=== PATIENT | male | born 2000 | race Caucasian/White ===

== ENCOUNTER → 2020-12-19 10:14 | Outpatient (BNVA) | payer OTHER, SELFPAY | PROVIDERS: Family Provider Pediatrics Adolescent Medicine; PCP Pediatrics Adolescent Medicine; Visit Provider Nurse Practitioner Family | DX: J02.9 Acute pharyngitis, unspecified (principal) | CPT/HCPCS: 87071; 87880 ==

== ENCOUNTER → 2023-10-15 13:07 | Outpatient (BNVA) | payer OTHER, SELFPAY | PROVIDERS: Family Provider Pediatrics Adolescent Medicine; PCP Pediatrics Adolescent Medicine; Visit Provider Nurse Practitioner | DX: Z20.2 Contact with and (suspected) exposure to infections with a predominantly sexual mode of transmission (principal) | CPT/HCPCS: 87491; 87591; 87661 ==

== ENCOUNTER → 2024-09-16 15:43 | Outpatient (BNVA) | payer OTHER, SELFPAY | PROVIDERS: Family Provider Pediatrics Adolescent Medicine; PCP Pediatrics Adolescent Medicine; Referring Provider Family Medicine; Visit Provider Specialist | DX: G62.9 Polyneuropathy, unspecified (principal); R20.0 Anesthesia of skin; R20.2 Paresthesia of skin | CPT/HCPCS: 95910 ==

== ENCOUNTER 2025-05-21 08:00 | Emergency (ER) | payer OTHER, SELFPAY ==
--- OUTSIDE RECORDS SUMMARY | 2024-07-16 07:32 | XMS_ITS | Encounter Summary ---
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 This section includes the names of all active insurance providers for the patient. Insurance Provider Type of Coverage Plan Name Start of Policy Coverage End of Policy Coverage Group Number Member ID Insurance Provider's Telephone Number Policy Forrester's Name Patient's Relationship to Policy Forrester [facility] Oct 15, 2024 [employer] [id number] GIULIANO NETTLES PATIENT Selected Encounter This section includes the information on record at [place] for the Encounter. Date/Time Encounter Type Encounter Description Reason Provider Source Jul 16, 2024 12:32 PM Outpatient [facility] ICD-10-CM Z02.89 Encounter for other administrative examinations JODEE BURKS David Encounter Template Text not used by [place] Assessments - Encounter Diagnoses This section includes the primary and secondary diagnoses documented for the Encounter. Date/Time Primary/Secondary Diagnosis Diagnosis Name Provider Source Jul 16, 2024 02:15 PM PRIMARY Encounter for other administrative examinations JODEE BURKS [facility] Plan of Treatment: Future Appointments (+ 6 months) and Future Tests (+/- 45 days) The Plan of Treatment section includes future care activities for the patient [facility] [place] [facility] This section includes future appointments and future orders which are active, pending or scheduled. Future Appointments This section includes appointments that were scheduled to occur 6 months from the date of the Encounter, up to a maximum of 20 appointments. The data comes from all [place] [facility]. Appointment Date/Time Appointment Type Appointme nt Facility Name Jul 24, 2024 09:00 AM [facility] [place] [facility] Jul 24, 2024 10:00 AM [facility] [place] [facility] Aug 05, 2024 01:00 PM [facility] [place] [facility] [facility] Aug 08, 2024 01:00 PM [facility] [place] Aug 08, 2024 01:01 PM [facility] [place] [facility] Aug 11, 2024 08:30 AM [facility] [place] Aug 26, 2024 08:30 AM [facility] Aug 27, 2024 11:00 AM [facility] [place] Sep 09, 2024 08:30 AM [facility] Sep 12, 2024 02:00 PM [facility] [place] Sep 16, 2024 03:45 PM [facility] [place] [facility] Oct 07, 2024 11:00 AM [facility] [place] Oct 13, 2024 03:00 PM [facility] Oct 16, 2024 01:20 PM [facility] [place] Oct 31, 2024 01:00 PM [facility] Nov 14, 2024 01:00 PM [facility] Nov 18, 2024 03:00 PM [facility] Nov 25, 2024 11:20 AM [facility] Nov 27, 2024 08:40 AM [facility] Nov 28, 2024 01:00 PM [facility] [place] Encounter Notes: All associated encounter notes This section contains the clinical notes associated to the Encounter. Date/Time Encounter Note(s) Provider Source Jul 16, 2024 09:29 AM C & P EXAMINATION NOTE: LOCAL TITLE: C&P EXAM STANDARD TITLE: C & P EXAMINATION NOTE DATE OF NOTE: JUL 16, 2024@09:29 ENTRY DATE: JUL 16, 2024@09:29:08 AUTHOR: JODEE BURKS COSIGNER: URGENCY: STATUS: COMPLETED Mr. Nettles was seen by this practitioner as a part of a Compensation and Pension examination, and a report will be issued in [facility] using the DBQ format. /glendy/ Jodee Burks PsyD Psychologist Signed: 07/16/2024 14:26 [facility]
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
--- OUTSIDE RECORDS SUMMARY | 2024-08-08 03:31 | XMS_ITS | Encounter Summary ---
Author Name [facility] [place] [facility] [place] Address [address] [place] [address] Care Team Providers Care Dispatcher Street Department Name Role Phone FREDDIE ROJAS Primary Care Provider Unavailabl e Insurance Providers: [...] Forrester's Name Patient's Relationship to Policy Forrester [facility] 2024 [facility] Oct 15, 2024 [facility] [id number] 97 GIULIANO NETTLES PATIENT Selected Encounter This section includes the information on record at [place] for the Encounter. Date/Time Encounter Type Encounter Description Reason Pro vider Source Aug 08, 2024 08:31 AM Outpatient Encounter AUDIOLOGY IHE Encounter Template Text not used by [facility] Plan of Treatment: Future Appointments (+ 6 months) and Future Tests (+/- 45 days) The Plan of Treatment section includes future care activities for the patient from all [facility] treatment[facility]ilities. This section includes future appointments and future orders which are active, pending or scheduled. Future Appointments This section includes appointments that were scheduled to occur 6 months from the date of the Encounter, up to a maximum of 20 appointments. The data comes from all [place] treatment facilities. Appointment Date/Time Appointment Type Appointme nt Facility Name Aug 11, 2024 08:30 AM [facility] Aug 26, 2024 08:30 AM [facility] Aug 27, 2024 11:00 AM [facility] Sep 09, 2024 08:30 AM [facility] Sep 12, 2024 02:00 PM [facility] Sep 16, 2024 03:45 PM [facility] [place] Oct 07, 2024 11:00 AM [facility] Oct 13, 2024 03:00 PM [facility] Oct 16, 2024 01:20 PM [facility] Oct 31, 2024 01:00 PM [facility] Nov 14, 2024 01:00 PM [facility] Nov 18, 2024 03:00 PM [facility] Nov 25, 2024 11:20 AM [facility] Nov 27, 2024 08:40 AM [facility] Nov 28, 2024 01:00 PM [facility] Dec 05, 2024 09:00 AM [facility] Dec 10, 2024 11:20 AM [facility] Dec 12, 2024 01:00 PM [facility] Dec 12, 2024 02:00 PM [facility] Dec 16, 2024 11:20 AM [facility]
--- OUTSIDE RECORDS SUMMARY | 2024-08-08 08:01 | XMS_ITS | Encounter Summary ---
Author Name [facility] [place] [facility] [place] Address [address] [place] [address] Care Team Providers Care Rough And Trueing Machine Operator Name Role Phone FREDDIE ROJAS Primary Care [...] Forrester's Name Patient's Relationship to Policy Forrester [facility] [address] [facility] Oct [facility], 2024 [facility] [id number] 97 GIULIANO NETTLES PATIENT Selected Encounter This section includes the information on record at [place] for the Encounter. Date/Time Encounter Type Encounter Description Reason Provider Source Aug 08, 2024 01:01 PM [facility] TEST PURE TONE AUDIOLOGY ICD-10-CM H93.13 Tinnitus, bilateral GRAVES,ALEXAND RA A IHE Encounter Template Text not used by [place] Assessments - Encounter Diagnoses This section includes the primary and secondary diagnoses documented for the Encounter. Date/Time Primary/Secondary Diagnosis Diagnosis Name Provider Source Aug 08, 2024 12:53 PM PRIMARY Tinnitus, bilateral GRAVES,LUIS FERNANDO A A [place] [facility] Aug 08, 2024 12:53 PM SECONDARY Snsrnrl hear loss, uni, right ear, w unrestr hear cntra side LUIS FERNANDO [place] A [place] Plan of Treatment: Future Appointments (+ 6 months) and Future Tests (+/- 45 days) The Plan of Treatment section includes future care activities for the patient from all [place] [facility]. This section includes future appointments and future orders which are active, pending or scheduled. Future Appointments This section includes appointments that were scheduled to occur 6 months from the date of the Encounter, up to a maximum of 20 appointments. The data comes from all [place] treatment facilities. Appointment Date/Time Appointment Type Appointme nt Facility Name Aug 11, 2024 08:30 AM [facility] Aug 26, 2024 08:30 AM [facility] Aug 27, 2024 11:00 AM [facility] Sep 09, 2024 08:30 AM [facility] Sep 12, 2024 02:00 PM [facility] Sep 16, 2024 03:45 PM [facility] [place] [facility] Oct 07, 2024 11:00 AM [facility] Oct 13, 2024 03:00 PM [facility] Oct 16, 2024 01:20 PM [facility] Oct 31, 2024 01:00 PM [facility] Nov 14, 2024 01:00 PM [facility] Nov 18, 2024 03:00 PM [facility] Nov 25, 2024 11:20 AM [facility] Nov 27, 2024 08:40 AM [facility] Nov 28, 2024 01:00 PM [facility] Dec 05, 2024 09:00 AM [facility] Dec 10, 2024 11:20 AM [facility] Dec 12, 2024 01:00 PM [facility] Dec 12, 2024 02:00 PM [facility] Dec 16, 2024 11:20 AM [facility] Encounter Notes: All associated encounter notes This section contains the clinical notes associated to the Encounter. Date/Time Encounter Note(s) Provider Source Aug 08, 2024 08:55 AM AUDIOLOGY NOTE: LOCAL TITLE: HEARING CLINIC PB STANDARD TITLE: AUDIOLOGY NOTE DATE OF NOTE: AUG 08, 2024@08:55 ENTRY DATE: AUG 08, 2024@08:55:49 AUTHOR: RUTH CLAYTON COSIGNER: URGENCY: STATUS: COMPLETED Diagnosis: Sensorineural Hearing Loss, Right and Tinnitus, Bilateral Treatment: Hearing Evaluation Time spent with : 60 minutes seen for an audiogram via Audio Telehealth and verbally consented to the Telehealth modality. Multi-factor personally identifiable information of the was obtained verbally (full name and date of ). accompanied by: none Patient site: [facility] AUDIOLOGIC HISTORY: Patient seen today for an initial hearing evaluation. 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 shooter) HEARING DEVICES: none AUDIOMETRIC EXAM: Otoscopy was performed by collaboration of telehealth clinical dish technician and provider via telehealth technology/video otoscope which revealed: Right: unremarkable Left: unremarkable Tympanograms: Right: consistent with normal middle ear function Left: consistent with normal middle ear function Acoustic Reflex Thresholds: not performed due to time constraints Pure-Tone Air and Bone-Conduction Audiometric Testing revealed: Right: within normal limits through 2000 Hz, mild to moderate sensorineural hearing loss Left: within normal limits Speech Electronic Drafter Threshold testing yielded: Right: 20 dBHL Left: 10 dBHL Word Recognition testing yielded: Right: 100% @ 60 dBHL Left: 100% @ 60 dBHL Word scoring may be impacted by quality of audio through telehealth medium. Test Reliability: Good. Negative pure-tone Laci at 4000 Hz. PROVIDER COMMENTS/RECOMMENDATIONS: Hearing test results were reviewed with patient. Patient is not interested in a hearing aid trial at this time. Counseled patient regarding effective communication strategies, importance of using hearing protection in high level noise, tinnitus, and factors affecting tinnitus. Patient declined interest in a bedside sound generator. PLAN: Recommend one year re-test to monitor asymmetry [place] expressed understanding and is in agreement with the plan. /glendy/ Ibrahima Feldman [facility] Signed: 08/08/2024 13:14 RUTH CLAYTON [facility]
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
--- OUTSIDE RECORDS SUMMARY | 2024-10-13 10:00 | XMS_ITS | Encounter Summary ---
Author Name [facility] Organization [facility] Address [address] [place] [address] Care Team Providers Care Yarn Winder Name Role Phone FREDDIE ROJAS Primary Care [...] Forrester's Name Patient's Relationship to Policy Forrester [facility] 2024 [facility] WNR Oct 15, 2024 [facility] [phone] GIULIANO NETTLES PATIENT Selected Encounter This section includes the information on record at MD for the Encounter. Date/Time Encounter Type Encounter Description Reason Provider Source Oct 13, 2024 03:00 PM OFFICE O/P EST MOD 30 MIN [facility] - IND ICD-10-CM F43.12 Post-traumatic stress disorder, chronic TG HENDERSON Encounter Template Text not used by MD Assessments - Encounter Diagnoses This section includes the primary and secondary diagnoses documented for the Encounter. Date/Time Primary/Secondary Diagnosis Diagnosis Name Provider Source Oct 13, 2024 03:29 PM PRIMARY Post-traumatic stress disorder, chronic TG HENDERSON [facility] Oct 13, 2024 03:29 PM SECONDARY Major depressive disorder, recurrent, moderate [facility] Oct 13, 2024 03:29 PM SECONDARY Personal history of traumatic brain injury TG HENDERSON [facility] Plan of Treatment: Future Appointments (+ 6 months) and Future Tests (+/- 45 days) The Plan of Treatment section includes future care activities for the patient from all MD treatmentfacilities. This section includes future appointments and future orders which are active, pending or scheduled. Future Appointments This section includes appointments that were scheduled to occur 6 months from the date of the Encounter, up to a maximum of 20 appointments. The data comes from all MD treatment facilities. Appointment Date/Time Appointment Type Appointme nt Facility Name Oct 16, 2024 01:20 PM [facility] Oct 31, 2024 01:00 PM [facility] Nov 14, 2024 01:00 PM [facility] Nov 18, 2024 03:00 PM [facility] Nov 25, 2024 11:20 AM [facility] Nov 27, 2024 08:40 AM [facility] Nov 28, 2024 01:00 PM [facility] Dec 05, 2024 09:00 AM [facility] Dec 10, 2024 11:20 AM [facility] Dec 12, 2024 01:00 PM [facility] Dec 12, 2024 02:00 PM [facility] Dec 16, 2024 11:20 AM [facility] Dec 26, 2024 01:00 PM [facility] Dec 31, 2024 09:00 AM [facility] Jan 09, 2025 01:00 PM [facility] Jan 15, 2025 01:00 PM [facility] Feb 06, 2025 01:00 PM [facility] February 26, 2025 03:00 PM [facility] March 06, 2025 01:00 PM AMBULATORY - MEDICINE [facility] Mar 30, 2025 01:00 PM AMBULATORY - MEDICINE [facility] Vital Signs: All taken on the encounter date This section contains inpatient and outpatient Vital Signs collected on the date of the Encounter. Date/Time Temperature Pulse Blood Pressure Respiratory Rate SP02 Pain Height Weight Body Mass Index Source Oct 13, 2024 03:00 PM 98 96 137/79 18 96 5 73 288.3 38 [facility] Social History: Smoking Status (Most current) and Tobacco Use (All prior to encounter date) This section includes the most current, and the historical, smoking and tobacco- related health factors from the MD facility where the Encounter took place. Current Smoking Status This section includes the most current smoking, or tobacco-related health factor, from the MD facility where the Encounter took place. Date/Time Current Smoking Status Comment Facil ity Dec 10, 2023 02:01 PM VA-TOBACCO USER SOME DAYS [facility] Tobacco Use History This section includes a history of the smoking, or tobacco-related health factors, that were collected on or before the date of the Encounter. The data comes from the MD facility where the Encounter took place. 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 Date/Time Encounter Note(s) Provider Source Oct 13, 2024 03:32 PM PSYCHIATRY NOTE: LOCAL TITLE: PSYCHIATRIC PROGRESS NOTE PB STANDARD TITLE: PSYCHIATRY NOTE DATE OF NOTE: OCT 13, 2024@15:32 ENTRY DATE: OCT 13, 2024@15:32:15 AUTHOR: TG HENDERSON COSIGNER: URGENCY: STATUS: COMPLETED CC: down HPI: RUSSELL NETTLES KRIS ARIAS is a 24-year-old man with a history of MDD and TBI who presents for medication management follow up appointment after last appointment on 09/12/24 where he was continued on Cymbalta that was increased to 90mg qam for mood and started on trazodone for insomnia. Patient reported compliance with meds with no side effects and good clinical effect. Patient denied any suicidal or homicidal ideation. Today patient reports that mood is down with no depression or anxiety symptoms except: anhedonia and amotivation. Current stressors include: pain issues and starting college soon. Patient denied manic or psychotic symptoms or history. Interval Social History changes: none ROS: pain Constitutional: good Weight: stable Sleep: fair Energy: low allergies reviewed: Patient has answered NKA PROBLEM LIST PER CPRS: reviewed 1) Traumatic brain injury 2) Morbid Obesity ([facility] [id number]) 3) GERD - Gastro-Esophageal Reflux Disease ([facility] [id number]) 4) Obstructive sleep apnea 5) Hearing Loss ([facility] [id number]) 6) Vitamin D Deficiency ([facility] [id number]) 7) Chronic pain 8) Cephalgia 9) Exposure to potentially hazardous substance 10) Chronic post-traumatic stress disorder 11) Bilateral tinnitus MEDICATIONS: reviewed Active and Recently Outpatient Medications (including Supplies): Active Outpatient Medications Status 1) CALCITONIN,SALMON 200UNIT 30D NASAL INHL INSTILL 1 SPRAY ACTIVE ONLY IN ONE NOSTRIL ONLY ONCE A DAY ALTERNATE NOSTRILS WITH EACH DOSE Indication: FRACTURE PAIN 2) CHOLECALCIF 50MCG (D3-2,000UNIT) TAB TAKE ONE TABLET BY ACTIVE MOUTH ONCE A DAY Indication: FOR VITAMIN D DEFICIENCY 3) DULOXETINE HCL 30MG EC CAP TAKE THREE CAPSULES BY MOUTH ONCE ACTIVE A DAY DO NOT ABRUPTLY DISCONTINUE MEDICATION. Indication: FOR DEPRESSION & PAIN 4) GABAPENTIN 300MG CAP TAKE ONE CAPSULE BY MOUTH THREE TIMES A ACTIVE DAY Indication: FOR NERVE PAIN 5) OMEPRAZOLE 40MG EC CAP TAKE ONE CAPSULE BY MOUTH EVERY ACTIVE MORNING BEFORE A MEAL TAKE 30 MINUTES PRIOR TO FOOD. Indication: FOR GASTROESOPHAGEAL REFLUX DISEASE 6) TRAZODONE HCL 100MG TAB TAKE ONE TABLET BY MOUTH AT BEDTIME ACTIVE NEEDED TAKE ONE-HALF TO ONE TABLET BY MOUTH AT BEDTIME NEEDED . Indication: FOR INSOMNIA Pending Outpatient Medications Status 1) ARIPIPRAZOLE 10MG TAB TAKE ONE-HALF TABLET BY MOUTH AT PENDING BEDTIME Indication: FOR DEPRESSION 7 Total Medications I have reviewed current medications w/ [place] at this visit. Medication list and allergy list has been updated. Efficacy and side effects of the medications were reviewed and the was provided a current medication list. denies questions, concerns, or problems with medications. O: reviewed Patient Weight History - Last Four 1. 294.7 lbs. / 133.7 kg. on SEP 12, 2024@13:59:57 2. 290.4 lbs. / 131.7 kg. on JUL 16, 2024@13:19 3. 290.7 lbs. / 131.9 kg. on FEBRUARY 21, 2024@08:59:56 4. 297.7 lbs. / 135.0 kg. on JAN 10, 2024@09:18:01 BMI: 39.0 Vitals (Per CPRS data): Temperature: 97.3 F [36.3 C] (10/07/2024 11:00) Blood Pressure: 128/82 (10/07/2024 11:00) Pulse: 62 (10/07/2024 11:00) Respirations: 18 (09/12/2024 13:59) MENTAL STATUS EXAM: Appearance and Behavior: The patient appears stated age. Attention to Hygiene: good Clothing: appropriate Eye [...] year, and situation Memory: Immediate Recall: intact Hrfek-an-ylvi-minute recall: intact Attention and Concentration: good Language: Naming common objects: intact Repeating phrases: intact Fund of knowledge: Current events awareness: good Vocabulary: good Mood and Affect: Mood: down Affect: euthymic, restricted range Therapy provided in addition to e&m visit: Time spent in therapy: 16 minutes Total visit time: 30 minutes Modality: Supportive Psychotherapy Goals: Reduce overall frequency, intensity, and duration of the depression so daily functioning is not impaired. Focus: Learn and implement coping skills that result in a reduction of depression and improved daily functioning. Recent labs: No COMPREHENSIVE METABOLIC PANEL data found No CBC EO data found No HGA1C data found No LIPID PANEL EO data found No TSH data found No URINALYSIS EO data found No URINE DRUG SCREEN EO data found Assessment: Patient is a 24yo man with MDD and TBI that is partially controlled with current treatment plan. He continued to have poor motivation and was agreeable to a trial of Abilify to augment SNRI for mood. Patient is a low acute and low chronic suicide risk based on risk assessment and can safely be managed on an outpatient basis. Diagnosis: MDD, recur., moderate TBI Plan: 1. Continue Cymbalta 90mg qam for mood 2. Continue trazodone for insomnia 3. Start Abilify 5mg hs for mood 4. RTC 2 months Discussed risks, benefits, side effects. Patient expressed [...] procedures were reviewed including 988,sucide prevention lifeline(1- [phone]). [place] advised to return to ER or come in as walk-in to the clinic, should they experience any crisis. [place] had an opportunity to ask questions and agreed with the treatment plan. The was instructed to contact mental health (or primary care clinic) with any problems or concerns. /es/ TG Mohamud [facility] Signed: 10/14/2024 15:06 TG HENDERSON [facility] Oct 13, 2024 03:30 PM PRIMARY CARE EDUCA TION NOTE: LOCAL TITLE: OPT PHY INSTR AUTO PB STANDARD TITLE: PRIMARY CARE EDUCATION NOTE DATE OF NOTE: OCT 13, 2024@15:30 ENTRY DATE: OCT 13, 2024@15:30:15 AUTHOR: TG HENDERSON EXP COSIGNER: URGENCY: STATUS: COMPLETED This documentation is related to: . F/U Visit Description of Today's Injury/Illness: MH MED MGMT Mental Health Testing: RETURN TO CLINIC: Return appointment is needed. . Special Instructions: . None. MEDICATION REVIEW/ASSESSMENT & PLAN: 1. Start Abilify 5mg hs mood 2. Continue duloxetine 90mg qam mood 3. Continue trazodone 100mg hs insomnia 4. RTC 2 months Active Outpatient Medications (including Supplies): Active Outpatient Medications Status 1) CALCITONIN,SALMON 200UNIT 30D NASAL INHL INSTILL 1 SPRAY ACTIVE ONLY IN ONE NOSTRIL ONLY ONCE A DAY ALTERNATE NOSTRILS WITH EACH DOSE Indication: FRACTURE PAIN 2) CHOLECALCIF 50MCG (D3-2,000UNIT) TAB TAKE ONE TABLET BY ACTIVE MOUTH ONCE A DAY Indication: FOR VITAMIN D DEFICIENCY 3) DULOXETINE HCL 30MG EC CAP TAKE THREE CAPSULES BY MOUTH ONCE ACTIVE A DAY DO NOT ABRUPTLY DISCONTINUE MEDICATION. Indication: FOR DEPRESSION & PAIN 4) GABAPENTIN 300MG CAP TAKE ONE CAPSULE BY MOUTH THREE TIMES A ACTIVE DAY Indication: FOR NERVE PAIN 5) OMEPRAZOLE 40MG EC CAP TAKE ONE CAPSULE BY MOUTH EVERY ACTIVE MORNING BEFORE A MEAL TAKE 30 MINUTES PRIOR TO FOOD. Indication: FOR GASTROESOPHAGEAL REFLUX DISEASE 6) TRAZODONE HCL 100MG TAB TAKE ONE TABLET BY MOUTH AT BEDTIME ACTIVE NEEDED TAKE ONE-HALF TO ONE TABLET BY MOUTH AT BEDTIME NEEDED . Indication: FOR INSOMNIA Pending Outpatient Medications Status 1) ARIPIPRAZOLE 10MG TAB TAKE ONE-HALF TABLET BY MOUTH AT PENDING BEDTIME Indication: FOR DEPRESSION 7 Total Medications Medication reconciliation performed with confirmed /significant other and /significant other voiced an understandng of current medications? Yes /significant other were provided an updated medication list. Following results reviewed and discussed with patient: None Future Appointments: 10/16/2024 13:20 PB-CON [facility]O 10/31/2024 13:00 PB-CON BH DIE WELDER IND TURQ 11/14/2024 13:00 PB-CON BH DIE WELDER IND TURQ 11/18/2024 15:00 PB-CON [facility]O 11/25/2024 11:20 PB-CON [facility]O 11/27/2024 08:40 PB-[facility] ( 11/28/2024 13:00 PB-CON BH DIE WELDER IND TURQ 12/04/2024 11:20 PB-CON CHIRO 12/05/2024 09:00 PB-CON PACT ECHO PCP 12/10/2024 11:20 PB-CON [facility]O 12/12/2024 13:00 PB-CON BH DIE WELDER IND TURQ 12/12/2024 14:00 PB-CON IND BH PSI BRASS 12/16/2024 11:20 PB-CON CHIRO 12/26/2024 13:00 PB-CON BH DIE WELDER IND TURQ 01/09/2025 13:00 PB-CON BH DIE WELDER IND TURQ 01/23/2025 13:00 PB-CON BH DIE WELDER IND TURQ 02/06/2025 13:00 PB-CON BH DIE WELDER IND TURQ 02/20/2025 13:00 PB-CON BH DIE WELDER IND TURQ 03/06/2025 13:00 PB-CON BH DIE WELDER IND TURQ // TG Mohamud [facility] Signed: 10/13/2024 15:31 TG HENDERSON [facility] Oct 13, 2024 03:00 PM NURSING PROGRESS N OTE: LOCAL TITLE: NURSING NOTE PB STANDARD TITLE: NURSING PROGRESS NOTE DATE OF NOTE: OCT 13, 2024@15:00 ENTRY DATE: OCT 13, 2024@15:00:16 AUTHOR: THANH XIAO EXP COSIGNER: URGENCY: STATUS: COMPLETED [place] is here for his scheduled F2F psychiatry appt. He is alert and oriented, resps even and unlabored, gait steady. [place] is pleasant, conversational and states he has been doing good. He states the other day he had a couple haltered colts, one in each hand and they decided to go separate directions. [place] talked about liking his job with the [employer], his jobs are not that much of a strain on his back. Active Outpatient Medications: Active Outpatient Medications (including Supplies): Active Outpatient Medications Status 1) CALCITONIN,SALMON 200UNIT 30D NASAL INHL INSTILL 1 SPRAY ACTIVE ONLY IN ONE NOSTRIL ONLY ONCE A DAY ALTERNATE NOSTRILS WITH EACH DOSE Indication: FRACTURE PAIN 2) CHOLECALCIF 50MCG (D3-2,000UNIT) TAB TAKE ONE TABLET BY ACTIVE MOUTH ONCE A DAY Indication: FOR VITAMIN D DEFICIENCY 3) DULOXETINE HCL 30MG EC CAP TAKE THREE CAPSULES BY MOUTH ONCE ACTIVE A DAY DO NOT ABRUPTLY DISCONTINUE MEDICATION. Indication: FOR DEPRESSION & PAIN 4) GABAPENTIN 300MG CAP TAKE ONE CAPSULE BY MOUTH THREE TIMES A ACTIVE DAY Indication: FOR NERVE PAIN 5) OMEPRAZOLE 40MG EC CAP TAKE ONE CAPSULE BY MOUTH EVERY ACTIVE MORNING BEFORE A MEAL TAKE 30 MINUTES PRIOR TO FOOD. Indication: FOR GASTROESOPHAGEAL REFLUX DISEASE 6) TRAZODONE HCL 100MG TAB TAKE ONE TABLET BY MOUTH AT BEDTIME ACTIVE NEEDED TAKE ONE-HALF TO ONE TABLET BY MOUTH AT BEDTIME NEEDED . Indication: FOR INSOMNIA [place] states he is taking the above meds as prescribed EXCEPT he is taking 100mg of trazodone and is not taking calcitonin nasal spray. He denies any change in side effects with duloxetine or trazodone and they are effective. Pain Assessment: - PAIN ASSESSMENT: .. This patient's last pain assessment score was: 6 (09/12/2024 13:59). A detailed pain assessment showed the following: Pain characteristics (per patient's own words) Constant, Aching Location of current pain Low Back Onset/Duration of the current pain. Constant or variable? More than a year Patient's self-identified pain level: 6 was escorted to room 112 for his appt with Dr Henderson. /glendy/ LAXMI RUSS, RN [facility] Signed: 10/13/2024 15:31 THANH XIAO [facility]
--- OUTSIDE RECORDS SUMMARY | 2024-11-28 08:00 | XMS_ITS | Encounter Summary ---
Author Name [facility] [place] [facility] Address [address] [place] [address] Care Team Providers Care Cassandra Consultant Name Role Phone FREDDIE RJOAS Primary Care Provider Unavailabl e Insurance Providers: [...] Forrester's Name Patient's Relationship to Policy Forrester [facility] 2024 [facility] WNR Oct 15, 2024 SELECT [id number] GIULIANO NETTLES PATIENT Selected Encounter This section includes the information on record at [place] for the Encounter. Date/Time Encounter Type Encounter Description Reason Provider Source Nov 28, 2024 01:00 PM PSYTX W PT 60 [facility]UTES [facility] ICD-10-CM F43.12 Post-traumatic stress disorder, chronic LOWELL RILEY Encounter Template Text not used by [place] Assessments - Encounter Diagnoses This section includes the primary and secondary diagnoses documented for the Encounter. Date/Time Primary/Secondary Diagnosis Diagnosis Name Provider Source Nov 28, 2024 04:15 PM PRIMARY Post-traumatic stress disorder, chronic [facility] Plan of Treatment: Future Appointments (+ 6 months) and Future Tests (+/- 45 days) The Plan of Treatment section includes [facility] care [facility] the [facility] [place] [facility] This section includes future appointments and future orders which are active, pending or scheduled. Future Appointments This section includes appointments that were scheduled to occur 6 months from the date of the Encounter, up to a maximum of 20 appointments. The data comes from all [place] treatment facilities. Appointment Date/Time Appointment Type Appointme nt Facility Name Dec 05, 2024 09:00 AM [facility] Dec 10, 2024 11:20 AM [facility] Dec 12, 2024 01:00 PM [facility] Dec 12, 2024 02:00 PM [facility] Dec 16, 2024 11:20 AM [facility] Dec 26, 2024 01:00 PM [facility] Dec 31, 2024 09:00 AM [facility] Jan 09, 2025 01:00 PM [facility] Jan 15, 2025 01:00 PM [facility] Feb 06, 2025 01:00 PM [facility] February 26, 2025 03:00 PM [facility] March 06, 2025 01:00 PM [facility] Mar 30, 2025 01:00 PM [facility] Apr 07, 2025 03:40 PM [facility] Apr 13, 2025 02:00 PM [facility] Apr 24, 2025 09:45 AM [facility] - [facility] [place] [facility] May 04, 2025 03:00 PM [facility] May 05, 2025 08:30 AM [facility] - [facility] [place] May 13, 2025 08:30 AM [facility] - [facility] [place] [facility] Active, Pending, and Scheduled Orders This section includes a listing of several types of active, pending, and scheduled orders, including clinic medications orders, diagnostic test orders, procedure orders and consult orders; where the start date of the order is 45 days before the date of the Encounter or 45 days after the date of theEncounter. The data comes from all [place] treatment facilities. Test Date/Time Test Type Test Details Facility Name Dec 09, 2024 12:00 AM Laboratory - Chemistry Order COMPREHENSIVE METABOLIC PANEL GREEN LI/HEP BLD/PLAS PLASMA SP [facility] Dec 09, 2024 12:00 AM Laboratory - Chemistry Order HGA1C BLOOD [facility] Dec 09, 2024 12:00 AM Laboratory - Chemistry Order CHOLESTEROL PANEL (PB) GREEN LI/HEP BLD/PLAS PLASMA [facility] Dec 09, 2024 12:00 AM Laboratory - Chemistry Order TSH (MA-PB-STL) GOLD/RED [facility] Dec 10, 2024 12:00 AM Laboratory - Chemistry Order CBC BLOOD [facility] Dec 10, 2024 12:00 AM Laboratory - Chemistry Order VITAMIN D, 25-HYDROXY GOLD/RED SST [facility] Social History: Smoking Status (Most current) and Tobacco Use (All prior to encounter date) This section includes the most current, and the historical, smoking and tobacco- related health factors from the [place] facility where the Encounter took place. Current Smoking Status This section includes the most current smoking, or tobacco-related health factor, from the [place] facility where the Encounter took place. Date/Time Current Smoking Status Comment Chelsey ity Dec 10, 2023 02:01 PM VA-TOBACCO USER SOME DAYS [facility] Tobacco Use History This section includes a history of the smoking, or tobacco-related health factors, that were collected on or before the date of the Encounter. The data comes from the [place] facility where the Encounter took place. 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 Date/Time Encounter Note(s) Provider Source Nov 28, 2024 04:17 PM COUNSELING NOTE: LOCAL TITLE: LICENSED PROFESSIONAL COUNSELOR GENERAL NOTE PB STANDARD TITLE: COUNSELING NOTE DATE OF NOTE: NOV 28, 2024@16:17 ENTRY DATE: NOV 28, 2024@16:19:59 AUTHOR: ANY RILEY COSIGNER: URGENCY: STATUS: COMPLETED PATIENT: RUSSELL NETTLES GENDER: MALE AGE: 24 DATE OF : Mar Service Connected: Yes (90%) VISIT DATE: Nov@13:00 Relevant Changes in Mental Status: No changes. MENTAL STATUS EVALUATION APPEARANCE Neat SPEECH Normal BEHAVIOR Appropriate, Cooperative MOOD AFFECT Appropriate, Full range (normal) THOUGHT CONTENT/DELUSIONS Normal (Logical) HALLUCINATIONS Not evident SUICIDAL (POSITIVE RESPONSE TO ONE OF THESE REQUIRES SUICIDE RISK ASSESSMENT) Denied HOMICIDAL: Patient has exhibited these warning signs: Other: Denied COGNITION Oriented to Person, Oriented to Place, Oriented to Time, Oriented to Purpose, Alert, Normal Concentration, Normal , Insight/Judgment, Normal Memory, Normal Intelligence, Normal Abstraction, Literate Relevant historical changes since last contact: No changes. Intervention/Treatment Provided(required): Provided supportive and cognitive-based psychotherapy, Provided insight oriented psychotherapy PERTINENT THEMES DISCUSSED: Other: reports that he is having a good day today but the rest of the week has been terrible. [place] reports that he has roldan depressed and anxious and can't identify why he has been that way. reports that going to his college classes has produced a lot of anxiety. He reports that some days he has a difficult time paying attention during class because he is watching for anyone that appears unusual or out of place. reports that he goes to class early to choose a place to sit that he can watch the exits. We explored and processed emotions and cognitions related to such, identified and challenged negative cognitions, and discussed coping skills and self-care. GOAL(S)ADDRESSED IN THIS SESSION (required): Develop and implement effective coping skills required to carry out normal daily responsibilities and designed to terminate destructive behaviors/cognitions while implementing behaviors that promote healing from and acceptance of past events in order to reduce adverse PTSD symptoms. PROGRESS OF SESSION OR THERAPY TO DATE (required): Minimal progress RECOMMENDATIONS/PLAN (required): Continue individual psychotherapy. DIAGNOSIS TREATED THIS VISIT: Posttraumatic stress disorder TIME SPENT WITH PATIENT: 53-67 minutes, Ind. Psychotherapy, [id number] /CHITRA Hollins [facility] Signed: 12/05/2024 08:06 [facility] Nov 28, 2024 04:10 PM SUICIDE PREVENTION NOTE: LOCAL TITLE: [place]-SUICIDE SEVERITY RATING SCALE STANDARD TITLE: SUICIDE PREVENTION NOTE DATE OF NOTE: NOV 28, 2024@16:10 ENTRY DATE: NOV 28, 2024@16:10:54 AUTHOR: ANY RILEY EXP COSIGNER: URGENCY: STATUS: COMPLETED [place]-Suicide Severity Rating Scale (C-SSRS Screener) 1. Over the past month, have you wished you were or wished you could go to sleep and not wake up? No 2. Over the past month, have you had any actual thoughts of killing yourself? No 3. Over the past month, have you been thinking about how you might do this? Response not required due to responses to other questions. 4. Over the past month, have you had these thoughts and had some intention of acting on them? Response not required due to responses to other questions. 5. Over the past month, have you started to work out or worked out the details of how to kill yourself? Response not required due to responses to other questions. 6. If yes, at any time in the past month did you intend to carry out this plan? Response not required due to responses to other questions. 7. In your lifetime, have you ever done anything, started to do anything, or prepared to do anything to end your life (for example, collected pills, obtained a gun, gave away valuables, went to the roof but didn't jump)? No 8. If YES, was this within the past 3 months? Response not required due to responses to other questions. I have reviewed the results of the Mental Health screens and have evaluated the patient. Based on the evaluation, the following disposition plan will be implemented: Already receiving needed treatment. Contact information and instructions for accessing emergency services provided. /CHITRA Hollins [facility] Signed: 11/28/2024 16:15 [facility]
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
--- OUTSIDE RECORDS SUMMARY | 2025-03-06 08:00 | XMS_ITS | Encounter Summary ---
Author Name [facility] [place] [facility] [place] Address [address] [place] [address] Care Team Providers Care Web Offset Press Feeder Name Role Phone FREDDIE ROJAS Primary Care [...] Forrester's Name Patient's Relationship to Policy Forrester [facility] 2024 [facility] WNR Oct 15, 2024 [facility] [id number] [phone] GIULIANO NETTLES PATIENT Selected Encounter This section includes the information on record at [place] for the Encounter. Date/Time Encounter Type Encounter Description Reason Provider Source March 06, 2025 01:00 PM PSYTX W PT 60 MINUTES [facility] - IND ICD-10-CM F33.1 Major depressive disorder, recurrent, moderate ROSEMARYLOWELL MACIEL Encounter Template Text not used by [facility] Assessments - Encounter Diagnoses This section includes the primary and secondary diagnoses documented for the Encounter. Date/Time Primary/Secondary Diagnosis Diagnosis Name Provider Source March 06, 2025 04:11 PM PRIMARY Major depressive disorder, recurrent, moderate ANY [facility] Plan of Treatment: Future Appointments (+ 6 months) and Future Tests (+/- 45 days) The Plan of Treatment section includes future care activities for the patient from all [place] [facility]. This section includes future appointments and future orders which are active, pending or scheduled. Future Appointments This section includes appointments that were scheduled to occur 6 months from the date of the Encounter, up to a maximum of 20 appointments. The data comes from all [place] treatment facilities. Appointment Date/Time Appointment Type Appointme nt Facility Name Mar 30, 2025 01:00 PM AMBULATORY [place]IC[place] [facility] Apr 07, 2025 03:40 PM [facility] Apr 13, 2025 02:00 PM AMBULATORY - MEDICINE [facility] Apr 24, 2025 09:45 AM AM[facility]UL[facility]ORY - [place] [facility] May 04, 2025 03:00 PM AMBULATORY - MEDICINE [facility] May 05, 2025 08:30 AM [facility] [place] [facility] May 13, 2025 08:30 AM [facility]UL[facility]ORY [facility] [place] [facility] Jun 29, 2025 01:00 PM [facility]ORY [facility]IC[place] [facility] Jul 13, 2025 09:30 AM AMBULATORY - MEDICINE [facility] Jul 29, 2025 08:30 AM AMBULATORY - MEDICINE [facility] Aug 12, 2025 08:30 AM AMBULATORY - MEDICINE [facility] Aug 26, 2025 08:30 AM AMBULATORY - MEDICINE [facility] Social History: Smoking Status (Most current) and Tobacco Use (All prior to encounter date) This section includes the most current, and the historical, smoking and tobacco- related health factors from the [place] facility where the Encounter took place. Current Smoking Status This section includes the most current smoking, or tobacco-related health factor, from the [place] facility where the Encounter took place. Date/Time Current Smoking Status Comment Chelsey ity Dec 10, 2023 02:01 PM VA-TOBACCO USER SOME DAYS [facility] Tobacco Use History This section includes a history of the smoking, or tobacco-related health factors, that were collected on or before the date of the Encounter. The data comes from the [place] facility where the Encounter took place. Date/Time Smoking Status/Tobacco Use Comment F acility Dec 10, 2023 02:01 PM VA-TOBACCO USE 5 TO 15 YEARS [place] [facility] Dec 10, 2023 02:01 PM VA-TOBACCO USE ADVICE [facility] Dec 10, 2023 02:01 PM VA-TOBACCO USE HEALTH CARE MARKETING SPECIALIST NO [facility] Dec 10, 2023 02:01 PM VA-TOBACCO USE MED NO [facility] Dec 10, 2023 02:01 PM VA-TOBACCO USER SOME DAYS [facility] Radiology Reports: +/- 30 days of the [...] the Encounter. The data comes from all [place] treatment facilities. Date/Time Radiology Report Provider Source February 26, 2025 03:25 PM SHOULDER,LEFT,2 OR MORE VIEWS: RUSSELL NETTLES [id number] -[id number] M Exm Date: FEBRUARY 26, 2025@15:25 Req Phys: FREDDIE ROJAS Pat Loc: PB-CON PACT ECHO PCP (Req'g Lo Img Loc: PB-XRAY [place] Service: [place] [address] (Case [id number] COMPLETE) SHOULDER,LEFT,2 OR MORE VIEWS (RAD Detailed) CPT:26105 Proc Modifiers : LEFT Reason for Study: worsening pain Clinical History: no injury Report Status: Verified Date Reported: FEBRUARY 27, 2025 Date Verified: FEBRUARY 27, 2025 Waterproof Material Folder E-Sig: Report: 2 views of the left shoulder reveal no acute osseous or adjacent soft tissue abnormality. Impression: No acute process Primary Interpreting Staff: KEVIN PRITCHARD RADIOLOGIST (Waterproof Material Folder, no e-sig) /KEVIN Bell [facility] Encounter Notes: All associated encounter notes This section contains the clinical notes associated to the Encounter. Date/Time Encounter Note(s) Provider Source March 06, 2025 01:50 PM COUNSELING NOTE: LOCAL TITLE: LICENSED PROFESSIONAL COUNSELOR GENERAL NOTE PB STANDARD TITLE: COUNSELING NOTE DATE OF NOTE: MARCH 06, 2025@13:50 ENTRY DATE: MARCH 06, 2025@13:51 AUTHOR: ANY [facility] EXP COSIGNER: URGENCY: STATUS: COMPLETED PATIENT: RUSSELL NETTLES GENDER: MALE AGE: 24 DATE OF : Mar Service Connected: Yes (90%) VISIT DATE: February@13:00 Relevant Changes in Mental Status: No changes. [...] PERTINENT THEMES DISCUSSED: Other: reports that he has finished his semester classes and did well in school. [place] reports that the semester was difficult for him due to is anxiety of being in classrooms with other groups of people. reports that he is depressed because of his chronic pain. [place] reports that he would like to work but his pain limits how much he can do. [place] reports that when he is depressed he is more irritable with his and he knows that this is causing a strain in their relationship. We explored and processed emotions and cognitions [...] Continue individual psychotherapy. DIAGNOSIS TREATED THIS VISIT: PTSD TIME SPENT WITH PATIENT: 53-67 minutes, Ind. Psychotherapy, [id number] /glendy/ CHITRA GUERRERO [facility] Signed: 03/12/2025 22:29 ANY [facility]
--- OUTSIDE RECORDS SUMMARY | 2025-04-24 04:45 | XMS_ITS | Encounter Summary ---
Author Name [facility] [place] [facility] [place] [facility] [place] Address [address] [place] [address] Care Team Providers Care Second Time Worker Name Role Phone FREDDIE ROJAS Primary Care [...] Forrester's Name Patient's Relationship to Policy Forrester [facility] [address] [facility] WNR Oct 15, 2024 [facility] [id number] [phone] GIULIANO NETTLES PATIENT Selected Encounter This section includes the information on record at [place] for the Encounter. Date/Time Encounter Type Encounter Description Reason Provider Source Apr 24, 2025 09:45 AM COMPRE OPH EXAM NEW PT 1/> OPTOMETRY ICD-10-CM H02.021 Mechanical entropion of right upper eyelid SHIRA ISSA S IHE Encounter Template Text not used by [place] Assessments - Encounter Diagnoses This section includes the primary and secondary diagnoses documented for the Encounter. Date/Time Primary/Secondary Diagnosis Diagnosis Name Provider Source Apr 24, 2025 09:35 AM PRIMARY Mechanical entropion of right upper eyelid ISSA,SHIRA S [place] [facility] Apr 24, 2025 09:35 AM SECONDARY Mechanical entropion of left upper eyelid SHIRA ISSA [facility] Apr 24, 2025 09:35 AM SECONDARY Regular astigmatism, bilateral SHIRA ISSA S ROSALBA [facility] Plan of Treatment: Future Appointments (+ 6 months) and Future Tests (+/- 45 days) The Plan of Treatment section includes future care activities for the patient [facility] [place] [facility] This section includes future appointments and future orders which are active, pending or scheduled. Future Appointments This section includes appointments that were scheduled to occur 6 months from the date of the Encounter, up to a maximum of 20 appointments. The data comes from all [place] treatment [facility]. Appointment Date/Time Appointment Type Appointme nt Facility Name May 04, 2025 03:00 PM AMBULATORY - MEDICINE [facility] May 05, 2025 08:30 AM AMBULATORY - MEDIC[place] [facility] May 13, 2025 08:30 AM AMBULATORY - MEDIC[place] [facility] Jun 29, 2025 01:00 PM AMBULATORY - MEDICINE [facility] Jul 13, 2025 09:30 AM AMBULATORY - MEDICINE [facility] Jul 29, 2025 08:30 AM AMBULATORY - MEDICINE [facility] Aug 12, 2025 08:30 AM AMBULATORY - MEDICINE [facility] Aug 26, 2025 08:30 AM AMBULATORY MEDICINE [facility] Active, Pending, and Scheduled Orders This section includes a listing of several types of active, pending, and scheduled orders, including clinic medications orders, diagnostic test orders, procedure orders and consult orders; where the start date of the order is 45 days before the date of the Encounter or 45 days after the date of theEncounter. The data comes from all [facility]. Test Date/Time Test Type Test Details Facility Name May 15, 2025 11:17 AM Consult Order [facility] CENTRALIZED ELIGIBILITY AND APPEALS TEAM OUTPT [id number] Cons Drill Sharpener Operator's Choice ROASLBA [facility] Encounter Notes: All associated encounter notes This section contains the clinical notes associated to the Encounter. Date/Time Encounter Note(s) Provider Source Apr 24, 2025 09:30 AM EYE NOTE: LOCAL TITLE: EYEGLASS PRESCRIPTION NOTE PB STANDARD TITLE: EYE NOTE DATE OF NOTE: APR 24, 2025@09:30 ENTRY DATE: APR 24, 2025@09:30:28 AUTHOR: SHIRA ISSA EXP COSIGNER: URGENCY: STATUS: COMPLETED DATE OF LAST EYE EXAM:APR 24, 2025 pl-1.64q781 pl-2.52k654 LENS MATERIAL: LENS TYPE: DVO Other Add Ons: Additional Comments: clear, plastic lenses /glendy/ Shira Issa, RUKHSANA Vacuum Bottle Assembler, IZAIAH [facility] Signed: 04/24/2025 09:31 SHIRA ISSA [place] [facility] Apr 24, 2025 09:06 AM OPHTHALMOLOGY E & M NOTE: LOCAL TITLE: OPHTHALMIC EXAM PB STANDARD TITLE: OPHTHALMOLOGY E & M NOTE DATE OF NOTE: APR 24, 2025@09:06 ENTRY DATE: APR 24, 2025@09:06:45 AUTHOR: YANDEL ALMAZAN EXP COSIGNER: URGENCY: STATUS: COMPLETED SUBJECTIVE: 25 year old seen in clinic. CHIEF COMPLAINT: Blur at DV. Pt said that he as noticed that he has a hard time when trying to read the road signs when in the car. Pt current glasses are lost. Last eye exam: 11/06/2022 at [place], [place]. Surgery: None. Eye medications: None. Lab: Hgb A1C: HGA1C 5.4 % 12/04/2023 08:23 Diabetic: Pt states no. ALLERGIES: Patient has answered NKA VISUAL ACUITY OD: 20/20-1 ph: Blur OS: 20/20-0 ph: Blur Without correction pupils rapd - Dilated with 1% Tropicamide @ 9:16. Ed pt on se of DFE. Post sun sheild provided. Pt voiced understanding. WEARING OD:-0.25 -1.25 X 180 OS:plano -1.75 X 180 ADD: Lens Type: Single vision Tonometry ICare Reading -OD 18.1 -OS 22.4 /glendy/ YANDEL ALMAZAN, LORENE Mohamud [facility] Signed: 04/24/2025 09:15 YANDEL ALMAZAN [place] [facility] Apr 24, 2025 07:20 AM OPHTHALMOLOGY E & M NOTE: LOCAL TITLE: OPHTHALMIC EXAM PB STANDARD TITLE: OPHTHALMOLOGY E & M NOTE DATE OF NOTE: APR 24, 2025@07:20 ENTRY DATE: APR 24, 2025@07:20:57 AUTHOR: SHIRA ISSA EXP COSIGNER: URGENCY: STATUS: COMPLETED SUBJECTIVE: 25 year old seen in clinic. CHIEF COMPLAINT: Blur at DV. Pt said that he as noticed that he has a hard time when trying to read the road signs when in the car. Pt current glasses are lost. Last eye exam: 11/06/2022 at [place]. Surgery: None. Eye medications: None. Lab: Hgb A1C: HGA1C 5.4 % 12/04/2023 08:23 Diabetic: Pt states no. ALLERGIES: Patient has answered NKA VISUAL ACUITY OD: 20/20-1 ph: Blur OS: 20/20-0 ph: Blur Without correction pupils rapd - Dilated with 1% Tropicamide @ 9:16. Ed pt on se of DFE. Post sun sheild provided. Pt voiced understanding. WEARING OD:-0.25 -1.25 X 180 OS:plano -1.75 X 180 ADD: Lens Type: Single vision Tonometry ICare Reading -OD 18.1 -OS 22.4 (Copied Tech note above, Agree with findings, continue Doctor note below.) SUBJECTIVE CC:25M, c/o dist vision blur ou of gradual onset over the past few years. Near vision is good. OHX: KRIS:as above Hab RX:as above LDFE:05/08 Injuries:- Surgeries:- Oc Meds:- Glc:- DR:- AMD:- MHX: DM:- HTN:- HrtDis:- LungDis:- Cancer:- See Cover sheet for complete with allergies FmHx: Glc - AMD - OBJECTIVE: 1% Tropicamide 1 gtt ou @ (pt dilated by tech as above) Pt educated on SE of DFE/Post myd shield given ENTERING: VA:as above Pupils:as above CVF:FTFC ou EOMs:FROM ou REFRACTION: OD:pl-1.08t342 20/20 OS:pl-2.20e387 20/20 SLEx: Adnexa/Lids/Lashes:mild entropion of upper lids ou Tear Film:wnl ou Conj:cl ou Cornea:cl ou Sclera:wnl ou Iris:wnl ou A/C:d/q ou Lens:cl ou DFE: Vitreous:cl ou Maculae:wnl ou Vessels:wnl ou ONH:dist margins ou C/D:0.4/0.3 Periphery:flat and intact ou ASSESSMENT: 1)Entropion of upper lids ou, not visually significant 2)Reg Astig ou PLAN: 1)Mnt 2)Spec Rx given OD:pl-1.72f747 20/20 OS:pl-2.18x212 20/20 ORdered new Va glasses today, plastic, sv, clear lenses RTC PRN /es/ Shira Issa, RUKHSANA Vacuum Bottle Assembler, IZAIAH [facility] Signed: 04/24/2025 09:35 SHIRA ISSA [place] [facility]
--- OUTSIDE RECORDS SUMMARY | 2025-04-27 03:46 | XMS_ITS | Encounter Summary ---
Author Name [facility] [facility] [place] Organization [facility] [place] Address [address] [place] [address] Care Team Providers Care Occupational Health Manager Name Role Phone FREDDIE ROJAS Primary Care [...] Forrester's Name Patient's Relationship to Policy Forrester [facility] 2024 [facility] WNR Oct 15, 2024 [facility] [phone] GIULIANO NETTLES PATIENT Selected Encounter This section includes the information on record at [place] for the Encounter. Date/Time Encounter Type Encounter Description Reason Pro vider Source Apr 27, 2025 08:46 AM Outpatient Encounter ADMIN PAT ACTIVTIES (MASNONCT) IHE Encounter Template Text not used by [place] Plan of Treatment: Future Appointments (+ 6 [...] 20 appointments. The data comes from all [place] treatment [facility]. Appointment Date/Time Appointment Type Appointme nt Facility Name May 04, 2025 03:00 PM AMBULATORY - MEDICINE [facility] May 05, 2025 08:30 AM [facility] May 13, 2025 08:30 AM AM[facility]ULATORY - [facility]IC[facility] [place] [facility] Jun 29, 2025 01:00 PM AMBULATORY - MEDICINE [facility] Jul 13, 2025 09:30 AM AMBULATORY - MEDICINE [facility] Jul 29, 2025 08:30 AM AMBULATORY - MEDICINE [facility] Aug 12, 2025 08:30 AM AMBULATORY - MEDICINE [facility] Aug 26, 2025 08:30 AM AMBULATORY MEDICINE [facility] Active, Pending, and Scheduled Orders This section includes a listing of several types of active, pending, and scheduled orders, including clinic medications orders, diagnostic test orders, procedure orders and consult orders; where the start date of the order is 45 days before the date of the Encounter or 45 days after the date of theEncounter. The data comes from all [facility]. Test Date/Time Test Type Test Details Facility Name May 15, 2025 11:17 AM Consult Order [facility] CENTRALIZED ELIGIBILITY AND APPEALS TEAM OUTPT [id number] Cons Microwave Radio Technician's Choice [facility] Encounter Notes: All associated encounter notes This section contains the clinical notes associated to the Encounter. Date/Time Encounter Note(s) Provider Source Apr 27, 2025 08:46 AM CAREGIVER CERTIFIC ATE: LOCAL TITLE: CSP ADMINISTRATIVE NOTE STANDARD TITLE: CAREGIVER CERTIFICATE DATE OF NOTE: APR 27, 2025@08:46 ENTRY DATE: APR 27, 2025@08:46:21 AUTHOR: NETTA HUTSON EXP COSIGNER: URGENCY: STATUS: COMPLETED [id number] recieved . 5103 letters mailed today, to , caregiver and CASSIE. /glendy/ Netta Hutson Signed: 04/27/2025 08:47 NETTA HUTSON [facility]
--- OUTSIDE RECORDS SUMMARY | 2025-05-05 05:44 | XMS_ITS | Encounter Summary ---
Author Name [facility] [place] Address [address] [place] [address] Care Team Providers Care Steam Press Tender Name Role Phone FREDDIE ROJAS Primary Care [...] Forrester's Name Patient's Relationship to Policy Forrester [facility] 2024 [facility] WNR Oct 15, 2024 [facility] [id number] 97 GIULIANO NETTLES PATIENT Selected Encounter This section includes the information on record at [place] for the Encounter. Date/Time Encounter Type Encounter Description Reason Pro vider Source May 05, 2025 10:44 AM Outpatient Encounter ADMIN PAT ACTIVTIES (MASNONCT) IHE Encounter Template Text not used by [place] Plan of Treatment: Future Appointments (+ 6 [...] 20 appointments. The data comes from all [facility]. Appointment Date/Time Appointment Type Appointme nt Facility Name May 13, 2025 08:30 AM AMBULATORY - MEDICINE [facility] ROSMERY [facility] Jun 29, 2025 01:00 PM AMBULATORY - MEDICINE [facility] Jul 13, 2025 09:30 AM AMBULATORY MEDICINE [facility] Jul 29, 2025 08:30 AM AMBULATORY MEDICINE [facility] Aug 12, 2025 08:30 AM AMBULATORY MEDICINE [facility] Aug 26, 2025 08:30 AM AMBULATORY MEDICINE [facility] Active, Pending, and Scheduled Orders This section includes a listing of several types of active, pending, and scheduled orders, including clinic medications orders, diagnostic test orders, procedure orders and consult orders; where the start date of the order is 45 days before the date of the Encounter or 45 days after the date of the Encounter. The data comes from all [facility]. Test Date/Time Test Type Test Details Facility Name May 15, 2025 11:17 AM Consult Order [facility] CENTRALIZED ELIGIBILITY AND APPEALS TEAM OUTPT 657A4 Cons Stock Mixer's Choice [facility] Encounter Notes: All associated encounter notes This section contains the clinical notes associated to the Encounter. Date/Time Encounter Note(s) Provider Source May 05, 2025 02:23 PM ADDENDUM: LOCAL TITLE: Addendum STANDARD TITLE: ADDENDUM DATE OF NOTE: MAY 05, 2025@14:23:49 ENTRY DATE: MAY 05, 2025@14:23:50 AUTHOR: TRACIE GEORGE COSIGNER: URGENCY: STATUS: COMPLETED PACT Team, below is a nationwide process change included in the July 15, 2020 Caregiver Support expansion. Please answer the questions to the best of your knowledge in an addendum. These questions are used to assist an eligibility team (CEAT) in gaining a better clinical picture of the 's needs to participate in the Program of Comprehensive Assistance for Family Caregivers. Thanks in advance. Is the Bre[place] able to understand the current treatment plan (what prescribed medications are for, appointment frequency, recommended diet, need for specialty services): _X Yes __ No, what prevents the [place] from understanding the treatment plan? (Answer below) Does the [place] have potential for improvement in functioning: _X Yes __ No Has the been referred and participated in rehabilitative services: such as PT and/or OT? _ Yes, details: _X No, details: Is the Caregiver actively involved in the care of the [place]: _X Yes, Describe caregiver's involvement: __ No If involved, can the Caregiver follow the current treatment plan: X_ Yes __ No, details: In your best opinion are the care needs of the being safely provided inthe home setting: _X Yes __ No, details: Is the [place] is being recommended for institutional care at this time: __ Yes, provide details: _X No /es/ Tracie George RN [facility], JDomenicaP [facility] Signed: 05/05/2025 14:25 Receipt Acknowledged By: 05/06/2025 13:51 /es/ SARAH DAVIDSON --- Original Document --- 05/05/25 [facility] ADMINISTRATIVE NOTE: Breckenridge had a cyst removed on the back of his leg that has since grew back and he has pain with it. He also has dx of MANUEL and has lost weight and was wndering if he needs follow up. he reports that he was sent to polytrauma and never received a TBI workup. Please eval request. PACT Team, below is a nationwide process change included in the July 15, 2020 Caregiver Support expansion. Please answer the questions to the best of your knowledge in an addendum. These questions are used to assist an eligibility team (CEAT) in gaining a better clinical picture of the 's needs to participate in the Program of Comprehensive Assistance for Family Caregivers. Thanks in advance. Is the [place] able to understand the current treatment plan (what prescribed medications are for, appointment frequency, recommended diet, need for specialty services): __ Yes __ No, what prevents the from understanding the treatment plan? (Answer below) Does the [place] have potential for improvement in functioning: __ Yes __ No Has the [place] been referred and participated in rehabilitative services: such as PT and/or OT? __ Yes, details: __ No, details: Is the Caregiver actively involved in the care of the : __ Yes, Describe caregiver's involvement: __ No If involved, can the Caregiver follow the current treatment plan: __ Yes __ No, details: In your best opinion are the care needs of the being safely provided in the home setting: __ Yes __ No, details: Is the [place] is being recommended for institutional care at this time: __ Yes, provide details: __ No /glendy/ SARAH BALLARD BSN-RN Signed: 05/05/2025 11:04 TRACIE GEORGE [facility] May 05, 2025 10:44 AM CAREGIVER CERTIFIC ATE: LOCAL TITLE: CSP ADMINISTRATIVE NOTE STANDARD TITLE: CAREGIVER CERTIFICATE DATE OF NOTE: MAY 05, 2025@10:44 ENTRY DATE: MAY 05, 2025@10:44:37 AUTHOR: SARAH BALLARD EXP COSIGNER: URGENCY: STATUS: COMPLETED CSP ADMINISTRATIVE NOTE Has ADDENDA Breckenridge had a cyst removed on the back of his leg that has since grew back and he has pain with it. He also has dx of MANUEL and has lost weight and was wndering if he needs follow up. he reports that he was sent to polytrauma and never received a TBI workup. Please eval request. PACT Team, below is a nationwide process change included in the July 15, 2020 Caregiver Support expansion. Please answer the questions to the best of your knowledge in an addendum. These questions are used to assist an eligibility team (CEAT) in gaining a better clinical picture of the [place]'s needs to participate in the Program of Comprehensive Assistance for Family Caregivers. Thanks in advance. Is the able to understand the current treatment plan (what prescribed medications are for, appointment frequency, recommended diet, need for specialty services): __ Yes __ No, what prevents the [place] from understanding the treatment plan? (Answer below) Does the have potential for improvement in functioning: __ Yes __ No Has the [place] been referred and participated in rehabilitative services: such as PT and/or OT? __ Yes, details: __ No, details: Is the Caregiver actively involved in the care of the [place]: __ Yes, Describe caregiver's involvement: __ No If involved, can the Caregiver follow the current treatment plan: __ Yes __ No, details: In your best opinion are the care needs of the [place] being safely provided in the home setting: __ Yes __ No, details: Is the is being recommended for institutional care at this time: __ Yes, provide details: __ No /es/ SARAH HAIR-RN Signed: 05/05/2025 11:04 05/05/2025 ADDENDUM STATUS: COMPLETED PACT Team, below is a nationwide process change included in the July 15, 2020 Caregiver Support expansion. Please answer the questions to the best of your knowledge in an addendum. These questions are used to assist an eligibility team (CEAT) in gaining a better clinical picture of the [place]'s needs to participate in the Program of Comprehensive Assistance for Family Caregivers. Thanks in advance. Is the [place] able to understand the current treatment plan (what prescribed medications are for, appointment frequency, recommended diet, need for specialty services): _X Yes __ No, what prevents the Bre[place] from understanding the treatment plan? (Answer below) Does the have potential for improvement in functioning: _X Yes __ No Has the [place] been referred and participated in rehabilitative services: such as PT and/or OT? _ Yes, details: _X No, details: Is the Caregiver actively involved in the care of the [place]: _X Yes, Describe caregiver's involvement: __ No If involved, can the Caregiver follow the current treatment plan: X_ Yes __ No, details: In your best opinion are the care needs of the [place] being safely provided inthe home setting: _X Yes __ No, details: Is the [place] is being recommended for institutional care at this time: __ Yes, provide details: _X No /glendy/ Tracie George RN [facility], JP [facility] Signed: 05/05/2025 14:25 Receipt Acknowledged By: * AWAITING SIGNATURE * SARAH BALLARD PATRICIA A POPLAR BLUFF [facility]
--- OUTSIDE RECORDS SUMMARY | 2025-05-05 07:26 | XMS_ITS | Encounter Summary ---
Author Name [place] Address [address] [place] [address] Care Team Providers Care Reinforcing Steel Worker Wire Mesh Name Role Phone FREDDIE ROJAS Primary Care [...] Forrester's Name Patient's Relationship to Policy Forrester [facility] 2024 [facility] WNR Oct 15, 2024 [facility] [id number] 97 GIULIANO NETTLES PATIENT Selected Encounter This section includes the information on record at [place] for the Encounter. Date/Time Encounter Type Encounter Description Reason Pro vider Source May 05, 2025 12:26 PM Outpatient Encounter ADMIN PAT ACTIVTIES (MASNONCT) IHE Encounter Template Text not used by [place] Plan of Treatment: Future Appointments (+ 6 [...] The data comes from all [place] treatment [facility]. Appointment Date/Time Appointment Type Appointme nt Facility Name May 13, 2025 08:30 AM AMBULATORY - MEDICINE [facility] Jun 29, 2025 01:00 PM AMBULATORY - MEDICINE [facility] Jul 13, 2025 09:30 AM AMBULATORY MEDICINE [facility] Jul 29, 2025 08:30 AM AMBULATORY - MEDICINE [facility] Aug 12, 2025 08:30 AM AMBULATORY - MEDICINE [facility] Aug 26, 2025 08:30 AM AMBULATORY - MEDICINE [facility] Active, Pending, and Scheduled Orders This section includes a listing of several types of active, pending, and scheduled orders, including clinic medications orders, diagnostic test orders, procedure orders and consult orders; where the start date of the order is 45 days before the date of the Encounter or 45 days after the date of theEncounter. The data comes from all [facility]. Test Date/Time Test Type Test Details Facility Name May 15, 2025 11:17 AM Consult Order [facility] CENTRALIZED ELIGIBILITY AND APPEALS TEAM OUTPT [id number] Cons Referral Manager's Choice [facility] Encounter Notes: All associated encounter notes This section contains the clinical notes associated to the Encounter. Date/Time Encounter Note(s) Provider Source May 05, 2025 12:26 PM CAREGIVER CERTIFIC ATE: LOCAL TITLE: SUSANA ADMINISTRATIVE NOTE STANDARD TITLE: CAREGIVER CERTIFICATE DATE OF NOTE: MAY 05, 2025@12:26 ENTRY DATE: MAY 05, 2025@12:26:14 AUTHOR: EARNESTINE SWAN EXP COSIGNER: URGENCY: STATUS: COMPLETED This financial writer attempted to reach caregiver using ph number on file: [phone] but received message that phone number was not in service. This financial writer attempted to reach using ph number on file: [phone] but received voicemail. This financial writer left a message regarding this financial writer wanting to scheduled VFAI and left a ph number where this financial writer could be reached. /glendy/ Earnestine Swan RN CSP Clinical Blocking Machine Operator [facility] Signed: 05/05/2025 12:26 EARNESTINE SWAN [facility]
--- OUTSIDE RECORDS SUMMARY | 2025-05-06 10:11 | XMS_ITS | Encounter Summary ---
Author Name [place] Address [address] [place] [address] Care Team Providers Care Family Consultant Name Role Phone FREDDIE ROJAS Primary Care [...] Forrester's Name Patient's Relationship to Policy Forrester [facility] 2024 [facility] WNR Oct 15, 2024 [facility] [id number] 97 GIULIANO NETTLES PATIENT Selected Encounter This section includes the information on record at [place] for the Encounter. Date/Time Encounter Type Encounter Description Reason Pro vider Source May 06, 2025 03:11 PM Outpatient Encounter ADMIN PAT ACTIVTIES (MASNONCT) IHE Encounter Template Text not used by [place] Plan of Treatment: Future Appointments (+ 6 [...] 20 appointments. The data comes from all [place] treatment [facility]. Appointment Date/Time Appointment Type Appointme nt Facility Name May 13, 2025 08:30 AM AMBULATORY - MEDICINE [facility] Jun 29, 2025 01:00 PM AMBULATORY - MEDICINE [facility] Jul 13, 2025 09:30 AM AMBULATORY MEDICINE [facility] Jul 29, 2025 08:30 AM AMBULATORY - MEDICINE [facility] Aug 12, 2025 08:30 AM AMBULATORY - MEDICINE [facility] Aug 26, 2025 08:30 AM AMBULATORY MEDICINE [facility] Active, Pending, and Scheduled Orders This section includes a listing of several types of active, pending, and scheduled orders, including clinic medications orders, diagnostic test orders, procedure orders and consult orders; where the start date of the order is 45 days before the date of the Encounter or 45 days after the date of theEncounter. The data comes from all [facility]. Test Date/Time Test Type Test Details Facility Name May 15, 2025 11:17 AM Consult Order [facility] CENTRALIZED ELIGIBILITY AND APPEALS TEAM OUTPT [id number] Cons Parcel Post Truck Driver's Choice [facility] Encounter Notes: All associated encounter notes This section contains the clinical notes associated to the Encounter. Date/Time Encounter Note(s) Provider Source May 06, 2025 03:11 PM CAREGIVER CERTIFIC ATE: LOCAL TITLE: SUSANA ADMINISTRATIVE NOTE STANDARD TITLE: CAREGIVER CERTIFICATE DATE OF NOTE: MAY 06, 2025@15:11 ENTRY DATE: MAY 06, 2025@15:11:56 AUTHOR: EARNESTINE SWAN EXP COSIGNER: URGENCY: STATUS: COMPLETED This commercial real estate underwriter attempted to reach caregiver using ph number on file: [phone] but received message that ph number was not in service. This commercial real estate underwriter attempted to reach using ph number on file [phone] but received voice mail. This commercial real estate underwriter left a message regarding wanting to schedule VFAI and left a return ph number where this commercial real estate underwriter can be reached. /glendy/ Earnestine Swan RN, CSP Clinical Commercial Credit Portfolio Manager [facility] Signed: 05/06/2025 15:15 EARNESTINE SWAN [facility]
--- OUTSIDE RECORDS SUMMARY | 2025-05-08 06:15 | XMS_ITS | Encounter Summary ---
Author Name [place] Address [address] [place] [address] Care Team Providers Care Fashion Consultant Sales Name Role Phone FREDDIE ROJAS Primary Care [...] Forrester's Name Patient's Relationship to Policy Forrester [facility] 2024 [facility] WNR Oct 15, 2024 [facility] [id number] 97 GIULIANO NETTLES PATIENT Selected Encounter This section includes the information on record at [place] for the Encounter. Date/Time Encounter Type Encounter Description Reason Pro vider Source May 08, 2025 11:15 AM Outpatient Encounter ADMIN PAT ACTIVTIES (MASNONCT) IHE Encounter Template Text not used by [place] Plan of Treatment: Future Appointments (+ 6 [...] 20 appointments. The data comes from all [place] treatment [facility]. Appointment Date/Time Appointment Type Appointme nt Facility Name May 13, 2025 08:30 AM AMBULATORY - [facility]ICINE [facility] Jun 29, 2025 01:00 PM AMBULATORY - MEDICINE [facility] Jul 13, 2025 09:30 AM AMBULATORY MEDICINE [facility] Jul 29, 2025 08:30 AM AMBULATORY - MEDICINE [facility] Aug 12, 2025 08:30 AM AMBULATORY - MEDICINE [facility] Aug 26, 2025 08:30 AM AMBULATORY - MEDICINE [facility] Active, Pending, and Scheduled Orders This section includes a listing of several types of active, pending, and scheduled orders, including clinic medications orders, diagnostic test orders, procedure orders and consult orders; where the start date of the order is 45 days before the date of the Encounter or 45 days after the date of theEncounter. The data comes from all [facility]. Test Date/Time Test Type Test Details Facility Name May 15, 2025 11:17 AM Consult Order [facility] CENTRALIZED ELIGIBILITY AND APPEALS TEAM OUTPT [id number] Cons Transportation Planner's [facility] Encounter Notes: All associated encounter notes This section contains the clinical notes associated to the Encounter. Date/Time Encounter Note(s) Provider Source May 08, 2025 11:15 AM CAREGIVER CERTIFIC ATE: LOCAL TITLE: CSP ADMINISTRATIVE NOTE STANDARD TITLE: CAREGIVER CERTIFICATE DATE OF NOTE: MAY 08, 2025@11:15 ENTRY DATE: MAY 08, 2025@11:15:31 AUTHOR: EARNESTINE SWAN EXP COSIGNER: URGENCY: STATUS: COMPLETED This investigative writer spoke with regarding scheduling VFAI. Options discussed and chose [facility]. Appt scheduled for Tuesday May 13, 2025 at 0830 via [facility]. No needs identified. VFAI scheduled for SunMay 13, 2025 at 0830 via [facility] Clinic: [facility] CG CLN ASSR TM 2 /es/ Earnestine Swan RN CSP Clinical Image Consultant [facility] Signed: 05/08/2025 11:17 Receipt Acknowledged By: 05/08/2025 12:45 /es/ Juan Carlos Bradley MSA [facility] 05/08/2025 14:37 /es/ Juan Carlos HANSEN [facility] EARNESTINE SWAN [facility]
--- OUTSIDE RECORDS SUMMARY | 2025-05-12 10:21 | XMS_ITS | Encounter Summary ---
Author Name Department of [place] Organization [place] Address [address] [place] [address] Care Team Providers Care Cutter Helper Name Role Phone FREDDIE ROJAS Primary Care [...] Forrester's Name Patient's Relationship to Policy Forrester [facility] 2024 [facility] WNR Oct 15, 2024 [facility] [id number] 97 GIULIANO NETTLES PATIENT Selected Encounter This section includes the information on record at [place] for the Encounter. Date/Time Encounter Type Encounter Description Reason Pro vider Source May 12, 2025 03:21 PM Outpatient Encounter ADMIN PAT ACTIVTIES (MASNONCT) IHE Encounter Template Text not used by [place] Plan of Treatment: Future Appointments (+ 6 [...] 20 appointments. The data comes from all [place] treatment [facility]. Appointment Date/Time Appointment Type Appointme nt Facility Name May 13, 2025 08:30 AM AMBULATORY - [facility]ICINE [facility] Jun 29, 2025 01:00 PM AMBULATORY - MEDICINE [facility] Jul 13, 2025 09:30 AM AMBULATORY MEDICINE [facility] Jul 29, 2025 08:30 AM AMBULATORY - MEDICINE [facility] Aug 12, 2025 08:30 AM AMBULATORY - MEDICINE [facility] Aug 26, 2025 08:30 AM AMBULATORY MEDICINE [facility] Active, Pending, and Scheduled Orders This section includes a listing of several types of active, pending, and scheduled orders, including clinic medications orders, diagnostic test orders, procedure orders and consult orders; where the start date of the order is 45 days before the date of the Encounter or 45 days after the date of theEncounter. The data comes from all [facility]. Test Date/Time Test Type Test Details Facility Name May 15, 2025 11:[address] [facility] CENTRALIZED ELIGIBILITY AND APPEALS TEAM OUTPT [id number] Cons Television News Photographer's Choice [facility] Encounter Notes: All associated encounter notes This section contains the clinical notes associated to the Encounter. Date/Time Encounter Note(s) Provider Source May 12, 2025 03:21 PM CAREGIVER CERTIFIC ATE: LOCAL TITLE: CSP ADMINISTRATIVE NOTE STANDARD TITLE: CAREGIVER CERTIFICATE DATE OF NOTE: MAY 12, 2025@15:21 ENTRY DATE: MAY 12, 2025@15:21:10 AUTHOR: EARNESTINE SWAN EXP COSIGNER: URGENCY: STATUS: COMPLETED This communications writer called and caregiver to remind vet and cg of VFAI appt tomorrow at 0830 via [facility]. This communications writer called caregivers ph number on fileL [phone] but received message that number was not in service. This communications writer called vets phone number on file: [phone] and received voice mail. This communications writer left a message reminding vet and cg of [facility] appt tomorrow at 0830. /glendy/ Earnestine Swan RN [facility] Clinical Small Order Cutter [facility] Signed: 05/12/2025 15:23 EARNESTINE SWAN [facility]
--- OUTSIDE RECORDS SUMMARY | 2025-05-13 03:30 | XMS_ITS | Encounter Summary ---
Author Name [facility] Address [address] [place] [address] Care Team Providers Care Helper Maintenance Cleaning Name Role Phone FREDDIE ROJAS Primary Care Provider Neri haines Insurance Providers: All historical and current Section Date Range: From patient's date of to the date document was created. This section includes the names of all active insurance providers for the patient. Insurance Provider Type of Coverage Plan Name Start of Policy Coverage End of Policy Coverage Group Number Member ID Insurance Provider's Telephone Number Policy Forrester's Name Patient's Relationship to Policy Forrester [facility], [facility]24 [facility] [id number] GIULIANO NETTLES PATIENT Selected Encounter This section includes the information on record at [place] for the Encounter. Date/Time Encounter Type Encounter Description Reason Provider Source May 13, 2025 08:30 AM PROGRAM INTAKE ASSESSMENT CAREGIVER SUPPORT PROGRAM ICD-10-CM Z87.820 Personal history of traumatic brain injury EARNESTINE SWAN Encounter Template Text not used by [place] Assessments - Encounter Diagnoses This section includes the primary and secondary diagnoses documented for the Encounter. Date/Time Primary/Secondary Diagnosis Diagnosis Name Provider Source May 13, 2025 10:48 AM PRIMARY Personal history of traumatic brain injury EARNESTINE SWAN [facility] May 13, 2025 10:48 AM SECONDARY Contact with and exposure to other hazardous substances LASLIE,EARNESTINE E [facility] May 13, 2025 10:48 AM SECONDARY Headache, unspecified LASLIE,EARNESTINE E [facility] May 13, 2025 10:48 AM SECONDARY Pain, unspecified LASLIE,EARNESTINE E [facility] May 13, 2025 10:48 AM SECONDARY Post-traumatic stress disorder, chronic LASLIE,EARNESTINE E [facility] Plan of Treatment: Future Appointments (+ 6 months) and Future Tests (+/- 45 days) The Plan of Treatment section includes future care activities for the patient from all [facility]. This section includes future appointments and future orders which are active, pending or scheduled. Future Appointments This section includes appointments that were scheduled to occur 6 months from the date of the Encounter, up to a maximum of 20 appointments. The data comes from all [facility]. Appointment Date/Time Appointment Type Appointme nt Facility Name Jun 29, 2025 01:00 PM AMBULATORY - MEDICINE [facility] Jul 13, 2025 09:30 AM AMBULATORY [facility] Jul 29, 2025 08:30 AM AMBULATORY [facility] Aug 12, 2025 08:30 AM [facility] Aug 26, 2025 08:30 AM [facility] Active, Pending, and Scheduled Orders This section includes a listing of several types of active, pending, and scheduled orders, including clinic medications orders, diagnostic test orders, procedure orders and consult orders; where the start date of the order is 45 days before the date of the Encounter or 45 days after the date of theEncounter. The data comes from all [facility]. Test Date/Time Test Type Test Details Facility Name May 15, 2025 11:17 AM Consult Order [facility] CENTRALIZED ELIGIBILITY AND APPEALS TEAM OUTPT [id number] Cons Java Websphere Developer's Choice [facility] Encounter Notes: All associated encounter notes This section contains the clinical notes associated to the Encounter. Date/Time Encounter Note(s) Provider Source May 13, 2025 10:07 AM CAREGIVER CERTIFIC ATE: LOCAL TITLE: CSP PCAFC FUNCTIONAL ASSESSMENT INSTRUMENT STANDARD TITLE: CAREGIVER CERTIFICATE DATE OF NOTE: MAY 13, 2025@10:07 ENTRY DATE: MAY 13, 2025@10:07:59 AUTHOR: EARNESTINE SWAN COSIGNER: URGENCY: STATUS: COMPLETED FUNCTIONAL ASSESSMENT INSTRUMENT The Program of Comprehensive Assistance for Family Caregivers (PCAFC) provides services and additional benefits to approved and designated Family Caregivers of eligible Veterans or service members who are in need of personal care services for a minimum of six continuous months based on any one of the following: - An inability to perform one or more activities of daily living; - A need for supervision or protection based on symptoms or residuals of neurological or other impairment or injury; or - A need for regular or extensive instruction or supervision without which the ability of the Yoder to function in daily life would be seriously impaired. Assessment of the need for personal care services is just one piece of the overall application process. The [place]oder Functional Assessment Instrument (VFAI) captures the Yoder or substance abuse services director's functional needs, as they relate to the requirements for PCAFC. The assessment should only be used with Veterans or service members who have applied to or are participating in PCAFC and a consult has been placed for this assessment by Caregiver Support Program Staff. The author completing this assessment must be in compliance with all required Caregiver Support Program and VA trainings. Method of contact: Telehealth/ [facility] Video Connect Modality of Care: Video Telehealth Patient Contact Details: Best contact number for backup/emergency communication with patient: [phone] Patient Location/Surroundings During Visit: Patient location during visit: Home [address] [place] [id number] Others present for visit with patient's consent: Name: Clauida Nettles (caregiver) Patient confirms location is safe and private for visit. Telehealth Disclosure: Visit conducted by synchronous telehealth. Patient verbal consent obtained. Location/emergency number confirmed. Environment surveyed and all participants identified. Virtual conference room locked. VFAI: PART A EATING (1) Eating: Independent Defined as: The ability to use suitable utensils to bring food and/or liquid to the mouth and swallow food and/or liquid once the meal is placed before the person. Comments/additional information: Vet reports he can feed himself, cut up his food, bring a cup or glass to his mouth to drink, can wipe his mouth after eating. He reports he can make himself a simple sandwich and can use a microwave to heat or reheat food. Cg does not report assisting vet with eating or drinking GROOMING (2a) Oral hygiene: Independent Defined as: The ability to use suitable items to clean teeth. [Dentures (if applicable): the ability to insert and remove dentures into and from the mouth, and manage denture soaking and rinsing with use of equipment.] (2b) Wash upper body: Independent Defined as: The ability to wash, rinse, and dry the face, hands, chest, and arms while sitting in a chair or bed. Comments/additional information: Vet reports he can apply toothpaste to toothbrush and can brush his teeth. Cg reports she has to remind vet to do this. Vet reports he can dampen a washcloth or use a wet wipe to wipe down his face, neck, chest, and hands Cg does not report assisting vet with oral care or washing upper body BATHING (3) Shower/bathe self: Person requires assistance only sometimes Defined as: The ability to bathe self, including washing, rinsing, and drying self. Does not include transferring in/out of tub/shower. Comments/additional information: Vet reports he can do his own showering. He reports he can get himself in and out of shower and adjust water temperature. He reports he can wash, rinse, and dry himself. Cg reports, I help him with showering 1-2 times a year when he really has bad back pain . Vet reports he has whole back pain at times but mostly lower back pain CPRS NOTES: April 21, 2024 mental health, June 04, 2024 licensed professional counselor, Jun 302023 licensed professional counselor, Jul 16, 2024 primary care, JUL 16, 2024 , AUGUST 05, 2024 licensed professional counselor, AUGUST 11, 2024 licensed professional counselor, AUG 26, 2024 licensed professional counselor, Sep 09, 2024 licensed professional counselor, Sep 12, 2024 nursing, Sep 12. 2023 psychiatry, Oct 07, 2024 chiro, Oct 13, 2024 nursing note,Nov 14, 2024 LICENSED PROFESSIONAL COUNSELOR, Nov 28, 2024 LICENSED PROFESSIONAL COUNSELOR, January 092024 LICENSED PROFESSIONAL COUNSELOR, February 06, 2025 LICENSED PROFESSIONAL COUNSELOR, FEBRUARY 26, PRIMARY CARE, MARCH 06, 2025 LICENSED PROFESSIONAL COUNSELOR, MARCH 30, 2025, APRIL 13, 2025 LICENSED PROFESSIONAL COUNSELOR. JLV NOTES: SEPTEMBER 16, 2024 NEUROLOGY DRESSING AND UNDRESSING (4a) Upper body dressing: Independent Defined as: The ability to dress and undress above the waist, including fasteners (if applicable). (4b) Lower body dressing: Independent Defined as: The ability to dress and undress below the waist, including fasteners; does not include footwear. (4c) Putting on/taking off footwear: Person requires assistance only sometimes Defined as: The ability to put on and take off socks and shoes, or other footwear that is appropriate for safe mobility, including fasteners (if applicable). Comments/additional information: Vet reports he can put on and remove a shirt. He reports he can put on and remove his underwear and pants/shorts. Vet reports he can put on and remove his socks most of the time . cg reports she assists vet with putting on his socks occasionally : I help him with his socks because of his lower back pain 3 times a month . Vet reports he can put on and remove his shoes. CPRS NOTES: April 21, 2024 mental health, June 04, 2024 licensed professional counselor, Jun 302023 licensed professional counselor, Jul 16, 2024 primary care, JUL 16, 2024 , AUGUST 05, 2024 licensed professional counselor, AUGUST 11, 2024 licensed professional counselor, AUG 26, 2024 licensed professional counselor, Sep 09, 2024 licensed professional counselor, Sep 12, 2024 nursing, Sep 12. 2023 psychiatry, Oct 07, 2024 chiro, Oct 13, 2024 nursing note,Nov 14, 2024 LICENSED PROFESSIONAL COUNSELOR, Nov 28, 2024 LICENSED PROFESSIONAL COUNSELOR, March 28. 2025 LICENSED PROFESSIONAL COUNSELOR, February 06, 2025 LICENSED PROFESSIONAL COUNSELOR, FEBRUARY 26, PRIMARY CARE, MARCH 06, 2025 LICENSED PROFESSIONAL COUNSELOR, MARCH 30, 2025, APRIL 13, 2025 LICENSED PROFESSIONAL COUNSELOR. KRISTINE NOTES: SEPTEMBER 16, 2024 NEUROLOGY TOILETING (5) Toileting hygiene: Independent Defined as: The ability to maintain perineal/menstrual hygiene and adjust clothes before and after voiding or having a bowel movement. If managing an ostomy, include wiping the opening but not managing equipment. Comments/additional information: Vet reports he can do his own toileting. PROSTHETICS (6) Prosthetics (Use of Assistive Devices): Not applicable - does not use prosthetics or assistive devices Defined as: The ability to adjust special prosthetic or orthopedic appliances. The adjustment of appliances that any person (with or without a disability) would need assistance with should not be scored (for example, supports, belts, lacing at back, etc.). Comments/additional information: Vet denies use of prosthetics MOBILITY (POSITIONING/TRANSFERS) (7a) Roll left and right: Independent Defined as: The ability to roll from lying on back to left and right side, and return to lying on back. (7b) Sit to lying: Independent Defined as: The ability to move from sitting on side of bed to lying flat on the bed. (7c) Lying to sitting on side of bed: Independent Defined as: The ability to move from lying on the back to sitting on the side of the bed with feet flat on the floor and with no back support. (7d) Sit to stand: Person requires assistance only sometimes Defined as: The ability to come to a standing position from sitting in a chair, wheelchair, or on the side of the bed. (7e) Chair/eog-je-gihyg transfer: Person does not usually do this activity Defined as: The ability to transfer to and from a bed to a chair (or wheelchair). (7f) Toilet transfer: Independent Defined as: The ability to get on and off a toilet or commode. Comments/additional information: Vet reports he can get himself into bed to lay down. He reports he can roll onto his left and right side and adds, I can but it causes me pain. I normally lay on my back or stomach . Vet reports he can change position from lying to sitting on side of bed. Vet reports he can change position from sitting to standing. Cg adds, I help him sometimes. I grab the back of his upper arm and pull him up . This singer songwriter inquired if she how much effort she has to pull him up and she reports that its more of guiding up . She report she helps him stand up 1-2 times a week . Vet does not report using a w/c. He reports he can get on and off a toilet. CPRS NOTES: April 21, 2024 mental health, June 04, 2024 licensed professional counselor, Jun 30. 2023 licensed professional counselor, Jul 16, 2024 primary care, JUL 16, 2024 , AUGUST 05, 2024 licensed professional counselor, AUGUST 11, 2024 licensed professional counselor, AUG 26, 2024 licensed professional counselor, Sep 09, 2024 licensed professional counselor, Sep 12, 2024 nursing, Sep 12. 2023 psychiatry, Oct 07, 2024 chiro, Oct 13, 2024 nursing note,Nov 14, 2024 LICENSED PROFESSIONAL COUNSELOR, Nov 28, 2024 LICENSED PROFESSIONAL COUNSELOR, January 09. 2024 LICENSED PROFESSIONAL COUNSELOR, February 06, 2025 LICENSED PROFESSIONAL COUNSELOR, FEBRUARY 26, PRIMARY CARE, MARCH 06, 2025 LICENSED PROFESSIONAL COUNSELOR, MARCH 30, 2025, APRIL 13, 2025 LICENSED PROFESSIONAL COUNSELOR. JL NOTES: SEPTEMBER 16, 2024 NEUROLOGY MOBILITY (WALKING, MANUAL WHEELCHAIR, MOTORIZED WHEELCHAIR/SCOOTER) (8) Mobility: Person walks WALKING (9a) Walk 10 feet: Independent Defined as: Once standing, the ability to walk at least 10 feet in a room, corridor, or similar space. (9b) Walk 50 feet with two turns: Independent Defined as: Once standing, the ability to walk at least 50 feet and make two turns. (9c) Walk 150 feet: Independent Defined as: Once standing, the ability to walk at least 150 feet in a corridor or similar space. (9d) Walk 10 feet on uneven surfaces: Independent Defined as: The ability to walk 10 feet on uneven or sloping surfaces (indoor or outdoor) such as turf or gravel. (9e) 1 step (curb): Independent Defined as: The ability to go up and down a curb and/or up and down one step. (9f) 4 steps: Independent Defined as: The ability to go up and down four steps with or without a rail. (9g) 12 steps: Independent Defined as: The ability to go up and down 12 steps with or without a rail. (9h) Picking up object: Not attempted due to short-term medical condition or safety concerns Defined as: The ability to bend/stoop from a standing position to cotton picking machine operator a small object, such as a spoon, from the floor. (9i) Walk indoors: Independent Defined as: The ability to walk from room to room, around furniture and other obstacles. (9j) Carry something in both hands: Independent Defined as: The ability to carry something in both hands while walking indoors (i.e., several dishes, light laundry basket, tray with food). (9k) Walk for 15 minutes: Not attempted due to short-term medical condition or safety concerns Defined as: The ability to walk without stopping or resting (i.e., through a department store, supermarket). (9l) Walk across a street: Independent Defined as: The ability to cross a street before light turns red. Comments/additional information: Vet reports he does not do any exercises or stretching due to it causes him pain. He reports he does not use a device to walk with. He reports he can walk 10 feet, 50 feet and 150 feet. He reports he can walk 10 feet in his yard, a gravel driveway, or slightly sloped sidewalk or driveway but adds, I can but I get shooting pain in my lower back . Vet re[ports he can go up and down one step, 4 steps, and 12 steps. He reports he cannot cotton picking machine operator something from floor due to lower back pain and that cg does this for him. Cg adds, this is why our 3 month old and 2 year old go to daycare because it causes him too much pain to pick them up . He reports he can walk from room to room in his home. He reports he can walk while carrying something small and light weight. Walking for 15 mins: vet reports, I'm not sure--I haven't done that . Cg reports, when we go to the zoo he has to take frequent breaks because of his lower back pain . Vet reports he can cross a street in a cross walk before light turns red CPRS NOTES: April 21, 2024 mental health, June 04, 2024 licensed professional counselor, Jun 30. 2023 licensed professional counselor, Jul 16, 2024 primary care, JUL 16, 2024 , AUGUST 05, 2024 licensed professional counselor, AUGUST 11, 2024 licensed professional counselor, AUG 26, 2024 licensed professional counselor, Sep 09, 2024 licensed professional counselor, Sep 12, 2024 nursing, Sep 12. 2023 psychiatry, Oct 07, 2024 chiro, Oct 13, 2024 nursing note,Nov 14, 2024 LICENSED PROFESSIONAL COUNSELOR, Nov 28, 2024 LICENSED PROFESSIONAL COUNSELOR, January 09. 2024 LICENSED PROFESSIONAL COUNSELOR, February 06, 2025 LICENSED PROFESSIONAL COUNSELOR, FEBRUARY 26, PRIMARY CARE, MARCH 06, 2025 LICENSED PROFESSIONAL COUNSELOR, MARCH 30, 2025, APRIL 13, 2025 LICENSED PROFESSIONAL COUNSELOR. JLV NOTES: SEPTEMBER 16, 2024 NEUROLOGY VFAI: PART B MEDICATION MANAGEMENT (1a) Does the person take any medication(s)? Yes (1b) Does the person need assistance with medication management? Needs medication set-up Comments/additional information: Cg presently at work and has joined [facility] via 3 way call. At this point vet lost signal and could not get video to come back up. Cg left video conference to see if that would help improve vets video capability but vet was not able to regain video. Assessment continued via audio only Vet reports he is familiar with the meds he takes and their purposes. He reports, sometimes she (cg) will set up my pill box and sometimes I will . Cg reports she reminds vet to take his meds. Once reminded vet reports he can take the pills out of pill box to give to himself. He reports he calls to have his meds reordered and they are mailed to him. CPRS NOTES: April 21, 2024 mental health, June 04, 2024 licensed professional counselor, Jun 30. 2023 licensed professional counselor, Jul 16, 2024 primary care, JUL 16, 2024 , AUGUST 05, 2024 licensed professional counselor, AUGUST 11, 2024 licensed professional counselor, AUG 26, 2024 licensed professional counselor, Sep 09, 2024 licensed professional counselor, Sep 12, 2024 nursing, Sep 12. 2023 psychiatry, Oct 07, 2024 chiro, Oct 13, 2024 nursing note,Nov 14, 2024 LICENSED PROFESSIONAL COUNSELOR, Nov 28, 2024 LICENSED PROFESSIONAL COUNSELOR, January 09. 2024 LICENSED PROFESSIONAL COUNSELOR, February 06, 2025 LICENSED PROFESSIONAL COUNSELOR, FEBRUARY 26, PRIMARY CARE, MARCH 06, 2025 LICENSED PROFESSIONAL COUNSELOR, MARCH 30, 2025, APRIL 13, 2025 LICENSED PROFESSIONAL COUNSELOR. JLV NOTES: SEPTEMBER 16, 2024 NEUROLOGY SELF-PRESERVATION AND SUPERVISION (2) Does the person have the judgment and physical ability to cope, make appropriate decisions and take action in a changing environment or a potentially harmful situation? Independent (3) Is this person at risk of self-neglect? No (4) Person has the following risk factors: Not applicable (5) Is this person at risk of neglect, abuse, or exploitation by another person? No (6) What type of support does the person need in the home to remain safe, such as assistance or supervision with activities that require remembering, decision-making, or judgment? Sometimes the person can be left alone for most of the day. (7) What type of support does the person need away from home to remain safe, such as assistance or supervision with activities that require remembering, decision-making, or judgment? The person can go places alone as long as they are familiar places. Comments/additional information: He reports he can recognize an emergency and can use a phone to call 911 or cg for help. Cg presently at work and has joined [facility] via 3 way call. Vet reports that he is at home alone 8 hours while cg is at work. Cg plans on quitting her job in May to stay home to care for vet. While cg is at work vet takes 3 month old and 2 year old to daycare and cg picks up children after work. Vet reports he can be in one room of house while cg is in another room of house when cg is at home. Vet reports that cg'ers back up is family and friends . Vet reports he can get himself in and out of vehicle and can drive. He reports he can put on his seat belt. Vet reports memory issues: I forget things a lot. I go to the store and forget why I came there. I go into a room and forget why I came into room . CPRS NOTES: April 21, 2024 mental health, June 04, 2024 licensed professional counselor, Jun 30. 2023 licensed professional counselor, Jul 16, 2024 primary care, JUL 16, 2024 , AUGUST 05, 2024 licensed professional counselor, AUGUST 11, 2024 licensed professional counselor, AUG 26, 2024 licensed professional counselor, Sep 09, 2024 licensed professional counselor, Sep 12, 2024 nursing, Sep 12. 2023 psychiatry, Oct 07, 2024 chiro, Oct 13, 2024 nursing note,Nov 14, 2024 LICENSED PROFESSIONAL COUNSELOR, Nov 28, 2024 LICENSED PROFESSIONAL COUNSELOR, January 09. 2024 LICENSED PROFESSIONAL COUNSELOR, February 06, 2025 LICENSED PROFESSIONAL COUNSELOR, FEBRUARY 26, PRIMARY CARE, MARCH 06, 2025 LICENSED PROFESSIONAL COUNSELOR, MARCH 30, 2025, APRIL 13, 2025 LICENSED PROFESSIONAL COUNSELOR. JLV NOTES: SEPTEMBER 16, 2024 NEUROLOGY PROTECTION (8a) Delusions/Hallucinations: Person engages in markedly inappropriate behavior that affects his/her/their daily functioning and social interactions. Behavior characterized by a radical change in personality and a distorted or diminished sense of reality. No (9a) Agitation: Person has a tendency, or would without an intervention, to suddenly or quickly become upset or violent. Yes (9b) Type(s) of agitation symptoms displayed: Easily agitated Easily frustrated (9c) Type of intervention needed: Requires no intervention (9d) Frequency of intervention needed: 4 or more times per week but not daily (10a) Impulsivity: Person has a propensity, or would without an intervention, for sudden or spontaneous decisions or actions. No (11a) Wandering: Person will, or would without an intervention, leave an area or group without telling others or depart from the supervision of others unexpectedly, resulting in increased vulnerability. No Comments/additional information: Vet denies delusions and hallucinations. Vet reports frustration and agitation 4 or more times a week . he reports he is able to calm himself when he is upset. Vet denies impulsivity. He denies wandering. INSTRUCTION (12) Person requires stand-by cueing, supervision, or step by step instructions from a caregiver in order to function in daily life: No (13) Person requires CONTINUOUS stand-by cueing, supervision, or step by step instructions from a caregiver in order to function in daily life: No SELF-DIRECTION (14) Can this person identify their own needs? Yes (15) Can this person provide and/or arrange for their health and safety? Yes Comments: He reports he can recognize his personal needs: hunger, pain, needing to use rest room, and needing to rest. He reports he can recognize an emergency and can use a phone to call 911 or cg for help. He reports that or [facility] makes [facility]. He reports that cg attends appts that she is able to attend. Initially VFAI started with 3 way call. Cg presently at work and has joined [facility] via 3 way call. In medication section of assessmetn vet lost signal and could not get video to come back up. Cg left video conference to see if that would help improve vets video capability but vet was not able to regain video. Assessment continued via audio only. time one hour No discrepancies noted between vet assessment and VFAI Vet alert, pleasant, and answered questions appropriately /glendy/ Earnestine Swan RN, CSP Clinical News Intern IZAIAH [facility] Signed: 05/13/2025 10:48 Receipt Acknowledged By: 05/15/2025 11:38 /glendy/ SARAH HAIR-EARNESTINE EID [facility]
--- OUTSIDE RECORDS SUMMARY | 2025-05-15 06:09 | XMS_ITS ---
Author Name [facility] [facility] [place] [facility] [place] Address [address] [place] [address] Care Team Providers Care System Analyst Name Role Phone FREDDIE ROJAS Primary Care [...] Name Patient's Relationship to Policy Forrester [facility] 2024 [facility] WNR Oct 15, 2024 [facility] [id number] 97 GIULIANO NETTLES PATIENT Selected Encounter This section includes the information on record at [place] for the Encounter. Date/Time Encounter Type Encounter Description Reason Pro vider Source May 15, 2025 11:09 AM Outpatient Encounter ADMIN PAT ACTIVTIES (MASNONCT) IHE Encounter Template Text not used by [place] Plan of Treatment: Future Appointments (+ 6 [...] 20 appointments. The data comes from all [place] treatment [facility]. Appointment Date/Time Appointment Type Appointme nt Facility Name Jun 29, 2025 01:00 PM AMBULATORY - MEDICINE [facility] Jul 13, 2025 09:30 AM AMBULATORY - MEDICINE [facility] Jul 29, 2025 08:30 AM AMBULATORY MEDICINE [facility] Aug 12, 2025 08:30 AM AMBULATORY MEDICINE [facility] Aug 26, 2025 08:30 AM AMBULATORY MEDICINE [facility] Active, Pending, and Scheduled Orders This section includes a listing of several types of active, pending, and scheduled orders, including clinic medications orders, diagnostic test orders, procedure orders and consult orders; where the start date of the order is 45 days before the date of the Encounter or 45 days after the date of theEncounter. The data comes from all [facility]. Test Date/Time Test Type Test Details Facility Name May 15, 2025 11:17 AM Consult Order [facility] PCA CENTRALIZED ELIGIBILITY AND APPEALS TEAM OUTPT 657A4 Cons Rendering Equipment Tender's Choice ROSALBA BEVERLY [facility] Encounter Notes: All associated encounter notes This section contains the clinical notes associated to the Encounter. Date/Time Encounter Note(s) Provider Source May 15, 2025 11:09 AM CAREGIVER CERTIFIC ATE: LOCAL TITLE: [facility] PCAFC PRIMARY CARE COLLABORATION STANDARD TITLE: CAREGIVER CERTIFICATE DATE OF NOTE: MAY 15, 2025@11:09 ENTRY DATE: MAY 15, 2025@11:09:29 AUTHOR: SARAH BALLARD COSIGNER: URGENCY: STATUS: COMPLETED As part of the Program of Comprehensive Assistance for Family Caregiver (PCAFC), the Caregiver Support Program (CSP) collaborates with the [place]'s Primary Care Team to the maximum extent practicable. Primary Care Team means one or more medical care evaluation specialist who care for a patient based on the clinical needs of the patient. Primary Care Teams must include a [place] Primary Care Provider who is a physician, advanced practice nurse or a physician curatorial assistant. The CSP is seeking input and/or sharing documentation such as comprehensive assessments or progress notes that discuss ADL needs and/or supervision, protection or instruction needs; or a treatment plan. Primary Care Team members are not responsible for determining eligibility for the PCAFC. Documentation for collaboration should be within twelve months from the valid application received date or reassessment date, as applicable. Name: RUSSELL NETTLES Valid application received date or reassessment date, as applicable: Apr CSP staff collaborated (via email, phone, in-person) with the [place]'s Primary Care Team and completed the following note based on information provided: Date of collaboration with Primary Care Team: Apr Specialty of provider: Pact RN 1) Traumatic brain injury 2) Morbid Obesity ([facility] [id number]) 3) GERD - Gastro-Esophageal Reflux Disease ([facility] [id number]) 4) Obstructive sleep apnea 5) Hearing Loss ([facility] [id number]) 6) Vitamin D Deficiency ([facility] [id number]) 7) Chronic pain 8) Cephalgia 9) Exposure to potentially hazardous substance 10) Chronic post-traumatic stress disorder 11) Bilateral tinnitus 12) Depression Service Connected: 90% Rated Disabilities: LIMITED FLEXION OF THIGH (10% SC) 2ND DEGREE BANUELOS (0% SC) COMPLETE ATROPHY OF THE TESTIS (0% SC) LIMITED FLEXION OF KNEE (10% SC) TINNITUS (10% SC) 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) SLEEP APNEA SYNDROMES (50% SC) MAJOR DEPRESSIVE DISORDER (50% SC) LIMITED EXTENSION OF KNEE (10% SC) LIMITED EXTENSION OF KNEE (0% SC) THIGH CONDITION (0% SC) LUMBOSACRAL OR CERVICAL STRAIN (20% SC) LIMITED MOTION OF ARM (20% SC) DEFORMITY OF THE PENIS (0% SC) GASTROESOPHAGEAL REFLUX DISEASE (0% SC) MIGRAINE HEADACHES (0% SC) 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 Indication: FOR DEPRESSION & PAIN 4) GABAPENTIN 300MG CAP TAKE ONE CAPSULE BY MOUTH THREE TIMES A ACTIVE DAY Indication: FOR NERVE PAIN 5) MELOXICAM 15MG TAB TAKE ONE TABLET BY MOUTH ONCE A DAY ACTIVE Indication: FOR OSTEOARTHRITIS 6) OMEPRAZOLE 40MG EC CAP TAKE ONE CAPSULE BY MOUTH EVERY ACTIVE MORNING BEFORE A MEAL TAKE 30 MINUTES PRIOR TO FOOD. Indication: FOR GASTROESOPHAGEAL REFLUX DISEASE 7) TRAZODONE HCL 100MG TAB TAKE ONE TABLET BY MOUTH AT BEDTIME ACTIVE NEEDED TAKE ONE-HALF TO ONE TABLET BY MOUTH AT BEDTIME NEEDED . Indication: FOR INSOMNIA Is the [place] able to understand the current treatment plan (what prescribed medications are for, appointment frequency, recommended diet, need for specialty services): _X Yes __ No, what prevents the [place] from understanding the treatment plan? (Answer below) Does the have potential for improvement in functioning: _X Yes __ No Has the been referred and participated in rehabilitative services: such as PT and/or OT? _ Yes, details: _X No, details: Is the Caregiver actively involved in the care of the [place]: _X Yes, Describe caregiver's involvement: __ No If involved, can the Caregiver follow the current treatment plan: X_ Yes __ No, details: In your best opinion are the care needs of the [place] being safely provided inthe home setting: _X Yes __ No, details: Is the is being recommended for institutional care at this time: __ Yes, provide details: _X No /glendy/ Rocio Alcazar RN Pfeifer CB, JP [facility] Signed: 05/05/2025 14:25 /es/ SARAH HAIR-ISMA Signed: 05/15/2025 11:13 SARAH BALLARD [facility]
--- NOTE | 2025-05-21 08:08 | US_ITS ---
WS: [id number] TESTICULAR ULTRASOUND HISTORY: pain COMPARISON: None available. TECHNIQUE: Real-time and color Doppler imaging utilized to perform a testicular ultrasound. Right testicle: 4.6 cm x 3.0 cm x 2.7 cm. Normal size and echogenicity. No mass or torsion. Normal color Doppler is present throughout. Systolic and diastolic velocities are both present. No significant hydrocele. Right epididymis: Small spermatoceles involving the epididymal head. Largest measures 1.2 x 1.2 x 1.0 cm. Left testicle: 4.6 cm x 3.2 cm x 1.8 cm. Normal size testicle. Infiltrating tubular cystic mass involving a large portion of the superior testicle extending centrally. There are dilated tubules containing debris. Areas of dilatation measure up to 2.4 mm. There is no increased vascularity. Normal vascularity within the remaining testicle. Normal color Doppler is present throughout. Systolic and diastolic velocities are both present. No significant hydrocele. Left epididymis: Normal epididymis with no increased vascularity. Moderate left-sided varicocele. Pampiniform plexus dilated over 3 mm. No Valsalva maneuver attempted. US/US scrotum [id number] IMPRESSION: 1. Moderate size LEFT varicocele. 2. Tubular cystic mass involving a moderate portion of the LEFT testicle. This is probably related to the rete testes. 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 This is more than typically noted and there is debris within the tubule s. Less likely neoplastic mass. Due to its unusual appearance for dilated rete testes recommend follow-up with urology or 3-month ultrasound.
--- OUTSIDE RECORDS SUMMARY | 2025-05-21 08:08 | XMS_ITS | Continuity of Care Document ---
Author Name [facility] Organization [facility] Care Team Providers Care Police Lieutenant Precinct Name Role Phone [facility] Unavailable Unavailable Problems Combined list of problems from Department of Defense and Veterans Affairs facilities. It does not include entries that were removed or entered in error. Problem Status Onset Date Problem Type Date of Resolution Comments Source Hearing Services Hearing Aid Fitting/Orientatio n/Checking Of Inactive 8 Condition [facility] Regular astigmatism, bilateral Active 9 Condition [facility] Chronic pain syndrome Active Condition [facility] Encounter for therapeutic drug level monitoring Active Condition [facility] Encounter for other orthopedic aftercare Active Condition [facility] Superior glenoid labrum lesion of right shoulder, subsequent encounter Active Condition [facility] Lower abdominal pain, unspecified Active Condition [facility] Morbid obesity Active Condition Unknown Organization Obstructive sleep apnea syndrome Active Condition [facility] Pain in right shoulder Active Condition [facility] Prolapsed thoracic intervertebral disc Active Condition [facility] Bilateral tinnitus Active Condition [place] [facility] Cephalgia Active Condition [facility] Chronic pain Active Condition [place] [facility] Chronic post-traumatic stress disorder Active Condition [place] [facility] Depression Active Condition [facility] Exposure to potentially hazardous substance Active Condition [facility] GERD - Gastro-Esophageal Reflux Disease ([facility] [id number]) Active Condition [place] [facility] [facility] Hearing Loss (SCT [id number]) Active Condition [facility] [facility] Morbid Obesity (SCT [id number]) Active Condition [place] [facility] [facility] Obstructive sleep apnea Active Condition [facility] Traumatic brain injury Active Condition [place] [facility] Vitamin D Deficiency (SCT [id number]) Active Condition [facility] Obstructive sleep apnea (adult) (pediatric) Active Condition [facility] Pain in thoracic spine Active Condition [facility] Spinal stenosis, lumbosacral region Active Condition [facility] Other intervertebral disc displacement, thoracic region Active Condition [facility] Dorsalgia, unspecified Active Condition [facility] Tobacco use Active Condition [facility] Sensorineural hearing loss, unilateral, right ear, with unrestricted hearing on the contralateral side Active Condition [facility] Diagnosis: ICD-10-CM Z87.820 Personal history of traumatic brain injury Active Diagnosis [facility] [facility] Diagnosis: ICD-10-CM Z71.9 Counseling, unspecified Active Diagnosis [place] Diagnosis: ICD-10-CM H02.021 Mechanical entropion of right upper eyelid Active Diagnosis [facility] Diagnosis: ICD-10-CM F33.1 Major depressive disorder, recurrent, moderate Active Diagnosis [facility] Diagnosis: ICD-10-CM E66.01 Morbid (severe) obesity due to excess calories Active Diagnosis [facility] Diagnosis: ICD-10-CM F43.12 Post-traumatic stress disorder, chronic Active Diagnosis [facility] Diagnosis: ICD-10-CM M99.01 Segmental and somatic dysfunction of cervical region Active Diagnosis [facility] Diagnosis: ICD-10-CM H93.13 Tinnitus, bilateral Active Diagnosis [facility] [facility] Diagnosis: ICD-10-CM M72.2 Plantar fascial fibromatosis Active Diagnosis [facility] Diagnosis: ICD-10-CM Z02.89 Encounter for other administrative examinations Active Diagnosis [facility] Diagnosis: ICD-10-CM F41.1 Generalized anxiety disorder Active Diagnosis [facility] Diagnosis: ICD-10-CM R51.9 Headache, unspecified Active Diagnosis [facility] Diagnosis: ICD-10-CM Z48.02 Encounter for removal of sutures Active Diagnosis [facility] Diagnosis: ICD-10-CM G47.33 Obstructive sleep apnea (adult) (pediatric) Active Diagnosis [facility] Medications Combined list of outpatient medications from Department of Defense and Veterans Affairs facilities.Medications provided include 1) outpatient medications from the last 15 months, and 2) patient-reported medications. Medication Details Route Status Patient Instructions Prescription Expires Prescription Number Last Dispense Date Ordering Provider Order Date Order Qty Source AMITRIPTYLI NE HCL 25MG TAB TAKE ONE TABLET BY MOUTH AT BEDTIME FOR DEPRESSI ON ORAL DISCONT INUED BY PROVIDE R 02/21/2025 [id number] [facility] 2023 90 [facility] Amitriptyli ne Hydrochlori de (Elavil Eq.) Tablet 25 mg Oral TAKE ONE TABLET BY MOUTH AT BEDTIME FOR DEPRESSI ON 02/21/2025 [id number] [facility] [address] [place] [address]- Divisio n amoxicillin -clavulanat e 875 mg-125 mg oral tablet 0 total refill(s ) Discont inued 04/25/20232022 No Facilit y Access ARIPIPRAZOL E 10MG TAB TAKE ONE-HALF TABLET BY MOUTH AT BEDTIME FOR DEPRESSI ON ORAL ACTIVE 10/14/2025 [id number] NAOMI GERMAN R 2023 45 [facility] CHOLECALCIF J CARLOS 50MCG (2,000UNIT) TAB TAKE ONE TABLET BY MOUTH ONCE A DAY FOR VITAMIN D DEFICIEN CY ORAL ACTIVE 02/27/2026 [id number] 5 [facility] 2024 100 [facility] CHOLECALCIF J CARLOS 50MCG (2,000UNIT) TAB TAKE ONE TABLET BY MOUTH ONCE A DAY FOR VITAMIN D DEFICIEN CY ORAL DISCONT INUED 12/10/2024 [id number] 4 [facility] 2023 100 [facility] clindamycin 300 mg oral capsule 0 total refill(s ) Discont inued 04/25/20232022 No Facilit y Access Colace 100 mg oral capsule 1 cap(s), Oral, BID, PRN constipa tion, # 20 cap(s), 0 total refill(s ), Maintena nce, Pharmacy : [facility] Oral (given by mouth) Discont inued 05/10/2023 3 2022 20.0 [facility] cyclobenzap rine 10 mg oral tablet cycloben zaprine 10 mg oral tablet Start Date: 12/16/21 Stop Date: 04/25/23 Status: Disconti nued Repeat number: 1 Discont inued 04/25/20232022 No Facilit y Access dextrometho halina-nikkiF ENesin 30 mg-600 mg oral tablet, extended release ORAL, 1 Refill(s ), 0 total refill(s ), Soft Stop Discont inued 04/25/20232022 [facility] doxycycline hyclate 100 mg oral tablet 0 total refill(s ) Discont inued 04/25/20232022 No Facilit y Access DULoxetine 60 mg oral delayed release capsule 90 cap(s), 0 total refill(s ), Soft Stop Discont inued 04/25/20232022 [facility] DULoxetine 60 mg oral delayed release capsule 1 cap(s), Oral, Daily, for chronic pain, # 90 cap(s), 0 total refill(s ), Tera msyancy, Pharmacy : [facility] Oral (given by mouth) Ordered 3 2022 90.0 [facility] DULoxetine DR 60 mg capsule See dose instruct ions in comments , # 90 EA, 1 total refill(s ), Acute Complet ed 08/31/2023 3 2022 90.0 Ambulat ory Pharmac y DULOXETINE HCL 30MG CAP,EC TAKE THREE CAPSULES BY MOUTH ONCE A DAY FOR DEPRESSI ON and PAIN DO NOT ABRUPTLY DISCONTI NUE MEDICATI ON. ORAL ACTIVE 08/09/2025 [id number] 5 NAOMI GERMAN 2024 270 [facility] DULOXETINE HCL 30MG CAP,EC TAKE THREE CAPSULES BY MOUTH ONCE A DAY FOR DEPRESSI ON and PAIN DO NOT ABRUPTLY DISCONTI NUE MEDICATI ON. ORAL DISCONT INUED 09/13/2025 [id number] 5 NAOMI GERMAN [address] [place] [address] [facility] DULOXETINE HCL 60MG CAP,EC TAKE ONE CAPSULE BY MOUTH ONCE A DAY FOR MUSCULOS KELETAL PAIN DO NOT ABRUPTLY DISCONTI NUE MEDICATI ON. ORAL DISCONT INUED (EDIT) 12/10/2024 [id number] 4 FREDDIE ROJAS 2023 90 [facility] fluticasone 50 mcg/inh nasal spray 16 spray(s) , 0 total refill(s ), Soft Stop Discont inued 04/25/20232022 [facility] fluticasone 50 mcg/inh nasal spray USE 2 SPRAYS IN EACH NOSTRIL EVERY DAY, # 16 g, 1 total refill(s ), Acute Discont inued 05/10/2023 3 2022 16.0 Ambulat ory Pharmac y gabapentin 300 mg oral capsule 1 cap(s), Oral, TID, # 60 cap(s), 0 total refill(s ), [facility], Pharmacy : [facility] Oral (given by mouth) Discont inued 05/10/2023 3 2022 60.0 [facility] gabapentin 300 mg oral capsule 1 cap(s), Oral, TID, # 270 cap(s), 1 total refill(s ), [facility], Pharmacy : [facility] Oral (given by mouth) Ordered 3 2022 270.0 [facility] GABAPENTIN 300MG CAP TAKE ONE CAPSULE BY MOUTH THREE TIMES A DAY FOR NERVE PAIN ORAL ACTIVE 02/27/2026 [id number] 5 FREDDIE ROJAS [address] [place] [address] [facility] GABAPENTIN 300MG CAP TAKE ONE CAPSULE BY MOUTH THREE TIMES A DAY FOR NERVE PAIN ORAL DISCONT INUED 12/25/2024 [id number] 4 FREDDIE ROJAS [address] [place] [address] [facility] ibuprofen 800 mg oral tablet ibuprofe n 800 mg oral tablet Start Date: 01/16/22 Stop Date: 04/25/23 Status: Disconti eufemia Repeat number: 1 Discont inued 04/25/20232022 No Facilit y Access MELOXICAM 15MG TAB TAKE ONE TABLET BY MOUTH ONCE A DAY FOR OSTEOART HRITIS ORAL ACTIVE 02/27/2026 [id number] CRYSTAL, FREDDIE 2024 90 [facility] methylPREDN ISolone 4 mg oral tablet methylPR EDNISolo ne 4 mg oral tablet Start Date: 12/23/20 Stop Date: 04/25/23 Status: Disconti eufemia Repeat number: 1 Discont inued 04/25/20232022 No Facilit y Access MiraLax oral powder for reconstitut ion See Instruct ions, Dissolve and drink 1 capful (17g) of powder in 4 to 8 ounces of liquid once daily, # 510 g, 0 total refill(s ), Acute, 06/19/23 12:00:00 AM CDT, Pharmacy : [facility] Complet ed 06/19/20232022 510.0 [facility] naproxen 500 mg oral tablet naproxen 500 mg oral tablet Start Date: 12/16/21 Stop Date: 04/25/23 Status: Disconti eufemia Repeat number: 1 Discont inued 04/25/20232022 No Facilit y Access naproxen 500 mg oral tablet 1 tab(s), Oral, BID, # 60 tab(s), 0 total refill(s ), [facility], Pharmacy : [facility] Oral (given by mouth) Ordered 3 2022 60.0 [facility] Narcan 4 mg/0.1 mL nasal spray [2EA] See Instruct ions, # 2 EA, 0 total refill(s ), Hard Stop Complet ed 05/10/2023 3 2022 2.0 Ambulat ory Pharmac y omeprazole 20 mg, Oral, Daily, 0 total refill(s ), Maintena nce Oral (given by mouth) Ordered 2022 [facility] OMEPRAZOLE 40MG CAP,EC TAKE ONE CAPSULE BY MOUTH EVERY MORNING BEFORE A MEAL FOR GASTROES OPHAGEAL REFLUX DISEASE TAKE 30 MINUTES PRIOR TO FOOD. ORAL ACTIVE 02/27/2026 [id number] 5 CRYSTALFREDDIE [address] [place] [address] [facility] OMEPRAZOLE 40MG CAP,EC TAKE ONE CAPSULE BY MOUTH EVERY MORNING BEFORE A MEAL FOR GASTROES OPHAGEAL REFLUX DISEASE TAKE 30 MINUTES PRIOR TO FOOD. ORAL DISCONT INUED 12/10/2024 [id number] 4 CRYSTALFREDDIE [address] [place] [address] [facility] ondansetron 4 mg oral tablet 8 tab(s), 0 total refill(s ), Soft Stop Discont inued 04/25/202320220C[facility] One Daily Essential Multiple Vitamins with Minerals oral tablet 1 tab(s), Oral, Daily, 0 total refill(s ), Maintena nce Oral (given by mouth) Ordered 20220C[facility] oxyCODONE 5 mg oral tablet 1 tab(s), Oral, every 6 hr, PRN pain, # 20 tab(s), 0 total refill(s ), Maintena nce, Pharmacy : [facility] Oral (given by mouth) Discont inued 05/10/2023 3 2022 20.0 [facility] predniSONE 20 mg oral tablet 10 tab(s), 0 total refill(s ), Soft Stop Discont inued 04/25/20232022 [facility] pseudoePHED rine 120 mg oral tablet, extended release 10 tab(s), 0 total refill(s ), Soft Stop Discont inued 04/25/2023 07/12/ 2023 [facility] Robaxin-750 oral tablet 2 tab(s), Oral, TID, PRN muscle spasm, X 10 days, # 40 tab(s), 0 total refill(s ), Acute, Pharmacy : [facility] Oral (given by mouth) Complet ed 05/21/20232022 40.0 [facility] sildenafil 50 mg oral tablet 30 tab(s), 0 total refill(s ), Soft Stop Discont inued 04/25/20232022 [facility] sildenafil 50 mg oral tablet TAKE 1 TABLET BY MOUTH 30 MINUTES PRIOR TO SEXUAL ACTIVITY , # 30 EA, 2 total refill(s ), Acute Complet ed 05/10/2023 3 2022 30.0 Ambulat ory Pharmac y TRAZODONE HCL 100MG TAB TAKE ONE TABLET BY MOUTH AT BEDTIME NEEDED TAKE ONE-HALF TO ONE TABLET BY MOUTH AT BEDTIME NEEDED FOR INSOMNIA . ORAL ACTIVE 09/13/2025 [id number] NAOMI GERMAN 2023 90 [facility] Tylenol 325 mg oral tablet 1 tab(s), Oral, every 4 hr, PRN pain or fever, # 100 tab(s), 0 total refill(s ), Maintena mse, Pharmacy : [facility] Oral (given by mouth) Discont inued 05/10/2023 3 2022 100.0 [facility] Zofran 8 mg oral tablet 1 tab(s), Oral, every 8 hr, PRN nausea/v omiting, # 30 cap(s), 0 total refill(s ), Maintena nce, Pharmacy : [facility] Oral (given by mouth) Discont inued 05/10/2023 3 2022 30.0 [facility] Allergies, Adverse Reactions, Alerts Combined list of allergies from Department of Defense and Veterans Affairs facilities. It does not include entries that were removed or entered in error. Substance Category Reaction Severity Reaction type Status Date Reported Comments Source No Known Allergies Drug allergy (disorder) active 04/12/2023 DoD Immunizations Combined list of available immunizations from the Department of Defense and Veterans Affairs facilities. Immunization Series Date Given Administered By Site Reaction Lot Number CVX Code Drug E Learning Specialist Status Comments Source meningococcal A,C,Y,W-135 (MCV4P) 2021 [id number] sanofi pasteur complet ed meningoco ccal A,C,Y,W-1 35 (MCV4P) 12/02/21 Given Ambulat ory Pharmac y meningococcal polysaccharid e (groups A, C, Y and W-135) diphtheria toxoid conjugate vaccine (MCV4P) 1 2021 [id number] 114 Sanofi Pasteur (PMC) complet ed meningoco ccal polysacch aride (groups A, C, Y and W-135) diphtheri a toxoid conjugate vaccine (MCV4P) [facility] COVID Vaccine Moderna 2021 TRS 207 complet ed COVID Vaccine Moderna 12/01/21 Given Ambulat ory Pharmac y COVID-19, mRNA, LNP-S, PF, 100 mcg or 50 mcg dose 2021 [place], Moderna [place], Inc. (MOD) Not Given COVID-19, mRNA, LNP-S, PF, 100 mcg or 50 mcg dose DoD SARS-COV-2 (COVID-19) vaccine, mRNA, spike protein, LNP, preservative free, 100 mcg or 50 mcg dose 0 2021 Unknown, Provider TRS 207 [employer] Inc. (MOD) complet ed SARS-COV- 2 (COVID-19 ) vaccine, mRNA, spike protein, LNP, preservat cristina free, 100 mcg or 50 mcg dose DoD influenza, injectable, quadrivalent- pf 2020 [id number] 150 GlaxoSmithKli ne complet ed influenza , injectabl e, quadrival ent-pf 08/18/21 Given Ambulat ory Pharmac y Azerbaijani Encephalitis IM 2020 [id number] 134 Valneva complet ed Azerbaijani Encephali tis IM 08/18/21 Given Ambulat ory Pharmac y anthrax vaccine 2020 [id number] 24 Emergent Biosolutions complet ed anthrax vaccine 08/18/21 Given Ambulat ory Pharmac y yellow fever vaccine 2020 [id number] 37 sanofi pasteur complet ed yellow fever vaccine 08/18/21 Given Ambulat ory Pharmac y typhoid Vi capsular polysaccharid e vac 2020 [id number] 101 sanofi pasteur complet ed typhoid Vi capsular polysacch aride vac 08/18/21 Given Ambulat ory Pharmac y anthrax vaccine 6 2020 [id number] 24 [employer]gent [employer] (MIP) complet ed anthrax vaccine DoD yellow fever vaccine 1 2020 [id number] 37 Sanofi Pasteur (PMC) complet ed yellow fever vaccine DoD typhoid Vi capsular polysaccharid e vaccine 1 2020 [id number] 101 Sanofi Pasteur (PMC) complet ed typhoid Vi capsular polysacch aride vaccine DoD Azerbaijani Encephalitis vaccine for intramuscular administratio n 1 2020 [id number] 134 [facility] Harper[employer] (INT) complet ed Azerbaijani Encephali tis vaccine for intramusc ular administr ation DoD Influenza, injectable, quadrivalent, preservative free 1 2020 [id number] 150 SmithKline (SKB) complet ed Influenza , injectabl e, quadrival ent, preservat cristina free DoD COVID Vaccine Pfizer 2020 [facility] [id number] PFIZER complet ed COVID Vaccine Pfizer 02/09/21 Given Ambulat ory Pharmac y SARS-COV-2 (COVID-19) vaccine, mRNA, spike protein, LNP, preservative free, 30 mcg/0.3mL dose 2 2020 TRACI POSADA [id number] 208 Pfizer, Inc (PFR) complet ed SARS-COV- 2 (COVID-19 ) vaccine, mRNA, spike protein, LNP, preservat cristina free, 30 mcg/0.3mL dose DoD COVID Vaccine [facility] [id number] 208 PFIZER complet ed COVID Vaccine Pfizer 01/10/21 Given Ambulat ory Pharmac y SARS-COV-2 (COVID-19) vaccine, mRNA, spike protein, LNP, preservative free, 30 mcg/0.3mL dose 1 2020 PRACHI PEPE Hang [id number] 208 Pfizer, Inc (PFR) complet ed SARS-COV- 2 (COVID-19 ) vaccine, mRNA, spike protein, LNP, preservat cristina free, 30 mcg/0.3mL dose DoD influenza, injectable, quadrivalent- pf 2019 [id number] 150 Seqirus complet ed influenza , injectabl e, quadrival ent-pf 08/16/20 Given Ambulat ory Pharmac y Influenza, injectable, quadrivalent, preservative free 1 2019 [id number] 150 Seqirus (SEQ) complet ed Influenza , injectabl e, quadrival ent, preservat cristina free DoD typhoid Vi capsular polysaccharid e vac 2018 [id number] 101 sanofi pasteur complet ed typhoid Vi capsular polysacch aride vac 08/13/19 Given Ambulat ory Pharmac y typhoid Vi capsular polysaccharid e vaccine 1 2018 [id number] 101 Sanofi Pasteur (PMC) complet ed typhoid Vi capsular polysacch aride vaccine DoD anthrax vaccine 2018 [id number] 24 Emergent Biosolutions complet ed anthrax vaccine 07/09/19 Given Ambulat ory Pharmac y influenza, injectable, quadrivalent 2018 [id number] 158 Seqirus complet ed influenza , injectabl e, quadrival ent 07/09/19 Given Ambulat ory Pharmac y anthrax vaccine 5 2018 [id number] 24 [employer] (MIP) complet ed anthrax vaccine DoD influenza, injectable, quadrivalent, contains preservative 1 2018 [id number] 982 158 Seqirus (SEQ) complet ed influenza , injectabl e, quadrival ent, contains preservat cristina DoD anthrax vaccine 2018 [id number] 24 Emergent Biosolutions complet ed anthrax vaccine 12/06/18 Given Ambulat ory Pharmac y anthrax vaccine 4 2018 [id number] 24 [employer] Le (MIP) complet ed anthrax vaccine DoD vaccinia (smallpox) vaccine 2018 [id number] 75 Sanofi Pasteur Incorporated complet ed vaccinia (smallpox ) vaccine 11/25/18 Given Ambulat ory Pharmac y vaccinia (smallpox) vaccine 1 2018 [id number] 75 (MARY) complet ed vaccinia (smallpox ) vaccine DoD influenza, injectable, quadrivalent- pf 2017 [id number] 150 Seqirus complet ed influenza , injectabl e, quadrival ent-pf 08/13/18 Given Ambulat ory Pharmac y Influenza, injectable, quadrivalent, preservative free 1 2017 [id number] 1A 150 Seqirus (SEQ) complet ed Influenza , injectabl e, quadrival ent, preservat cristina free DoD anthrax vaccine 2017 [id number] 24 Emergent Biosolutions complet ed anthrax vaccine 01/22/18 Given Ambulat ory Pharmac y anthrax vaccine 3 2017 [id number] 24 [employer] (MIP) complet ed anthrax vaccine DoD poliovirus vaccine, inactivated 2017 [id number] 10 sanofi pasteur complet ed polioviru s vaccine, inactivat ed 11/29/17 Given Ambulat ory Pharmac y poliovirus vaccine, inactivated 1 2017 [id number] 10 Sanofi Pasteur (PMC) complet ed polioviru s vaccine, inactivat ed DoD influenza, injectable, quadrivalent- pf 2016 [id number] 150 Seqirus complet ed influenza , injectabl e, quadrival ent-pf 09/05/17 Given Ambulat ory Pharmac y Influenza, injectable, quadrivalent, preservative free 1 2016 [id number] 150 Seqirus (SEQ) comple t ed Influenza , injectabl e, quadrival ent, preservat cristina free DoD anthrax vaccine 2016 [id number] 24 Emergent Biosolutions complet ed anthrax vaccine 08/25/17 Given Ambulat ory Pharmac y anthrax vaccine 2 2016 [id number] 24 [employer] Le (MIP) complet ed anthrax vaccine DoD typhoid Vi capsular polysaccharid e vac 2016 [id number] 101 sanofi pasteur complet ed typhoid Vi capsular polysacch aride vac 07/13/17 Given Ambulat ory Pharmac y anthrax vaccine 2016 [id number] 24 Emergent Biosolutions complet ed anthrax vaccine 07/13/17 Given Ambulat ory Pharmac y anthrax vaccine 1 2016 [id number] 24 [employer] (MIP) complet ed anthrax vaccine DoD typhoid Vi capsular polysaccharid e vaccine 1 2016 [id number] 101 Sanofi Pasteur (PMC) complet ed typhoid Vi capsular polysacch aride vaccine DoD hepatitis A-hepatitis B vaccine 2016 Janiya ht Arm [id number] 104 GlaxoSmithKli ne complet ed hepatitis A-hepatit is B vaccine 05/15/17 Given Ambulat ory Pharmac y hepatitis A and hepatitis B vaccine 3 2016 DELA CRUZ HARJEET M [id number] 104 SmithKline (SKB) complet ed hepatitis A and hepatitis B vaccine DoD measles/mumps /rubella virus vaccine 2016 [id number] 03 Merck & Company Inc complet ed measles/m umps/rube lla virus vaccine 11/28/16 Given Ambulat ory Pharmac y varicella virus vaccine 2016 [id number] 21 Merck & Company Inc complet ed varicella virus vaccine 11/28/16 Given Ambulat ory Pharmac y poliovirus vaccine, inactivated 2016 [id number] 10 GlaxoSmithKli ne complet ed polioviru s vaccine, inactivat ed 11/28/16 Given Ambulat ory Pharmac y hepatitis A-hepatitis B vaccine 2016 [id number] 104 GlaxoSmithKli ne complet ed hepatitis A-hepatit is B vaccine 11/28/16 Given Ambulat ory Pharmac y measles, mumps and rubella virus vaccine 2 2016 [id number] 03 Merck (MSD) complet ed measles, mumps and rubella virus vaccine DoD poliovirus vaccine, inactivated 1 2016 [id number] 10 SmithKline (SKB) complet ed polioviru s vaccine, inactivat ed DoD varicella virus vaccine 2 2016 [id number] 21 Merck (MSD) complet ed varicella virus vaccine DoD hepatitis A and hepatitis B vaccine 2 2016 [id number] 104 SmithKline (SKB) complet ed hepatitis A and hepatitis B vaccine DoD influenza, seasonal, injectable 2016 [id number] 141 Seqirus complet ed influenza , seasonal, injectabl e 10/27/16 Given Ambulat ory Pharmac y measles/mumps /rubella virus vaccine 2016 [id number] 03 Merck & Company Inc complet ed measles/m umps/rube lla virus vaccine 10/27/16 Given Ambulat ory Pharmac y varicella virus vaccine 2016 [id number] 21 Merck & Company Inc complet ed varicella virus vaccine 10/27/16 Given Ambulat ory Pharmac y hepatitis A-hepatitis B vaccine 2016 [id number] 104 GlaxoSmithKli ne complet ed hepatitis A-hepatit is B vaccine 10/27/16 Given Ambulat ory Pharmac y measles, mumps and rubella virus vaccine 1 2016 [id number] 03 Merck (MSD) complet ed measles, mumps and rubella virus vaccine DoD varicella virus vaccine 1 2016 [id number] 21 Merck (MSD) complet ed varicella virus vaccine DoD hepatitis A and hepatitis B vaccine 1 2016 [id number] 104 SmithKline (SKB) complet ed hepatitis A and hepatitis B vaccine DoD Influenza, seasonal, injectable 1 2016 [id number] 141 Seqirus (SEQ) comple t ed Influenza , seasonal, injectabl e DoD tetanus, diphtheria, acellular pertu is 2016 [id number] 115 sanofi pasteur complet ed tetanus, diphtheri a, acellular pertussis 10/25/16 Given Ambulat ory Pharmac y meningococcal A,C,Y,W-135 (MCV4P) 2016 [id number] 114 GlaxoSmithKli ne complet ed meningoco ccal A,C,Y,W-1 35 (MCV4P) 10/25/16 Given Ambulat ory Pharmac y adenovirus vaccine, live 2016 [id number] 143 Teva Pharmaceutica ls complet ed adenoviru s vaccine, live 10/25/16 Given Ambulat ory Pharmac y TD(ADULT) UNSPECIFIED FORMULATION 2016 139 complet ed HISTORICA L INFORMATI ON - FROM OTHER PROVIDER, [facility] N meningococcal polysaccharid e (groups A, C, Y and W-135) diphtheria toxoid conjugate vaccine (MCV4P) 1 2016 [id number] [employer] ([facility]) complet ed meningoco ccal polysacch aride (groups A, C, Y and W-135) diphtheri a toxoid conjugate vaccine (MCV4P) DoD tetanus toxoid, reduced diphtheria toxoid, and acellular pertu is vaccine, adsorbed 1 2016 [id number] [employer] (PMC) complet ed tetanus toxoid, reduced diphtheri a toxoid, and acellular pertussis vaccine, adsorbed DoD Adenovirus, type 4 and type 7, live, oral 1 2016 [id number] 143 [facility] ([facility]) complet ed Adenoviru s, type 4 and type 7, live, oral DoD Results Combined list of recent chemistry, hematology and other laboratory results from Department of Defense and [employer], ranging from 15 months to all on record, depending upon the facility. Order Name Results Value Reference Range Date Interpretation Specimen Comments Source HIV I&II (PB) HIV 1+2 AB [PRESENCE] IN SERUM Nonreact cristina 12/10 Specimen Type: SERUM No comment entered. Ordering Provider: NOAH ROJAS Report Released Date/Time: Dec 10, 2023 02:27 PM Reporting Lab: [place] [facility] [address] [place] [address] Performing Lab: [place] [facility] [address] [place] [address] [facility] HEPATITIS C AB (PB) HEPATITIS C VIRUS AB [PRESENCE] IN SERUM Nonreact cristina 12/10 Specimen Type: SERUM No comment entered. Ordering Provider: NOAH ROJAS Report Released Date/Time: Dec 10, 2023 02:27 PM Reporting Lab: [place] [facility] [address] [place] [facility] Performing Lab: [place] [facility] [address] [place] [address] [facility] TSH (MA-PB-ST L) THYROTROPIN [UNITS/VOLU ME] IN SERUM OR PLASMA 1.100 u[IU]/mL 0.47 - 5 12/04 Specimen Type: SERUM No comment entered. Ordering Provider: NOAH ROJAS Report Released Date/Time: Nov 14, 2023 12:01 PM Reporting Lab: [place] [facility] [address] [place] [facility] Performing Lab: [place] [facility] [address] [place] [address] [facility] VITAMIN D, 25-HYDROX Y 25-HYDROXYV ITAMIN D3 [MASS/VOLUM E] IN SERUM OR PLASMA 21.5 ng/mL 30 - 96 12/04 L Specimen Type: SERUM No comment entered. Ordering Provider: NOAH ROJAS Report Released Date/Time: Nov 14, 2023 12:01 PM Reporting Lab: [place] [facility] [address] [place] [address] Performing Lab: [place] [facility] [address] [place] [address] [facility] COMPREHEN SIVE METABOLIC PANEL CREATININE [MASS/VOLUM E] IN SERUM OR PLASMA 1.02 mg/dL 0.7 - 1.3 12/04 Specimen Type: PLASMA No comment entered. Ordering Provider: NOAH ROJAS Report Released Date/Time: Nov 14, 2023 12:01 PM Reporting Lab: [place] [facility] [address] [place] [address] Performing Lab: [place] [facility] [address] [place] [address] [facility] COMPREHEN SIVE METABOLIC PANEL UREA NITROGEN [MASS/VOLUM E] IN SERUM OR PLASMA 14 mg/dL 9 - 25 12/04 Specimen Type: PLASMA No comment entered. Ordering Provider: NOAH ROJAS Report Released Date/Time: Nov 14, 2023 12:01 PM Reporting Lab: [place] [facility] [address] [place] [address] Performing Lab: [place] [facility] [address] [place] [address] [facility] COMPREHEN SIVE METABOLIC PANEL GLUCOSE [MASS/VOLUM E] IN SERUM OR PLASMA 90 mg/dL 72 - 99 12/04 Specimen Type: PLASMA No comment entered. Ordering Provider: NOAH ROJAS MMMary Kay Report Released Date/Time: Nov 14, 2023 12:01 PM Reporting Lab: [place] [facility] [address] [place] [address] Performing Lab: [place] [facility] [address] [place] [address] [facility] COMPREHEN SIVE METABOLIC PANEL SODIUM [MOLES/VOLU ME] IN SERUM OR PLASMA 141 meq/L 136 - 145 12/04 Specimen Type: PLASMA No comment entered. Ordering Provider: NOAH ROJAS Report Released Date/Time: Nov 14, 2023 12:01 PM Reporting Lab: [place] [facility] [address] [place] [address] Performing Lab: [place] [facility] [address] [place] [address] [facility] COMPREHEN SIVE METABOLIC PANEL POTASSIUM [MOLES/VOLU ME] IN SERUM OR PLASMA 4.1 meq/L 3.5 - 5 12/04 Specimen Type: PLASMA No comment entered. Ordering Provider: NOAH ROJAS Report Released Date/Time: Nov 14, 2023 12:01 PM Reporting Lab: [place] [facility] [address] [place] [address] Performing Lab: [place] [facility] [address] [place] [address] [facility] COMPREHEN SIVE METABOLIC PANEL CHLORIDE [MOLES/VOLU ME] IN SERUM OR PLASMA 108 meq/L 98 - 107 12/04 H Specimen Type: PLASMA No comment entered. Ordering Provider: NOAH ROJAS Report Released Date/Time: Nov 14, 2023 12:01 PM Reporting Lab: [place] [facility] [address] [place] [address] Performing Lab: [place] [facility] [address] [place] [address] [facility] COMPREHEN SIVE METABOLIC PANEL CARBON DIOXIDE, TOTAL [MOLES/VOLU ME] IN SERUM OR PLASMA 25 meq/L 22 - 31 12/04 Specimen Type: PLASMA No comment entered. Ordering Provider: NOAH ROJAS Report Released Date/Time: Nov 14, 2023 12:01 PM Reporting Lab: [place] [facility] [address] [place] [address] Performing Lab: [place] [facility] [address] [place] [address] [facility] COMPREHEN SIVE METABOLIC PANEL CALCIUM [MASS/VOLUM E] IN SERUM OR PLASMA 9.3 mg/dL 8.4 - 10.4 12/04 Specimen Type: PLASMA No comment entered. Ordering Provider: NOAH ROJAS MMY Report Released Date/Time: Nov 14, 2023 12:01 PM Reporting Lab: [place] [facility] [address] [place] [address] Performing Lab: [place] [facility] [address] [place] [address] [facility] COMPREHEN SIVE METABOLIC PANEL PROTEIN [MASS/VOLUM E] IN SERUM OR PLASMA 7.4 g/dL 6 - 8.6 12/04 Specimen Type: PLASMA No comment entered. Ordering Provider: NOAH ROJAS Report Released Date/Time: Nov 14, 2023 12:01 PM Reporting Lab: [place] [facility] [address] [place] [address] Performing Lab: [place] [facility] [address] [place] [address] [facility] COMPREHEN SIVE METABOLIC PANEL ALBUMIN [MASS/VOLUM E] IN SERUM OR PLASMA 4.6 g/dL 3.4 - 5 12/04 Specimen Type: PLASMA No comment entered. Ordering Provider: NOAH ROJAS Report Released Date/Time: Nov 14, 2023 12:01 PM Reporting Lab: [place] [facility] [address] [place] [address] Performing Lab: [place] [facility] [address] [place] [address] [facility] COMPREHEN SIVE METABOLIC PANEL BILIRUBIN.T OTAL [MASS/VOLUM E] IN SERUM OR PLASMA 0.5 mg/dL 0.2 - 1.2 12/04 Specimen Type: PLASMA No comment entered. Ordering Provider: NOAH ROJAS Report Released Date/Time: Nov 14, 2023 12:01 PM Reporting Lab: [place] [facility] [address] [place] [address] Performing Lab: [place] [facility] [address] [place] [address] [facility] COMPREHEN SIVE METABOLIC PANEL ALKALINE PHOSPHATASE [ENZYMATIC ACTIVITY/VO LUME] IN SERUM OR PLASMA 86 U/L 40 - 150 12/04 Specimen Type: PLASMA No comment entered. Ordering Provider: NOAH ROJAS MMY Report Released Date/Time: Nov 14, 2023 12:01 PM Reporting Lab: [place] [facility] [address] [place] [address] Performing Lab: [place] [facility] [address] [place] [address] [facility] COMPREHEN SIVE METABOLIC PANEL ASPARTATE AMINOTRANSF ERASE [ENZYMATIC ACTIVITY/VO LUME] IN SERUM OR PLASMA 26 U/L 5 - 34 12/04 Specimen Type: PLASMA No comment entered. Ordering Provider: NOAH ROJAS MMY Report Released Date/Time: Nov 14, 2023 12:01 PM Reporting Lab: [place] [facility] [address] [place] [address] Performing Lab: [place] [facility] [address] [place] [address] [facility] COMPREHEN SIVE METABOLIC PANEL ALANINE AMINOTRANSF ERASE [ENZYMATIC ACTIVITY/VO LUME] IN SERUM OR PLASMA 30 U/L 8 - 40 12/04 Specimen Type: PLASMA No comment entered. Ordering Provider: NOAH ROJAS MMY Report Released Date/Time: Nov 14, 2023 12:01 PM Reporting Lab: [place] [facility] [address] [place] [address] Performing Lab: [place] [facility] [address] [place] [address] [facility] COMPREHEN SIVE METABOLIC PANEL GLOMERULAR FILTRATION RATE/1.73 SQ M.PREDICTED [VOLUME RATE/AREA] IN SERUM, PLASMA OR BLOOD BY CREATININE- BASED FORMULA (CKD-EPI 2020) 105 12/04 Specimen Type: PLASMA No comment entered. Ordering Provider: NOAH ROJAS MMY Report Released Date/Time: Nov 14, 2023 12:01 PM Reporting Lab: [place] [facility] [address] [place] [address] Performing Lab: [place] [facility] [address] [place] [address] [facility] CBC LEUKOCYTES [#/VOLUME] IN BLOOD BY AUTOMATED COUNT 5.4 10*3/uL 3.6 - 11.2 12/04 Specimen Type: BLOOD No comment entered. Ordering Provider: NOAH ROJAS MMY Report Released Date/Time: Nov 14, 2023 12:01 PM Reporting Lab: [place] [facility] [address] [place] [address] Performing Lab: [place] [facility] [address] [place] [address] [facility] CBC ERYTHROCYTE S [#/VOLUME] IN BLOOD BY AUTOMATED COUNT 5.24 10*6/uL 4.10 - 5.70 12/04 Specimen Type: BLOOD No comment entered. Ordering Provider: NOAH ROJAS MMY Report Released Date/Time: Nov 14, 2023 12:01 PM Reporting Lab: [place] [facility] [address] [place] [address] Performing Lab: [place] [facility] [address] [place] [address] [facility] CBC HEMOGLOBIN [MASS/VOLUM E] IN BLOOD 15.9 g/dL 13.1 - 16.8 12/04 Specimen Type: BLOOD No comment entered. Ordering Provider: NOAH ROJAS MMY Report Released Date/Time: Nov 14, 2023 12:01 PM Reporting Lab: [place] [facility] [address] [place] [address] Performing Lab: [place] [facility] [address] [place] [address] [facility] CBC HEMATOCRIT [VOLUME FRACTION] OF BLOOD 45.5 38.2 - 48.4 12/04 Specimen Type: BLOOD No comment entered. Ordering Provider: NOAH ROJAS MMY Report Released Date/Time: Nov 14, 2023 12:01 PM Reporting Lab: [place] [facility] [address] [place] [address] Performing Lab: [place] [facility] [address] [place] [address] [facility] CBC MCV [ENTITIC VOLUME] BY AUTOMATED COUNT 86.8 fL 80.0 - 100.0 12/04 Specimen Type: BLOOD No comment entered. Ordering Provider: NOAH ROJAS MMY Report Released Date/Time: Nov 14, 2023 12:01 PM Reporting Lab: [place] [facility] [address] [place] [address] Performing Lab: [place] [facility] [address] [place] [address] [facility] CBC MCH [ENTITIC MASS] BY AUTOMATED COUNT 30.3 pg 27.0 - 34.0 12/04 Specimen Type: BLOOD No comment entered. Ordering Provider: NOAH ROJAS MMY Report Released Date/Time: Nov 14, 2023 12:01 PM Reporting Lab: [place] [facility] [address] [place] [address] Performing Lab: [place] [facility] [address] [place] [address] [facility] CBC MCHC [MASS/VOLUM E] BY AUTOMATED COUNT 34.9 g/dL 33.0 - 36.0 12/04 Specimen Type: BLOOD No comment entered. Ordering Provider: NOAH ROJAS MMY Report Released Date/Time: Nov 14, 2023 12:01 PM Reporting Lab: [place] [facility] [address] [place] [address] Performing Lab: [place] [facility] [address] [place] [address] [facility] CBC PLATELETS [#/VOLUME] IN BLOOD BY AUTOMATED COUNT 189 10*3/uL 150 - 400 12/04 Specimen Type: BLOOD No comment entered. Ordering Provider: NOAH ROJAS MMY Report Released Date/Time: Nov 14, 2023 12:01 PM Reporting Lab: [place] [facility] [address] [place] [address] Performing Lab: [place] [facility] [address] [place] [address] [facility] CBC PLATELET MEAN VOLUME [ENTITIC VOLUME] IN BLOOD BY AUTOMATED COUNT 10.6 fL 7.5 - 11.2 12/04 Specimen Type: BLOOD No comment entered. Ordering Provider: NOAH ROJAS MMY Report Released Date/Time: Nov 14, 2023 12:01 PM Reporting Lab: [place] [facility] [address] [place] [address] Performing Lab: [place] [facility] [address] [place] [address] [facility] CBC ERYTHROCYTE DISTRIBUTIO N WIDTH [RATIO] BY AUTOMATED COUNT 11.9 11.8 - 15.1 12/04 Specimen Type: BLOOD No comment entered. Ordering Provider: NOAH ROJAS MMY Report Released Date/Time: Nov 14, 2023 12:01 PM Reporting Lab: [place] [facility] [address] [place] [address] Performing Lab: [place] [facility] [address] [place] [address] [facility] CBC LYMPHOCYTES /100 LEUKOCYTES IN BLOOD BY AUTOMATED COUNT 32.7 12/04 Specimen Type: BLOOD No comment entered. Ordering Provider: NOAH ROJAS MMY Report Released Date/Time: Nov 14, 2023 12:01 PM Reporting Lab: [place] [facility] [address] [place] [address] Performing Lab: [place] [facility] [address] [place] [address] [facility] CBC MONOCYTES/1 00 LEUKOCYTES IN BLOOD BY AUTOMATED COUNT 7.0 12/04 Specimen Type: BLOOD No comment entered. Ordering Provider: NOAH ROJAS MMY Report Released Date/Time: Nov 14, 2023 12:01 PM Reporting Lab: [place] [facility] [address] [place] [address] Performing Lab: [place] [facility] [address] [place] [address] [facility] CBC NEUTROPHILS /100 LEUKOCYTES IN BLOOD BY AUTOMATED COUNT 57.5 12/04 Specimen Type: BLOOD No comment entered. Ordering Provider: NOAH ROJAS MMY Report Released Date/Time: Nov 14, 2023 12:01 PM Reporting Lab: [place] [facility] [address] [place] [address] Performing Lab: [place] [facility] [address] [place] [address] [facility] CBC EOSINOPHILS /100 LEUKOCYTES IN BLOOD BY AUTOMATED COUNT 2.0 12/04 Specimen Type: BLOOD No comment entered. Ordering Provider: NOAH ROJAS MMY Report Released Date/Time: Nov 14, 2023 12:01 PM Reporting Lab: [place] [facility] [address] [place] [address] Performing Lab: [place] [facility] [address] [place] [address] [place] [address] [facility] CBC BASOPHILS/1 00 LEUKOCYTES IN BLOOD BY AUTOMATED COUNT 0.6 12/04 Specimen Type: BLOOD No comment entered. Ordering Provider: NOAH ROJAS MMY Report Released Date/Time: Nov 14, 2023 12:01 PM Reporting Lab: [place] [facility] [address] [place] [address] Performing Lab: [place] [facility] [address] [place] [address] [facility] CBC LYMPHOCYTES [#/VOLUME] IN BLOOD BY AUTOMATED COUNT 1.78 10*3/uL 0.77 - 4.50 12/04 Specimen Type: BLOOD No comment entered. Ordering Provider: NOAH ROJAS MMY Report Released Date/Time: Nov 14, 2023 12:01 PM Reporting Lab: [place] [facility] [address] [place] [address] Performing Lab: [place] [facility] [address] [place] [address] [facility] CBC MONOCYTES [#/VOLUME] IN BLOOD BY AUTOMATED COUNT 0.38 10*3/uL 0.19 - 0.8 12/04 Specimen Type: BLOOD No comment entered. Ordering Provider: NOAH ROJAS MMY Report Released Date/Time: Nov 14, 2023 12:01 PM Reporting Lab: [place] [facility] [address] [place] [address] Performing Lab: [place] [facility] [address] [place] [address] [facility] CBC NEUTROPHILS [#/VOLUME] IN BLOOD BY AUTOMATED COUNT 3.13 10*3/uL 2.10 - 8.00 12/04 Specimen Type: BLOOD No comment entered. Ordering Provider: NOAH ROJAS MMY Report Released Date/Time: Nov 14, 2023 12:01 PM Reporting Lab: [place] [facility] [address] [place] [address] Performing Lab: [place] [facility] [address] [place] [address] [facility] CBC EOSINOPHILS [#/VOLUME] IN BLOOD BY AUTOMATED COUNT 0.11 10*3/uL 0.00 - 0.60 12/04 Specimen Type: BLOOD No comment entered. Ordering Provider: NOAH ROJAS MMMary Kay Report Released Date/Time: Nov 14, 2023 12:01 PM Reporting Lab: [place] [facility] [address] [place] [address] Performing Lab: [place] [facility] [address] [place] [address] [facility] CBC BASOPHILS [#/VOLUME] IN BLOOD BY AUTOMATED COUNT 0.03 10*3/uL 0.00 - 0.20 12/04 Specimen Type: BLOOD No comment entered. Ordering Provider: NOAH ROJAS MMY Report Released Date/Time: Nov 14, 2023 12:01 PM Reporting Lab: [place] [facility] [address] [place] [address] Performing Lab: [place] [facility] [address] [place] [address] [facility] CBC IMMATURE GRANULOCYTE S/100 LEUKOCYTES IN BLOOD BY AUTOMATED COUNT 0.2 12/04 Specimen Type: BLOOD No comment entered. Ordering Provider: NOAH ROJAS MMMary Kay Report Released Date/Time: Nov 14, 2023 12:01 PM Reporting Lab: [place] [facility] [address] [place] [address] Performing Lab: [place] [facility] [address] [place] [address] [place] [address] [place] [facility] CBC IMMATURE GRANULOCYTE S [#/VOLUME] IN BLOOD BY AUTOMATED COUNT 0.01 10*3/uL 0.00 - 0.05 12/04 Specimen Type: BLOOD No comment entered. Ordering Provider: NOAH ROJAS Report Released Date/Time: Nov 14, 2023 12:01 PM Reporting Lab: [place] [facility] [address] [place] [address] [place] [address] Performing Lab: [place] [facility] [address] [place] [address] [facility] HGA1C HEMOGLOBIN A1C/HEMOGLO BIN.TOTAL IN BLOOD 5.4 4.0 - 6.0 12/04 Specimen Type: BLOOD No comment entered. Ordering Provider: NOAH ROJAS Report Released Date/Time: Nov 14, 2023 12:01 PM Reporting Lab: [place] [facility] [address] [place] [address] Performing Lab: [place] [facility] [address] [place] [address] [facility] CHOLESTER OL PANEL (PB) CHOLESTEROL [MASS/VOLUM E] IN SERUM OR PLASMA 192 mg/dL 0 - 200 12/04 Specimen Type: PLASMA No comment entered. Ordering Provider: NOAH ROJAS MMMary Kay Report Released Date/Time: Nov 14, 2023 12:01 PM Reporting Lab: [place] [facility] [address] [place] [address] Performing Lab: [place] [facility] [address] [place] [address] [facility] CHOLESTER OL PANEL (PB) TRIGLYCERID E [MASS/VOLUM E] IN SERUM OR PLASMA 140 mg/dL 0 - 150 12/04 Specimen Type: PLASMA No comment entered. Ordering Provider: NOAH ROJAS MMMary Kay Report Released Date/Time: Nov 14, 2023 12:01 PM Reporting Lab: [place] [facility] [address] [place] [address] Performing Lab: [place] [facility] [address] [place] [address] [facility] CHOLESTER OL PANEL (PB) CHOLESTEROL IN LDL [MASS/VOLUM E] IN SERUM OR PLASMA BY CALCULATION 134.3 mg/dL 12/04 Specimen Type: PLASMA No comment entered. Ordering Provider: NOAH ROJAS Report Released Date/Time: Nov 14, 2023 12:01 PM Reporting Lab: [place] [facility] [address] [place] [address] Performing Lab: [place] [facility] [address] [place] [address] [facility] CHOLESTER OL PANEL (PB) CHOLESTEROL IN HDL [MASS/VOLUM E] IN SERUM OR PLASMA 29.7 mg/dL 40 12/04 L Specimen Type: PLASMA No comment entered. Ordering Provider: NOAH ROJAS Report Released Date/Time: Nov 14, 2023 12:01 PM Reporting Lab: [place] [facility] [address] [place] [address] Performing Lab: [place] [facility] [address] [place] [address] [facility] CHOLESTER OL PANEL (PB) CHOLESTEROL IN HDL/CHOLEST J CARLOS.TOTAL [MASS RATIO] IN SERUM OR PLASMA 15.5 25 12/04 Specimen Type: PLASMA No comment entered. Ordering Provider: NOAH ROJAS Report Released Date/Time: Nov 14, 2023 12:01 PM Reporting Lab: [place] [facility] [address] [place] [address] Performing Lab: [place] [facility] [address] [place] [address] [facility] Chemistry eGFR CKD EPI 107 06/25 Interpretiv e Data: Estimated Glomerular Filtration Rate (eGFR) calculated using the 2020 Chronic Kidney Disease-Epi demiology (CKD-EPI) Collaborati on creatinine equation; units of measure are mL/min/1.73 m2. Results are only valid for adults ( 18 years) whose serum creatinine is in steady state. eGFR calculation s are not valid for patients with acute kidney injury and for patients on dialysis. C reatinine-b ased estimates of kidney function may also be inaccurate in patients with reduced creatinine generation due to decreased muscle mass (e.g., malnutritio n, severe hypoalbumin emia, sarcopenia, chronic neuromuscul ar disease, amputations , severe heart failure or liver disease) and in patients with increased creatinine generation due to increased muscle mass (e.g., muscle builders, anabolic steroids) or increased dietary intake. As drug clearance is proportiona l to total GFR and not GFR indexed to body surface area (BSA), in individuals with a BSA substantial ly different than 1.73 m2, drug dosing should be based the reported eGFRvalue de-indexed from BSA by multiplying by the individual s BSA and dividing by 1.73. CKD is diagnosed based on abnormaliti es of kidney structure or function, present for >3 months, with implication s for health and disease. CKD is classified and staged based on cause, eGFR and albuminuria (quantified as urine albumin to creatinine ratio). An eGFR >60 mL/min/1.73 m2 in the absence of increased urine albumin excretion or structural abnormaliti es does not represent CKD.eGFR (mL/min/1.7 3 m2) CKD stage Interpretat ion 90 G1 Normal 60-89 G2 Mild decrease 45-59 G3A Mild to moderate decrease 30-44 G3B Moderate to severe decrease 15-29 G4 Severe decrease <15 G5 Kidney failure [id number] Chloride 101 mmol/L 98 - 107 06/25 N [id number] CO2 27 mmol/L 22 - 30 06/25 N [id number] BUN/Creat Ratio 17 6 - 22 06/25 N [facility] Alk Phos 109 U/L 38 - 126 06/25 N [facility] ALT 45 U/L 0 - 49 06/25 N [facility] BUN 17.0 mg/dL 9.0 - 20.0 06/25 N [facility] Calcium 10.2 mg/dL 8.4 - 10.2 06/25 N [facility] Globulin 3.2 g/dL 1.9 - 3.7 06/25 N Interpretiv e Data: This is a calculated test. [facility] Protein Total 7.9 g/dL 6.3 - 8.2 06/25 N [facility] Osmo Calc 291 mOsm/kg 285 - 295 06/25 N [facility] Creatinine Level 1.00 mg/dL 0.66 - 1.25 06/25 N [facility] Sodium 140 mmol/L 137 - 145 06/25 N [facility] Bilirubin Total 0.9 mg/dL 0.2 - 1.3 06/25 N [facility] A/G Ratio 1.5 1.0 - 2.5 06/25 N Interpretiv e Data: Albumin/Dorothea bulin Ratio: The albumin to globulin (A/G) ratio has been used as an index of disease state, however, it is not a specific marker for disease because it does not indicate which specific proteins are altered. [facility] Potassium Lvl 4.5 mmol/L 3.5 - 5.1 06/25 N [facility] Albumin 4.7 g/dL 3.5 - 5.0 06/25 N [facility] AST 45 U/L 17 - 59 06/25 N [facility] AGAP 12 06/25 [facility] Glucose Lvl 94 mg/dL 74 - 100 06/25 N [facility] WBC 6.40 x10^3/mc L 4.00 - 10.50347 06/25 N Interpretiv e Data: WBC count is automatical ly corrected if NRBCs are present. [facility] Hemoglobin 16.6 g/dL 13.5 - 17.2 06/25 N [facility] RBC 5.41 x10^6/mc L 4.30 - 5.06591 06/25 N [facility] MCHC 35.0 g/dL 31.0 - 36.0 06/25 N [facility] MCH 30.7 pg 26.0 - 33.0 06/25 N [facility] MPV 8.6 fL 7.2 - 11.1 06/25 N [facility] MCV 87.9 fL 81.0 - 98.0 06/25 N [facility] Platelets 189 x10^3/mc L 150 - [id number] 06/25 N [facility] Hematocrit 47.6 % 38.8 - 51.3 06/25 N [facility] RDW 13.6 % 11.3 - 15.2 06/25 N [facility] Eos Absolute 0.1 x10^3/mc L 0.0 - 0.8103 06/25 N [facility] Lymphocyte % Auto 32.5 % 19.0 - 48.0 06/25 N [facility] Bosque Absolute 0.40 x10^3/mc L 0.16 - 1.06373 06/25 N [facility] Neutrophil % Auto 58.9 % 40.0 - 74.0 06/25 N [facility] MDW xxxxx 0.00 - 20.00 06/25 Interpretiv e Data: The predictive value of MDW for identifying sepsis in patients with hematologic al abnormaliti es have not been established . -For adult (ages 18-89) emergency department patients, MDW >20.0 may be associated with a higher risk of sepsis during the first 12 hours of hospital admission. -For adult (ages 18-89) emergency department patients suspected of sepsis, MDW <= 20.0 does not rule out sepsis or risk of sepsis. -Confirm patient age is within intended use population (18 - 89 years) for MDW. [facility] nRBC % Auto 0.2 % 0.0 - 0.5 06/25 N [facility] Baso Absolute 0.0 x10^3/mc L 0.0 - 0.2103 06/25 N [facility] Basophil % Auto 0.4 % 0.0 - 1.5 06/25 N [facility] Eosinophil % Auto 2.3 % 0.0 - 7.0 06/25 N [facility] Monocyte % Auto 5.9 % 3.4 - 10.0 06/25 N [facility] Lymph Absolute 2.1 x10^3/mc L 0.9 - 5.2103 06/25 N [facility] Neutro Absolute 3.7 x10^3/mc L 1.9 - 8.0103 06/25 N [facility] POC Glucose 76 mg/dL 70 - 140 06/25 N [facility] Vital Signs Combined list of inpatient and outpatient Vital Signs from Department of Defense and Veterans Affairs, ranging from 12 months to all on record, depending upon the facility. Vital Sign Value Date Comments Source Peripheral Pulse Rate 92 bpm 04/12/2023 14:40:00 [facility] Systolic Blood Pressure 137 mm[Hg] 04/12/20 23 14:40:00 [facility] Diastolic Blood Pressure 70 mm[Hg] 023 14:40:00 [facility] Respiratory Rate 17 br/min 04/12/2023 14:40:00 [facility] Blood Pressure Location Left arm 04/12/20 14:40:00 [facility] Blood Pressure Method Automatic 04/12/2023 14:40:00 [facility] Temperature Temporal Artery 35.9 Jeannie 04/12/2023 14:40:00 [facility] Mean Arterial Pressure, Cuff (Calc) 92 mm[Hg] 04/12/2023 14:40:00 [facility] Systolic Blood Pressure 133 mm[Hg] 06/12/20 23 13:24:00 [facility] Diastolic Blood Pressure 83 mm[Hg] 023 13:24:00 [facility] Peripheral Pulse Rate 93 bpm 06/12/2023 13:24:00 [facility] Mean Arterial Pressure, Cuff (Calc) 100 mm[Hg] 06/12/2023 13:24:00 [facility] Respiratory Rate 16 br/min 06/12/2023 13:24:00 [facility] Blood Pressure Manual Automatic 06/12/2023 13:24:00 [facility] BP Site Left arm 06/12/2023 13:24:00 [facility] Temperature Oral 36.3 Jeannie 06/12/2023 13:24:00 [facility] Systolic Blood Pressure 123 mm[Hg] 06/25/20 23 13:26:00 [facility] Diastolic Blood Pressure 84 mm[Hg] 023 13:26:00 [facility] Blood Pressure Manual Automatic 06/25/2023 13:26:00 [facility] BP Site Left arm 06/25/2023 13:26:00 [facility] Peripheral Pulse Rate 93 bpm 06/25/2023 13:26:00 [facility] Respiratory Rate 12 br/min 06/25/2023 13:26:00 [facility] Mean Arterial Pressure, Cuff (Calc) 97 mm[Hg] 06/25/2023 13:26:00 [facility] Respiratory Rate 16 br/min 04/12/2023 15:10:00 [facility] Systolic Blood Pressure 135 mm[Hg] 04/12/20 23 15:10:00 [facility] Diastolic Blood Pressure 70 mm[Hg] 023 15:10:00 [facility] Blood Pressure Method Automatic 04/12/2023 15:10:00 [facility] Mean Arterial Pressure, Cuff (Calc) 92 mm[Hg] 04/12/2023 15:10:00 [facility] Temperature Temporal Artery 36.2 Jeannie 04/12/2023 15:10:00 [facility] Peripheral Pulse Rate 86 bpm 04/12/2023 15:10:00 [facility] Mean Arterial Pressure, Cuff (Calc) 95 mm[Hg] 04/06/2023 15:16:00 [facility] Temperature Oral 36.8 Jeannie 04/06/2023 15:16:00 [facility] BP Site Left arm 04/06/2023 15:16:00 [facility] Blood Pressure Manual Automatic 04/06/2023 15:16:00 [facility] Mean Arterial Pressure, Cuff (Calc) 89 mm[Hg] 04/12/2023 14:55:00 [facility] Respiratory Rate 17 br/min 04/12/2023 14:55:00 [facility] Temperature Temporal Artery 36.1 Jeannie 04/12/2023 14:55:00 [facility] Peripheral Pulse Rate 86 bpm 04/12/2023 14:55:00 [facility] Systolic Blood Pressure 130 mm[Hg] 04/12/20 14:55:00 [facility] Diastolic Blood Pressure 68 mm[Hg] 023 14:55:00 [facility] Peripheral Pulse Rate 79 bpm 04/12/2023 11:35:00 [facility] Temperature Temporal Artery 36.3 Jeannie 04/12/2023 11:35:00 [facility] Systolic Blood Pressure 137 mm[Hg] 04/12/20 11:35:00 [facility] Diastolic Blood Pressure 89 mm[Hg] 023 11:35:00 [facility] Respiratory Rate 18 br/min 04/12/2023 11:35:00 [facility] Mean Arterial Pressure, Cuff (Calc) 105 mm[Hg] 04/12/2023 11:35:00 [facility] Blood Pressure Location Left arm 04/12/20 15:45:00 [facility] Cuff Size Extra large 04/12/2023 15:45:00 [facility] Respiratory Rate 18 br/min 04/12/2023 15:45:00 [facility] Systolic Blood Pressure 137 mm[Hg] 04/12/20 15:45:00 [facility] Diastolic Blood Pressure 77 mm[Hg] 023 15:45:00 [facility] Peripheral Pulse Rate 91 bpm 04/12/2023 15:45:00 [facility] Blood Pressure Method Automatic 04/12/2023 15:45:00 [facility] Mean Arterial Pressure, Cuff (Calc) 97 mm[Hg] 04/12/2023 15:45:00 [facility] Temperature Temporal Artery 36.5 Jeannie 04/12/2023 15:45:00 [facility] Temperature Oral 36.9 Jeannie 05/11/2023 17:50:00 [facility] Systolic Blood Pressure 125 mm[Hg] 05/11/20 17:50:00 [facility] Diastolic Blood Pressure 82 mm[Hg] 023 17:50:00 [facility] Peripheral Pulse Rate 102 bpm 05/11/2023 17:50:00 [facility] Respiratory Rate 18 br/min 05/11/2023 17:50:00 [facility] Blood Pressure Method Automatic 04/12/2023 15:15:00 [facility] Blood Pressure Location Left arm 04/12/20 15:15:00 [facility] Respiratory Rate 18 br/min 04/12/2023 15:15:00 [facility] Mean Arterial Pressure, Cuff (Calc) 98 mm[Hg] 04/12/2023 15:15:00 [facility] Peripheral Pulse Rate 89 bpm 04/12/2023 15:15:00 [facility] Systolic Blood Pressure 137 mm[Hg] 04/12/20 15:15:00 [facility] Diastolic Blood Pressure 60 mm[Hg] 023 15:15:00 [facility] Systolic Blood Pressure 139 mm[Hg] 04/12/20 23 15:15:00 [facility] Diastolic Blood Pressure 77 mm[Hg] 023 15:15:00 [facility] Temperature Temporal Artery 36.7 Jeannie 04/12/2023 15:15:00 [facility] Mean Arterial Pressure, Cuff (Calc) 86 mm[Hg] 04/12/2023 15:15:00 [facility] Cuff Size Extra large 04/12/2023 15:15:00 [facility] Peripheral Pulse Rate 90 bpm 04/12/2023 15:15:00 [facility] Respiratory Rate 18 br/min 04/12/2023 15:15:00 [facility] Blood Pressure Method Automatic 04/12/2023 15:15:00 [facility] Blood Pressure Location Left arm 04/12/20 15:15:00 [facility] Temperature Temporal Artery 36.5 Jeannie 04/12/2023 15:15:00 [facility] Cuff Size Extra large 04/12/2023 15:15:00 [facility] SYSTOLIC BLOOD PRESSURE 124 02/27/20 25 15:05:00 [facility] DIASTOLIC BLOOD PRESSURE 78 025 15:05:00 [facility] PULSE OXIMETRY 93 02/26/2025 15:05:00 [facility] WEIGHT 290.0 02/26/2025 15:05:00 [facility] BMI 38 kg/m2 02/26/2025 15:05:00 [facility] PAIN 8 02/26/2025 15:05:00 [facility] [place] [facility] PULSE 91 02/26/2025 15:05:00 [facility] [place] [facility] RESPIRATION 18 02/26/2025 15:05:[place] [place] [facility] SYSTOLIC BLOOD PRESSURE 137 10/13/20 15:00:00 [facility] DIASTOLIC BLOOD PRESSURE 79 15:00:00 [facility] PULSE OXIMETRY 96 10/13/2024 15:00:00 [facility] WEIGHT 288.3 10/13/2024 15:00:00 [facility] [place] [place] [facility] BMI 38 kg/m2 10/13/2024 15:00:00 [facility] [place] [facility] PAIN 5 10/13/2024 15:00:00 [facility] [place] [facility] HEIGHT 73 10/13/2024 15:00:00 [facility] [place] [facility] TEMPERATURE 98 10/13/2024 15:00:00 [facility] [place] [facility] PULSE 96 10/13/2024 15:00:00 [facility] [place] [facility] RESPIRATION 18 10/13/2024 15:00:00 [facility] [place] [facility] SYSTOLIC BLOOD PRESSURE 128 10/07/20 11:00:00 [facility] [place] [facility] DIASTOLIC BLOOD PRESSURE 82 11:00:00 [facility] [place] [facility] TEMPERATURE 97.3 10/07/2024 11:00:00 [facility] [place] [facility] PULSE 62 10/07/2024 11:00:00 [facility] [place] [facility] SYSTOLIC BLOOD PRESSURE 130 09/12/20 13:59:57 [facility] [place] [facility] DIASTOLIC BLOOD PRESSURE 84 13:59:57 [facility] [place] [facility] PULSE OXIMETRY 96 09/12/2024 13:59:57 [facility] [place] [facility] WEIGHT 294.7 09/12/2024 13:59:57 [facility] [place] [facility] BMI 39 kg/m2 09/12/2024 13:59:57 [facility] PAIN 6 09/12/2024 13:59:57 [facility] [place] [facility] HEIGHT 73 09/12/2024 13:59:57 [facility] [place] [facility] TEMPERATURE 98.1 09/12/2024 13:59:57 [facility] [place] [facility] PULSE 83 09/12/2024 13:59:57 [place] [place] [facility] RESPIRATION 18 09/12/2024 13:59:57 [facility] SYSTOLIC BLOOD PRESSURE 114 07/16/20 24 13:19:00 [facility] DIASTOLIC BLOOD PRESSURE 76 024 13:19:00 [facility] PULSE OXIMETRY 96 07/16/2024 13:19:00 [facility] WEIGHT 290.4 07/16/2024 13:19:00 [facility] BMI 38 kg/m2 07/16/2024 13:19:00 [facility] PAIN 6 07/16/2024 13:19:00 [facility] HEIGHT 73.0 07/16/2024 13:19:00 [facility] TEMPERATURE 97.7 07/16/2024 13:19:00 [facility] PULSE 68 07/16/2024 13:19:00 [facility] RESPIRATION 20 07/16/2024 13:19:00 [facility] [place] [facility] Encounters Combined list of: 1) Encounters from Department of Veterans Affairs facilities going backup to the last 18 months, not all VA inpatient encounters are included; 2) Encounters from the Department of Defense facilities going backup to 280 months. Location Location Details Encounter Type Encounter Number Reason For Visit Attending Provider ADM Date DC Date Status Disposition Source [place] OUTPATIENT [id number] Notes Entered by: ALEXUS RICARDO 31 Oct 2016 1044 ------- ------- ------- ------- -- hearing test PERICO RICARDO 10/31 Released [place] Limitations [place] ) [place] [id number] Notes Entered by: DONTRELL RAE 31 Oct 2016 1437 ------- ------- ------- ------- -- IMM NO RITA SANDOVAL 10/31 [place] [facility] OUTPATIENT [id number] JOHANA MAHMOOD 11/01 [place] OUTPATIENT [id number] Notes Entered by: KEVIN RUBIO 28 Nov 2016 0819 ------- ------- ------- ------- -- IMM-TWI N/POLIO /MMR/VA R JODEE JEFFERSON 11/28 [place]ased [place] Limitations [place] OUT[place] [id number] Notes Entered by: Hang ANDRES 07 Dec 2016 0803 ------- ------- ------- ------- -- FMS screen HAROON ANDRES 12/07 [place] Limitations [place] [place] OUTPATIENT [id number] DERM rash under arms BRIDGER DIMAS 12/12 [place]ased [place] Limitations [place] [facility]) OUTPATIENT [id number] Notes Entered by: Samuel KAUR 13 Feb 2017 0730 ------- ------- ------- ------- -- [facility] [place] JODI LUGO 02/13 Released w/o Limitations [facility] [place]) [facility]) OUTPATIENT [id number] Notes Entered by: AMBROSE LI MP 15 May 2017 1319 ------- ------- ------- ------- -- HARJEET Martinez 05/15 Released w/o Limitations [facility] [place]([facility] [place]) OUTPATIENT [id number] Notes Entered by: ESSENCE MCCONNELL 13 Jul 2017 1026 ------- ------- ------- ------- -- MARIA WITT 07/13 Released w/o Limitations [facility] [place]) [facility] OUTPATIENT [id number] Theater Provider 11/30 Released w/o Limitations Theater Facilit y [facility] [place]([facility]) OUTPATIENT [id number] Notes Entered by: DARRION NGO 01 May 2018 1001 ------- ------- ------- ------- -- RSRP 2215 SHERITA MCCALL 05/01 Released w/o Limitations [facility] [place]([facility] ) [facility]) OUTPATIENT [id number] Possibl e ABRAM Leggett 06/06 Released w/o Limitations [facility] [place]([facility] [place]) [facility]) OUTPATIENT [id number] eye exam (r/s from 3.8 no show)[id number] CARLOS DOSS 02/17 Released w/o Limitations [facility] [place]) [facility]) OUTPATIENT [id number] Notes Entered by: SHERITA MCCALL 28 Apr 2019 1406 ------- ------- ------- ------- -- KEVIN Merida 04/28 Released w/o Limitations [facility] [place]([facility] ) [facility]([facility]) OUTPATIENT [id number] masking h1 haven't seen a AuD ELISABET DESHPANDE 05/12 Released w/o Limitations [facility] [place]([facility] ) [facility] [employer] [facility]) OUTPATIENT [id number] Notes Entered by: RAFA SHARMA 13 Aug 2019 1033 ------- ------- ------- ------- -- Pre Deploym ent Health Assessm ent RAFA SHARMA 08/13 Released w/o Limitations [facility] [employer] [place]) [facility] [employer] [facility] [facility]) OUTPATIENT [id number] Notes Entered by: NOEL LERMA 18 Aug 2019 1350 ------- ------- ------- ------- -- 3-187 Unit Assessm ent FRANK DUNLAP 08/18 Released w/o Limitations [facility] [employer]) [place] [address]([facility]) OUTPATIENT [id number] Notes Entered by: WILLIAM KLELER 14 May 2020 0941 ------- ------- ------- ------- -- annual ROSIE KELLER 05/14 [facility] Limitations [facility] [place] [address]([facility] Program [facility]) [facility] [employer] [facility]) OUTPATIENT [id number] TAMIKA Garcia 09/03 Released w/o Limitations [facility] [employer] [facility] [employer] [facility](Urolog y) OUTPATIENT [id number] Scrotal varices MAGGI GARCÍA 09/22 Released w/o Limitations [facility] [employer] [facility] [employer] TELE CONSULT [id number] Notes Entered by: Marcel PAGE 29 Sep 2020 0932 ------- ------- ------- ------- -- US results TAMIKA PAGE 09/29 [facility] [employer] [facility] [employer]) OUT[place] [id number] poss varicoc tuan surgery (seen Curtis) TG ZAMUDIO 11/03 Released w/o Limitations [facility] [employer] [facility] [employer] TELE CONSULT [id number] Notes Entered by: EVLIA ESCAMILLA 22 Dec 2020 1033 ------- ------- ------- ------- -- Triage nurse encount VELIA Torres 12/22 Advice Assessment [facility] [employer] [facility] [employer]) [place] [id number] f/u surgery TG ZAMUDIO 12/24 Released w/o Limitations [facility] [employer] [facility] [employer] Vacc[place]) [place] [id number] PEPE VELARDE 01/10 Released w/o Limitations [facility] [employer] [facility] [employer]) [place] [id number] PF VAX2 3BCT TRACI POSADA 02/09 Released w/o Limitations [facility] [employer] [facility] [employer] [facility]) [place] [id number] annual BULMAROTHELMATG PRYOR Dyana 03/15 Released w/o Limitations [facility] [employer] ) [facility] [employer] Optometry ) OUTPATIENT [id number] REE (February 2019) LEONARDO DOUGLAS 03/15 Released w/o Limitations [facility] [employer] Optomet ry) [facility] [employer] [place] OUTPATIENT [id number] std screeni VILLA Lange 05/05 Released w/o Limitations [facility] [employer] [place] [facility] [employer], [place] TELE CONSULT [id number] Notes Entered by: GIOVANNI CHILDRESS AM J 10 May 2021 0946 ------- ------- ------- ------- -- LAB VILLA CHAPA 05/10 [facility] [employer] [facility] [place]) OUTPATIENT [id number] Notes Entered by: TI GONSALVES 18 Aug 2021 1403 ------- ------- ------- ------- -- pre dep NAYELI DYE PA-C 08/18 Released w/o Limitations [facility] [employer]) [facility] [employer] [place] OUTPATIENT [id number] STD SCREEN RILEY GIBSON 09/15 Released w/o Limitations [facility] [employer] [place] [facility] [employer] B[place] H2F[place] OUTPATIENT [id number] SALOMÓN LUONG 09/23 Released w/o Limitations [facility] [employer] H[place] [facility] [employer] S01C [place]akk[place] OUTPATIENT [id number] back pain SLIM DURAN 12/16 Released w/o Limitations [facility], [employer] S[place] [facility], [employer]) [place] [id number] f/u varicoc tuan surgery TG ZAMUDIO 01/16 Released w/o Limitations [facility], [employer] [facility] [employer] S[place] TELE CONSULT [id number] Notes Entered by: BOBY CLAYTON 02 Feb 2022 1318 ------- ------- ------- ------- -- ETS MAGGI Linn 02/02 [facility] [employer] S[place] [facility] [employer]) [place] [id number] GIANFRANCO CRONIN 02/02 Released w/o Limitations [facility] [employer] [facility] [employer]) OUTPAT[place] [id number] SLEEP CONCERN S/ BRADSHA MAGGI MENJIVAR 02/14 Released w/o Limitations [facility] [employer] S[place] [facility] [employer]) [place] [id number] f/u varicoc tuan TG ZAMUDIO 03/02 Released w/o Limitations [facility], [employer] [facility] [employer] [place] OUTPATIENT [id number] eval-te sticula r left BRILL, RICH GONZALEZ 03/22 Released w/o Limitations [facility] [employer] [facility], [employer] [id number] Lower abdomin al pain, unspeci fied CLARICE OSBORNE 03/27 Released w/o Limitations [facility] [employer] [facility] [employer] Physical Therapy[place] OUTPATIENT [id number] Dorsalg ia, unspeci fied ROBSON ALANIZ Karthik 03/27 Released w/o Limitations [facility] [employer] Physica l Therapy ) [facility] [employer] OUT[place] [id number] initial ALEIDA Pizano 03/31 Released w/o Limitations [facility] [employer]) [facility] [employer] Physical Therapy[place] OUTPATIENT [id number] demo back PETR MORE E 04/04 Released w/o Limitations [facility] [employer] Physica l Therapy ) [facility] [employer]) [place] [id number] MRI f/u RICH RICARDO 04/10 Released w/o Limitations [facility], [employer] [facility] [employer] OUTPAT[place] [id number] CT results CLARICE OSBORNE 04/10 Released w/o Limitations [facility], [employer] [facility] [employer] Physical Therapy) OUTPATIENT [id number] exe/worley ked in person 21jun CLM PETR MORE E 04/10 Released w/o Limitations [facility] [employer] Physica l Therapy ) [facility] [employer] [id number] chronic test/LB P per mr ricardo (PHONE) HELEN PAULINO 04/11 Released w/o Limitations [facility], [employer] [facility] [employer] [id number] 2 left cord block ROBBTG 04/12 Released w/o Limitations [facility], [employer] [facility] [employer] Physical Therapy[place] OUTPATIENT [id number] 0 f/u back ROBSON ALANIZ Karthik 05/01 Released w/o Limitations [facility] [employer] Physica l Therapy ) [facility] [employer] [id number] 3 f/u-MRI RICH RICARDO 05/01 Released w/o Limitations [facility] [employer] [facility] [employer] OUTPATIENT [id number] 1 bodpod (1) f/u CLAUDIO MARIO BINU 05/04 Released w/o Limitations [facility] [employer] [facility] [employer] [id number] 5 metabol ic ALEIDA YAÑEZ 05/05 Released w/o Limitations [facility] [employer] [facility] [employer] [id number] 4 f/u-LBP /test (PHONE) HELEN PAULINO 05/09 Released w/o Limitations [facility] [employer] [facility], [place] OUTPATIENT [id number] 3 bilat lumbar MBB L3, L4, L5 ANGELICSEAN IBARRAOLAS 05/09 Released w/o Limitations [facility] [employer] [facility], [place]([facility] Physical Therapy) OUTPATIENT [id number] 7 f/u back/bang oked in person 18Jul CLM ROBSON ALANIZ 05/26 Released w/o Limitations [facility] [employer] Phys[place] l Therapy ) [facility], [place]([facility] Physical Therapy) OUTPATIENT [id number] exe/worley ked in person 12Aug CLM ОЛЬГА BARRON Hang 06/01 Released w/o Limitations [facility] [employer] [place] Physica l Therapy ) [facility], [place] OUTPATIENT [id number] MBB #2 Bilat MUNA CONTRERAS 06/06 Released w/o Limitations [facility] [employer] [facility], [place]([facility] Physical Therapy) OUTPATIENT [id number] exe/worley ked in person 18Aug, advised side door PETR MORE E 06/09 Released w/o Limitations [facility] [employer] Physica l Therapy ) [facility], [place]([facility] Physical Therapy) OUTPATIENT [id number] exe/worley ked in person 26Aug CLM PETR MORE E 06/15 Released w/o Limitations [facility] [employer] Phys[place] l Therapy ) [facility], [place]([facility] Physical Therapy) OUTPATIENT [id number] 1 f/u back/bnag oked in person 12Aug CLM ROBSON ALANIZ L 06/27 Released w/o Limitations [facility] [employer] Physica l Therapy ) [facility] [employer] [place] [id number] 3 tonsils ELSA DELGADILLO 06/28 Released w/o Limitations [facility] [employer] [facility] [employer] [id number] 5 f/u RICH RICARDO 07/07 Released w/o Limitations [facility] [employer] [facility] [employer] [place] TELE CONSULT [id number] 1 Notes Entered by: MERCEDEZ ARAGON 18 Jul 2022 0743 ------- ------- ------- ------- -- MEB Submiss ion VILLA CHAPA 07/18 [facility] [employer] [facility] [employer] [place] TELE CONSULT [id number] 1 Notes Entered by: MERCEDEZ ARAGON 18 Jul 2022 0802 ------- ------- ------- ------- -- Sleep Study VILLA CHAPA 07/18 [facility] [employer] [facility] [employer] [id number] tens trila RICH RICARDO 07/18 Released w/o Limitations [facility] [employer] [facility] [employer] [id number] 4 bilat lumbar RFA YULISSA YIN 07/18 Released w/o Limitations [facility] [employer] [facility] [employer] [place] [id number] 3 SLEEP APNEA CONSULT /DEDRICKSH TEX MORRIS 07/28 Released w/o Limitations [facility] [employer] [facility] [employer] [id number] TELEPHO [facility] BECCA BIRD EDMUND 08/07 Released w/o Limitations [facility] [employer] [facility] [employer]) [place] [id number] discuss next steps/t reatmen t options / labs possibl y needed TG ZAMUDIO 08/16 Released w/o Limitations [facility], [employer] [facility], [employer] [id number] 1 Erectil e dysfunc tion(ND R) JODEE GARCÍA 08/17 Released w/o Limitations [facility], [employer] [facility] [employer] [place] [id number] 3 sleep apnea DAVID THOMSON 08/22 Released w/o Limitations [facility] [employer] [facility] [employer] [id number] sleep f/u TEX CRAWFORD 08/24 Released w/o Limitations [facility] [employer] [facility] [employer]LE CONS[place] [id number] Notes Entered by: TG BATEMAN 05 Sep 2022 0717 ------- ------- ------- ------- -- results review ROBBTG 09/05 [facility] [employer] [facility] [employer] [id number] er f/u SLIM DURAN KRIS 09/20 Released with Work/Duty Limitations [facility] [employer] [facility] [employer] [id number] sleep f/u YVETTETEX HAROON 09/22 Released w/o Limitations [facility] [employer] [facility] [employer] TELE CONSULT [id number] Notes Entered by: STUART ABRAHAM 17 Oct 2022 0722 ------- ------- ------- ------- -- med HELEN Scott 10/17 [facility] [employer] [facility] [employer] [id number] SLEEP EVAL STACYHAO 10/18 Released w/o Limitations [facility] [employer] [facility] [employer] [id number] 7 PSG PER HAO STEVENS 10/26 Released w/o Limitations [facility], [employer] [facility] [employer] TELE CONSULT [id number] Notes Entered by: ERIN JARQUIN 31 Oct 2022 0910 ------- ------- ------- ------- -- ED F/U ALMA URIOSTEGUI 10/31 Released to Self Care [facility] [employer] Rakk) [facility], [place]([facility] S[facility]C Ra) OUTPATIENT [id number] 4 f/u shoulde r pain DAVID THOMSON 11/03 Released w/o Limitations [facility] [employer] Rakk) [facility], [place]([facility] Optometry ) OUTPATIENT [id number] RICK DEL CID 11/06 Released w/o Limitations [facility] [employer] [place] Optomet ry) [facility], [place]([facility] Physical Therapy) OUTPATIENT [id number] Pain in right shoulde r/booke d via phone 26Jan CLM CORBIN ROBSON L 11/29 Released w/o Limitations [facility], [employer] [place] Physica l Therapy ) [facility], [place]([facility] Physical Therapy) OUTPATIENT [id number] 5 demo R shoulde r/booke d in person 15Feb CLM RAIZA HUDSON R 12/07 Released w/o Limitations [facility], [employer] [place] Physica l Therapy ) [facility], [place]([facility] Physical Therapy) OUTPATIENT [id number] exer BECCA, RAIZA R 12/13 Released w/o Limitations [facility] [employer] [place] Physica l Therapy ) [facility], [place]([facility] Physical Therapy) OUTPATIENT [id number] exe/worley ked via phone 06Mar CLM BECCA RAIZA R 12/25 Released w/o Limitations [facility] [employer] [place] Physica l Therapy ) [facility] [employer] Physical Therapy[place] OUTPATIENT [id number] 6 f/u R shoulde r/booke d in person 15Feb CLM ROBSON ALANIZ Karthik 01/01 Released w/o Limitations [facility] [employer] Phys[place] l Therapy ) [facility] [employer]IENT [id number] er [facility] t ELSA DELGADILLO 01/05 Released with Work/Duty Limitations [facility] [employer] [facility] [employer] TELE CONSULT [id number] 1 Notes Entered by: ELSA DELGADILLO 12 Jan 2023 1142 ------- ------- ------- ------- -- Lab results ELSA DELGADILLO 01/12 [facility] [employer] [facility] [employer] [id number] 8 f/u RICH RICARDO 01/19 Released w/o Limitations [facility], [employer] [facility] [employer] [id number] med f/u HELEN PAULINO 01/19 Released w/o Limitations [facility] [employer] [facility] [employer] [id number] 6 cough, congest ion,fev er DAVID THOMSON 01/19 Released w/o Limitations [facility] [employer]) [facility] [employer] Physical Therapy[place] OUTPATIENT [id number] 4 f/u R shoulde r / booked in person 20Mar CLM ROBSON ALANIZ 02/01 Released w/o Limitations [facility], [facility] Physica l Therapy ) [facility], [place] S01C Rakk) OUTPATIENT [id number] L knee pain SLIM DURAN 02/07 Released w/o Limitations [facility], [facility] S[facility]C Rakk) [facility], [place]) [place] [id number] 9 Pain in right shoulde r CONY BLEDSOE 02/12 Released w/o Limitations [facility], [facility] [facility], [place]) [place] [id number] R shoulde r consult per [place] ERIN RODGERS 02/22 Released w/o Limitations [facility], [facility] [facility], [place]) [place] [id number] 7 annual NUBIA SUAZO V 03/14 Released w/o Limitations [facility], [facility] [facility] OFFICE O/P NEW MOD 45 MIN [id number] [id number] Diagnos is: ICD-10- CM G47.33 Obstruc tive sleep apnea (adult) ([facility]) Heaven ROJAS 12/10 [facility] Outpatient Encounter [id number] 12/11 [facility] En[facility] [id number] 12/18 [facility] N [facility] Outpatient Encounter [id number] 12/24 [facility] OFF/OP EST MAY X REQ PHY/QHP [id number] [id number] Diagnos is: ICD-10- CM Z87.820 Persona l history of traumat ic brain injury ELIESERANGELA 01/07 [facility] OFF/OP CNSLTJ NEW/EST MOD 40 [id number] [id number] Diagnos is: ICD-10- CM Z87.820 Persona l history of traumat ic brain injury DAYAMI LORD 01/07 [facility] Outpatient Encounter [id number] 01/07 [facility] Outpatient Encounter [id number] 01/09 [facility] OFFICE O/P EST LOW 20 MIN [id number] [id number] Diagnos is: ICD-10- CM R51.9 Headach e, unspeci fied Heaven ROJAS 01/09 [facility] Outpatient Encounter [id number] [id number] ZACHERY PARKER 01/14 [facility] OFF/OP EST MAY X REQ PHY/QHP [id number] [id number] Diagnos is: ICD-10- CM Z48.02 Encount er for removal of sutures АЛЕКСАНДР [place] 01/20 [facility] Outpatient Encounter [id number] [id number] Diagnos is: ICD-10- CM Z48.02 Encount er for removal of sutures АЛЕКСАНДР [place] 01/21 [facility] N [facility] Outpatient Encounter [id number] 01/31 [facility] OFFICE O/P EST SF 10 MIN [id number] [id number] Diagnos is: ICD-10- CM R51.9 Headach e, unspeci fied Heaven ROJAS 02/20 [facility] OFF/OP EST FEBRUARY X REQ PHY/QHP [id number] [id number] Diagnos is: ICD-10- CM Z87.820 Persona l history of traumat ic brain injury Heaven ROJAS 04/16 [facility] PSYCH DIAGNOSTIC EVALUATION [id number] [id number] Diagnos is: ICD-10- CM F41.1 General ized anxiety disorde r ROSEMARY,CHR ISSOM J 04/21 [facility] Outpatient Encounter [id number] 04/22 [facility] N [facility] Outpatient Encounter [id number] 05/27 [facility] PSYTX W PT 60 MINUTES [id number] [id number] Diagnos is: ICD-10- CM F43.12 Post-tr aumatic stress disorde r, chronic ROSEMARY,CHR ISSOM J 06/04 [facility] Outpatient Encounter [id number] 06/04 [facility] Outpatient Encounter [id number] [id number] 06/[address] [facility] Outpatient Encounter [id number] [id number] 06/05 [facility] Outpatient Encounter [id number] [id number] ROSEMARY,CHR ISSOM J 06/05 [facility] PSYTX W PT 60 MINUTES [id number] [id number] Diagnos is: ICD-10- CM F43.12 Post-tr aumatic stress disorde r, chronic ROSEMARY,CHR ISSOM J 06/30 [facility] Outpatient Encounter [id number] [id number] 07/15 [facility] TELEHEALTH FACILITY FEE 12972-4.65 [id number] Diagnos is: ICD-10- CM Z02.89 Encount er for other adminis trative examina tions JODEE BURKS 07/16 [facility] Outpatient Encounter [id number] [id number] Diagnos is: ICD-10- CM Z02.89 Encount er for other adminis trative examina tions JODEE BURKS 07/16 [facility] OFF[facility] O/P EST LOW 20 MIN [id number] [id number] Diagnos is: ICD-10- CM M72.2 Plantar fascial fibroma Heaven Huang 07/16 [facility] PSYTX W PT 60 MINUTES [id number] [id number] Diagnos is: ICD-10- CM F43.12 Post-tr aumatic stress disorde r, chronic ROSEMARY,CHR ISSOM J 08/05 [facility] Outpatient Encounter [id number] [id number] 08/07 [facility] DIV[facility] N [facility] Outpatient Encounter [id number] [id number] 08/08 [facility] TELEHEALTH FACILITY FEE 52232-2.65 [id number] Diagnos is: ICD-10- CM H93.13 Tinnitu s, bilater al GRAVES,SARAH VICK A 08/08 [facility] TEST PURE TONE 88945-4.65 [id number] Diagnos is: ICD-10- CM H93.13 Tinnitu s, bilater al GRAVES,SARAH VICK A 08/08 [facility] [facility] PSYTX W PT 45 MINUTES [id number] [id number] Diagnos is: ICD-10- CM F43.12 Post-tr aumatic stress disorde r, chronic ROSEMARY,CHR ISSOM J 08/11 [facility] Outpatient Encounter [id number] [id number] 08/11 [facility] Out[facility] Encounter [id number] [id number] 08/14 [facility] Outpatient Encounter [id number] [id number] 08/18 [facility] CB PSYTX W PT 60 MINUTES [id number] [id number] Diagnos is: ICD-10- CM F43.12 Post-tr aumatic stress disorde r, chronic ROSEMARY,CHR ISSOM J 08/26 [facility] Outpatient Encounter [id number] [id number] 08/27 [facility] DIVIS [facility] PSYTX W PT 45 MINUTES [id number] [id number] Diagnos is: ICD-10- CM F43.12 Post-tr aumatic stress disorde r, chronic ROSEMARY,CHR ISSOM J 09/09 [facility] Outpatient Encounter [id number] [id number] 09/10 [facility] OFFICE O/P NEW MOD 45 MIN [id number] [id number] Diagnos is: ICD-10- CM F43.12 Post-tr aumatic stress disorde r, chronic TG GERMAN R 09/12 [facility] Outpatient Encounter [id number] [id number] 09/16 [facility] OFFICE O/P NEW LOW 30 MIN [id number] [id number] Diagnos is: ICD-10- CM M99.01 Segment al and 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 JOSEPH LUGO 10/07 [facility] Outpatient Encounter [id number] [id number] 10/10 [facility] OFFICE O/P EST MOD 30 MIN [id number] [id number] Diagnos is: ICD-10- CM F43.12 Post-tr aumatic stress disorde r, chronic TG GERMAN R 10/13 [facility] Outpatient Encounter [id number] [id number] 11/04 [facility] Outpatient Encounter [id number] [id number] 11/07 [facility] PSYTX W PT 45 MINUTES [id number] [id number] Diagnos is: ICD-10- CM F43.12 Post-tr aumatic stress disorde r, chronic ROSEMARY,CHR ISSOM J 11/14 [facility] Outpatient Encounter [id number] [id number] 11/20 [facility] PSYTX W PT 60 MINUTES [id number] [id number] Diagnos is: ICD-10- CM F43.12 Post-tr aumatic stress disorde r, chronic ROSEMARY,CHR ISSOM J 11/28 [facility] Outpatient Encounter [id number] [id number] ROSEMARY,CHR ISSOM J 12/03 [facility] En[facility] [id number] [id number] 12/05 [facility] Outpatient Encounter [id number] [id number] 12/10 [facility] En[facility] [id number] [id number] 12/11 [facility] Encounter [id number] [id number] 12/12 [facility] Out[facility] Encounter [id number] [id number] 12/12 [facility] Outpatient Encounter [id number] [id number] 12/16 [facility] Outpatient Encounter [id number] [id number] 12/18 [facility] N [facility] Outpatient Encounter [id number] [id number] 12/23 [facility] Outpatient Encounter [id number] [id number] 12/26 [facility] Outpatient Encounter [id number] [id number] 01/02 [facility] N [facility] Outpatient Encounter [id number] [id number] 01/05 [facility] Outpatient Encounter [id number] [id number] 01/05 [facility] PSYTX W PT 60 MINUTES [id number] [id number] Diagnos is: ICD-10- CM F43.12 Post-tr aumatic stress disorde r, chronic ROSEMARY,CHR ISSOM J 01/09 [facility] [id number] [id number] 01/15 [facility] Outpatient Encounter [id number] [id number] 01/21 [facility] PSYTX W PT 60 MINUTES [id number] [id number] Diagnos is: ICD-10- CM F43.12 Post-tr aumatic stress disorde r, chronic ROSEMARY,CHR ISSOM J 02/06 [facility] OFFICE O/P EST MOD 30 MIN [id number] [id number] Diagnos is: ICD-10- CM E66.01 Morbid (severe ) obesity due to excess calorie s [place] ROJAS 02[facility]26 [facility] [id number] 02/26 [facility] PSYTX W PT 60 MINUTES [id number] [id number] Diagnos is: ICD-10- CM F33.1 Major depress cristina disorde r, recurre nt, moderat e ROSEMARY,CHR ISSOM J 03/06 [facility] Outpatient Encounter [id number] 03/11 [facility] PSYTX W PT 60 MINUTES [id number] [id number] Diagnos is: ICD-10- CM F33.1 Major depress cristina disorde r, recurre nt, moderat e ROSEMARY,[facility] ISSOM J 03/30 [facility] Outpatient Encounter [id number] 04/09 [facility] PSYTX W PT 60 MINUTES [id number] [id number] Diagnos is: ICD-10- CM F33.1 Major depress cristina disorde r, recurre nt, moderat e ROSEMARY,CHR ISSOM J 04/13 [facility] Outpatient Encounter [id number] 04/21 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.9 Circular Sawyer Helper ing, unspeci fifelicia BALLARD,P ATRICIA A 04/28 [place] [facility] [place] [address] ASSMT&MGMT NQHP 21-30 [id number] [id number] Diagnos is: ICD-10- CM Z71.9 Circular Sawyer Helper ing, unspeci fied BALLARD,P ATRICIA A 05/05 [place] [facility] [place] [facility] Outpatient Encounter [id number] [id number] 05/05 [place] [facility] [place] [facility] Outpatient Encounter [id number] 05/05 [place] [facility] Outpatient Encounter [id number] 05/05 [facility] Outpatient Encounter [id number] 05/05 [facility] [place] [facility] Outpatient Encounter [id number] 05/06 [place] [facility] [place] [facility] Outpatient Encounter [id number] [id number] 05/08 [place] [facility] [facility] Outpatient Encounter [id number] 05/12 [facility] PROGRAM INTAKE ASSESSMENT [id number] Diagnos is: ICD-10- CM Z87.820 Persona l history of traumat ic brain injury TONY SWAN E 05/13 [facility] Outpatient Encounter [id number] 05/15 [facility] Procedures Combined list of: 1) Procedures from Department of Veterans Affairs facilities going back up to thelast 18 months, not all VA non-surgical procedures are included; 2) All procedures from the Department of Defense facilities. Procedure Procedure Type Code Date Perfomer Comments Sourc e Tenodesis Shoulder (Right) 2022 auto-populated from documented surgical case [id number]-Ac [facility] Arthroscopy Shoulder (Right) 2022 auto-populated from documented surgical case [id number]-Ac [facility] Decompre ion Arthroscopy Subacromial (Right) 2022 auto-populated from documented surgical case 0060A-Ac [facility] [facility] Laparoscopy, surgical, with ligation of spermatic veins for varicocele Laparoscopy, surgical, with ligation of spermatic veins for varicocele [id number] left 0060A-Ac [facility] [facility] Extraction, erupted tooth or exposed root (elevation and/or forceps removal) wisdom teet h x 2, bottom 0060A-Ac [facility] Threshold Audiogram (Pure Tone) Automated Threshold Audiogram (Pure Tone) Automated 0208T 2017 SHERITA MCCALL Typhoid Vaccine Vi Capsular Polysaccharide, For Intramus Use Typhoid Vaccine Vi Capsular Polysaccharide, For Intramus Use 52828 2016 MARIA URIBE Hepatitis A And Hepatitis B (Intramuscular Use) Adult Dosage Hepatitis A And Hepatitis B (Intramuscular Use) Adult Dosage 89793 2016 HARJEET DELA CRUZ Hep A-Hep B; Series #: 3; 1.0 mL; IM; Right Arm; Mfg: SmithCollaberaine; Lot: [id number]; VIS given (Eloise: 05/03/16; 05/03/16). DoD Immunization Administration One Vaccine Immunization Administration One Vaccine 20473 2016 HARJEET DELA CRUZ Vaccines Viral Polio, Inactivated (Salk) Vaccines Viral Polio, Inactivated (Salk) 36715 2016 AMADOR MCINTOSH Poliovirus vaccine Inactivated (IPV) 0.5mL administered IM in left deltoid. Patient observed for 15 minutes post injection with no side effects and or adverse reactions noted. Patient identified by two forms of identifications. VIS statement offered. [facility] Vaccines Viral Varicella (Active) Vaccines Viral Varicella (Active) 26943 2016 AMADOR MCINTOSH Varicella vaccine 0.5ml administered subcutaneous in left tricep. Tolerated injection well. Observed for 15 minutes. No adverse reaction observed at this time. Patient identified by two forms of verification (name & ). VIS information provided to patient. [facility] Vaccines Viral Measles, Mumps and Rubella, Live Vaccines Viral Measles, Mumps and Rubella, Live 13506 2016 AMADOR MCINTOSH Measles, Mumps, and Rubella Virus Vaccine Live (MMR) 0.5mL administered subcutaneous in left triceps. Tolerated injection well. Observed for 15 minutes. No adverse reaction observed at this time. Patient identified by two forms of verification (name & ). VIS information provided to patient. [facility] Immunization Administration Each Additional Vaccine Immunization Administration Each Additional Vaccine 43371 2016 AMADOR MCINTOSH [facility] Hepatitis A And Hepatitis B (Intramuscular Use) Adult Dosage Hepatitis A And Hepatitis B (Intramuscular Use) Adult Dosage 54649 2016 AMADOR MCINTOSH Hepatitis A and Hepatitis B vaccine Adult (TWINRIX) 1mL administered IM in left deltoid. Tolerated injection well. Observed for 15 minutes. No adverse reaction observed at this time. Patient identified by two forms of verification (name & ). VIS information provided to patient. DoD Immunization Administration One Vaccine Immunization Administration One Vaccine 10079 2016 AMADOR MCINTOSH [facility] Ophthalmological New Patient Start Intermediate Level Care Ophthalmological New Patient Start Intermediate Level Care 53438 2016 JOHANA MAHMOOD [facility] Determination Of Refractive State Determination Of Refractive State 88479 2016 JOHANA MAHMOOD [facility] Immunization Administration Each Additional Vaccine Immunization Administration Each Additional Vaccine 09051 2016 RITA MEADOWS [facility] Tdap Vaccine Tdap Vaccine 47721 2016 RITA MEADOWS Visit for an IM injection of 0.5mL of Boostrix (Tetanus and Diphtheria Toxoids and Acellular Pertussis). Was given in the Right Deltoid. Patient was observed for 15 min with no adverse reactions. DoD Meningococcal Polysacch Diphtheria Toxoid Conjugate Vaccine 2016 RITA MEADOWS Visit for an IM injection of 0.5mL of Meningococcal Vaccine (Menactra). Was given in the Left Deltoid. Patient was observed for 15 min with no adverse reactions. [facility] Hepatitis A And Hepatitis B (Intramuscular Use) Adult Dosage Hepatitis A And Hepatitis B (Intramuscular Use) Adult Dosage 33437 2016 RITA MEADOWS Visit for an IM injection of 1mL of Twinrix (Hepatitis A and B combination). Was given in the Right Deltoid. Patient was observed for 15 min with no adverse reactions. [facility] Vaccines Viral Measles, Mumps and Rubella, Live Vaccines Viral Measles, Mumps and Rubella, Live 43129 2016 RITA MEADOWS Visit for a SQ injection of 0.5mL of MMR (Measles, Mumps, and Rubella). Was given in the Right Tricep. Patient was observed for 15 min with no adverse reactions DoD Vaccines Viral Varicella (Active) Vaccines Viral Varicella (Active) 77574 2016 RITA MEADOWS Visit for a SQ injection of 0.5mL of Varicella. Was given in the Right Tricep. Patient was observed for 15 min with no adverse reactions. DoD Immunization Admin Intranasal / Oral Each Additional Vaccine Immunization Admin Intranasal / Oral Each Additional Vaccine 42923 2016 RITA MEADOWS DoD Vaccines Adenovirus Type 4 Live, For Oral Use Vaccines Adenovirus Type 4 Live, For Oral Use 22674 2016 RITA MEADOWS A single vaccine dose adminstered orally. DoD Vaccines Adenovirus Type 7 Live, For Oral Use Vaccines Adenovirus Type 7 Live, For Oral Use 09667 2016 RITA MEADOWS A single vaccine dose adminstered orally. DoD Immunization Administration One Vaccine Immunization Administration One Vaccine 67701 2016 RITA MEADOWS DoD Influenza Split Virus Vaccine Age 3+ Years Intramuscular 2016 RITA MEADOWS Flu vaccine: Administer 0.5mL injected in the left deltoid muscle intramuscularly. Patient was observed for 15 min with no adverse reactions DoD Threshold Audiogram (Pure Tone) Automated Threshold Audiogram (Pure Tone) Automated 0208T 2016 PERICO RICARDO [facility] Scanning Computerized Ophthalmic Diagnostic Imaging Optic Nerve Scanning Computerized Ophthalmic Diagnostic Imaging Optic Nerve 28492 CARLOS DOSS [facility] Determination Of Refractive State Determination Of Refractive State 75263 CARLOS DOSS [facility] Spectacles Services Fitting Monofocals (Not For Aphakia) [facility] Fitting Monofocals (Not For Aphakia) 57531 CARLOS DOSS 2, 5A (one clear/one tint for desert conditions UV protection at [facility]), 1 FOC and Eye pro inserts ordered. [facility] Ophthalmological New Patient Start Comprehensive Care Ophthalmological New Patient Start Comprehensive Care 71297 CARLOS DOSS [facility] Threshold Audiogram (Pure Tone) Automated Threshold Audiogram (Pure Tone) Automated 0208T KEVIN RACHEL Comprehensive Audiometry Comprehensive Audiometry 04626 DESHPANDE, ELISABET [facility] Tympanometry Tympanometry 18783 DESHPANDE, ELISABET [facility] Preventive Medicine Physical Exam Vital Signs Recorded Preventive Medicine Physical Exam Vital Signs Recorded FRANK DUNLAP [facility] Pulmon Function - O2 Uptake - Gas Analysis Rest, Ind Pulmon Function - [place]2 [place] [address] FRANK DUNLAP [facility] Patient education, not otherwise cla ified, non-physician provider, group, per se ROSIE Rodriguez [facility] Ear mold/insert, not disposable, any type ROSIE KELLER [facility] Non-Physician Phone Call To Patient/Provider Brief (5-10min) Non-Physician Phone Call To Patient/Provider Brief (5-10min) 14038 VELIA LIMA [facility] [employer] [facility] Fitting Monofocals (Not For Aphakia) [facility] Fitting Monofocals (Not For Aphakia) 23770 LEONARDO DOUGLAS [facility] Psychiatric Evaluation Comprehensive Examination Psychiatric Evaluation Comprehensive Examination 35393 REINA WALSH [facility] Psychiatric Therapy Individual Approximately 45-50 Minutes Psychiatric Therapy Individual Approximately 45-50 Minutes 04857 REINA WALSH [facility] Psychiatric Therapy Individual Approximately 20-30 Minutes Psychiatric Therapy Individual Approximately 20-30 Minutes 01131 REINA WALSH [facility] Injection, methocarbamol, up to 10 mL SLIM DURAN INTRAMUSCULAR ROBAXIN INJECTION - Patient Identification verified using Full Name and Date of . Procedure explained to patient and they verbalized understanding. Per Provider order patient given Intramuscular Robaxin injection. Time of injection: 1148 Robaxin Injection Dosage: 1000 mg E Learning Specialist: Mylan Lot #: [id number] Expiration date: 08/2022 Injection Site: Right & Left Gluteus Patient tolerated injection without significant side effects. Patient verbalized understanding of all instructions given to include remaining in clinic for 30 minutes to observe for adverse reactions. Pain assessed 30 minutes after injection patient states that pain level is now 7/10. Patient was instructed not to take any other NSAID for at least 8 hours after injection. Procedure performed in clinic. DoD Injection, methylprednisolone sodium succinate, up to 125 mg RENEEDAVONSLIMSIMONE PONCE INTRAMUSCULAR SOLU-MEDROL INJECTION - Patient Identification verified using Full Name and Date of . Procedure explained to patient and they verbalized understanding. Per provider order patient given intramuscular Solu-Medrol injection. Time of injection: 1148 Solu-Medrol Dosage: 125 mg E Learning Specialist: Red Ambiental Lot number: [id number] Expiration date: 01/2023 Injection site: Left Gluteus Patient tolerated injection without significant side effects. Patient verbalized understanding of all instructions given to include remaining in clinic for 15 minutes to observe for adverse reactions. Procedure performed in clinic. DoD Adhesive bandage, first-aid type, any size, each SLIM DURAN DoD Syringe with needle, sterile 5 cc or greater, each SLIM DURAN DoD Syringe with needle, sterile 3 cc, each SLIM DURAN DoD Needle, sterile, any size, each SLIM DURAN DoD Injection, ketorolac tromethamine, per 15 mg SLIM DURAN INTRAMUSCULAR TORADOL INJECTION - Patient Identification verified using Full Name and Date of . Procedure explained to patient and they verbalized understanding. Per provider order patient given IM Toradol injection. Time of injection: 1148 Toradol Dosage: 30 mg E Learning Specialist: Alma[employer] Lot number: [id number] Expiration date: 08/2022 Site/Route: Right Gluteus Patient tolerated injection without significant side effects. Procedure performed in clinic. Patient verbalized understanding of all instructions given to include remaining in clinic for 30 minutes to observe for adverse reactions. Pain assessed 30 minutes after injection patient states that pain level is now 7/10. Patient was instructed not to take any other NSAID for at least 8 hours after injection. Zoran Manzanares Supervised Injection Intramuscular Supervised Injection Intramuscular 67799 SLIM DURAN [facility] Patient education, not otherwise cla ified, non-physician provider, individual, per se ion GIANFRANCO MIXON [facility] Social Work Individual Outpatient Counseling 20-30 Minutes Social Work Individual Outpatient Counseling 20-30 Minutes 28579 FADY CEVALLOS [facility] Physical Therapy: ___ Se ion Segments, 15 Minutes Each Physical Therapy: ___ Session Segments, 15 Minutes Each [id number] ROBSON ALANIZ [facility] Physical Therapy Neuromuscular Re-education Physical Therapy Neuromuscular Re-education 42491 ROBSON ALANIZ [facility] Physical Medicine - Group Physical Therapy Se ion Physical Medicine - Group Physical Therapy Session 21585 PETR MORE [facility] Med Management By Pharmacist Initial 15 Min Estab Patient Med Management By Pharmacist Initial 15 Min Estab Patient 74144 HELEN PAULINO [phone]; 25 min DoD Medication Management By Pharmacist Each Additional 15 Min Medication Management By Pharmacist Each Additional 15 Min 49207 HELEN PAULINO [facility] Waiver services; not otherwise specified (NOS) HELEN PAULINO [facility] Nerve Block Ilioinguinal Nerve Block Ilioinguinal 74443 TG ZAMUDIO [facility] Physical Medicine Physical Therapy Re-Evaluation Physical Medicine Physical Therapy Re-Evaluation 15070 ROBSON ALANIZ [facility] Pulmonary Function - O2 Uptake - Gas Analysis Pulmonary Function - O2 Uptake - Gas Analysis 88118 ALEIDA YAÑEZ [facility] Med Management By Pharmacist Initial 15 Min Estab Patient Med Management By Pharmacist Initial 15 Min Estab Patient 65535 HELEN PAULINO [phone]; 25 min DoD Fluorosc Guid For Inj Of Paravertebral Facet Joint Lumbar Single Level Fluorosc Guid For Inj Of Paravertebral Facet Joint Lumbar Single Level 00317 SPINBOLAASEANYULISSA [facility] Fluorosc Guid For Inj Of Paravertebral Facet Joint Lumbar Second Level Fluorosc Guid For Inj Of Paravertebral Facet Joint Lumbar Second Level 09478 SPINBOLAA, YULISSA DoD Injection, ropivacaine HCl, 1 mg SPINSEAN IBARRAOLAS [facility] Fluorosc Guid For Inj Of Paravertebral Facet Joint Lumbar Third Level Fluorosc Guid For Inj Of Paravertebral Facet Joint Lumbar Third Level 50704 MUNA CONTRERAS DoD Injection, dexamethasone sodium phosphate, 1 mg YULISSA YIN [facility] Modalities Electrical Stimulation Modalities Electrical Stimulation 48883 RICH RICARDO [facility] Modalities Electrical Stimulation Device Placement Modalities Electrical Stimulation Device Placement 03082 RICH RICARDO [facility] Modalities Electrical Stimulation Attended Each 15 Minutes Modalities Electrical Stimulation Attended Each 15 Minutes 08585 RICH RICARDO [facility] Polysomnography Polysomnography 10668 MARCO A Santana HAO WONG [facility] Ophthalmological Prior Patient Start Comprehensive Care Ophthalmological Prior Patient Start Comprehensive Care 44032 RICK POLANCO [facility] ECG 12-Lead ECG 12-Lead 3120F ELSA DELGADILLO [facility] Med Management By Pharmacist Initial 15 Min Estab Patient Med Management By Pharmacist Initial 15 Min Estab Patient 53825 GABYFELICIABRICE HELEN Mitchell [phone]; 15 min [facility] Modalities Traction Manual (Each Region 15 Minutes) Modalities Traction Manual (Each Region 15 Minutes) 84820 RICH RICARDO [facility] Phys Therapy Education Self Care Training - Per 15 Minutes Phys Therapy Education Self Care Training - Per 15 Minutes 93025 ROBSON ALANIZ [facility] Patient Counseling Medical Management Individual Patient Patient Counseling Medical Management Individual Patient 55594 NUBIA SUAZO V [facility] EDUCATION &TRAINING, PATIENT SELF-MGT QUALIFIED, NONPHYSICIAN HEALTH LINUX SYSTEM ADMINISTRATOR USING STDIZED CURRICULUM, [id number] W THE PATIENT (COULD INCL CAREGIVER/FAMILY) EA 30 MIN; INDIVIDUAL PATIENT 2022 [facility] RE-EVAL,PHYSICAL THERAPY EST PLAN OF CARE,REQ:EXAM,REV,HX & USE,STAND TESTS &HIRA REQ;REV PLAN OF CARE USING STAND PAT ASSESS INSTR &/HIRA ASSESS FUNC OUTCOME TYP,20 MIN SPENT QQVW-HP-SWPD W PAT&/FAM 2022 [facility] BRIEF COMM TECH-BASE SERV,E.G. VIRTUAL CHK-IN,BY QUAL HCP WHO CANNOT REP E&M SER,PROV TO EST PT,NOT ORIG FRM A REL SERV PROV W/IN PREV 7D NOR LEAD TO SERV/PX W/IN NEXT 24H/SOON AVAIL APPT;5-10M DISC 2022 [facility] MANUAL THERAPY TECHNIQUES (EG, MOBILIZATION/ MANIPULATION, MANUAL LYMPHATIC DRAINAGE, MANUAL TRACTION), 1 OR MORE REGIONS, EACH 15 MINUTES 2022 [facility] ELECTROCARDIOGRAM, ROUTINE ECG WITH AT LEAST 12 LEADS; WITH INTERPRETATION AND REPORT 2022 [facility] THERAPEUTIC PROCEDURE, 1 OR MORE AREAS, EACH 15 MINUTES; THERAPEUTIC EXERCISES TO DEVELOP STRENGTH AND ENDURANCE, RANGE OF MOTION AND FLEXIBILITY 2022 [facility] THERAPEUTIC PROCEDURE(S), GROUP (2 OR MORE INDIVIDUALS) 2022 [facility] THERAPEUTIC PROCEDURE,1 OR MORE AREAS,EACH 15 MINUTES;NEUROMUSCULAR REEDUCATION OF MOVEMENT,BALANCE,COOR DINATION,KINESTHETIC SENSE,POSTURE,AND/OR PROPRIOCEPTION FOR SITTING AND/OR STANDING ACTIVITIES 2022 [facility] THERAPEUTIC PROCEDURE(S), GROUP (2 OR MORE INDIVIDUALS) 2022 [facility]D THERAPEUTIC PROCEDURE, 1 OR MORE AREAS, EACH 15 MINUTES; THERAPEUTIC EXERCISES TO DEVELOP STRENGTH AND ENDURANCE, RANGE OF MOTION AND FLEXIBILITY 2022 [facility] FITTING OF SPECTACLES, EXCEPT FOR APHAKIA; MONOFOCAL 2022 [facility] INJECTION, KETOROLAC TROMETHAMINE, PER 15 MG 2022 [facility] POLYSOMNOGRAPHY; ANY AGE, SLEEP STAGING WITH 1-3 ADDITIONAL PARAMETERS OF SLEEP, ATTENDED BY A TECHNOLOGIST 2022 [facility] HEALTH BEHAVIOR ASSESSMENT, OR RE-ASSESSMENT (IE, HEALTH-FOCUSED CLINICAL INTERVIEW, BEHAVIORAL OBSERVATIONS, CLINICAL DECISION MAKING) 2021 [facility] INJECTION, ONDANSETRON HCL, PER 1 MG 2021 [facility] HEALTH BEHAVIOR INTERVENTION, INDIVIDUAL, [id number]; INITIAL 30 MINUTES 2021 [facility] HEALTH BEHAVIOR INTERVENTION, INDIVIDUAL, [id number]; INITIAL 30 MINUTES 2021 [facility] INJECTION, DEXAMETHASONE SODIUM PHOSPHATE, 1 MG 2021 [facility] APPLICATION OF A MODALITY TO 1 OR MORE AREAS; ELECTRICAL STIMULATION (MANUAL), EACH 15 MINUTES 2021 [facility] THERAPEUTIC PROCEDURE,1 OR MORE AREAS,EACH 15 MINUTES;NEUROMUSCULAR REEDUCATION OF MOVEMENT,BALANCE,COOR DINATION,KINESTHETIC SENSE,POSTURE,AND/OR PROPRIOCEPTION FOR SITTING AND/OR STANDING ACTIVITIES 2021 [facility] THERAPEUTIC PROCEDURE, 1 OR MORE AREAS, EACH 15 MINUTES; THERAPEUTIC EXERCISES TO DEVELOP STRENGTH AND ENDURANCE, RANGE OF MOTION AND FLEXIBILITY 2021 [facility] THERAPEUTIC PROCEDURE(S), GROUP (2 OR MORE INDIVIDUALS) 2021 [facility] INJECT(S),DIAG/THER AGNT,PARAVERTEB FAC (ZYGAPOPHYS) JT (OR NERV INNERVATING THAT JT) W IMAG GUIDANCE (FLUORO/CT),LUMB/SAC; 3RD & ANY ADDITION LEVL (LIST SEPARATELY IN ADDITION TO CODE FOR PRIM PROC) 2021 [facility] THERAPEUTIC PROCEDURE(S), GROUP (2 OR MORE INDIVIDUALS) 2021 [facility] THERAPEUTIC PROCEDURE,1 OR MORE AREAS,EACH 15 MINUTES;NEUROMUSCULAR REEDUCATION OF MOVEMENT,BALANCE,COOR DINATION,KINESTHETIC SENSE,POSTURE,AND/OR PROPRIOCEPTION FOR SITTING AND/OR STANDING ACTIVITIES 2021 [facility] INJECTION, ROPIVACAINE HYDROCHLORIDE, 1 MG 2021 [facility] WAIVER SERVICES; NOT OTHERWISE SPECIFIED (NOS) 2021 [facility] VITAL SIGNS (TEMPERATURE, PULSE, RESPIRATORY RATE, AND BLOOD PRESSURE) DOCUMENTED AND REVIEWED (CAP) (EM) 2021 [facility] BIOELECTRICAL IMPEDANCE ANALYSIS WHOLE BODY COMPOSITION ASSESSMENT, WITH INTERPRETATION AND REPORT 2021 [facility] THERAPEUTIC PROCEDURE, 1 OR MORE AREAS, EACH 15 MINUTES; THERAPEUTIC EXERCISES TO DEVELOP STRENGTH AND ENDURANCE, RANGE OF MOTION AND FLEXIBILITY 2021 [facility] INJECTION(S), ANESTHETIC AGENT(S) AND/OR STEROID; ILIOINGUINAL, ILIOHYPOGASTRIC NERVES 2021 [facility]; NOT OTHERWISE SPECIFIED (NOS) 2021 [facility] THERAPEUTIC PROCEDURE(S), GROUP (2 OR MORE INDIVIDUALS) 2021 [facility] THERAPEUTIC PROCEDURE(S), GROUP (2 OR MORE INDIVIDUALS) 2021 [facility] BIOELECTRICAL IMPEDANCE ANALYSIS WHOLE BODY COMPOSITION ASSESSMENT, WITH INTERPRETATION AND REPORT 2021 [facility] THERAPEUTIC PROCEDURE,1 OR MORE AREAS,EACH 15 MINUTES;NEUROMUSCULAR REEDUCATION OF MOVEMENT,BALANCE,COOR DINATION,KINESTHETIC SENSE,POSTURE,AND/OR PROPRIOCEPTION FOR SITTING AND/OR STANDING ACTIVITIES 2021 [facility] BRIEF EMOTIONAL/BEHAVIORAL ASSESSMENT (EG, DEPRESSION INVENTORY, ATTENTION-DEFICIT/HYP ERACTIVITY DISORDER [ADHD] SCALE), WITH SCORING AND DOCUMENTATION, PER STANDARDIZED INSTRUMENT 2021 [facility] PATIENT EDUCATION, NOT OTHERWISE CLASSIFIED, NON-PHYSICIAN PROVIDER, INDIVIDUAL, PER SESSION 2021 [facility] PSYCHIATRIC DIAGNOSTIC EVALUATION 2021 [facility] INJECTION, KETOROLAC TROMETHAMINE, PER 15 MG 2021 [facility] PSYCHOTHERAPY, 30 MINUTES WITH PATIENT 2021 [facility] HEALTH AND WELL-BEING COACHING [id number]; GROUP (2 OR MORE INDIVIDUALS), AT LEAST 30 MINUTES 2020 [facility] PSYCHOTHERAPY, 30 MINUTES WITH PATIENT 2020 [facility] AZITHROMYCIN DIHYDRATE, ORAL, CAPSULES/POWDER, 1 GRAM 2020 [facility] PSYCHOTHERAPY, 45 MINUTES WITH PATIENT 2020 [facility] PSYCHOTHERAPY, 45 MINUTES WITH PATIENT 2020 [facility] PSYCHIATRIC DIAGNOSTIC EVALUATION 2020 [facility] PSYCHIATRIC DIAGNOSTIC EVALUATION 2020 [facility] FITTING OF SPECTACLES, EXCEPT FOR APHAKIA; MONOFOCAL 2020 [facility] PATIENT EDUCATION, NOT OTHERWISE CLASSIFIED, NON-PHYSICIAN PROVIDER, GROUP, PER SESSION 2020 [facility] IMMUNIZATION ADM,INTRAMUSCULAR INJ,SEVERE AC RESPIRATORY SYNDROME CORONAVIR 2 (SARSCOV-2) (CORONAVIR DIS [COVID-19]) VACC,MRNALNP,SPIKE PROT,PRESRV FREE,30 MCG/0.3ML DOS,DILUENT RECONSTITUT;2ND DOSE 2020 [facility] IMMUNIZATION ADM,INTRAMUSCULAR INJ,SEVERE AC RESPIRATORY SYNDROME CORONAVIR 2 (SARSCOV-2) (CORONAVIR DIS [COVID-19]) VACC,MRNALNP,SPIKE PROT,PRESRV FREE,30 MCG/0.3ML DOS,DILUENT RECONSTITUT;1ST DOSE 2020 [facility] POSTOPERATIVE FOLLOW-UP VISIT, NORMALLY INCLUDED IN THE SURGICAL PACKAGE, INDICATE THAT EVALUATION & MANAGEMENT SERVICE WAS PERFORMED DURING A POSTOPERATIVE PERIOD REASON RELATED ORIGINAL PROCEDURE 2020 [facility] TELE ASSESS & MGT SRV PROV QUAL NONPHYS HLTH CARE PRO TO EST PAT,PARENT,GUARD NOT ORIG REL ASSESS & MGT SRV PROV W/IN PREV 7 DAYS NOR LEAD ASSESS & MGT SRV/PX W/IN NXT 24 HR/SOON APT;5-10 MIN MED DIS 2020 [facility] INJECTION, DEXAMETHASONE SODIUM PHOSPHATE, 1 MG 2020 [facility] ANESTHESIA FOR PROCEDURES ON MALE GENITALIA (INCLUDING OPEN URETHRAL PROCEDURES); NOT OTHERWISE SPECIFIED [facility]: PRE-ANESTHESIA EVALUATION 2020 [facility] UNLISTED SPECIAL SERVICE, PROCEDURE OR REPORT 2020 [facility] ADMINISTRATION OF PATIENT-FOCUSED HEALTH RISK ASSESSMENT INSTRUMENT (EG, HEALTH HAZARD APPRAISAL) WITH SCORING AND DOCUMENTATION, PER STANDARDIZED INSTRUMENT 2018 [facility] POLIOVIRUS VACCINE, INACTIVATED (IPV), FOR SUBCUTANEOUS OR INTRAMUSCULAR USE 2016 [facility] OPHTHALMOLOGICAL SERVICES: MEDICAL EXAMINATION AND EVALUATION WITH INITIATION OF DIAGNOSTIC AND TREATMENT PROGRAM; INTERMEDIATE, NEW PATIENT 2016 [facility] INFLUENZA VIRUS VACCINE, TRIVALENT (IIV3), SPLIT VIRUS, 0.5 ML DOSAGE, FOR INTRAMUSCULAR USE 2016 [facility] PURE TONE AUDIOMETRY (THRESHOLD), AUTOMATED; AIR ONLY 2016 [facility] TYMPANOMETRY (IMPEDANCE TESTING) 2018 [facility] PURE TONE AUDIOMETRY (THRESHOLD), AUTOMATED; AIR ONLY 2018 [facility] FITTING OF SPECTACLES, EXCEPT FOR APHAKIA; MONOFOCAL 2018 [facility] PURE TONE AUDIOMETRY (THRESHOLD), AUTOMATED; AIR ONLY 2017 [facility] TYPHOID VACCINE, CAPSULAR POLYSACCHARIDE (VICPS), FOR INTRAMUSCULAR USE 2016 [facility] IMMUNIZATION ADMINISTRATION (INCLUDES PERCUTANEOUS, INTRADERMAL, SUBCUTANEOUS, OR INTRAMUSCULAR INJECTIONS); 1 VACCINE (SINGLE OR COMBINATION VACCINE/TOXOID) 2016 [facility] Social History Combined list of available smoking, tobacco, and other social history from Department of Defense and Veterans Affairs facilities. Social History Type Response Date Comment [facility] e Tobacco smoking status NHIS VA-TOBACCO USER SOME DAYS 12/10/2023 [facility] History of tobacco use VA-TOBACCO DOESNT USE [place] 30 MIN WAKEUP 12/10/2023 [facility] Sex Representation Male (finding) 02/07/2022 Un known Organization Tobacco Never-cigarette user Cigarette use:. Never-other tobacco user (not cigarettes) Other Tobacco use:. Smokeless tobacco Other Tobacco type:. Ambulatory Pharmacy Sexual Orientation Ambula tory Pharmacy Gender identity Ambulator y Pharmacy This section is an empty social history section. [facility] Assessment and Plan Combined list of future care activities from Department of Defense and Veterans Affairs facilities (e.g., assessment and plan notes, appointments, orders, and referrals). Additional future care activities may be listed in the Plan of Care section. Result Assessment and Plan Date Source Assessment and Plan Extracted from:Title : [id number] Author: HELEN PAULINO, PharmD Date: 08/31/23 1. E ncounter for therapeutic drug level monitoring Patient encounter was a tele-health encounter. Patient was verified by name and . Time spent on the phone with patient= 1 0 minutes. Medications reviewed and reconciled with SM and questions and concerns regarding medication therapy were addressed. Medications that are no longer needed or that the SM is no longer taking were discontinued from the patient profile. 2. C hronic pain syndrome Potential benefits and adverse reactions of medications reviewed and SM provided opportunity to ask questions. Plan: 1. Continue duloxetine 60 mg daily. Refill entered 2. Continue gabapentin 300 mg TID. Refill on file. 3. Sm aware not to abruptly discontinue either medication and he needs to connect with a new provider prior to running out of medication. Orders: DULoxetine(DULoxetine 60 mg oral delayed release capsule), 1 cap(s), Oral, Daily, for chronic pain, # 90 cap(s), 0 total refill(s), Maintenance, 1 cap(s) Oral Daily,Instr:for chronic pain, Pharmacy: [facility] [Not filled] Lora, LondonD, BCACP Clinical Pharmacist [facility] Extracted from:Title: Low Blood Sugar level concerns Author: MAGGI PONCE PA Date: 06/25/23 Lightheaded 23 yo ADM presented to MOD for concerns for hypoglycemia. Reported subjective lightheadedness and fatigue. PE was unremarkable. VS WNL. POC glucose reading was 76. He also reported that he was asymptomatic. No acute concerns for hypoglycemia due to WNL readings in clinic today. Will order labs for further evaluation to assess for livery/kidney dysfunction. No acute concerns to assess for endogenous hyperinsulinism or adrenal insufficiency due to normal readings today. He is also not on medications that may lower glucose levels at this time. -CBC, CMP ordered -Fasting glucose ordered w/ instructions to complete this when he is symptomatic -No other questions/concerns at this time Ordered: POC Glucose Level Orders: CBC w/ Diff Comprehensive Metabolic Panel Extracted from:Title: Office Clinic Note Author: BARON CACERES Date: 06/25/23 Lightheaded Well appearing patient with unclear etiology of lightheadedness/dizziness. POC glucose 76mg/dl in clinic today. Given well appearance in clinic and finger stick glucose >65mg/dL, low concern for hypoglycemic disorder per UpToDate. -Plan to collect fasting glucose, CBC, CMP to evaluate for glucose, blood, or electrolyte abnormalities. -Plan close f/u with PCM. Extracted from:Title: Office Clinic Note - Abdomen pain Author: SLIM DURAN PA Date: 06/12/23 Abdominal pain 23 y/o M presents w/ chronic periumbilcal pain. States pain occurs daily w/o any association to meals, BM, or other symptoms. States daily BM of pebbly to semi solid consistency. Denies blood noticeable when wiping or in toilet. States is able to still pass gas. Unremarkable exam in clinic. Suspect chronic constipation. Will obtain abdominal xr and start on PEG. Counseled on use and to increase fiber intake to 25-30g sp cessation of PEG. Return precautions provided. Patient verbalized understanding and acknowledgment of plan and had no further questions. Ordered: XR Abdomen AP 1 View Orders: polyethylene glycol 3350(MiraLax oral powder for reconstitution), See Instructions, Dissolve and drink 1 capful (17g) of powder in 4 to 8 ounces of liquid once daily, # 510 g, 0 total refill(s), Acute, 06/19/2023, Dissolve and drink 1 capful (17g) of powder in 4 to 8 ounces of liquid once daily, [facility]: [facility] Extracted from:Title: [id number] Author: HELEN PAULINO, PharmD Date: 05/10/23 1. E ncounter for therapeutic drug level monitoring Patient encounter was a tele-health encounter. Patient was verified by name and . Time spent on the phone with patient=24 minutes. Medications reviewed and reconciled with SM and questions and concerns regarding medication therapy were addressed. Medications that are no longer needed or that the SM is no longer taking were discontinued from the patient profile. 2. L ower abdominal pain, unspecified Potential benefits and adverse reactions of medications reviewed and SM provided opportunity to ask questions. Plan: 1. Continue duloxetine 60 mg daily for chronic LBP and groin pain. 2. Continue gabapentin 300 mg BID (may increase to TID) as he is noticing improvement with his LBP. 3. F/u in 4-6 weeks via for evaluation of medication efficacy and side effects. Appropriate dose titrations and/or medication changes will be made at that time. Pt. acknowledges understanding of how to contact me should concerns or questions arise prior to next appt. Ordered: gabapentin(gabapentin 300 mg oral capsule), 1 cap(s), Oral, TID, # 270 cap(s), 1 total refill(s), Maintenance, 1 cap(s) Oral TID, Pharmacy: [facility] [Federal Rx: #[id number] last filled 05/10/23] Helen Paulino, PharmD, BCACP Pain Management Clinical Pharmacist [facility] [address], [place] [address] Extracted from:Title: Office Clinic Note Author: GIANFRANCO MIXON Date: 04/25/23 Sensorineural hearing loss, unilateral, right ear, with unrestricted hearing on the contralateral side Tinnitus, bilateral Extracted from:Title: AHP- Dx Audiology Eval Author: ALTON WARD AuD Date: 04/25/23 Sensorineural hearing loss, unilateral, right ear, with unrestricted hearing on the contralateral side Tinnitus, bilateral Assessment: Test reliability was: Miriam clayton Tympanometry: Right: Type: A c onsistent with normal middle ear pressure, volume and static compliance Left: Type: A consistent with normal middle ear p ressure, volume and static compliance Ipsilateral Acoustic Reflexes: DNT Distortion Product Otoacoustic Emissions: DNT Pure Tone Audiometry: R - W NL from 250-3000 Hz sloping from a mild to moderate SNHL from 9736-5859 Hz?rising back to a mild SNHL at 8000 Hz. L - WNL from 250-8000 Hz. Speech Abalone Diver Threshold: R - 20 dBHL L - 15 dBHL Word R ecognition Score w/recorded NU-6 material: R 100% at 60 dBHL L - 1 00% at 55 dBHL ? Based on degree and configuration of hearing loss p raz should experience little communication difficulties except in a few listening environments such as in the presence of background noise. . PRAMOD GUAJARDO DAVIN 40-502 hearing thresholds are consistent with H -1 Profile Plan: Today's results are consistent with the diagnostic results from 2019, however, an STS was confirmed for the right ear. Pt was provided with an STS mac and his baseline will be re-established to reflect today's results. Pt will remain an H-1 for hearing. The patient w as counseled on the importance of using hearing protection in the presence of hazardous noise. P atient denied additional ear-pro at today's appointment. P t w as informed to go by the three foot rule, if at arms length away from someone and it is so noisy that t he other person cannot be heard t hen hearing protection should be worn. P t instructed to conduct the tug and listen test to see if his hearing protection was on correctly. Radiology/ENT: N o ENT o r radiology referral a t this time Pt was counseled on tinnitus and factors that can increase tinnitus, which include but are not limited to, sodium, caffeine, sugar, medication, stress, and lack of sleep/inconsistent sleep patterns. Reviewed with patient using progressive tinnitus management using sounds: soothing, background, and interesting sounds. Reviewed with patient white noise as one example of a sound source. Recommend a nnual audiometric evaluations. Patient should return sooner if new concerns arise or changes occur. _ P atient verbalized understanding of these instructions and recommendations. Junior Morales, [facility], [employer] [place], [place] Extracted from:Title: 2-week postop F/U left shoulder subpectoral biceps tenodesis Author: JESSI MANUEL PA Date: 04/25/23 1. E buzz for other orthopedic aftercare Patient presents 2 w eeks s/p left shoulder arthroscopy: Subpectoralis b iceps tenodesis, S LAP d joshua, S AD. DOS: March 16 023 Surgeon: Dr. Rodgers. No complications during the procedure. T olerates postop physical therapy well. N o new trauma. N o fever or shortness of breath. P ain 0/10. P ain control measures working well for this patient. Left shoulder e xamined. I ncision & p ortal site c lean with well approximated skin edges w ith n o d rainage. N o s utures or yocasta in place at this time. R madonna of motion: Shoulder and elbow d ecreased due to pain. T he patient's operative extremity is neurovascularly intact with n o s welling. N o evidence of?DVT. Patient came in today to weeks s/p procedure as stated above. T he patient shows no signs or symptoms of infection to the i ncision site a t this time. P atient has started postoperative physical therapy. H as pain medications. W ill RTC for next post-op appointment in [address] Rodgers. All patient's questions answered in detail this visit. EMR and Dragon attestation - this electronic health record document was created with the BizSlate computerized dictation system. While this document has been reviewed, there may still be phonetic and typographical errors. These are due to imperfections of the software program and do not reflect any compromise of the patient's medical care. Jessi Manuel DScPA [facility] Extracted from:Title: HEARING TEST Author: ARTHUR MART Date: 04/09/23 Encounter for examination of ears and hearing without abnormal findings Encounter for hearing conservation and treatment Encounter for hearing examination following failed hearing screening ASSESSMENT: The patient was educated on the following via tablet training: A. Effects of noise on hearing B. Purpose of hearing protection C. Advantages, disadvantages, and attenuation of various hearing protectors D. Selection, fit, use and care of hearing protectors E. Mandatory requirement of assigned protective equipment, and administrative actions that may follow for failure to wear F. Purpose of audiometric testing G. Explanation of audiometric test procedures H. The fact that hearing loss may lead to disqualification from current duties FITTING OF HEARING PROTECTION: Patient d eclined being fit with hearing protection devices or their hearing protection devices being checked at today's visit.. Hearing Protection: Type n/a S ize: n /a TEST CONCLUSIONS: Pure tone air conduction testing showed stable hearing compared to baseline hearing test, however results suggest SM may need a hearing profile. SM will be scheduled an appointment with the [employer]er for further evaluation. Refer to [id number] in Documentation for test results. MEDPROS was manually updated at today's visit and p atient has been provided with a copy o f hearing test results. Patient tested H -2 a t today's visit and MEDPROS has been updated to reflect as such. 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 E ncounter for therapeutic drug level monitoring Patient encounter was a tele-health encounter. Patient was verified by name and . Time spent on the phone with patient= 1 0 minutes. Medications reviewed and reconciled with SM and questions and concerns regarding medication therapy were addressed. Medications that are no longer needed or that the SM is no longer taking were discontinued from the patient profile. 2. C hronic pain syndrome Potential benefits and adverse reactions of medications reviewed and SM provided opportunity to ask questions. Plan: 1. Continue duloxetine 60 mg daily. Refill entered 2. Continue gabapentin 300 mg TID. Refill on file. 3. Sm aware not to abruptly discontinue either medication and he needs to connect with a new provider prior to running out of medication. Orders: DULoxetine(DULoxetine 60 mg oral delayed release capsule), 1 cap(s), Oral, Daily, for chronic pain, # 90 cap(s), 0 total refill(s), Maintenance, 1 cap(s) Oral Daily,Instr:for chronic pain, Pharmacy: [facility] [Not filled] Lora, LondonD, BCACP Clinical Pharmacist [facility] Extracted from:Title: Low Blood Sugar level concerns Author: MAGGI PONCE PA Date: 06/25/23 Lightheaded 23 yo ADM presented to MOD for concerns for hypoglycemia. Reported subjective lightheadedness and fatigue. PE was unremarkable. VS WNL. POC glucose reading was 76. He also reported that he was asymptomatic. No acute concerns for hypoglycemia due to WNL readings in clinic today. Will order labs for further evaluation to assess for livery/kidney dysfunction. No acute concerns to assess for endogenous hyperinsulinism or adrenal insufficiency due to normal readings today. He is also not on medications that may lower glucose levels at this time. -CBC, CMP ordered -Fasting glucose ordered w/ instructions to complete this when he is symptomatic -No other questions/concerns at this time Ordered: POC Glucose Level Orders: CBC w/ Diff Comprehensive Metabolic Panel Extracted from:Title: Office Clinic Note Author: BARON CACERES Date: 06/25/23 Lightheaded Well appearing patient with unclear etiology of lightheadedness/dizziness. POC glucose 76mg/dl in clinic today. Given well appearance in clinic and finger stick glucose >65mg/dL, low concern for hypoglycemic disorder per UpToDate. -Plan to collect fasting glucose, CBC, CMP to evaluate for glucose, blood, or electrolyte abnormalities. -Plan close f/u with PCM. Extracted from:Title: Office Clinic Note - Abdomen pain Author: SLIM DURAN PA Date: 06/12/23 Abdominal pain 23 y/o M presents w/ chronic periumbilcal pain. States pain occurs daily w/o any association to meals, BM, or other symptoms. States daily BM of pebbly to semi solid consistency. Denies blood noticeable when wiping or in toilet. States is able to still pass gas. Unremarkable exam in clinic. Suspect chronic constipation. Will obtain abdominal xr and start on PEG. Counseled on use and to increase fiber intake to 25-30g sp cessation of PEG. Return precautions provided. Patient verbalized understanding and acknowledgment of plan and had no further questions. Ordered: XR Abdomen AP 1 View Orders: polyethylene glycol 3350(MiraLax oral powder for reconstitution), See Instructions, Dissolve and drink 1 capful (17g) of powder in 4 to 8 ounces of liquid once daily, # 510 g, 0 total refill(s), Acute, 06/19/2023, Dissolve and drink 1 capful (17g) of powder in 4 to 8 ounces of liquid once daily, Pharmacy: [facility]... Extracted from:Title: [id number] Author: HELEN PAULINO, PharmD Date: 05/10/23 1. E ncounter for therapeutic drug level monitoring Patient encounter was a tele-health encounter. Patient was verified by name and . Time spent on the phone with patient=24 minutes. Medications reviewed and reconciled with SM and questions and concerns regarding medication therapy were addressed. Medications that are no longer needed or that the SM is no longer taking were discontinued from the patient profile. 2. L ower abdominal pain, unspecified Potential benefits and adverse reactions of medications reviewed and SM provided opportunity to ask questions. Plan: 1. Continue duloxetine 60 mg daily for chronic LBP and groin pain. 2. Continue gabapentin 300 mg BID (may increase to TID) as he is noticing improvement with his LBP. 3. F/u in 4-6 weeks via for evaluation of medication efficacy and side effects. Appropriate dose titrations and/or medication changes will be made at that time. Pt. acknowledges understanding of how to contact me should concerns or questions arise prior to next appt. Ordered: gabapentin(gabapentin 300 mg oral capsule), 1 cap(s), Oral, TID, # 270 cap(s), 1 total refill(s), Maintenance, 1 cap(s) Oral TID, Pharmacy: [facility] [Federal Rx: #270 last filled 05/10/23] Helen Paulino, PharmD, BCACP Pain Management Clinical Pharmacist [facility] [place] [address] Extracted from:Title: Office Clinic Note Author: GIANFRANCO MIXON Date: 04/25/23 Sensorineural hearing loss, unilateral, right ear, with unrestricted hearing on the contralateral side Tinnitus, bilateral Extracted from:Title: P- Dx Audiology Eval Author: ALTON WARD AuD Date: 04/25/23 Sensorineural hearing loss, unilateral, right ear, with unrestricted hearing on the contralateral side Tinnitus, bilateral Assessment: Test reliability was: G ood Tympanometry: Right: Type: A c onsistent with normal middle ear pressure, volume and static compliance Left: Type: A consistent with normal middle ear p ressure, volume and static compliance Ipsilateral Acoustic Reflexes: DNT Distortion Product Otoacoustic Emissions: DNT Pure Tone Audiometry: R - W NL from 250-3000 Hz sloping from a mild to moderate SNHL from 0082-6965 Hz?rising back to a mild SNHL at 8000 Hz. L - WNL from 250-8000 Hz. Speech Abalone Diver Threshold: R - 20 dBHL L - 15 dBHL Word R ecognition Score w/recorded NU-6 material: R 100% at 60 dBHL L - 1 00% at 55 dBHL ? Based on degree and configuration of hearing loss p atient should experience little communication difficulties except in a few listening environments such as in the presence of background noise. . IAW DA DAVIN 40-502 hearing thresholds are consistent with H -1 Profile Plan: Today's results are consistent with the diagnostic results from 2019, however, an STS was confirmed for the right ear. Pt was provided with an STS mac and his baseline will be re-established to reflect today's results. Pt will remain an H-1 for hearing. The patient w as counseled on the importance of using hearing protection in the presence of hazardous noise. P atient denied additional ear-pro at today's appointment. P t w as informed to go by the three foot rule, if at arms length away from someone and it is so noisy that t he other person cannot be heard t hen hearing protection should be worn. P t instructed to conduct the tug and listen test to see if his hearing protection was on correctly. Radiology/ENT: N o ENT o r radiology referral a t this time Pt was counseled on tinnitus and factors that can increase tinnitus, which include but are not limited to, sodium, caffeine, sugar, medication, stress, and lack of sleep/inconsistent sleep patterns. Reviewed with patient using progressive tinnitus management using sounds: soothing, background, and interesting sounds. Reviewed with patient white noise as one example of a sound source. Recommend a nnual audiometric evaluations. Patient should return sooner if new concerns arise or changes occur. _ P raz verbalized understanding of these instructions and recommendations. Junior Morales, CCC-A, [employer] [place], [place] Extracted from:Title: 2-week postop F/U left shoulder subpectoral biceps tenodesis Author: JESSI MANUEL PA Date: 04/25/23 1. E ncounter for other orthopedic aftercare Patient presents 2 w eeks s/p left shoulder arthroscopy: Subpectoralis b iceps tenodesis, S LAP d joshua, Rosana AD. DOS: March 16 023 Surgeon: Dr. Rodgers. No complications during the procedure. T olerates postop physical therapy well. N o new trauma. N o fever or shortness of breath. P ain 0/10. P ain control measures working well for this patient. Left shoulder e xamined. I ncision & p ortal site c lean with well approximated skin edges w ith n o d rainage. N o s utures or yocasta in place at this time. R madonna of motion: Shoulder and elbow d ecreased due to pain. T he patient's operative extremity is neurovascularly intact with n o s welling. N o evidence of?DVT. Patient came in today to weeks s/p procedure as stated above. T he patient shows no signs or symptoms of infection to the i ncision site a t this time. Shagufta crandall has started postoperative physical therapy. H as pain medications. W ill RTC for next post-op appointment in 4 weeks w erin Rodgers. All patient's questions answered in detail this visit. EMR and PagosOnLineon attestation - this electronic health record document was created with the Simplebookletation system. While this document has been reviewed, there may still be phonetic and typographical errors. These are due to imperfections of the software program and do not reflect any compromise of the patient's medical care. Jessi Manuel DScPA [facility] Extracted from:Title: HEARING TEST Author: ARTHUR MART Date: 04/09/23 Encounter for examination of ears and hearing without abnormal findings Encounter for hearing conservation and treatment Encounter for hearing examination following failed hearing screening ASSESSMENT: The patient was educated on the following via tablet training: A. Effects of noise on hearing B. Purpose of hearing protection C. Advantages, disadvantages, and attenuation of various hearing protectors D. Selection, fit, use and care of hearing protectors E. Mandatory requirement of assigned protective equipment, and administrative actions that may follow for failure to wear F. Purpose of audiometric testing G. Explanation of audiometric test procedures H. The fact that hearing loss may lead to disqualification from current duties FITTING OF HEARING PROTECTION: Patient d eclined being fit with hearing protection devices or their hearing protection devices being checked at today's visit.. Hearing Protection: Type n/a S ize: n /a TEST CONCLUSIONS: Pure tone air conduction testing showed stable hearing compared to baseline hearing test, however results suggest SM may need a hearing profile. SM will be scheduled an appointment with the [employer] Spr[employer] Adjuster for further evaluation. Refer to [id number] in Documentation for test results. MEDPROS was manually updated at today's visit and p raz has been provided with a copy o f hearing test results. Patient tested H -2 a t today's visit and MEDPROS has been updated to reflect as such. PLAN: Patient r equires an evaluation by an blanching machine operator Arthur Mart II [facility] Diagnostic Tests PendingGlucose Level POC 06/25/23 05/21/2025 0060-[facility] TiRony Plan of Care List of future care activities from Department of Veterans Affairs facilities. Additional future care activities may be listed in the Assessment and Plan section. Date/Time Care Activity Care Activity Detail Facili ty 06/29/2025 AMBULATORY - MEDICINE [facility]ULATORY - [facility] Functional Status Combined list of recent functional and cognitive assessments recorded at Department of Defense and Veterans Affairs (VA).VA Functional [place] Measurement (FIM) Scale: 1 = Total Assistance (Subject = 0% +), 2 = Maximal Assistance (Subject = 25% +), 3 = Moderate Assistance (Subject = 50% +), 4 = Minimal Assistance (Subject = 75% +), 5 = Supervision, 6 = Modified [place] (Device), 7 = Complete [place] (Timely, Safely). Assessment Date/Time Source Assessment Type Assessment Skill Assessment Score Assessment Details FUNCTIONAL 3Antiembolism Device Intermittent pneumatic compression devices, knee high, bilat 04/12/23Living Situation Home with family [facility] ADLs Independent 04/06/23Ability to Read/Write Able to read
[2025-05-21 08:09] VITALS: BP 138/95; PULSE 103; RESP 20; TEMP 36.9; O2SAT 97
--- OUTSIDE RECORDS SUMMARY | 2025-05-21 08:11 | XMS_ITS | Clinical Summary ---
Author Organization [facility] Address [address] [place] [phone] Phone Care Team Providers Care Cytotechnologist/Histotechnologist Name Role Phone Unavailable Primary Care Provider Unavailabl e Allergies No known active allergies Medications amitriptyline (Elavil) 25 mg tablet Take 25 mg by mouth every night. 01/10/2024 Active cholecalciferol (Vitamin D-3) 50 mcg (2,000 unit) tablet Take 2,000 Units by mouth 1 (one) time each day. 12/10/2023 Active DULoxetine (Cymbalta) [address] capsule Take 60 mg by mouth 1 (one) time each day. 08/31/2023 Active gabapentin (Neurontin) 300 mg capsule Take 900 mg by mouth 1 (one) time each day. 04/06/2023 Active omeprazole (PriLOSEC) [address] capsule Take 40 mg by mouth 1 (one) time each day. 12/10/2023 Active valACYclovir (Valtrex) 1 gram tablet Take 1,000 mg by mouth 3 (three) times a day if needed. 01/26/2024 Active Social History Tobacco Use Types Packs/Day Years Used Date Smoking Tobacco: Never Tobacco Cessation:Counseling Given: Not Answered Sex and Gender Information Value Date Recorded Sex Assigned at Not on file Legal Sex Male 12:17 AM CDT Gender Identity Not on file Sexual Orientation Not on file Last Filed Vital Signs Vital Sign Reading Time Taken Comments Blood Pressure 125/72 02/10/2024 1:45 AM CDT Pulse 84 02/10/2024 1:45 AM CDT Temperature 36.9 C (98.5 F) 02/10/2024 1:45 AM CDT Respiratory Rate 16 02/10/2024 1:45 AM CDT Oxygen Saturation 95% 02/10/2024 1:45 AM CDT Inhaled Oxygen Concentration - - Weight 135 kg (296 lb 11.8 oz) 02/10/2024 12:27 AM CDT Height 185.4 cm (6' 1 ) 02/10/2024 12:27 AM CDT Body Mass Index 39.15 02/10/2024 12:27 AM CDT Plan of Treatment Health Maintenance Due Date Last Done Comments Lipid Panel 1998 Depression Screening 2016 Social Drivers of Health (SDoH) 2016 DTaP,Tdap,and Td Vaccines (2 - Tdap) 11/22/2016 10/25/2016, 10/25/2016 MMR Vaccines (1 of 1 - Standard series) 12/26/2016 Varicella Vaccines (1 of 2 - 13+ 2-dose series) 12/26/2016 Hepatitis B Vaccines (1 of 3 - 19+ 3-dose series) 2017 COVID-19 Vaccine (1 - season) 2024 Influenza Vaccine (#1) 2025 , 08/16/2020, 07/09/2019, Additional history exists Pneumococcal Vaccine: 50+ Years (1 of 1 - PCV) 2048 Zoster Vaccines (1 of 2) 2048 11/28/2016, 10/15 RSV Vaccines (1 - 1-dose 75+ series) 2073 HIB Vaccines Aged Out No longer eligi ble based on patient's age to complete this topic HPV Vaccines Aged Out No longer eligi ble based on patient's age to complete this topic Hepatitis A Vaccines Aged Out No long er eligible based on patient's age to complete this topic IPV Vaccines Aged Out No longer eligi ble based on patient's age to complete this topic Meningococcal B Vaccine Aged Out No l onger eligible based on patient's age to complete this topic Meningococcal Vaccine Aged Out No brea mark eligible based on patient's age to complete this topic Pneumococcal Vaccine Aged Out No long er eligible based on patient's age to complete this topic Rotavirus Vaccines Aged Out No longer eligible based on patient's age to complete this topic Insurance BLUE CROSS
--- NOTE | 2025-05-21 08:26 | ED_ITS ---
HPI - Male Genitourinary 2 General: Chief complaint: Urogenital-Male Stated complaint: fever, body pain, testictle pain Time Seen by Provider: 05/21/25 08:07 History of Present Illness: 25-year-old male presents emergency room from home with generalized bodyaches and pains. Patient states he said cough sinus drainage and intermittent low- grade fever for the last 3 weeks. Ordered UA new symptoms bilateral testicular pain. He denies dysuria urgency or frequency or hematuria. He previously had a left varicocele treated surgically no previous hernias no previous Associated symptoms: Deny dysuria Related Data Home Medications ?Medication ?Instructions ?Recorded ?Confirmed duloxetine 60 mg capsule,delayed 60 mg PO DAILY 10/14/24 release gabapentin 300 mg capsule 300 mg PO TID 10/15/2310/14 omeprazole 10 mg capsule,delayed 10 mg PO DAILY 10/14/24 release Previous Rx's ?Medication ?Instructions ?Recorded cephalexin 500 mg capsule 500 mg PO Q8H 7 days #21 cap s 10/14/24 amoxicillin 875 mg-potassium 1 tab PO BID #20 tabs 05/08 clavulanate 125 mg tablet diclofenac sodium 75 mg 75 mg PO Q12H PRN pain #20 t abs 05/21/25 tablet,delayed release Allergies Allergy/AdvReac Type Severity Reaction Status Date / Time No Known Allergies Allergy Verified 10/14/24 16:38 Review of Systems 2 Const: Denies: fever(s) or chills Card: Denies: chest pain Resp: Denies: dyspnea GI: Denies: abdominal pain : Denies: dysuria, urinary frequency or urinary urgency Musc: Denies: neck pain or back pain Skin/Breast: Denies: rash PFSH ED 2 PFSH: Social History Smoking and tobacco/nicotine status: never used tobacco/nicotine Physical Exam 2 Const: GENERAL APPEARANCE: cooperative and comfortable O RIENTATION/CONSCIOUSNESS: Yes awake, Yes oriented to person, Yes oriented to place and Yes oriented to time HENMT: COMMON NORMALS: normocephalic, atraumatic and hearing grossly normal bilaterally HEAD & SCALP: normocephalic and atraumatic OTHER: Sinuses tender on percussion Resp: COMMON NORMALS: normal respiratory effort, No retractions, No use of accessory muscles and clear to auscultation bilaterally AUSCULTATION: clear to auscultation bilaterally Cardio: COMMON NORMALS: regular rate, regular rhythm and No murmurs present (Cardio) RATE: regular rate RHYTHM: regular rhythm GI: COMMON NORMALS: Soft to palpation and No hepatosplenomegaly present A USCULTATION: Yes normoactive bowel sounds PALPATION: Yes Soft to palpation, No Tenderness to palpation present (GI), No Guarding due to palpation present (GI) and Yes No hepatosplenomegaly present Extremity: COMMON NORMALS: normal to inspection, capillary refill normal, no clubbing, cyanosis or edema, no calf tenderness and no pedal edema Neuro: SENSORIUM/ORIENTATION: Yes oriented to person, Yes oriented to place and Yes oriented to time Skin: COMMON NORMALS: no rashes or lesions noted GENERAL SKIN EXAM: no rashes or lesions noted Course 2 Vital Signs: Vital signs: Vital Signs Temperature 98.5 F 05/21/25 08:09 Pulse Rate 81 05/21/25 10:11 Respiratory Rate 17 05/21/25 10:11 Blood Pressure 131/80 05/21/25 10:11 Pulse Oximetry 98 05/21/25 10:11 Oxygen Delivery Me thod Room Air 05/21/25 08:09 MDM - Male Medical Decision Making No leukocytosis. Chemistries normal urine does not show any sign of infection ultrasound shows varicocele on the left. There is a tubular cystic mass in the left testicle as well ultrasound recommended follow-up with urology. Will arrange for urology follow-up given pain medications recommend good testicular support. Incidentally patient noted to have a mild sinusitis we will treat that as well. Started on Augmentin 875 twice daily for 10 days Lab Data 05/21/25 08:49 05/21/25 08:49 Radiology Impressions Scrotum Ultrasound 05/21/25 08:08 IMPRESSION: 1. Moderate size LEFT varicocele. 2. Tubular cystic mass involving a moderate portion of the LEFT testicle. This is probably related to the rete testes. 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 This is more than typically noted and there is debris within the tubules. Less likely neoplastic mass. Due to its unusual appearance for dilated rete testes recommend follow-up with urology or 3-month ultrasound. Chest X-Ray 05/21/25 08:27 IMPRESSION: No acute chest abnormality. Laboratory Results WBC 7.59 10^3/uL (3.29-11.43) 05/21/25 08:49 RBC 4.92 10^6/uL (3.85-5.65) 05/21/25 08:49 Hgb 14.90 g/dL (11.27-16.99) 05/21/25 08:49 Hct 42.8 % (37-53) 05/21/25 08:49 MCV 87.0 fl (82-101) 05/21/25 08:49 MCH 30.3 pg (27-33) 05/21/25 08:49 MCHC 34.8 g/dL (30-55) 05/21/25 08:49 RDW 12.1 % (12.1-15.1) 05/21/25 08:49 Plt Count 157 10^3/cmm (157-399) 05/21/25 08:49 MPV 9.7 fL (7.4-10.4) 05/21/25 08:49 Neut % (Auto) 76.4 % 05/21/25 08:49 Lymph % (Auto) 15.8 % 05/21/25 08:49 [place] % (Auto) 6.9 % 05/21/25 08:49 Eos % (Auto) 0.3 % 05/21/25 08:49 Baso % (Auto) 0.1 % 05/21/25 08:49 Neut # (Auto) 5.80 10^3/uL (1.8-7.7) 05/21/25 08:49 Lymph # (Auto) 1.2 10^3/uL (0.8-4.8) 05/21/25 08:49 [place] # (Auto) 0.5 10^3/uL (0.2-0.9) 05/21/25 08:49 Eos # (Auto) 0.0 10^3/uL (0.0-0.8) 05/21/25 08:49 Baso # (Auto) 0.0 10^3/uL (0.0-0.1) 05/21/25 08:49 Nucleated RBC % (auto) 0 % 05/21/25 08:49 Nucleated RBCs # 0.0 /100WBC 05/21/25 08:49 Sodium 137 mmol/L (136-145) 05/21/25 08:49 Potassium 3.5 mmol/L (3.5-5.1) 05/21/25 08:49 Chloride 103 mmol/L (98-107) 05/21/25 08:49 Carbon Dioxide 23 mmol/L (22-29) 05/21/25 08:49 Anion Gap 14.5 (5-19) 05/21/25 08:49 BUN 11 mg/dL (6-20) 05/21/25 08:49 Creatinine 1.0 mg/dL (0.7-1.2) 05/21/25 08:49 GFR Calculation 89.6 mL/min (90-130) L 05/21/25 08:49 Glucose 94 mg/dL (65-115) 05/21/25 08:49 Calculated Osmolality 283 mOsm/kg (285-295) L 05/21/25 08:49 Calcium 9.2 mg/dL (8.5-10.5) 05/21/25 08:49 Total Bilirubin 0.6 mg/dL (0.15-1.2) 05/21/25 08:49 AST 22 U/L (0-40) 05/21/25 08:49 ALT 21 U/L (0-41) 05/21/25 08:49 Alkaline Phosphatase 98 U/L (40-130) 05/21/25 08:49 Total Protein 7.0 g/dL (6.6-8.7) 05/21/25 08:49 Albumin 4.2 g/dL (3.5-5.2) 05/21/25 08:49 Globulin 2.8 g/dL (1.3-4.6) 05/21/25 08:49 Urine Color Dark yellow (Yellow) A 05/21/25 08:22 Urine Appearance Clear (CLEAR) 05/21/25 08:22 Urine pH 6.0 (5-7) 05/21/25 08:22 Ur Specific [place] 1.033 (1.005-1.030) H 05/21/25 08:22 Urine Protein 1+ (Negative) A 05/21/25 08:22 Urine Glucose (UA) Negative (Normal) 05/21/25 08:22 Urine Ketones Trace (Negative) 05/21/25 08:22 Urine Blood Negative (Negative) 05/21/25 08:22 Urine Nitrate Negative (Negative) 05/21/25 08:22 Urine Bilirubin Negative (Negative) 05/21/25 08:22 Urine Urobilinogen 1.0 mg/dL (Negative) 05/21/25 08:22 Ur Leukocyte Esterase Negative (Negative) 05/21/25 08:22 Urine RBC 0-2 /hpf (0-2) 05/21/25 08:22 Urine WBC 0-5 /hpf (0-5) 05/21/25 08:22 Ur Squamous Epith Cells 0-5 /hpf (0-5) 05/21/25 08:22 Amorphous Sediment Not Reportable 05/21/25 08:22 Urine Bacteria None seen /hpf (NONE) 05/21/25 08:22 Hyaline Casts 0.81 /lpf 05/21/25 08:22 All radiology interpretation(s) finalized by discharge Discharge Plan Discharge Patient Disposition: Home Clinical Impression: Sinusitis, Pain in both testicles, Left varicocele Condition: Stable Prescriptions: New amoxicillin-pot clavulanate 875-125 mg tablet 1 tab PO BID Qty: 20 0RF diclofenac sodium 75 mg tablet,delayed release (DR/EC) 75 mg PO Q12H PRN (Reason: pain) Qty: 20 0RF No Action duloxetine 60 mg capsule,delayed release(DR/EC) 60 mg PO DAILY gabapentin 300 mg capsule 300 mg PO TID omeprazole 10 mg capsule,delayed release(DR/EC) 10 mg PO DAILY cephalexin 500 mg capsule 500 mg PO Q8H 7 Days Qty: 21 0RF Discharge Orders: Discharge ED (Routine); Ordered 05/21/25 Ordered By: Yordy Epperson Referrals: Markie Pulido Jr, MD [Primary Care Provider, Pediatrics] Discharge Diet: Usual diet Discharge Activity: Increase activity as tolerated Patient Instructions: Opioid Safety, Pain Management, Patient Portal & Amanda Instructions Activity Restrictions/Additional Instructions: Thank you for choosing [facility] for your healthcare needs today. It is very important that you follow up as instructed or that you return to the Emergency Department should you have concerns or if your condition changes or worsens in any way. You were seen in the emergency room with complaints of cough congestion for several weeks as well as testicular discomfort. Based on your history suspect you may have a sinus infection and chest x-ray was clear or other labs were normal. Will give you antibiotics, Augmentin 875 twice daily for 10 days. Ultrasound your testicle showed varicocele. This should be followed up with urology in approximately 3 months with a repeat ultrasound case management make arrangements for you for follow-up. You are given diclofenac to use as needed for discomfort. Print Language: Upper Sorbian Coding Level of Care Code ED Shear Helper for Harini Bhagat
--- NOTE | 2025-05-21 08:27 | XR_ITS ---
WS: [id number] XR chest 1V portable [id number] REASON FOR EXAM: dyspnea/cough FINDINGS: The heart and the mediastinum are within normal limits. Calcified granulomatous disease bilaterally. No acute pulmonary parenchymal or pleural abnormality. Bony thorax is intact without significant abnormality. XR/XR chest 1V portable [id number] IMPRESSION: No acute chest abnormality.
[2025-05-21 08:34] LABS: Glucose Urine UA Negative (Normal); Nitrate Urine Negative (Negative)
[2025-05-21 08:39] LABS: Add Urine Microscopic? YES
[2025-05-21 08:42] LABS: Specific Gravity, Urine 1.033 (1.005-1.030)
[2025-05-21 09:08] LABS: Hematocrit 42.8 % (37-53); Hemoglobin 14.90 g/dL (11.27-16.99); Mean Corpuscular HGB Conc 34.8 g/dL (30-55); Mean Corpuscular Hemoglobin 30.3 pg (27-33); Mean Corpuscular Volume 87.0 fl (82-101); Nucleated Red Blood Cells % 0 %; Platelet Count 157 10^3/cmm (157-399); Red Blood Count 4.92 10^6/uL (3.85-5.65); White Blood Count 7.59 10^3/uL (3.29-11.43)
[2025-05-21 09:28] LABS: Alanine Aminotransferase 21 U/L (0-41); Albumin Level 4.2 g/dL (3.5-5.2); Alkaline Phosphatase 98 U/L (40-130); Anion Gap 14.5 (5-19); Aspartate Amino Transferase 22 U/L (0-40); Blood Urea Nitrogen 11 mg/dL (6-20); Calcium 9.2 mg/dL (8.5-10.5); Carbon Dioxide 23 mmol/L (22-29); Chloride 103 mmol/L (98-107); Creatinine Clr Calc Pharmacy 152.1231; Globulin 2.8 g/dL (1.3-4.6); Glucose 94 mg/dL (65-115); Osmolality Calculated 283 mOsm/kg (285-295); Potassium 3.5 mmol/L (3.5-5.1); Sodium 137 mmol/L (136-145); Total Protein 7.0 g/dL (6.6-8.7)
[2025-05-21 10:11] VITALS: BP 131/80; PULSE 81; PULSE 96; RESP 17; O2SAT 97; O2SAT 98
--- NOTE | 2025-05-28 09:53 | DCPLANNER ---
faxed referral to [facility]
== END 2025-05-21 10:22 | disposition home or self-care (01) ==
PROVIDERS: Emergency Provider Family Medicine; PCP Pediatrics Adolescent Medicine
DX: J32.9 Chronic sinusitis, unspecified (principal); N50.812 Left testicular pain; N50.811 Right testicular pain; I86.1 Scrotal varices
CPT/HCPCS: 71045; 76870; 80053; 81001; 85025; 99284; J7030

== ENCOUNTER 2025-05-21 20:17 | Emergency (ER) | payer OTHER, SELFPAY ==
--- OUTSIDE RECORDS SUMMARY | 2025-05-21 03:31 | XMS_ITS | Encounter Summary ---
Author Name [facility] [place] [facility] [place] [facility] [place] Address [address] [place] [address] Care Team Providers Care Setter Automatic Spinning Lathe Name Role Phone FREDDIE ROJAS Primary Care [...] Policy Forrester [facility] [address] [facility] WNR Oct 15, 2024 [facility] [id number] 97 GIULIANO NETTLES PATIENT Selected Encounter This section includes the information on record at [place] for the Encounter. Date/Time Encounter Type Encounter Description Reason Pro vider Source May 21, 2025 08:31 AM Outpatient Encounter ADMIN PAT ACTIVTIES (MASNONCT) IHE Encounter Template Text not used by [place] Plan of Treatment: Future Appointments (+ 6 [...] 20 appointments. The data comes from all [place] treatment [facility]. Appointment Date/Time Appointment Type Appointme nt Facility Name Jun 29, 2025 01:00 PM AMBULATORY - MEDICINE [facility] Jul 13, 2025 09:30 AM AMBULATORY MEDICINE [facility] Jul 29, 2025 08:30 AM AMBULATORY MEDICINE [facility] Aug 12, 2025 08:30 AM AMBULATORY MEDICINE [facility] Aug 26, 2025 08:30 AM AMBULATORY MEDICINE [facility] Active, Pending, and Scheduled Orders This section includes a listing of several types of active, pending, and scheduled orders, including clinic medications orders, diagnostic test orders, procedure orders and consult orders; where the start date of the order is 45 days before the date of the Encounter or 45 days after the date of theEncounter. The data comes from all [facility]. Test Date/Time Test Type Test Details Facility Name May 15, 2025 11:17 AM Consult Order [facility] CENTRALIZED ELIGIBILITY AND APPEALS TEAM OUTPT 657A4 Cons Paint Brush Maker's Choice ROSALBA BEVERLY [facility] Encounter Notes: All associated encounter notes This section contains the clinical notes associated to the Encounter. Date/Time Encounter Note(s) Provider Source May 21, 2025 08:31 AM ADMINISTRATIVE NOT E: LOCAL TITLE: ADMINISTRATIVE NOTE PB STANDARD TITLE: ADMINISTRATIVE NOTE DATE OF NOTE: MAY 21, 2025@08:31 ENTRY DATE: MAY 21, 2025@08:31:15 AUTHOR: CHICO GALLEGO COSIGNER: URGENCY: STATUS: COMPLETED This [facility] attempted to contact the concerning a message received from the MAErnie Cabral, stating he had spoken with the Veterans spouse and she wanted to check on the status of a change of provider form. This [facility] has not processed a form for this ; however, all change of provider forms go through the [employer] system now and looked over the last 2 month and there is no form for this [place]. The is not pending a change of Provider, which tells me a form was not sent correctly for processing. This [facility] attempted to contact the Veterans spouse, Claudia on the phone provided by Ernie, it is not a working number. I left a generic message on the primary number listed on file requesting a return call to the [facility]. If [place] returns call, please advised he can come into the clinic and fill out the form or this [facility] can mail him a form to fill out and return. /glendy/ CHICO CAMPOS Signed: 05/21/2025 08:38 CHICO GALLEGO [facility]
--- OUTSIDE RECORDS SUMMARY | 2025-05-21 08:55 | XMS_ITS | Encounter Summary ---
Author Name [facility] Organization [facility] Address [address] [place] [address] Care Team Providers Care Legal Investigator Name Role Phone FREDDIE RODRÍGUEZ Primary Care Provider Unavailabl e Insurance [...] Forrester's Name Patient's Relationship to Policy Forrester [facility] 2024 [facility] WNR Oct 15, 2024 [facility] [id number] GIULIANO NETTLES PATIENT Selected Encounter This section includes the information on record at [place] for the Encounter. Date/Time Encounter Type Encounter Description Reason Pro vider Source May 21, 2025 01:55 PM Outpatient Encounter ADMIN PAT ACTIVTIES (MASNONCT) IHE Encounter Template Text not used by [place] Plan of Treatment: Future Appointments (+ 6 [...] 20 appointments. The data comes from all [facility]. Appointment Date/Time Appointment Type Appointme nt Facility Name Jun 29, 2025 01:00 PM AMBULATORY - MEDICINE [facility] Jul 13, 2025 09:30 AM AMBULATORY MEDICINE [facility] Jul 29, 2025 08:30 AM AMBULATORY MEDICINE [facility] CB Aug 12, 2025 08:30 AM AMBULATORY MEDICINE [facility] Aug 26, 2025 08:30 AM AMBULATORY MEDICINE [facility] Active, Pending, and Scheduled Orders This section includes a listing of several types of active, pending, and scheduled orders, including clinic medications orders, diagnostic test orders, procedure orders and consult orders; where the start date of the order is 45 days before the date of the Encounter or 45 days after the date of theEncounter. The data comes from all [facility]. Test Date/Time Test Type Test Details Facility Name May 15, 2025 11:17 AM Consult Order [facility] CENTRALIZED ELIGIBILITY AND APPEALS TEAM OUTPT [id number] Cons Patient Access Manager's Choice [facility] Encounter Notes: All associated encounter notes This section contains the clinical notes associated to the Encounter. Date/Time Encounter Note(s) Provider Source May 21, 2025 12:55 PM ADMINISTRATIVE NOT E: LOCAL TITLE: CCC: SCHEDULING ADMINISTRATION STANDARD TITLE: ADMINISTRATIVE NOTE DATE OF NOTE: MAY 21, 2025@12:55:39 ENTRY DATE: MAY 21, 2025@12:55:39 AUTHOR: HARJEET BEDOLLA COSIGNER: URGENCY: STATUS: COMPLETED CCC: SCHEDULING ADMINISTRATION Has ADDENDA Caller Verification Emergency Contact: CLAUDIA NETTLES Emergency Contact Caller/Recipient Relation to Patient: Caregiver Caller Name: Administrative Administrative Note Reason: Outside Care Performed Administrative Note Comments: [place] was seen today by [facility] for testicular pain, was told he would need to see a urologist. 's , Lissa calling to schedule appt with pact team for follow up from ER visit and consult request. No available appts. Will place note for pact team nurse to please follow Lissa at [phone] IMPORTANT: This note was created by [facility] Clinical Contact Center staff. Please do not alert the staff member by adding them as a signer for future communications. Alerts are not monitored by this user. /glendy/ HARJEET Obrien MSA Signed: 05/21/2025 12:55 Receipt Acknowledged By: 05/21/2025 14:27 /glendy/ CHICO CAMPOS 05/21/2025 ADDENDUM STATUS: COMPLETED This AMSA spoke with the Veterans spouse, Claudia, she advised the was in the ER earlier today. I advised a lot of the time we can place consults based off the report from the ER and that I would go ahead and request that record from [facility]. She advised the has called her and reported it has only gotten worse since his discharge earlier and she may be taking him to [place] if it continues to progress. I ensured she had the 72 hour hotline number for the [place]. She also reported the at a spot removed from his R thigh (Dec 2023). She advised the spot is back like it was before and wondered what the recommendation is, an appointment with PCP or dermatology? I also asked her about the change of Provider form that I received a message about earlier, she advised he mentioned it; but that earlier he stated his doctor is Dr. Rodríguez. She advised that with his TBI maybe he thought about it and told her, but never actually did. She advised at this time do not worry about it and if that changes she would let me know. /es/ CHICO CAMPOS Signed: 05/21/2025 14:50 Receipt Acknowledged By: * AWAITING SIGNATURE * FREDDIE RODRÍGUEZ * AWAITING SIGNATURE * JAIRON HARRISON * AWAITING SIGNATURE * REZA GLYNN AMBER [facility]WN [facility]
[2025-05-21 20:20] VITALS: BP 97/70; PULSE 87; RESP 16; TEMP 36.6; O2SAT 97; BMI 35.6
--- OUTSIDE RECORDS SUMMARY | 2025-05-21 20:22 | XMS_ITS | Continuity of Care Document ---
Author Name [facility] Organization [facility] Care Team Providers Care Financial Services Intern Name Role Phone [facility] Unavailable Unavailable Problems Combined list of problems from Department of Defense and Veterans Affairs facilities. It does not include entries that were removed or entered in error. Problem Status Onset Date Problem Type Date of Resolution Comments Source Hearing Services Hearing Aid Fitting/Orientatio n/Checking Of Inactive 8 Condition [facility] Regular astigmatism, bilateral Active 9 Condition [facility] Obstructive sleep apnea (adult) (pediatric) Active Condition [facility] Pain in thoracic spine Active Condition DoD Spinal stenosis, lumbosacral region Active Condition DoD Other intervertebral disc displacement, thoracic region Active Condition DoD Lower abdominal pain, unspecified Active Condition [facility] Dorsalgia, unspecified Active Condition DoD Chronic pain syndrome Active Condition [facility] Tobacco use Active Condition DoD Sensorineural hearing loss, unilateral, right ear, with unrestricted hearing on the contralateral side Active Condition DoD Bilateral tinnitus Active Condition [place] [facility] Cephalgia Active Condition [place] [facility] Chronic pain Active Condition [place] [facility] Chronic post-traumatic stress disorder Active Condition [place] [facility] Depression Active Condition [place] [facility] Exposure to potentially hazardous substance Active Condition [facility] GERD - Gastro-Esophageal Reflux Disease ([facility] [id number]) Active Condition [place] [facility] Hearing Loss ([facility] [id number]) Active Condition [place] [facility] Morbid Obesity ([facility] [id number]) Active Condition [place] [facility] Obstructive sleep apnea Active Condition [place] [facility] Traumatic brain injury Active Condition [place] [facility] Vitamin D Deficiency ([facility] [id number]) Active Condition [place] [facility] Encounter for therapeutic drug level monitoring Active Condition [facility] Encounter for other orthopedic aftercare Active Condition [facility] Superior glenoid labrum lesion of right shoulder, subsequent encounter Active Condition [facility] Morbid obesity Active Condition Unknown Organization Obstructive sleep apnea syndrome Active Condition [facility] Pain in right shoulder Active Condition [facility] Prolapsed thoracic intervertebral disc Active Condition [facility] Diagnosis: ICD-10-CM Z87.820 Personal history of traumatic brain injury Active Diagnosis [place] [facility] Diagnosis: ICD-10-CM Z71.9 Counseling, unspecified Active Diagnosis [place] [facility] Diagnosis: ICD-10-CM H02.021 Mechanical entropion of right upper eyelid [facility] Diagnosis: ICD-10-CM F33.1 Major depressive disorder, recurrent, moderate Active Diagnosis [facility] Diagnosis: ICD-10-CM E66.01 Morbid (severe) obesity due to excess calories Active Diagnosis [facility] Diagnosis: ICD-10-CM F43.12 Post-traumatic stress disorder, chronic Active Diagnosis [facility] Diagnosis: ICD-10-CM M99.01 Segmental and somatic dysfunction of cervical region Active Diagnosis [facility] Diagnosis: ICD-10-CM H93.13 Tinnitus, bilateral Active Diagnosis [place] [facility] Diagnosis: ICD-10-CM M72.2 Plantar fascial fibromatosis Active Diagnosis [facility] Diagnosis: ICD-10-CM Z02.89 Encounter for other administrative examinations Active Diagnosis [facility] Diagnosis: ICD-10-CM F41.1 Generalized anxiety disorder Active Diagnosis [facility] Diagnosis: ICD-10-CM R51.9 Headache, unspecified Active Diagnosis [facility] Diagnosis: ICD-10-CM Z48.02 Encounter for removal of sutures Active Diagnosis [facility] Diagnosis: ICD-10-CM G47.33 Obstructive sleep apnea (adult) (pediatric) Active Diagnosis [facility] Medications Combined list of outpatient medications [...] ORAL DISCONT INUED BY PROVIDE R 02/21/2025 [id number] 4 [facility] 2023 90 [facility] Amitriptyli ne Hydrochlori de (Elavil Eq.) Tablet 25 mg Oral TAKE ONE TABLET BY MOUTH AT BEDTIME FOR DEPRESSI ON 02/21/2025 [id number] 4 [facility] 2023 90 [facility] amoxicillin -clavulanat e 875 mg-125 mg oral tablet 0 total refill(s ) Discont inued 04/25/20232022 No Facilit y Access ARIPIPRAZOL E 10MG TAB TAKE ONE-HALF TABLET BY MOUTH AT BEDTIME FOR DEPRESSI ON ORAL ACTIVE 10/14/2025 [id number] 5 NAOMI GERMAN R 2023 45 [facility] CHOLECALCIF J CARLOS 50MCG (2,000UNIT) TAB TAKE ONE TABLET BY MOUTH ONCE A DAY FOR VITAMIN D DEFICIEN CY ORAL ACTIVE 02/27/2026 [id number] 5 [facility] 2024 100 [facility] CHOLECALCIF J CARLOS 50MCG (2,000UNIT) TAB TAKE ONE TABLET BY MOUTH ONCE A DAY FOR VITAMIN D DEFICIEN CY ORAL DISCONT INUED 12/10/2024 [id number] 4 [facility] 2023 100 [facility] clindamycin 300 mg oral capsule 0 total refill(s ) Discont inued 04/25/20232022 No Facilit y Access Colace 100 mg oral capsule 1 cap(s), Oral, BID, PRN constipa tion, # 20 cap(s), 0 total refill(s ), Maintena ute, Pharmacy : [facility] Oral (given by mouth) Discont inued 05/10/2023 3 2022 20.0 [facility] cyclobenzap rine 10 mg oral tablet cycloben zaprine 10 mg oral tablet Start Date: 12/16/21 Stop Date: 04/25/23 Status: Disconti nued Repeat number: 1 Discont inued 04/25/20232022 No Facilit y Access dextrometho halina-Nataliya ENesin 30 mg-600 mg oral tablet, extended [...] 90 cap(s), 0 total refill(s ), Tera egan, Pharmacy : [facility] Oral (given by mouth) Ordered 3 [...] DISCONTI NUE MEDICATI ON. ORAL ACTIVE 08/09/2025 [id number] 5 NAOMI GERMAN 2024 270 [facility] DULOXETINE HCL 30MG CAP,EC TAKE THREE CAPSULES BY MOUTH ONCE A DAY FOR DEPRESSI ON and PAIN DO NOT ABRUPTLY DISCONTI NUE MEDICATI ON. ORAL DISCONT INUED 09/13/2025 [id number] 5 NAOMI GERMAN 2023 90 [facility] DULOXETINE HCL 60MG CAP,EC TAKE ONE CAPSULE BY MOUTH ONCE A DAY FOR MUSCULOS KELETAL PAIN DO NOT ABRUPTLY DISCONTI NUE MEDICATI ON. ORAL DISCONT INUED (EDIT) 12/10/2024 [id number] [facility]AV[facility] 2023 90 [facility] fluticasone 50 mcg/inh nasal spray 16 [...] # 60 cap(s), 0 total refill(s ), [facility], Pharmacy : [facility] Oral (given by mouth) Discont inued 05/10/2023 3 2022 60.0 [facility] [facility] gabapentin 300 mg oral capsule 1 cap(s), Oral, TID, # 270 cap(s), 1 total refill(s ), [facility], Pharmacy : [facility] Oral (given by mouth) Ordered 3 2022 270.0 [facility] [facility] GABAPENTIN 300MG CAP TAKE ONE CAPSULE BY MOUTH THREE TIMES A DAY FOR NERVE PAIN ORAL ACTIVE 02/27/2026 [id number] 5 FREDDIE ROJAS 2024 270 [facility] GABAPENTIN 300MG CAP TAKE ONE CAPSULE BY MOUTH THREE TIMES A DAY FOR NERVE PAIN ORAL DISCONT INUED 12/25/2024 [id number] 4 CRYSTALFREDDIE CALDWELL 2023 270 [facility] ibuprofen 800 mg oral tablet ibuprofe n 800 mg oral tablet Start Date: 01/16/22 Stop Date: 04/25/23 Status: Disconti sarafelicia Repeat number: 1 Discont inued 04/25/20232022 No Facilit y Access MELOXICAM 15MG TAB TAKE ONE TABLET BY MOUTH ONCE A DAY FOR OSTEOART HRITIS ORAL ACTIVE 02/27/2026 [id number] 5 CRYSTALFREDDIE CALDWELL 2024 90 [place] [facility] methylPREDN ISolone 4 mg oral tablet [...] Acute, 06/19/23 12:00:00 AM CDT, Pharmacy : [facility] Complet ed 06/19/20232022 510.0 [facility] naproxen 500 mg oral tablet naproxen 500 mg oral tablet Start Date: 12/16/21 Stop Date: 04/25/23 Status: Sirishai eufemia Repeat number: 1 Discont inued 04/25/20232022 No Facilit y Access naproxen 500 mg oral tablet 1 tab(s), Oral, BID, # 60 tab(s), 0 total refill(s ), Tera egan, Pharmacy : [facility] Oral (given by mouth) Ordered 3 2022 60.0 [facility] Narcan 4 mg/0.1 mL nasal spray [2EA] See Instruct camila, # 2 EA, 0 total refill(s ), [...] MINUTES PRIOR TO FOOD. ORAL ACTIVE 02/27/2026 [id number] 5 [facility]EDDIE [address] [place] [address] [facility] OMEPRAZOLE 40MG CAP,EC TAKE ONE CAPSULE BY MOUTH EVERY MORNING BEFORE A MEAL FOR GASTROES OPHAGEAL REFLUX DISEASE TAKE 30 MINUTES PRIOR TO FOOD. ORAL DISCONT INUED 12/10/2024 [id number] 4 [facility] [address] [place] [address] [facility] ondansetron 4 mg oral tablet 8 tab(s), 0 total refill(s ), Soft Stop Discont inued 04/25/20232022 [facility] One Daily Essential Multiple Vitamins with Minerals oral tablet 1 tab(s), Oral, Daily, 0 total refill(s ), [facility] Oral (given by mouth) Ordered 2022 [facility] [facility] oxyCODONE 5 mg oral tablet 1 tab(s), Oral, every 6 hr, PRN pain, # 20 tab(s), 0 total refill(s ), Maintena nce, Pharmacy : [facility] Oral (given by mouth) Discont inued 05/10/2023 3 2022 20.0 [facility] [place] [facility] predniSONE 20 mg oral tablet 10 tab(s), 0 total refill(s ), Soft Stop Discont inued 04/25/20232022 [facility] [place] [facility] pseudoePHED rine 120 mg oral tablet, extended release 10 tab(s), 0 total refill(s ), Soft Stop Discont inued 04/25/2023 2022 [facility] [place] [facility] Robaxin-750 oral tablet 2 tab(s), Oral, TID, PRN muscle spasm, X 10 days, # 40 tab(s), 0 total refill(s ), Acute, Pharmacy : [facility] Oral (given by mouth) Complet ed [...] NEEDED FOR INSOMNIA . ORAL ACTIVE 09/13/2025 [id number] NAOMI GERMAN 2023 90 [facility] Tylenol 325 mg oral tablet 1 tab(s), Oral, every 4 hr, PRN pain or fever, # 100 tab(s), 0 total refill(s ), [facility] Oral (given by mouth) Discont inued 05/10/2023 3 2022 100.0 [facility] [place] [facility] Zofran 8 mg oral tablet 1 tab(s), Oral, every 8 hr, PRN nausea/v omiting, # 30 cap(s), 0 total refill(s ), [facility]era [facility], Pharmacy : [facility] Oral (given by mouth) Discont inued 05/10/2023 3 2022 30.0 [facility] [facility] Allergies, Adverse Reactions, Alerts Combined list of [...] Site Reaction Lot Number CVX Code Drug 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 (MOD) complet ed SARS-COV- 2 (COVID-19 ) vaccine, mRNA, spike protein, LNP, preservat cristina free, 100 mcg or 50 mcg dose DoD influenza, injectable, quadrivalent- pf 2020 [id number] 150 GlaxoSmithKli ne complet ed influenza , injectabl e, quadrival ent-pf 08/18/21 Given Ambulat ory Pharmac y Canadian Encephalitis IM 2020 [id number] 134 Valneva complet ed Canadian Encephali tis IM 08/18/21 Given Ambulat ory Pharmac y anthrax vaccine 2020 [id number] 24 Emergent Biosolutions complet ed anthrax vaccine 08/18/21 Given Ambulat ory Pharmac y yellow fever vaccine 2020 [id number] 37 sanofi pasteur complet ed yellow fever vaccine 08/18/21 Given Ambulat ory Pharmac y typhoid Vi capsular polysaccharid e vac 2020 [id number] 101 sanofi pasteur complet ed typhoid Vi capsular polysacch aride vac 08/18/21 Given Ambulat ory Pharmac y anthrax vaccine 6 2020 [id number] 24 [employer] [place] (MIP) complet ed anthrax vaccine DoD yellow fever vaccine 1 2020 [id number] 37 Sanofi Pasteur (PMC) complet ed yellow fever vaccine DoD typhoid Vi capsular polysaccharid e vaccine 1 2020 [id number] 101 Sanofi Pasteur (PMC) complet ed typhoid Vi capsular polysacch aride vaccine DoD Canadian Encephalitis vaccine for intramuscular administratio n 1 2020 [id number] 134 [employer] (INT) complet ed Canadian Encephali tis vaccine for intramusc ular administr ation DoD Influenza, injectable, quadrivalent, preservative free 1 2020 [id number] 150 [facility] complet ed Influenza , injectabl e, quadrival ent, preservat cristina free DoD COVID Vaccine [id number] 208 PFIZER complet ed COVID Vaccine Pfizer 02/09/21 Given Ambulat ory Pharmac y SARS-COV-2 (COVID-19) vaccine, mRNA, spike protein, LNP, preservative free, 30 mcg/0.3mL dose 2 2020 TRACI POSADA [id number] 208 Pfizer, Inc (PFR) complet ed SARS-COV- 2 (COVID-19 ) vaccine, mRNA, spike protein, LNP, preservat cristina free, 30 mcg/0.3mL dose DoD COVID Vaccine Pfizer 2020 Good t Arm [id number] 208 PFIZER complet ed COVID Vaccine Pfizer 01/10/21 Given Ambulat ory Pharmac y SARS-COV-2 (COVID-19) vaccine, mRNA, spike protein, LNP, preservative free, 30 mcg/0.3mL dose 1 2020 PEPE VELARDE [id number] 208 Pfizer, Inc (PFR) complet ed SARS-COV- 2 (COVID-19 ) vaccine, mRNA, spike protein, LNP, preservat cristina free, 30 mcg/0.3mL dose DoD influenza, injectable, quadrivalent- pf 2019 [id number] 699 150 Seqirus complet ed influenza , injectabl e, quadrival ent-pf 08/16/20 Given Ambulat ory Pharmac y Influenza, injectable, quadrivalent, preservative free 1 2019 [id number] 699 150 Seqirus (SEQ) complet ed Influenza [...] polysacch aride vaccine DoD anthrax vaccine 2018 [id number] 24 [employer] complet ed anthrax vaccine 07/09/19 Given Ambulat ory Pharmac y influenza, injectable, quadrivalent 2018 [id number] 982 158 Seqirus complet ed influenza , injectabl e, quadrival ent 07/09/19 Given Ambulat ory Pharmac y anthrax vaccine 5 2018 [id number] 24 [employer] (MIP) complet ed anthrax vaccine DoD influenza, injectable, quadrivalent, contains preservative 1 2018 [id number] 982 158 Seqirus (SEQ) complet ed influenza , injectabl e, quadrival ent, contains preservat cristina DoD anthrax vaccine 2018 [id number] 24 [employer] complet ed anthrax vaccine 12/06/18 Given Ambulat ory Pharmac y anthrax vaccine 4 2018 [id number] 24 [employer] (MIP) complet ed anthrax vaccine DoD vaccinia (smallpox) vaccine 2018 [id number] 75 Sanofi Pasteur Incorporated complet ed vaccinia (smallpox ) vaccine 11/25/18 Given Ambulat ory Pharmac y vaccinia (smallpox) vaccine 1 2018 [id number] 75 (MARY) complet ed vaccinia (smallpox ) vaccine DoD influenza, injectable, quadrivalent- pf 2017 [id number] 1A 150 Seqirus complet ed influenza , injectabl e, quadrival ent-pf 08/13/18 Given Ambulat ory Pharmac y Influenza, injectable, quadrivalent, preservative free 1 2017 [id number] 1A 150 Seqirus (SEQ) complet ed Influenza , injectabl e, quadrival ent, preservat cristina free DoD anthrax vaccine 2017 [id number] 24 [employer] Bios[employer] complet ed anthrax vaccine 01/22/18 Given Ambulat ory Pharmac y anthrax vaccine 3 2017 [id number] 24 [employer] [place] ([facility]) complet ed anthrax vaccine DoD poliovirus vaccine, inactivated 2017 [id number] 10 sanofi pasteur complet ed polioviru s vaccine, inactivat ed 11/29/17 Given Ambulat ory Pharmac y poliovirus vaccine, inactivated 1 2017 [id number] 10 Sanofi Pasteur (PMC) complet ed polioviru s vaccine, inactivat ed DoD influenza, injectable, quadrivalent- pf 2016 [id number] 150 Seqirus complet ed influenza , injectabl e, quadrival ent-pf 09/05/17 Given Ambulat ory Pharmac y Influenza, injectable, quadrivalent, preservative free 1 2016 [id number] 150 Seqirus (SEQ) comple t ed Influenza , injectabl e, quadrival ent, preservat cristina free DoD anthrax vaccine 2016 [id number] 24 [employer] complet ed anthrax vaccine 08/25/17 Given Ambulat ory Pharmac y anthrax vaccine 2 2016 [id number] 24 [employer] [place] (MIP) complet ed anthrax vaccine DoD typhoid Vi capsular polysaccharid e vac 2016 [id number] 101 sanofi pasteur complet ed typhoid Vi capsular polysacch aride vac 07/13/17 Given Ambulat ory Pharmac y anthrax vaccine 2016 [id number] 24 [employer] complet ed anthrax vaccine 07/13/17 Given Ambulat ory Pharmac y anthrax vaccine 1 2016 [id number] 24 [employer] [place] (MIP) complet ed anthrax vaccine DoD typhoid Vi capsular polysaccharid e vaccine 1 2016 [id number] 101 Sanofi Pasteur (PMC) complet ed typhoid Vi capsular polysacch aride vaccine DoD hepatitis A-hepatitis B vaccine 2016 shinJenaro ht Arm [id number] 104 GlaxoSmithKli ne complet ed hepatitis A-hepatit is B vaccine 05/15/17 Given Ambulat ory Pharmac y hepatitis A and hepatitis B vaccine 3 2016 HARJEET DELA CRUZ [id number] 104 SmithKline (SKB) complet ed hepatitis A and hepatitis B vaccine DoD measles/mumps /rubella virus vaccine 2016 [id number] 03 Merck & Company Inc complet ed measles/m umps/rube lla virus vaccine 11/28/16 Given Ambulat ory Pharmac y varicella virus vaccine 2016 [id number] 21 Merck & Company Inc complet ed varicella virus vaccine 11/28/16 Given Ambulat ory Pharmac y poliovirus vaccine, inactivated 2016 [id number] 10 GlaxoSmithKli ne complet ed polioviru s vaccine, inactivat ed 11/28/16 Given Ambulat ory Pharmac y hepatitis A-hepatitis B vaccine 2016 [id number] 104 GlaxoSmithKli ne complet ed hepatitis A-hepatit is B vaccine 11/28/16 Given Ambulat ory Pharmac y measles, mumps and rubella virus vaccine 2 2016 [id number] 03 Merck (MSD) complet ed measles, mumps and rubella virus vaccine DoD poliovirus vaccine, inactivated 1 2016 [id number] 10 SmithKline (SK) complet ed polioviru s vaccine, inactivat ed DoD varicella virus vaccine 2 2016 [id number] 21 Merck (MSD) complet ed varicella virus vaccine DoD hepatitis A and hepatitis B vaccine 2 2016 [id number] 104 SmithKline (SKB) complet ed hepatitis A and hepatitis B vaccine DoD influenza, seasonal, injectable 2016 [id number] 141 Seqirus complet ed influenza , seasonal, injectabl e 10/27/16 Given Ambulat ory Pharmac y measles/mumps /rubella virus vaccine 2016 [id number] 03 Merck & Company Inc complet ed measles/m umps/rube lla virus vaccine 10/27/16 Given Ambulat ory Pharmac y varicella virus vaccine 2016 [id number] 21 Merck & Company Inc complet ed varicella virus vaccine 10/27/16 Given Ambulat ory Pharmac y hepatitis A-hepatitis B vaccine 2016 [id number] 104 GlaxoSmithKli ne complet ed hepatitis A-hepatit is B vaccine 10/27/16 Given Ambulat ory Pharmac y measles, mumps and rubella virus vaccine 1 2016 [id number] 03 Merck (MSD) complet ed measles, mumps and rubella virus vaccine DoD varicella virus vaccine 1 2016 [id number] 21 Merck (MSD) complet ed varicella virus [...] ory Pharmac y meningococcal A,C,Y,W-135 (MCV4P) 2016 [id number] 114 GlaxoSmithKli ne complet ed meningoco ccal A,C,Y,W-1 35 (MCV4P) 10/25/16 Given Ambulat ory Pharmac y adenovirus vaccine, live 2016 [id number] 2 143 Teva Pharmaceutica ls complet ed adenoviru s vaccine, live 10/25/16 Given Ambulat ory Pharmac y meningococcal polysaccharid e (groups A, C, Y and W-135) diphtheria toxoid conjugate vaccine (MCV4P) 1 2016 [id number] 114 SmithKline (SKB) complet ed meningoco ccal [...] and type 7, live, oral 1 2016 [id number] 2 143 [facility] (BRR) complet ed Adenoviru s, type 4 and type 7, live, oral DoD TD(ADULT) UNSPECIFIED FORMULATION 2016 139 complet ed HISTORICA L INFORMATI ON - FROM OTHER PROVIDER, [facility] Results Combined list of recent chemistry, hematology and other laboratory results from Department of Defense and Veterans Affairs, ranging from 15 months to all on record, depending upon the facility. Order Name Results Value Reference Range Date Interpretation Specimen Comments Source HEPATITIS C AB (PB) HEPATITIS C VIRUS AB [PRESENCE] IN SERUM Nonreact cristina 12/10 Specimen Type: SERUM No comment entered. Ordering Provider: NOAH ROJAS Report Released Date/Time: Dec 10, 2023 02:27 PM Reporting Lab: [place] [facility] [address] [place] [address] Performing Lab: [place] [facility] [address] [place] [address] [facility] HIV I&II (PB) HIV 1+2 AB [PRESENCE] IN SERUM Nonreact cristina 12/10 Specimen Type: SERUM No comment entered. Ordering Provider: NOAH ROJAS Report Released Date/Time: Dec 10, 2023 02:27 PM Reporting Lab: [place] [facility] [address] [place] [address] Performing Lab: [place] [facility] [address] [place] [address] [facility] CBC LEUKOCYTES [#/VOLUME] IN BLOOD BY AUTOMATED COUNT 5.4 10*3/uL 3.6 - 11.2 12/04 Specimen Type: BLOOD No comment entered. Ordering Provider: NOAH ROJAS MMMary Kay Report Released Date/Time: Nov 14, 2023 12:01 PM Reporting Lab: [place] [facility] [address] [place] [address] Performing Lab: [place] [facility] [address] [place] [address] [facility] CBC ERYTHROCYTE S [#/VOLUME] IN BLOOD BY AUTOMATED COUNT 5.24 10*6/uL 4.10 - 5.70 12/04 Specimen Type: BLOOD No comment entered. Ordering Provider: NOAH ROJAS MMY Report Released Date/Time: Nov 14, 2023 12:01 PM Reporting Lab: [place] [facility] [address] [place] [address] [place] [address] Performing Lab: [place] [facility] [address] [place] [address] [facility] CBC HEMOGLOBIN [MASS/VOLUM E] IN BLOOD 15.9 g/dL 13.1 - 16.8 12/04 Specimen Type: BLOOD No comment entered. Ordering Provider: NOAH ROJAS MMY Report Released Date/Time: Nov 14, 2023 12:01 PM Reporting Lab: [place] [facility] [address] [place] [address] Performing Lab: [place] [facility] [address] [place] [address] [facility] CBC HEMATOCRIT [VOLUME FRACTION] OF BLOOD 45.5 38.2 - 48.4 12/04 Specimen Type: BLOOD No comment entered. Ordering Provider: NOAH ROJAS MMY Report Released Date/Time: Nov 14, 2023 12:01 PM Reporting Lab: [place] [facility] [address] [place] [address] Performing Lab: [place] [facility] [address] [place] [address] [facility] CBC MCV [ENTITIC VOLUME] BY AUTOMATED COUNT 86.8 fL 80.0 - 100.0 12/04 Specimen Type: BLOOD No comment entered. Ordering Provider: NOAH ROJAS MMY Report Released Date/Time: Nov 14, 2023 12:01 PM Reporting Lab: [place] [facility] [address] [place] [id number] Performing Lab: [place] [facility] [address] [place] [address] [facility] CBC MCH [ENTITIC MASS] BY AUTOMATED COUNT 30.3 pg 27.0 - 34.0 12/04 Specimen Type: BLOOD No comment entered. Ordering Provider: NOAH ROJAS MMY Report Released Date/Time: Nov 14, 2023 12:01 PM Reporting Lab: [place] [facility] [address] [place] [address] Performing Lab: [place] [facility] [address] [place] [address] [facility] CBC MCHC [MASS/VOLUM E] BY AUTOMATED COUNT 34.9 g/dL 33.0 - 36.0 12/04 Specimen Type: BLOOD No comment entered. Ordering Provider: NOAH ROJAS MMY Report Released Date/Time: Nov 14, 2023 12:01 PM Reporting Lab: [place] [facility] [address] [place] [address] Performing Lab: [place] [facility] [address] [place] [address] [facility] CBC PLATELETS [#/VOLUME] IN BLOOD BY AUTOMATED COUNT 189 10*3/uL 150 - 400 12/04 Specimen Type: BLOOD No comment entered. Ordering Provider: NOAH ROJAS MMY Report Released Date/Time: Nov 14, 2023 12:01 PM Reporting Lab: [place] [facility] [address] [place] [address] Performing Lab: [place] [facility] [address] [place] [address] [facility] CBC PLATELET MEAN VOLUME [ENTITIC VOLUME] IN BLOOD BY AUTOMATED COUNT 10.6 fL 7.5 - 11.2 12/04 Specimen Type: BLOOD No comment entered. Ordering Provider: NOAH ROJAS MMY Report Released Date/Time: Nov 14, 2023 12:01 PM Reporting Lab: [place] [facility] [address] [place] [address] Performing Lab: [place] [facility] [address] [place] [address] [facility] CBC ERYTHROCYTE DISTRIBUTIO N WIDTH [RATIO] BY AUTOMATED COUNT 11.9 11.8 - 15.1 12/04 Specimen Type: BLOOD No comment entered. Ordering Provider: NOAH ROJAS MMY Report Released Date/Time: Nov 14, 2023 12:01 PM Reporting Lab: [place] [facility] [address] [place] [address] Performing Lab: [place] [facility] [address] [place] [address] [facility] CBC LYMPHOCYTES /100 LEUKOCYTES IN BLOOD BY AUTOMATED COUNT 32.7 12/04 Specimen Type: BLOOD No comment entered. Ordering Provider: NOAH ROJAS MMY Report Released Date/Time: Nov 14, 2023 12:01 PM Reporting Lab: [place] [facility] [address] [place] [address] Performing Lab: [place] [facility] [address] [place] [address] [facility] CBC MONOCYTES/1 00 LEUKOCYTES IN BLOOD BY AUTOMATED COUNT 7.0 12/04 Specimen Type: BLOOD No comment entered. Ordering Provider: NOAH ROJAS MMY Report Released Date/Time: Nov 14, 2023 12:01 PM Reporting Lab: [place] [facility] [address] [place] [address] Performing Lab: [place] [facility] [address] [place] [address] [facility] CBC NEUTROPHILS /100 LEUKOCYTES IN BLOOD BY AUTOMATED COUNT 57.5 12/04 Specimen Type: BLOOD No comment entered. Ordering Provider: NOAH ROJAS MMY Report Released Date/Time: Nov 14, 2023 12:01 PM Reporting Lab: [place] [facility] [address] [place] [address] Performing Lab: [place] [facility] [address] [place] [address] [facility] CBC EOSINOPHILS /100 LEUKOCYTES IN BLOOD BY AUTOMATED COUNT 2.0 12/04 Specimen Type: BLOOD No comment entered. Ordering Provider: NOAH ROJAS MMY Report Released Date/Time: Nov 14, 2023 12:01 PM Reporting Lab: [place] [facility] [address] [place] [address] Performing Lab: [place] [facility] [address] [place] [address] [facility] CBC BASOPHILS/1 00 LEUKOCYTES IN BLOOD BY AUTOMATED COUNT 0.6 12/04 Specimen Type: BLOOD No comment entered. Ordering Provider: NOAH ROJAS MMY Report Released Date/Time: Nov 14, 2023 12:01 PM Reporting Lab: [place] [facility] [address] [place] [address] Performing Lab: [place] [facility] [address] [place] [address] [facility] CBC LYMPHOCYTES [#/VOLUME] IN BLOOD BY AUTOMATED COUNT 1.78 10*3/uL 0.77 - 4.50 12/04 Specimen Type: BLOOD No comment entered. Ordering Provider: NOAH ROJAS MMY Report Released Date/Time: Nov 14, 2023 12:01 PM Reporting Lab: [place] [facility] [address] [place] [phone] Performing Lab: [place] [facility] [address] [place] [address] [facility] CBC MONOCYTES [#/VOLUME] IN BLOOD BY AUTOMATED COUNT 0.38 10*3/uL 0.19 - 0.8 12/04 Specimen Type: BLOOD No comment entered. Ordering Provider: NOAH ROJAS MMY Report Released Date/Time: Nov 14, 2023 12:01 PM Reporting Lab: [place] [facility] [address] [place] [phone] Performing Lab: [place] [facility] [address] [place] [address] [facility] CBC NEUTROPHILS [#/VOLUME] IN BLOOD BY AUTOMATED COUNT 3.13 10*3/uL 2.10 - 8.00 12/04 Specimen Type: BLOOD No comment entered. Ordering Provider: NOAH ROJAS MMY Report Released Date/Time: Nov 14, 2023 12:01 PM Reporting Lab: [place] [facility] [address] [place] [address] Performing Lab: [place] [facility] [address] [place] [address] [facility] CBC EOSINOPHILS [#/VOLUME] IN BLOOD BY AUTOMATED COUNT 0.11 10*3/uL 0.00 - 0.60 12/04 Specimen Type: BLOOD No comment entered. Ordering Provider: NOAH ROJAS MMY Report Released Date/Time: Nov 14, 2023 12:01 PM Reporting Lab: [place] [facility] [address] [place] [address] [place] [address] Performing Lab: [place] [facility] [address] [place] [address] [place] [address] [facility] CBC BASOPHILS [#/VOLUME] IN BLOOD BY AUTOMATED COUNT 0.03 10*3/uL 0.00 - 0.20 12/04 Specimen Type: BLOOD No comment entered. Ordering Provider: NOAH ROJAS MMY Report Released Date/Time: Nov 14, 2023 12:01 PM Reporting Lab: [place] [facility] [address] [place] [address] Performing Lab: [place] [facility] [address] [place] [address] [facility] CBC IMMATURE GRANULOCYTE S/100 LEUKOCYTES IN BLOOD BY AUTOMATED COUNT 0.2 12/04 Specimen Type: BLOOD No comment entered. Ordering Provider: NOAH ROJAS MMY Report Released Date/Time: Nov 14, 2023 12:01 PM Reporting Lab: [place] [facility] [address] [place] [phone] Performing Lab: [place] [facility] [address] [place] [address] [facility] CBC IMMATURE GRANULOCYTE S [#/VOLUME] IN BLOOD BY AUTOMATED COUNT 0.01 10*3/uL 0.00 - 0.05 12/04 Specimen Type: BLOOD No comment entered. Ordering Provider: NOAH ROJAS MMY Report Released Date/Time: Nov 14, 2023 12:01 PM Reporting Lab: [place] [facility] [address] [place] [phone] Performing Lab: [place] [facility] [address] [place] [address] [place] [facility] CHOLESTER OL PANEL (PB) CHOLESTEROL [MASS/VOLUM E] IN SERUM OR PLASMA 192 mg/dL 0 - 200 12/04 Specimen Type: PLASMA No comment entered. Ordering Provider: NOAH ROJAS Report Released Date/Time: Nov 14, 2023 12:01 PM Reporting Lab: [place] [facility] [address] [place] [address] Performing Lab: [place] [facility] [address] [place] [address] [facility] CHOLESTER OL PANEL (PB) TRIGLYCERID E [MASS/VOLUM E] IN SERUM OR PLASMA 140 mg/dL 0 - 150 12/04 Specimen Type: PLASMA No comment entered. Ordering Provider: NOAH ROJAS Report Released Date/Time: Nov 14, 2023 12:01 PM Reporting Lab: [place] [facility] [address] [place] [address] Performing Lab: [place] [facility] [address] [place] [address] [facility] CHOLESTER OL PANEL (PB) CHOLESTEROL IN LDL [MASS/VOLUM E] IN SERUM OR PLASMA BY CALCULATION 134.3 mg/dL 12/04 Specimen Type: PLASMA No comment entered. Ordering Provider: NOAH ROJAS Report Released Date/Time: Nov 14, 2023 12:01 PM Reporting Lab: [place] [facility] [address] [place] [address] Performing Lab: [place] [facility] [address] [place] [address] [facility] CHOLESTER OL PANEL (PB) CHOLESTEROL IN HDL [MASS/VOLUM E] IN SERUM OR PLASMA 29.7 mg/dL 40 12/04 L Specimen Type: PLASMA No comment entered. Ordering Provider: NOAH ROJAS Report Released Date/Time: Nov 14, 2023 12:01 PM Reporting Lab: [place] [facility] [address] [place] [address] Performing Lab: [place] [facility] [address] [place] [address] [facility] CHOLESTER OL PANEL (PB) CHOLESTEROL IN HDL/CHOLEST J CARLOS.TOTAL [MASS RATIO] IN SERUM OR PLASMA 15.5 25 12/04 Specimen Type: PLASMA No comment entered. Ordering Provider: NOAH ROJAS Report Released Date/Time: Nov 14, 2023 12:01 PM Reporting Lab: [place] [facility] [address] [place] [address] Performing Lab: [place] [facility] [address] [place] [address] [facility] COMPREHEN SIVE METABOLIC PANEL CREATININE [MASS/VOLUM E] IN SERUM OR PLASMA 1.02 mg/dL 0.7 - 1.3 12/04 Specimen Type: PLASMA No comment entered. Ordering Provider: NOAH ROJAS Report Released Date/Time: Nov 14, 2023 12:01 PM Reporting Lab: [place] [facility] [address] [place] [address] Performing Lab: [place] [facility] [address] [place] [address] [facility] COMPREHEN SIVE METABOLIC PANEL UREA NITROGEN [MASS/VOLUM E] IN SERUM OR PLASMA 14 mg/dL 9 - 25 12/04 Specimen Type: PLASMA No comment entered. Ordering Provider: NOAH ROJAS Report Released Date/Time: Nov 14, 2023 12:01 PM Reporting Lab: [place] [facility] [address] [place] [address] Performing Lab: [place] [facility] [address] [place] [address] [facility] COMPREHEN SIVE METABOLIC PANEL GLUCOSE [MASS/VOLUM E] IN SERUM OR PLASMA 90 mg/dL 72 - 99 12/04 Specimen Type: PLASMA No comment entered. Ordering Provider: NAOH ROJAS Report Released Date/Time: Nov 14, 2023 12:01 PM Reporting Lab: [place] [facility] [address] [place] [address] Performing Lab: [place] [facility] [address] [place] [address] [facility] COMPREHEN SIVE METABOLIC PANEL SODIUM [MOLES/VOLU ME] IN SERUM OR PLASMA 141 meq/L 136 - 145 12/04 Specimen Type: PLASMA No comment entered. Ordering Provider: NOAH ROJAS MMY Report Released Date/Time: Nov 14, 2023 12:01 PM Reporting Lab: [place] [facility] [address] [place] [address] Performing Lab: [place] [facility] [address] [place] [address] [facility] COMPREHEN SIVE METABOLIC PANEL POTASSIUM [MOLES/VOLU ME] IN SERUM OR PLASMA 4.1 meq/L 3.5 - 5 12/04 Specimen Type: PLASMA No comment entered. Ordering Provider: NOAH RJOAS MMMary Kay Report Released Date/Time: Nov 14, 2023 12:01 PM Reporting Lab: [place] [facility] [address] [place] [address] Performing Lab: [place] [facility] [address] [place] [address] [facility] COMPREHEN SIVE METABOLIC PANEL CHLORIDE [MOLES/VOLU ME] IN SERUM OR PLASMA 108 meq/L 98 - 107 12/04 H Specimen Type: PLASMA No comment entered. Ordering Provider: NOAH ROJAS MMMary Kay Report Released Date/Time: Nov 14, 2023 12:01 PM Reporting Lab: [place] [facility] [address] [place] [address] Performing Lab: [place] [facility] [address] [place] [address] [facility] COMPREHEN SIVE METABOLIC PANEL CARBON DIOXIDE, TOTAL [MOLES/VOLU ME] IN SERUM OR PLASMA 25 meq/L 22 - 31 12/04 Specimen Type: PLASMA No comment entered. Ordering Provider: NOAH ROJAS MMY Report Released Date/Time: Nov 14, 2023 12:01 PM Reporting Lab: [place] [facility] [address] [place] [address] Performing Lab: [place] [facility] [address] [place] [address] [facility] COMPREHEN SIVE METABOLIC PANEL CALCIUM [MASS/VOLUM E] IN SERUM OR PLASMA 9.3 mg/dL 8.4 - 10.4 12/04 Specimen Type: PLASMA No comment entered. Ordering Provider: NOAH ROJAS MMY Report Released Date/Time: Nov 14, 2023 12:01 PM Reporting Lab: [place] [facility] [address] [place] [address] Performing Lab: [place] [facility] [address] [place] [address] [facility] COMPREHEN SIVE METABOLIC PANEL PROTEIN [MASS/VOLUM E] IN SERUM OR PLASMA 7.4 g/dL 6 - 8.6 12/04 Specimen Type: PLASMA No comment entered. Ordering Provider: NOAH ROJAS MMY Report Released Date/Time: Nov 14, 2023 12:01 PM Reporting Lab: [place] [facility] [address] [place] [address] Performing Lab: [place] [facility] [address] [place] [address] [facility] COMPREHEN SIVE METABOLIC PANEL ALBUMIN [MASS/VOLUM E] IN SERUM OR PLASMA 4.6 g/dL 3.4 - 5 12/04 Specimen Type: PLASMA No comment entered. Ordering Provider: NOAH ROJAS MMY Report Released Date/Time: Nov 14, 2023 12:01 PM Reporting Lab: [place] [facility] [address] [place] [address] Performing Lab: [place] [facility] [address] [place] [address] [facility] COMPREHEN SIVE METABOLIC PANEL BILIRUBIN.T OTAL [MASS/VOLUM E] IN SERUM OR PLASMA 0.5 mg/dL 0.2 - 1.2 12/04 Specimen Type: PLASMA No comment entered. Ordering Provider: NOAH ROJAS MMMary Kay Report Released Date/Time: Nov 14, 2023 12:01 PM Reporting Lab: [place] [facility] [address] [place] [address] Performing Lab: [place] [facility] [address] [place] [address] [facility] COMPREHEN SIVE METABOLIC PANEL ALKALINE PHOSPHATASE [ENZYMATIC ACTIVITY/VO LUME] IN SERUM OR PLASMA 86 U/L 40 - 150 12/04 Specimen Type: PLASMA No comment entered. Ordering Provider: NOAH ROJAS MMY Report Released Date/Time: Nov 14, 2023 12:01 PM Reporting Lab: [place] [facility] [address] [place] [address] Performing Lab: [place] [facility] [address] [place] [address] [facility] COMPREHEN SIVE METABOLIC PANEL ASPARTATE AMINOTRANSF ERASE [ENZYMATIC ACTIVITY/VO LUME] IN SERUM OR PLASMA 26 U/L 5 - 34 12/04 Specimen Type: PLASMA No comment entered. Ordering Provider: NOAH ROJAS MMY Report Released Date/Time: Nov 14, 2023 12:01 PM Reporting Lab: [place] [facility] [address] [place] [address] Performing Lab: [place] [facility] [address] [place] [address] [facility] COMPREHEN SIVE METABOLIC PANEL ALANINE AMINOTRANSF ERASE [ENZYMATIC ACTIVITY/VO LUME] IN SERUM OR PLASMA 30 U/L 8 - 40 12/04 Specimen Type: PLASMA No comment entered. Ordering Provider: NOAH ROJAS MMY Report Released Date/Time: Nov 14, 2023 12:01 PM Reporting Lab: [place] [facility] [address] [place] [address] Performing Lab: [place] [facility] [address] [place] [address] [facility] COMPREHEN SIVE METABOLIC PANEL GLOMERULAR FILTRATION RATE/1.73 SQ M.PREDICTED [VOLUME RATE/AREA] IN SERUM, PLASMA OR BLOOD BY CREATININE- BASED FORMULA (CKD-EPI 2020) 105 12/04 Specimen Type: PLASMA No comment entered. Ordering Provider: NOAH ROJAS MMY Report Released Date/Time: Nov 14, 2023 12:01 PM Reporting Lab: [place] [facility] [address] [place] [address] Performing Lab: [place] [facility] [address] [place] [address] [place] [facility] HGA1C HEMOGLOBIN A1C/HEMOGLO BIN.TOTAL IN BLOOD 5.4 4.0 - 6.0 12/04 Specimen Type: BLOOD No comment entered. Ordering Provider: NOAH ROJAS MMY Report Released Date/Time: Nov 14, 2023 12:01 PM Reporting Lab: [place] [facility] [address] [place] [address] Performing Lab: [place] [facility] [address] [place] [address] [facility] TSH (MA-PB-ST L) THYROTROPIN [UNITS/VOLU ME] IN SERUM OR PLASMA 1.100 u[IU]/mL 0.47 - 5 12/04 Specimen Type: SERUM No comment entered. Ordering Provider: NOAH ROJAS MMY Report Released Date/Time: Nov 14, 2023 12:01 PM Reporting Lab: [place] [facility] [address] [place] [address] Performing Lab: [place] [facility] [address] [place] [address] [facility] VITAMIN D, 25-HYDROX Y 25-HYDROXYV ITAMIN D3 [MASS/VOLUM E] IN SERUM OR PLASMA 21.5 ng/mL 30 - 96 12/04 L Specimen Type: SERUM No comment entered. Ordering Provider: NOAH ROJAS MMMary Kay Report Released Date/Time: Nov 14, 2023 12:01 PM Reporting Lab: [place] [facility] [address] [place] [address] Performing Lab: [place] [facility] [address] [place] [address] [facility] Chemistry eGFR CKD EPI 107 06/25 [...] y WBC 6.40 x10^3/mc L 4.00 - 10.21856 06/25 N Interpretiv e Data: WBC count is automatical ly corrected if NRBCs are present. [facility] Hemoglobin 16.6 g/dL 13.5 - 17.2 06/25 N [facility] RBC 5.41 x10^6/mc L 4.30 - 5.86441 06/25 N [facility] [...] y Platelets 189 x10^3/mc L 150 - 152800 06/25 N [facility] [...] [facility] Glasscock Absolute 0.40 x10^3/mc L 0.16 - 1.57285 06/25 N [facility] [...] 140 06/25 N [facility] Vital Signs Combined list of inpatient and outpatient Vital Signs from Department of Defense and Veterans Affairs, ranging from 12 months to all on record, depending upon the facility. Vital Sign Value Date Comments Source SYSTOLIC BLOOD PRESSURE 124 02/27/20 25 15:05:00 [place] [facility] DIASTOLIC BLOOD PRESSURE 78 025 15:05:00 [facility] PULSE OXIMETRY 93 02/26/2025 15:05:00 [facility] WEIGHT 290.0 02/26/2025 15:05:00 [facility] BMI 38 kg/m2 02/26/2025 15:05:00 [facility] PAIN 8 02/26/2025 15:05:00 [facility] PULSE 91 02/26/2025 15:05:00 [facility] RESPIRATION 18 02/26/2025 15:05:00 [facility] SYSTOLIC BLOOD PRESSURE 137 10/13/20 24 15:00:00 [place] [facility] DIASTOLIC BLOOD PRESSURE 79 024 15:00:00 [place] [facility] PULSE OXIMETRY 96 10/13/2024 15:00:00 [place] [facility] WEIGHT 288.3 10/13/2024 15:00:00 [facility] BMI 38 kg/m2 10/13/2024 15:00:00 [place] [facility] PAIN 5 10/13/2024 15:00:00 [place] [facility] HEIGHT 73 10/13/2024 15:00:00 [facility] TEMPERATURE 98 10/13/2024 15:00:00 [facility] PULSE 96 10/13/2024 15:00:00 [place] [facility] RESPIRATION 18 10/13/2024 15:00:00 [facility] [place] SYSTOLIC BLOOD PRESSURE 128 10/07/20 11:00:00 [place] [facility] DIASTOLIC BLOOD PRESSURE 82 11:00:00 [place] [facility] TEMPERATURE 97.3 10/07/2024 11:00:00 [place] [facility] PULSE 62 10/07/2024 11:00:00 [place] [facility] SYSTOLIC BLOOD PRESSURE 130 09/12/20 13:59:57 [place] [facility] DIASTOLIC BLOOD PRESSURE 84 13:59:57 [place] [facility] PULSE OXIMETRY 96 09/12/2024 13:59:57 [facility] [place] WEIGHT 294.7 09/12/2024 13:59:57 [place] [facility] BMI 39 kg/m2 09/12/2024 13:59:57 [facility] [place] PAIN 6 09/12/2024 13:59:57 [facility] HEIGHT 73 09/12/2024 13:59:57 [facility] [place] TEMPERATURE 98.1 09/12/2024 13:59:57 [facility] [place] [facility] PULSE 83 09/12/2024 13:59:57 [facility] RESPIRATION 18 09/12/2024 13:59:57 [facility] SYSTOLIC BLOOD PRESSURE 114 07/16/20 13:19:00 [facility] [place] [facility] DIASTOLIC BLOOD PRESSURE 76 13:19:00 [facility] [place] [facility] PULSE OXIMETRY 96 07/16/2024 13:19:00 [facility] WEIGHT 290.4 07/16/2024 13:19:00 [place] [facility] BMI 38 kg/m2 07/16/2024 13:19:00 [place] [facility] PAIN 6 07/16/2024 13:19:00 [place] [facility] HEIGHT 73.0 07/16/2024 13:19:00 [facility] TEMPERATURE 97.7 07/16/2024 13:19:00 [facility] PULSE 68 07/16/2024 13:19:00 [facility] RESPIRATION 20 07/16/2024 13:19:00 [facility] Peripheral Pulse Rate 92 bpm 04/12/2023 14:40:00 0060A-Ach [facility] Systolic Blood Pressure 137 mm[Hg] 04/12/20 14:40:00 0060A-A[facility] Diastolic Blood Pressure 70 mm[Hg] 023 14:40:00 0060A-A[facility] Respiratory Rate 17 br/min 04/12/2023 14:40:00 0060A-A[facility] Blood Pressure Location Left arm 04/12/20 14:40:00 0060A-Ach [facility] Blood Pressure Method Automatic 04/12/2023 14:40:00 0060A-Ach Hossein Temperature Temporal Artery 35.9 Jeannie 04/12/2023 14:40:00 0060A-Yari Catalan Mean Arterial Pressure, Cuff (Calc) 92 mm[Hg] 04/12/2023 14:40:00 0060A-Yari Catalan Systolic Blood Pressure 133 mm[Hg] 06/12/20 13:24:00 0060C-Ach [facility] Diastolic Blood Pressure 83 mm[Hg] 023 13:24:00 0060C-Yari Catalan Peripheral Pulse Rate 93 bpm 06/12/2023 13:24:00 0060C-Yari Catalan Mean Arterial Pressure, Cuff (Calc) 100 mm[Hg] 06/12/2023 13:24:00 0060C-Yari Catalan Respiratory Rate 16 br/min 06/12/2023 13:24:00 0060C-Ach [facility] Blood Pressure Manual Automatic 06/12/2023 13:24:00 0060C-Yari Catalan BP Site Left arm 06/12/2023 13:24:00 0060C-Ach Hossein Temperature Oral 36.3 Jeannie 06/12/2023 13:24:00 0060C-Yari Luke-Rony Systolic Blood Pressure 123 mm[Hg] 06/25/20 23 13:26:00 0060C-Ach [facility] Diastolic Blood Pressure 84 mm[Hg] 023 13:26:00 0060C-Ach [facility] Blood Pressure Manual Automatic 06/25/2023 13:26:00 0060C-Ach [facility] BP Site Left arm 06/25/2023 13:26:00 0060C-Ach [facility] Peripheral Pulse Rate 93 bpm 06/25/2023 13:26:00 0060C-Ach [facility] Respiratory Rate 12 br/min 06/25/2023 13:26:00 0060C-Ach [facility] Mean Arterial Pressure, Cuff (Calc) 97 mm[Hg] 06/25/2023 13:26:00 0060C-Ach [facility] Respiratory Rate 16 br/min 04/12/2023 15:10:00 0060A-A[facility] Systolic Blood Pressure 135 mm[Hg] 04/12/20 15:10:00 0060A-Ach [facility] Diastolic Blood Pressure 70 mm[Hg] 023 15:10:00 0060A-Ach Moh-[facility] Blood Pressure Method Automatic 04/12/2023 15:10:00 0060A-Ach [facility] Mean Arterial Pressure, Cuff (Calc) 92 mm[Hg] 04/12/2023 15:10:00 0060A-Ach [facility] Temperature Temporal Artery 36.2 Jeannie 04/12/2023 15:10:00 0060A-[facility] Peripheral Pulse Rate 86 bpm 04/12/2023 15:10:00 0060A-Ach [facility] Mean Arterial Pressure, Cuff (Calc) 95 mm[Hg] 04/06/2023 15:16:00 0060C-Ach [facility] Temperature Oral 36.8 Jeannie 04/06/2023 15:16:00 0060C-Ach [facility] BP Site Left arm 04/06/2023 15:16:00 0060C-Ach [facility] Blood Pressure Manual Automatic 04/06/2023 15:16:00 0060C-Ach [facility] Mean Arterial Pressure, Cuff (Calc) 89 mm[Hg] 04/12/2023 14:55:00 0060A[facility] Respiratory Rate 17 br/min 04/12/2023 14:55:00 0060A[facility] Temperature Temporal Artery 36.1 Jeannie 04/12/2023 14:55:00 0060[facility] Peripheral Pulse Rate 86 bpm 04/12/2023 14:55:00 0060A[facility] [place] Systolic Blood Pressure 130 mm[Hg] 04/12/20 14:55:00 0060A[facility] [place] Diastolic Blood Pressure 68 mm[Hg] 023 14:55:00 00[facility] Peripheral Pulse Rate 79 bpm 04/12/2023 11:35:00 0060A-[facility] Temperature Temporal Artery 36.3 Jeannie 04/12/2023 11:35:00 0060A-Ach [facility] Systolic Blood Pressure 137 mm[Hg] 04/12/20 11:35:00 0060A-A[facility] [place] Diastolic Blood Pressure 89 mm[Hg] 023 11:35:00 0060A-Ach [facility] Respiratory Rate 18 br/min 04/12/2023 11:35:00 0060A-Ach [facility] Mean Arterial Pressure, Cuff (Calc) 105 mm[Hg] 04/12/2023 11:35:00 0060A-Ach Ti-[facility] Blood Pressure Location Left arm 04/12/20 15:45:00 0060A-Ach [facility] Cuff Size Extra large 04/12/2023 15:45:00 0060A[facility] Respiratory Rate 18 br/min 04/12/2023 15:45:00 0060A-Ach [facility] Systolic Blood Pressure 137 mm[Hg] 04/12/20 23 15:45:00 0060A-Ach [facility] Diastolic Blood Pressure 77 mm[Hg] 023 15:45:00 0060A[facility] Peripheral Pulse Rate 91 bpm 04/12/2023 15:45:00 0060A-A[facility] [place] Blood Pressure Method Automatic 04/12/2023 15:45:00 0060A-A[facility] Mean Arterial Pressure, Cuff (Calc) 97 mm[Hg] 04/12/2023 15:45:00 0060A[facility] Temperature Temporal Artery 36.5 Jeannie 04/12/2023 15:45:00 0060A[facility] Temperature Oral 36.9 Jeannie 05/11/2023 17:50:00 0060A[facility] [place] Systolic Blood Pressure 125 mm[Hg] 05/11/20 17:50:00 0060[facility] [place] Diastolic Blood Pressure 82 mm[Hg] 023 17:50:00 0060A[facility] Peripheral Pulse Rate 102 bpm 05/11/2023 17:50:00 00[facility] Respiratory Rate 18 br/min 05/11/2023 17:50:00 0060A-A[facility] [place] Blood Pressure Method Automatic 04/12/2023 15:15:00 0060A-A[facility] [place] Blood Pressure Location Left arm 04/12/20 15:15:00 0060A[facility] Respiratory Rate 18 br/min 04/12/2023 15:15:00 0060A[facility] Mean Arterial Pressure, Cuff (Calc) 98 mm[Hg] 04/12/2023 15:15:00 00[facility] Peripheral Pulse Rate 89 bpm 04/12/2023 15:15:00 0060A[facility] Systolic Blood Pressure 137 mm[Hg] 04/12/20 23 15:15:00 0060A[facility] [place] Diastolic Blood Pressure 60 mm[Hg] 023 15:15:00 0060A[facility] [place] Systolic Blood Pressure 139 mm[Hg] 04/12/20 23 15:15:00 0060A[facility] Diastolic Blood Pressure 77 mm[Hg] 023 15:15:00 0060A[facility] Temperature Temporal Artery 36.7 Jeannie 04/12/2023 15:15:00 0060A[facility] Mean Arterial Pressure, Cuff (Calc) 86 mm[Hg] 04/12/2023 15:15:00 00[facility] Cuff Size Extra large 04/12/2023 15:15:00 0060[facility] Peripheral Pulse Rate 90 bpm 04/12/2023 15:15:00 0060A[facility] Respiratory Rate 18 br/min 04/12/2023 15:15:00 0060A[facility] Blood Pressure Method Automatic 04/12/2023 15:15:00 0060A[facility] Blood Pressure Location Left arm 04/12/20 23 15:15:00 0060A[facility] Temperature Temporal Artery 36.5 Jeannie 04/12/2023 15:15:00 [facility] Cuff Size Extra large 04/12/2023 15:15:00 0060A[facility] Encounters Combined list of: 1) Encounters from [facility] of Veterans Affairs facilities going backup to the last 18 months, not all VA inpatient encounters are included; 2) Encounters from the Department of Defense facilities going backup to 280 months. Location Location Details Encounter Type Encounter Number Reason For Visit Attending Provider ADM Date DC Date Status Disposition Source [place]IENT [id number] Notes Entered by: ALEXUS RICARDO 31 Oct 2016 1044 ------- ------- ------- ------- -- hearing test PERICO RICARDO 10/31 [place] [place] [place] [facility] OUTPATIENT [id number] Notes Entered by: DONTRELL RAE 31 Oct 2016 1437 ------- ------- ------- ------- -- IMM RITA DALEY [place] 10/31 [place] OUTPATIENT [id number] JOHANA MAHMOOD 11/01 [place]PATIENT [id number] Notes Entered by: KEVIN RUBIO 28 Nov 2016 0819 ------- ------- ------- ------- -- IMM-TWI N/POLIO /MMR/VA R JODEE JEFFERSON 11/28 [place]ased [place] [id number] Notes Entered by: Hang ANDRES 07 Dec 2016 0803 ------- ------- ------- ------- -- FMS screen HAROON ANDRES 12/07 [place]itations [place] [facility] [place] OUTPATIENT [id number] DERM rash under arms BRIDGER DIMAS 12/12 [place] [facility] Deploymen t Clinic) OUTPATIENT [id number] Notes Entered by: Samuel KAUR 13 Feb 2017 0730 ------- ------- ------- ------- -- [facility] JODI LUGO 02/13 Released w/o Limitations [facility] [place]([facility]) [facility] [place]([facility]) OUTPATIENT [id number] Notes Entered by: AMBROSE LI MP 15 May 2017 1319 ------- ------- ------- ------- -- HARJEET Martinez 05/15 Released w/o Limitations [facility] [place]([facility] [place] [place]([facility] Deploymen t Clinic) OUTPATIENT [id number] Notes Entered by: ESSENCE MCCONNELL 13 Jul 2017 1026 ------- ------- ------- ------- -- MARIA WITT 07/13 Released w/o Limitations [facility] [place]([facility]) [facility] OUTPATIENT [id number] Theater Provider 11/30 Released w/o Limitations Theater Facilit y [facility] [place]([facility] Hearing Program) OUTPATIENT [id number] Notes Entered by: DARRION NGO 01 May 2018 1001 ------- ------- ------- ------- -- RS 2215 SHERITA MCCALL 05/01 Released w/o Limitations [facility] [place]([facility] Hearing [facility] ) [facility] [place]([facility] [place]) OUTPATIENT [id number] ABRAM Mota 06/06 Released w/o Limitations [facility] [place]([facility] [place]) [facility] [place]([facility]ometry [facility]) OUTPATIENT [id number] eye exam (r/s from 3.8 no show)[id number] CARLOS DOSS 02/17 Released w/o Limitations [facility] [place] [place]([facility] Hearing Program) OUTPATIENT [id number] Notes Entered by: SHERITA MCCALL 28 Apr 2019 1406 ------- ------- ------- ------- -- KEVIN Merida 04/28 Released w/o Limitations [facility] [place]([facility] ) [facility] [place]([facility] Hearing Program) OUTPATIENT [id number] masking h1 haven't seen a AuD ELISABET DESHPANDE 05/12 Released w/o Limitations [facility] Parker G[place]([facility] Hearing [facility] ) [place]) OUTPATIENT [id number] Notes Entered by: RAFA SHARMA 13 Aug 2019 1033 ------- ------- ------- ------- -- Pre Deploym ent Health Assessm ent RAFA SHARMA 08/13 Released w/o Limitations [facility], [place]([facility]) Loreta TEE, [place]([facility]) OUTPATIENT [id number] Notes Entered by: NOEL LERMA 18 Aug 2019 1350 ------- ------- ------- ------- -- 3-187 Unit Assessm ent FRANK DUNLAP 08/18 Released w/o Limitations [facility] [place]([facility]) [place] [address]([facility]) OUTPATIENT [id number] Notes Entered by: WILLIAM KELLER 14 May 2020 0941 ------- ------- ------- ------- -- annual ROSIE KELLER 05/14 [facility]ased w/[facility] Limitations [facility] [place] [address]([facility] [facility] Program [facility] [place] [id number] TAMIKA Garcia 09/03 Released w/o Limitations [facility] [employer] [place]) Noreene yaya TEE, [place](Urolog y) OUTPATIENT [id number] Scrotal varices MAGGI GARCÍA 09/22 Released w/o Limitations [facility], [employer] [facility] [employer] TELE CONSULT [id number] Notes Entered by: Marcel PAGE 29 Sep 2020 0932 ------- ------- ------- ------- -- results TAMIKA PAGE 09/29 [facility] [employer] [place] [facility] [employer]) [place] [id number] poss varicoc tuan surgery (seen Curtis) TG ZAMUDIO 11/03 Released w/o Limitations [facility], [employer] [facility] [employer] [place] TELE CONS[place] [id number] Notes Entered by: VELIA ESCAMILLA 22 Dec 2020 1033 ------- ------- ------- ------- -- Triage nurse encount VELIA Torres 12/22 Advice Assessment [facility] [employer] [place] [facility] [employer] [id number] f/u surgery TG ZAMUDIO 12/24 Released w/o Limitations [facility], [employer] [facility] [employer]) [place] [id number] PEPE VELARDE 01/10 Released w/o Limitations [facility] [employer] [facility] [employer]) [place] [id number] PF VAX2 3BCT TRACI POSADA 02/09 Released w/o Limitations [facility], [employer] [facility], [place]([facility]) OUTPATIENT [id number] annual BRONWYNROYATG 03/15 Released w/o Limitations [facility] [employer] ) [facility], [place], [place]([facility] Optometry ) OUTPATIENT [id number] REE (February 2019) TRASAYDA LEONARDO MAGGI 03/15 Released w/o Limitations [facility] [employer] Optomet ry) [facility], [place]([facility]) OUTPATIENT [id number] std screeni VILLA Lange 05/05 Released w/o Limitations [facility] [employer] [place] [facility], [place]([facility]) TELE CONSULT [id number] Notes Entered by: GIOVANNI CHILDRESS AM J 10 May 2021 0946 ------- ------- ------- ------- -- LAB VILLA CHAPA 05/10 [facility], [place], [place]) [facility], [place], [place]([facility] Health [facility]) OUTPATIENT [id number] Notes Entered by: TI GONSALVES 18 Aug 2021 1403 ------- ------- ------- ------- -- pre dep NAYELI DYE PA-C 08/18 Released w/o Limitations [facility] [employer]) [facility], [place], [place] OUTPATIENT [id number] STD SCREEN RILEY GIBSON 09/15 Released w/o Limitations [facility] [employer] [place] [place] [facility] [employer], [place]3rd BCT H2F) OUTPATIENT [id number] SALOMÓN LUONG 09/23 Released w/o Limitations [facility] [employer] [facility] [employer] [place] [id number] back pain SLIM DURAN 12/16 Released w/o Limitations [facility] [employer] [place] [facility] [employer]) [place] [id number] f/u varicoc tuan surgery TG ZAMUDIO 01/16 Released w/o Limitations [facility] [employer] [facility] [employer] [place] TELE CONS[place] [id number] Notes Entered by: BOBY CLAYTON 02 Feb 2022 1318 ------- ------- ------- ------- -- ETS MAGGI Linn 02/02 [facility] [employer] [place] [facility] [employer], [place] [id number] GIANFRANCO CRONIN 02/02 Released w/o Limitations [facility] [employer] [facility] [employer] [place] [id number] SLEEP CONCERN S/ BRADZARAA MAGGI MENJIVAR 02/14 Released w/o Limitations [facility] [employer] [place] [facility] [employer] [id number] f/u varicoc tuan TG ZAMUDIO 03/02 Released w/o Limitations [facility] [employer] [facility] [employer] [id number] 4 eval-te sticula r left RICH RICARDO 03/22 Released w/o Limitations [facility] [employer] [facility] [employer] [id number] Lower abdomin al pain, unspeci fied CLARICE OSBORNE 03/27 Released w/o Limitations [facility] [employer] Surgery ) [facility] [employer] Physical Therapy[place] OUTPATIENT [id number] Dorsalg ia, unspeci fied ROBSON ALANIZ 03/27 Released w/o Limitations [facility] [employer] Physica l Therapy ) [facility], [place] [id number] initial ALEIDA Pizano 03/31 Released w/o Limitations [facility] [employer] [facility] [employer] Physical Therapy[place] OUT[place] [id number] demo back PETR MORE 04/04 Released w/o Limitations [facility] [employer] Phys[place] [facility] [employer] [id number] MRI f/u RICH RICARDO 04/10 Released w/o Limitations [facility] [employer] [facility] [employer] [id number] CT results CLARICE OSBORNE 04/10 Released w/o Limitations [facility] [employer] [facility] [employer] Physical Therapy[place] OUTPATIENT [id number] exe/worley ked in person 21jun CLM PETR MORE 04/10 Released w/o Limitations [facility] [employer] Physica [place] Therapy ) [facility] [employer] [id number] chronic test/LB P per mr ricardo (PHONE) HELEN PAULINO 04/11 Released w/o Limitations [facility] [employer] [facility] [employer] [id number] left cord block MANDITG BRAR 04/12 Released w/o Limitations [facility] [employer] [facility] [employer] [place] Therapy[place] OUTPAT[place] [id number] f/u back ROBSON ALANIZ L 05/01 Released w/o Limitations [facility] [employer] Phys[place] ) [facility] [employer] [id number] f/u-MRI RICH RICARDO 05/01 Released w/o Limitations [facility] [employer] [facility] [employer] [id number] 1 bodpod (1) f/u CLAUDIO MARIO 05/04 Released w/o Limitations [facility] [employer] [facility] [employer] [id number] 5 metabol ic ALEIDA YAÑEZ 05/05 Released w/o Limitations [facility] [employer] [facility] [employer] [id number] f/u-LBP /test (PHONE) HELEN PAULINO 05/09 Released w/o Limitations [facility] [employer] [facility] [employer] [place] [id number] bilat lumbar MBB L3, L4, L5 SPINAMY IBARRAS 05/09 Released w/o Limitations [facility] [employer] [place] [facility] [facility] [place] Physical Therapy) OUTPATIENT [id number] f/u back/bang oked in person 18Jul CLM ROBSON ALANIZ L 05/26 Released w/o Limitations [facility] [employer] [place] [facility] [employer] [place] Physical Therapy[place] OUTPATIENT [id number] exe/worley ked in person 12Aug CLM BARRON ROLON 06/01 Released w/o Limitations [facility] [employer] [place] [facility] [employer] [place] [id number] MBB #2 Bilat MUNA CONTRERAS 06/06 Released w/o Limitations [facility] [employer] [facility] [facility], [place]([facility] Physical Therapy) OUTPATIENT [id number] exe/worley ked in person 18Aug, advised side door PETR MORE E 06/09 Released w/o Limitations [facility] [employer] [place] [facility] [employer] [place] Physical Therapy[place] OUTPATIENT [id number] 5 exe/worley ked in person 26Aug CLM PETR MORE E 06/15 Released w/o Limitations [facility] [employer] [place] [facility] [employer] [place] Physical Therapy[place] OUTPATIENT [id number] 1 f/u back/bang oked in person 12Aug CLM ROBSON ALANIZ 06/27 Released w/o Limitations [facility] [employer] [place] [facility] [employer] [place] [id number] tonsils ELSA DELGADILLO 06/28 Released w/o Limitations [facility] [employer] [facility] [place] [facility] [employer] [id number] f/u RICH RICARDO 07/07 Released w/o Limitations [facility] [employer] [facility] [facility] [employer] [place] TELE CONS[place] [id number] Notes Entered by: MERCEDEZ ARAGON 18 Jul 2022 0743 ------- ------- ------- ------- -- MEB Submiss ion VILLA CHAPA 07/18 [facility] [employer] [place] [facility] [employer] [place] TELE CONSULT [id number] Notes Entered by: MERCEDEZ ARAGON 18 Jul 2022 0802 ------- ------- ------- ------- -- Sleep Study VILLA CHAPA 07/18 [facility] [employer] [facility] [place] [facility] [employer] [id number] tens trila RICH RICARDO 07/18 Released w/o Limitations [facility] [employer] [facility] [employer] [id number] bilat lumbar RFA SPINUZZA, YULISSA 07/18 Released w/o Limitations [facility] [employer] [facility] [employer] [facility] [place] [id number] SLEEP APNEA CONSULT /DEDRICKSH PEMA CRAWFORD TEX HAROON 07/28 Released w/o Limitations [facility] [employer] [place] [facility] [employer] [id number] TELEPHO [facility] [phone] PELONBECCA FISCHER SOUMYA 08/07 Released w/o Limitations [facility] [employer] [facility] [employer]) [place] [id number] 2 discuss next steps/t reatmen t options / labs possibl y needed TG ZAMUDIO 08/16 Released w/o Limitations [facility] [employer] [facility] [employer] [id number] Erectil e dysfunc tion(ND R) JODEE GARCÍA 08/17 Released w/o Limitations [facility] [employer] [facility] [employer] [place] [id number] sleep apnea DAVID THOMSON 08/22 Released w/o Limitations [facility], [employer] [place] [facility] [employer] [place] OUTPATIENT [id number] sleep f/u YVETTETEXELLE 08/24 Released w/o Limitations [facility], [employer] [place] [facility], [employer], [place] TELE CONSULT [id number] Notes Entered by: TG BATEMAN 05 Sep 2022 0717 ------- ------- ------- ------- -- results review TG ZAMUDIO 09/05 [facility] [employer] [facility] [employer] OUTPATIENT [id number] er f/u SLIM DURAN 09/20 Released with Work/Duty Limitations [facility] [employer] [facility] [facility] [employer] OUTPATIENT [id number] 5 sleep f/u TEX CRAWFORDELLE 09/22 Released w/o Limitations [facility] [employer] [facility] [employer] TELE CONSULT [id number] Notes Entered by: STUART ABRAHAM 17 Oct 2022 0722 ------- ------- ------- ------- -- med HELEN Scott 10/17 [facility] [employer] [facility] [employer] OUT[place] [id number] SLEEP EVAL HAO KUMAR 10/18 Released w/o Limitations [facility], [employer] [facility] [employer] OUT[place] [id number] PSG PER HAO STEVENS 10/26 Released w/o Limitations [facility] [employer] [facility] [employer] [place] TELE CONSULT [id number] Notes Entered by: ERIN JARQUIN RAE 31 Oct 2022 0910 ------- ------- ------- ------- -- ED F/U ALMA URIOSTEGUI 10/31 Released to Self Care [facility] [employer] [place]) [facility]) OUTPATIENT [id number] f/u shoulde r pain DAVID THOMSON 11/03 Released w/o Limitations [facility], [employer] Rakk) [facility], [place]([facility] Optometry ) OUTPATIENT [id number] RICK DEL CID 11/06 Released w/o Limitations [facility], [employer] Optomet ry) [facility], [place]([facility] Physical Therapy) OUTPATIENT [id number] Pain in right shoulde r/booke d via phone 26Jan CLROBSON CHRISTENSEN Matti 11/29 Released w/o Limitations [facility], [employer] Physica l Therapy ) [facility], [place]([facility] Physical Therapy) OUTPATIENT [id number] demo R shoulde r/booke d in person 15Feb CLRAIZA PARK 12/07 Released w/o Limitations [facility], [employer] Physica [facility] Therapy ) [facility], [place]([facility] Physical Therapy) OUTPATIENT [id number] exer RAIZA HUDSON 12/13 Released w/o Limitations [facility], [employer] Physica [place] Therapy ) [facility], [place]([facility] Physical Therapy) OUTPATIENT [id number] exe/worley ked via phone 06Mar CLRAIZA PARK 12/25 Released w/o Limitations [facility], [employer] Physica [place] Therapy ) [facility] [employer] [place] Physical Therapy) OUTPATIENT [id number] f/u R shoulde r/booke d in person 15Feb CLROBSON CHRISTENSEN 01/01 Released w/o Limitations [facility], [employer] Phys[place] Therapy ) [facility], [employer] Rakk[place] OUTPATIENT [id number] er [facility] t ELSA DELGADILLO 01/05 Released with Work/Duty Limitations [facility], [employer] Rakk[place] [facility] [employer] [place] R[place] TELE CONSULT [id number] Notes Entered by: ELSA DELGADILLO 12 Jan 2023 1142 ------- ------- ------- ------- -- Lab results ELSA DELGADILLO 01/12 [facility] [employer] [place] [facility], [employer] [place] OUTPATIENT [id number] f/u RICH RICARDO 01/19 Released w/o Limitations [facility], [employer] [facility] [facility] [employer] [place] OUTPATIENT [id number] med f/u HELEN PAULINO 01/19 Released w/o Limitations [facility], [employer] [facility], [employer] [place] OUTPATIENT [id number] cough, congest ion,fev er DAVID THOMSON 01/19 Released w/o Limitations [facility], [employer] R[facility] [facility] [employer] [place] Physical Therapy) OUTPATIENT [id number] 4 f/u R shoulde r / booked in person 20Mar CLM ROBSON ALANIZ 02/01 Released w/o Limitations [facility], [place] Phys[place] Therapy ) [facility], [place] Rakk[place] OUTPATIENT [id number] L knee pain SLIM DURAN KRIS 02/07 Released w/o Limitations [facility], [facility], [place]([facility] Rakk) [facility], [place] [id number] Pain in right shoulde r CONY AVILA 02/12 Released w/o Limitations [facility], [place] [facility], [place] [id number] R shoulde r consult per ERIN Desai 02/22 Released w/o Limitations [facility], [place] [facility], [place] [place] [facility]) [place] [id number] annual NUBIA SUAZO V 03/14 Released w/o Limitations [facility], [place] [facility] OFFICE O/P NEW MOD 45 MIN [id number] [id number] Diagnos is: ICD-10- CM G47.33 Obstruc tive sleep apnea (adult) ([facility]) Heaven ROJAS 12/10 [facility] Outpatient Encounter [id number] [id number] 12/11 [facility] Outpatient Encounter [id number] [id number] 12/18 [facility] En[facility] [id number] [id number] 12/24 [facility] OFF/OP EST MAY X REQ PHY/QHP [id number] [id number] Diagnos is: ICD-10- CM Z87.820 Persona l history of traumat ic brain injury ANGELA MON 01/07 [facility] OFF/OP CNSLTJ NEW/EST MOD 40 [id number] [id number] Diagnos is: ICD-10- CM Z87.820 Persona l history of traumat ic brain injury DAYAMI LORD 01/07 [facility] Outpatient Encounter [id number] [id number] 01/07 [facility] Outpatient Encounter [id number] [id number] 01/09 [facility] OFFICE O/P EST LOW 20 MIN [id number] [id number] 542 Diagnos is: ICD-10- CM R51.9 Headach e, unspeci fied Heaven ROJAS 01/09 [facility] Outpatient Encounter [id number] [id number] ZACHERY PARKER 01/14 [facility] CB OFF/OP EST MAY X REQ PHY/QHP [id number] [id number] Diagnos is: ICD-10- CM Z48.02 Encount er for removal of sutures АЛЕКСАНДР MCF[place]LAND 01/20 [facility] Outpatient Encounter [id number] [id number] Diagnos is: ICD-10- CM Z48.02 Encount er for removal of sutures АЛЕКСАНДР MCF[place]LAND 01/21 [facility] Outpatient Encounter [id number] [id number] 01/31 [facility] OFFICE O/P EST SF 10 MIN [id number] [id number] Diagnos is: ICD-10- CM R51.9 Headach e, unspeci fied [place] ROJAS 02[facility] FEBR[facility] X REQ PHY/QHP [id number] [id number] Diagnos is: ICD-10- CM Z87.820 Persona l history of traumat ic brain injury Heaven ROJAS 04/16 [facility] PSYCH DIAGNOSTIC EVALUATION [id number] [id number] Diagnos is: ICD-10- CM F41.1 General ized anxiety disorde r ROSEMARY,CHR ISSOM J 04/21 [facility] Outpatient Encounter [id number] [id number] 04/22 [facility] Outpatient Encounter [id number] [id number] 05/27 [facility] PSYTX W PT 60 MINUTES [id number] [id number] Diagnos is: ICD-10- CM F43.12 Post-tr aumatic stress disorde r, chronic ROSEMARY,CHR ISSOM J 06/04 [facility] Outpatient Encounter [id number] [id number] 06/04 [facility] Outpatient Encounter [id number] [id number] 06/04 [facility] Outpatient Encounter [id number] [id number] 06/05 [facility] Outpatient Encounter [id number] [id number] ROSEMARY,CHR ISSOM J 06/05 [facility] PSYTX W PT 60 MINUTES [id number] [id number] Diagnos is: ICD-10- CM F43.12 Post-tr aumatic stress disorde r, chronic ROSEMARY,CHR ISSOM J 06/30 [facility] Outpatient Encounter [id number] [id number] 07/15 [facility] TELEHEALTH FACILITY FEE [id number] [id number] Diagnos is: ICD-10- CM Z02.89 Encount er for other adminis trative examina JODEE Lambert 07/16 [facility] Outpatient Encounter [id number] [id number] Diagnos is: ICD-10- CM Z02.89 Encount er for other adminis trative examina JODEE Lambert 07/16 [facility] OFFICE O/P EST LOW 20 MIN [id number] [id number] Diagnos is: ICD-10- CM M72.2 Plantar fascial fibroma Heaven Huang 07/16 [facility] PSYTX W PT 60 MINUTES [id number] [id number] Diagnos is: ICD-10- CM F43.12 Post-tr aumatic stress disorde r, chronic ROSEMARY,CHR ISSOM J 08/05 [facility] Outpatient Encounter [id number] [id number] 08/07 [facility] Outpatient Encounter [id number] [id number] 08/08 [place] [facility] TELEHEALTH FACILITY FEE [id number] [id number] 142 Diagnos is: ICD-10- CM H93.13 Tinnitu s, bilater al GRAVES,SARAH VICK A 08/08 [facility] [place] [facility] MARILEE TEST PURE TONE [id number] [id number] Diagnos is: ICD-10- CM H93.13 Tinnitu s, bilater al GRAVES,SARAH VICK A 08/08 [place] [facility] PSYTX W PT 45 MINUTES [id number] [id number] Diagnos is: ICD-10- CM F43.12 Post-tr aumatic stress disorde r, chronic ROSEMARY,CHR ISSOM J 08/11 [facility] Outpatient Encounter [id number] [id number] 08/11 [facility] Outpatient Encounter [id number] [id number] 08/14 [facility] Out[facility] Encounter [id number] [id number] 08/18 [facility] PSYTX W PT 60 MINUTES [id number] [id number] Diagnos is: ICD-10- CM F43.12 Post-tr aumatic stress disorde r, chronic ROSEMARY,CHR ISSOM J 08/26 [facility] Outpatient Encounter [id number] [id number] 08/27 [facility] PSYTX W PT 45 MINUTES [id number] [id number] Diagnos is: ICD-10- CM F43.12 Post-tr aumatic stress disorde r, chronic ROSEMARY,CHR ISSOM J 09/09 [facility] Outpatient Encounter [id number] [id number] 09/10 [facility] OFFICE O/P NEW MOD 45 MIN [id number] [id number] Diagnos is: ICD-10- CM F43.12 Post-tr aumatic stress disorde r, chronic TG GERMAN R 09/12 [facility] Outpatient Encounter [id number] [id number] 09/16 [facility] OFFICE O/P NEW LOW 30 MIN [id number] [id number] Diagnos is: ICD-10- CM M99.01 Segment al and 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 JOSEPH LUGO E 10/07 [facility] Outpatient Encounter [id number] [id number] 10/10 [facility] OFFICE O/P EST MOD 30 MIN [id number] [id number] Diagnos is: ICD-10- CM F43.12 Post-tr aumatic stress disorde r, chronic TG GERMAN R 10/13 [facility] Outpatient Encounter [id number] [id number] 11/04 [facility] Outpatient Encounter [id number] [id number] 11/07 [facility] PSYTX W PT 45 MINUTES [id number] [id number] Diagnos is: ICD-10- CM F43.12 Post-tr aumatic stress disorde r, chronic ROSEMARY,CHR ISSOM J 11/14 [facility] Outpatient Encounter [id number] [id number] 11/20 [facility] PSYTX W PT 60 MINUTES [id number] [id number] Diagnos is: ICD-10- CM F43.12 Post-tr aumatic stress disorde r, chronic ROSEMARY,CHR ISSOM J 11/28 [facility] Outpatient Encounter [id number] [id number] ROSEMARY,CHR ISSOM J 12/03 [facility] Outpatient Encounter [id number] [id number] 12/05 [facility] Outpatient Encounter [id number] [id number] 12/10 [facility] Outpatient Encounter [id number] [id number] 12/11 [facility] Outpatient Encounter 55536-4.65 [id number] 12/12 [facility] Outpatient Encounter [id number] [id number] 12/12 [facility] Outpatient Encounter [id number] [id number] 12/16 [facility] Outpatient Encounter [id number] [id number] 12/18 [facility] Outpatient Encounter [id number] [id number] 12/23 [facility] Outpatient Encounter [id number] [id number] 12/26 [facility] Outpatient Encounter [id number] [id number] 01/02 [facility] Outpatient Encounter [id number] [id number] 01/05 [facility] Outpatient Encounter [id number] [id number] 01/05 [facility] PSYTX W PT 60 MINUTES [id number] [id number] Diagnos is: ICD-10- CM F43.12 Post-tr aumatic stress disorde r, chronic ROSEMARY,CHR ISSOM J 01/09 [facility] Outpatient Encounter [id number] [id number] 01/15 [facility] Outpatient Encounter [id number] [id number] 01/21 [facility] PSYTX W PT 60 MINUTES [id number] [id number] Diagnos is: ICD-10- CM F43.12 Post-tr aumatic stress disorde r, chronic ROSEMARY,CHR ISSOM J 02/06 [facility] OFFICE O/P EST MOD 30 MIN [id number] [id number] Diagnos is: ICD-10- CM E66.01 Morbid (severe ) obesity due to excess calorie s CRYSTAL,Heaven FEI 02/26 [facility] Outpatient Encounter [id number] [id number] 02/26 [facility] W PT 60 MINUTES [id number] [id number] Diagnos is: ICD-10- CM F33.1 Major depress cristina disorde r, recurre nt, moderat e ROSEMARY,[facility] ISSOM J 03/06 [facility] Outpatient Encounter [id number] [id number] 03/11 [facility] W PT 60 MINUTES [id number] [id number] Diagnos is: ICD-10- CM F33.1 Major depress cristina disorde r, recurre nt, moderat e ROSEMARY,CHR ISSOM J 03/30 [facility] Outpatient Encounter [id number] [id number] 04/09 [facility] PSYTX W PT 60 MINUTES [id number] [id number] Diagnos is: ICD-10- CM F33.1 Major depress cristina disorde r, recurre nt, moderat e ROSEMARY,CHR ISSOM J 04/13 [facility] Outpatient Encounter [id number] [id number] 04/21 [facility] Outpatient Encounter [id number] [id number] 04/23 [facility] [place] [facility] COMPRE OPH EXAM NEW PT 1/ [id number] [id number] Diagnos is: ICD-10- CM 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 MONICA ISSA 04/24 [place] [facility] [place] [facility] Outpatient Encounter [id number] [id number] 04/27 [place] [facility] [place] [facility] PH1 ASSMT&MGMT NQHP 5-10 [id number] [id number] Diagnos is: ICD-10- CM Z71.9 Sluice Tender ing, unspeci fied BALLARD,P ATRICIA A 04/28 [place] [facility] [place] [facility] PH1 ASSMT&MGMT NQHP 21-30 [id number] [id number] Diagnos is: ICD-10- CM Z71.9 Sluice Tender ing, unspeci fied BALLARD,P ATRICIA A 05/05 [place] [facility] [place] [facility] Outpatient Encounter [id number] [id number] 05/05 [place] [facility] [place] [facility] Outpatient Encounter [id number] [id number] 05/05 [place] [facility] Outpatient Encounter [id number] [id number] 05/05 [facility] Outpatient Encounter [id number] [id number] 05/05 [facility] [place] [facility] Outpatient Encounter [id number] [id number] 05/06 [place] [facility] [place] [facility] Outpatient Encounter [id number] [id number] 05/08 [place] [facility] [place] [facility] Outpatient Encounter [id number] [id number] 05/12 [place] [facility] [place] [facility] PROGRAM INTAKE ASSESSMENT [id number] [id number] Diagnos is: ICD-10- CM Z87.820 [place] history of traumat ic brain injury TONY SWAN 05/13 [place] [facility] [place] [facility] Outpatient Encounter [id number] [id number] 05/15 [facility] Procedures Combined list of: 1) Procedures from Department of Veterans Affairs facilities going back up to thelast 18 months, not all VA non-surgical procedures are included; 2) All procedures from the Department of Defense facilities. Procedure Procedure Type Code Date Perfomer Comments Sourc e Threshold Audiogram (Pure Tone) Automated Threshold Audiogram (Pure Tone) Automated 0208T 2017 SHERITA MCCALL Typhoid Vaccine Vi Capsular Polysaccharide, For Intramus Use Typhoid Vaccine Vi Capsular Polysaccharide, For Intramus Use 40391 2016 MARIA URIBE Hepatitis A And Hepatitis B (Intramuscular Use) Adult Dosage Hepatitis A And Hepatitis B (Intramuscular Use) Adult Dosage 26569 2016 HARJEET DELA CRUZ. Hep A-Hep B; Series #: 3; 1.0 mL; IM; Right Arm; Ubitexxg: [email or web address]; Lot: [id number]; VIS given (Eloise: 05/03/16; 05/03/16). DoD Immunization Administration One Vaccine Immunization Administration One Vaccine 11549 2016 HARJEET DELA CRUZ DoD Vaccines Viral Polio, Inactivated (Salk) Vaccines Viral Polio, Inactivated (Salk) 28026 2016 AMADOR MCINTOSH Poliovirus vaccine Inactivated (IPV) 0.5mL administered IM in left deltoid. Patient observed for 15 minutes post injection with no side effects and or adverse reactions noted. Patient identified by two forms of identifications. VIS statement offered. DoD Vaccines Viral Varicella (Active) Vaccines Viral Varicella (Active) 32771 2016 AMADOR MCINTOSH Varicella vaccine 0.5ml administered subcutaneous in left tricep. Tolerated injection well. Observed for 15 minutes. No adverse reaction observed at this time. Patient identified by two forms of verification (name & ). VIS information provided to patient. DoD Vaccines Viral Measles, Mumps and Rubella, Live Vaccines Viral Measles, Mumps and Rubella, Live 64386 2016 AMADOR MCINTOSH Measles, Mumps, and Rubella Virus Vaccine Live (MMR) 0.5mL administered subcutaneous in left triceps. Tolerated injection well. Observed for 15 minutes. No adverse reaction observed at this time. Patient identified by two forms of verification (name & ). VIS information provided to patient. DoD Immunization Administration Each Additional Vaccine Immunization Administration Each Additional Vaccine 30854 2016 AMADOR MCINTOSH Hepatitis A And Hepatitis B (Intramuscular Use) Adult Dosage Hepatitis A And Hepatitis B (Intramuscular Use) Adult Dosage 91586 2016 AMADOR MCINTOSH Hepatitis A and Hepatitis B vaccine Adult (TWINRIX) 1mL administered IM in left deltoid. Tolerated injection well. Observed for 15 minutes. No adverse reaction observed at this time. Patient identified by two forms of verification (name & ). VIS information provided to patient. DoD Immunization Administration One Vaccine Immunization Administration One Vaccine 27239 2016 AMADOR MCINTOSH Ophthalmological New Patient Start Intermediate Level Care Ophthalmological New Patient Start Intermediate Level Care 97252 2016 JOHANA MAHMOOD Determination Of Refractive State Determination Of Refractive State 45981 2016 JOHANA MAHMOOD Immunization Administration Each Additional Vaccine Immunization Administration Each Additional Vaccine 35514 2016 RITA MEADOWS Tdap Vaccine Tdap Vaccine 30773 2016 RITA MEADOWS Visit for an IM injection of 0.5mL of Boostrix (Tetanus and Diphtheria Toxoids and Acellular Pertussis). Was given in the Right Deltoid. Patient was observed for 15 min with no adverse reactions. [facility] Meningococcal Polysacch Diphtheria Toxoid Conjugate Vaccine 2016 RITA MEADOWS Visit for an IM injection of 0.5mL of Meningococcal Vaccine (Menactra). Was given in the Left Deltoid. Patient was observed for 15 min with no adverse reactions. [facility] Hepatitis A And Hepatitis B (Intramuscular Use) Adult Dosage Hepatitis A And Hepatitis B (Intramuscular Use) Adult Dosage 28904 2016 RITA MEADOWS Visit for an IM injection of 1mL of Twinrix (Hepatitis A and B combination). Was given in the Right Deltoid. Patient was observed for 15 min with no adverse reactions. [facility]D Vaccines Viral Measles, Mumps and Rubella, Live Vaccines Viral Measles, Mumps and Rubella, Live 13083 2016 RITA MEADOWS Visit for a SQ injection of 0.5mL of MMR (Measles, Mumps, and Rubella). Was given in the Right Tricep. Patient was observed for 15 min with no adverse reactions DoD Vaccines Viral Varicella (Active) Vaccines Viral Varicella (Active) 12213 2016 RITA MEADOWS Visit for a SQ injection of 0.5mL of Varicella. Was given in the Right Tricep. Patient was observed for 15 min with no adverse reactions. DoD Immunization Admin Intranasal / Oral Each Additional Vaccine Immunization Admin Intranasal / Oral Each Additional Vaccine 91891 2016 RITA MEADOWS DoD Vaccines Adenovirus Type 4 Live, For Oral Use Vaccines Adenovirus Type 4 Live, For Oral Use 31843 2016 RITA MEADOWS A single vaccine dose adminstered orally. DoD Vaccines Adenovirus Type 7 Live, For Oral Use Vaccines Adenovirus Type 7 Live, For Oral Use 22395 2016 RITA MEADOWS A single vaccine dose adminstered orally. DoD Immunization Administration One Vaccine Immunization Administration One Vaccine 03175 2016 RITA MEADOWS DoD Influenza Split Virus Vaccine Age 3+ Years Intramuscular 2016 RITA MEADOWS Flu vaccine: Administer 0.5mL injected in the left deltoid muscle intramuscularly. Patient was observed for 15 min with no adverse reactions DoD Threshold Audiogram (Pure Tone) Automated Threshold Audiogram (Pure Tone) Automated 0208T 2016 PERICO RICARDO [facility] Scanning Computerized Ophthalmic Diagnostic Imaging Optic Nerve Scanning Computerized Ophthalmic Diagnostic Imaging Optic Nerve 86911 CARLOS DOSS Determination Of Refractive State Determination Of Refractive State 03428 CARLOS DOSS [employer] Fitting Monofocals (Not For Aphakia) [employer] Fitting Monofocals (Not For Aphakia) 58174 CARLOS DOSS 2, 5A (one clear/one tint for desert conditions UV protection at [employer]), 1 FOC and Eye pro inserts ordered. [facility] Ophthalmological New Patient Start Comprehensive Care Ophthalmological New Patient Start Comprehensive Care 21493 CARLOS DOSS [facility] Threshold Audiogram (Pure Tone) Automated Threshold Audiogram (Pure Tone) Automated 0208T KEVIN RACHEL [facility] Comprehensive Audiometry Comprehensive Audiometry 96161 DESHPANDEELISABET VELEZ [facility] Tympanometry Tympanometry 18358 DESHPANDEELISABET VELEZ [facility] Preventive Medicine Physical Exam Vital Signs Recorded Preventive Medicine Physical Exam Vital Signs Recorded [facility] Pulmon Function - O2 Uptake - Gas Analysis Rest, Ind Pulmon Function - O2 [place] [address] [facility] Patient education, not otherwise cla ified, non-physician provider, group, per se ion ROSIE KELLER [facility] Ear mold/insert, not disposable, any type ROSIE KELLER [facility] Non-Physician Phone Call To Patient/Provider Brief (5-10min) Non-Physician Phone Call To Patient/Provider Brief (5-10min) 95463 VELIA LIMA [facility] [employer] Services Fitting Monofocals (Not For Aphakia) [employer] Fitting Monofocals (Not For Aphakia) 87180 LEONARDO DOUGLAS [facility] Psychiatric Evaluation Comprehensive Examination Psychiatric Evaluation Comprehensive Examination 07946 REINA WALSH [facility] Psychiatric Therapy Individual Approximately 45-50 Minutes Psychiatric Therapy Individual Approximately 45-50 Minutes [id number] REINA WALSH [facility] Psychiatric Therapy Individual Approximately 20-30 Minutes Psychiatric Therapy Individual Approximately 20-30 Minutes [id number] REINA WALSH [facility] Injection, methocarbamol, up to 10 mL SLIM DURAN INTRAMUSCULAR ROBAXIN INJECTION - Patient Identification verified using Full Name and Date of . Procedure explained to patient and they verbalized understanding. Per Provider order patient given Intramuscular Robaxin injection. Time of injection: 1148 Robaxin Injection Dosage: 1000 mg Control Integration Engineer: Mylan Lot #: [id number] Expiration date: 08/2022 Injection Site: Right & [...] hours after injection. Procedure performed in clinic. [facility] Injection, methylprednisolone sodium succinate, up to 125 mg SLIM DURAN INTRAMUSCULAR SOLU-MEDROL INJECTION - Patient Identification verified using Full Name and Date of . Procedure explained to patient and they verbalized understanding. Per provider order patient given intramuscular Solu-Medrol injection. Time of injection: 1148 Solu-Medrol Dosage: 125 mg Control Integration Engineer: [employer] Lot number: [id number] Expiration date: 01/2023 Injection site: Left Gluteus Patient tolerated injection without significant side effects. Patient verbalized understanding of all instructions given to include remaining in clinic for 15 minutes to observe for adverse reactions. Procedure performed in clinic. [facility] Adhesive bandage, first-aid type, any size, each LSIM DURAN [facility] Syringe with needle, sterile 5 cc or greater, each RENEESLIM JACOBS [facility] Syringe with needle, sterile 3 cc, each RENEESLIM JACOBS [facility] Needle, sterile, any size, each RENEESLIM JACOBS [facility] Injection, ketorolac tromethamine, per 15 mg SLIM DURAN INTRAMUSCULAR TORADOL INJECTION - Patient Identification verified using Full Name and Date of . Procedure explained to patient and they verbalized understanding. Per provider order patient given IM Toradol injection. Time of injection: 1148 Toradol Dosage: 30 mg Control Integration Engineer: [employer] Lot number: [id number] Expiration date: 08/2022 Site/Route: Right Gluteus Patient [...] Manzanares Supervised Injection Intramuscular Supervised Injection Intramuscular 53124 SLIM DURAN [facility] Patient education, not otherwise cla ified, non-physician provider, individual, per se ion GIANFRANCO MIXON [facility] Social Work Individual Outpatient Counseling 20-30 Minutes Social Work Individual Outpatient Counseling 20-30 Minutes 28775 FADY CEVALLOS [facility] Physical Therapy: ___ Se ion Segments, 15 Minutes Each Physical Therapy: ___ Session Segments, 15 Minutes Each [id number] ROBSON ALANIZ [facility] Physical Therapy Neuromuscular Re-education Physical Therapy Neuromuscular Re-education 80761 ROBSON ALANIZ Physical Medicine - Group Physical Therapy Se ion Physical Medicine - Group Physical Therapy Session 20851 PETR MORE [facility] Med Management By Pharmacist Initial 15 Min Estab Patient Med Management By Pharmacist Initial 15 Min Estab Patient 81211 HELEN PAULINO [phone]; 25 min DoD Medication Management By Pharmacist Each Additional 15 Min Medication Management By Pharmacist Each Additional 15 Min 10743 HELEN PAULINO [facility] Waiver services; not otherwise specified (NOS) HELEN PAULINO [facility] Nerve Block Ilioinguinal Nerve Block Ilioinguinal 37575 TG ZAMUDIO [facility] Physical Medicine Physical Therapy Re-Evaluation Physical Medicine Physical Therapy Re-Evaluation 74407 ROBSON ALANIZ [facility] Pulmonary Function - O2 Uptake - Gas Analysis Pulmonary Function - O2 Uptake - Gas Analysis 04114 ALEIDA YAÑEZ DoD Med Management By Pharmacist Initial 15 Min Estab Patient Med Management By Pharmacist Initial 15 Min Estab Patient 98096 HELEN PAULINO [phone]; 25 min DoD Fluorosc Guid For Inj Of Paravertebral Facet Joint Lumbar Single Level Fluorosc Guid For Inj Of Paravertebral Facet Joint Lumbar Single Level 03258 SPINUZZA, YULISSA [facility] Fluorosc Guid For Inj Of Paravertebral Facet Joint Lumbar Second Level Fluorosc Guid For Inj Of Paravertebral Facet Joint Lumbar Second Level 74515 SPINUZZA, YULISSA [facility] Injection, ropivacaine HCl, 1 mg SPINUZZA, YULISSA [facility] Fluorosc Guid For Inj Of Paravertebral Facet Joint Lumbar Third Level Fluorosc Guid For Inj Of Paravertebral Facet Joint Lumbar Third Level 98009 MUNA CONTRERAS [facility] Injection, dexamethasone sodium phosphate, 1 mg SPINUZZA, YULISSA [facility] Modalities Electrical Stimulation Modalities Electrical Stimulation 03850 RICH RICARDO [facility] Modalities Electrical Stimulation Device Placement Modalities Electrical Stimulation Device Placement 74241 RICH RICARDO [facility] Modalities Electrical Stimulation Attended Each 15 Minutes Modalities Electrical Stimulation Attended Each 15 Minutes 34129 RICH RICARDO [facility] Polysomnography Polysomnography 38825 HAO CEDEÑO [facility] Ophthalmological Prior Patient Start Comprehensive Care Ophthalmological Prior Patient Start Comprehensive Care 47574 RICK POLANCO [facility] ECG 12-Lead ECG 12-Lead 3120F ELSA DELGADILLO [facility] Med Management By Pharmacist Initial 15 Min Estab Patient Med Management By Pharmacist Initial 15 Min Estab Patient 08484 HELEN PAULINO [phone]; 15 min DoD Modalities Traction Manual (Each Region 15 Minutes) Modalities Traction Manual (Each Region 15 Minutes) 57708 RICH RICARDO [facility] Phys Therapy Education Self Care Training - Per 15 Minutes Phys Therapy Education Self Care Training - Per 15 Minutes 26491 ROBSON ALANIZ [facility] Patient Counseling Medical Management Individual Patient Patient Counseling Medical Management Individual Patient 79783 NUBIA SUAZO V [facility] EDUCATION &TRAINING, PATIENT SELF-MGT QUALIFIED, NONPHYSICIAN HEALTH RISK ENGINEER USING STDIZED CURRICULUM, [facility]-LW-SFIO W THE PATIENT (COULD INCL CAREGIVER/FAMILY) EA 30 MIN; INDIVIDUAL PATIENT 2022 [facility] RE-EVAL,PHYSICAL THERAPY EST PLAN OF CARE,REQ:EXAM,REV,HX & USE,STAND TESTS &HIRA REQ;REV PLAN OF CARE USING STAND PAT ASSESS INSTR &/HIRA ASSESS FUNC OUTCOME TYP,20 MIN SPENT NQAM-FJ-YVSS W PAT&/FAM 2022 [facility] BRIEF COMM TECH-BASE SERV,E.G. VIRTUAL CHK-IN,BY QUAL HCP WHO CANNOT REP E&M SER,PROV TO EST PT,NOT ORIG FRM A REL SERV PROV W/IN PREV 7D NOR LEAD TO SERV/PX W/IN NEXT 24H/SOON AVAIL APPT;5-10M DISC 2022 [facility] MANUAL THERAPY TECHNIQUES (EG, MOBILIZATION/ MANIPULATION, MANUAL LYMPHATIC DRAINAGE, MANUAL TRACTION), 1 OR MORE REGIONS, EACH 15 MINUTES 2022 [facility] ELECTROCARDIOGRAM, ROUTINE ECG WITH AT LEAST 12 LEADS; WITH INTERPRETATION AND REPORT 2022 [facility] THERAPEUTIC PROCEDURE, 1 OR MORE AREAS, EACH 15 MINUTES; THERAPEUTIC EXERCISES TO DEVELOP STRENGTH AND ENDURANCE, RANGE OF MOTION AND FLEXIBILITY 2022 [facility] THERAPEUTIC PROCEDURE(S), GROUP (2 OR MORE INDIVIDUALS) 2022 DoD THERAPEUTIC PROCEDURE,1 OR MORE AREAS,EACH 15 MINUTES;NEUROMUSCULAR REEDUCATION OF MOVEMENT,BALANCE,COOR DINATION,KINESTHETIC SENSE,POSTURE,AND/OR PROPRIOCEPTION FOR SITTING AND/OR STANDING ACTIVITIES 2022 [facility] THERAPEUTIC PROCEDURE(S), GROUP (2 OR MORE INDIVIDUALS) 2022 [facility] THERAPEUTIC PROCEDURE, 1 OR MORE AREAS, EACH 15 MINUTES; THERAPEUTIC EXERCISES TO DEVELOP STRENGTH AND ENDURANCE, RANGE OF MOTION AND FLEXIBILITY 2022 DoD FITTING OF SPECTACLES, EXCEPT FOR APHAKIA; MONOFOCAL 2022 [facility] INJECTION, KETOROLAC TROMETHAMINE, PER 15 MG 2022 [facility] POLYSOMNOGRAPHY; ANY AGE, SLEEP STAGING WITH 1-3 ADDITIONAL PARAMETERS OF SLEEP, ATTENDED BY A TECHNOLOGIST 2022 [facility] HEALTH BEHAVIOR ASSESSMENT, OR RE-ASSESSMENT (IE, HEALTH-FOCUSED CLINICAL INTERVIEW, BEHAVIORAL OBSERVATIONS, CLINICAL DECISION MAKING) 2021 [facility] INJECTION, ONDANSETRON HCL, PER 1 MG 2021 [facility] HEALTH BEHAVIOR INTERVENTION, INDIVIDUAL, [id number]; INITIAL 30 MINUTES 2021 [facility] HEALTH BEHAVIOR INTERVENTION, INDIVIDUAL, NAQX-CI-SIDU; INITIAL 30 MINUTES 2021 [facility] INJECTION, DEXAMETHASONE SODIUM PHOSPHATE, 1 MG 2021 [facility] APPLICATION OF A MODALITY TO 1 OR MORE AREAS; ELECTRICAL STIMULATION (MANUAL), EACH 15 MINUTES 2021 [facility] THERAPEUTIC PROCEDURE,1 OR MORE AREAS,EACH 15 MINUTES;NEUROMUSCULAR REEDUCATION OF MOVEMENT,BALANCE,COOR DINATION,KINESTHETIC SENSE,POSTURE,AND/OR PROPRIOCEPTION FOR SITTING AND/OR STANDING ACTIVITIES 2021 [facility] THERAPEUTIC PROCEDURE, 1 OR MORE AREAS, EACH 15 MINUTES; THERAPEUTIC EXERCISES TO DEVELOP STRENGTH AND ENDURANCE, RANGE OF MOTION AND FLEXIBILITY 2021 [facility] THERAPEUTIC PROCEDURE(S), GROUP (2 OR MORE INDIVIDUALS) 2021 [facility] INJECT(S),DIAG/THER AGNT,PARAVERTEB FAC (ZYGAPOPHYS) JT (OR NERV INNERVATING THAT JT) W IMAG GUIDANCE (FLUORO/CT),LUMB/SAC; 3RD & ANY ADDITION LEVL (LIST SEPARATELY IN ADDITION TO CODE FOR PRIM PROC) 2021 [facility] THERAPEUTIC PROCEDURE(S), GROUP (2 OR MORE INDIVIDUALS) 2021 [facility] THERAPEUTIC PROCEDURE,1 OR MORE AREAS,EACH 15 MINUTES;NEUROMUSCULAR REEDUCATION OF MOVEMENT,BALANCE,COOR DINATION,KINESTHETIC SENSE,POSTURE,AND/OR PROPRIOCEPTION FOR SITTING AND/OR STANDING ACTIVITIES 2021 [facility] INJECTION, ROPIVACAINE HYDROCHLORIDE, 1 MG 2021 [facility] WAIVER SERVICES; NOT OTHERWISE SPECIFIED (NOS) 2021 [facility] VITAL SIGNS (TEMPERATURE, PULSE, RESPIRATORY RATE, AND BLOOD PRESSURE) DOCUMENTED AND REVIEWED (CAP) (EM) 2021 [facility] BIOELECTRICAL IMPEDANCE ANALYSIS WHOLE BODY COMPOSITION ASSESSMENT, WITH INTERPRETATION AND REPORT 2021 [facility] THERAPEUTIC PROCEDURE, 1 OR MORE AREAS, EACH 15 MINUTES; THERAPEUTIC EXERCISES TO DEVELOP STRENGTH AND ENDURANCE, RANGE OF MOTION AND FLEXIBILITY 2021 [facility] INJECTION(S), ANESTHETIC AGENT(S) AND/OR STEROID; ILIOINGUINAL, ILIOHYPOGASTRIC NERVES 2021 [facility] WAIVER SERVICES; NOT OTHERWISE SPECIFIED (NOS) 2021 [facility] THERAPEUTIC PROCEDURE(S), GROUP (2 OR MORE INDIVIDUALS) 2021 [facility] THERAPEUTIC PROCEDURE(S), GROUP (2 OR MORE INDIVIDUALS) 2021 [facility] BIOELECTRICAL IMPEDANCE ANALYSIS WHOLE BODY COMPOSITION ASSESSMENT, WITH INTERPRETATION AND REPORT 2021 [facility] THERAPEUTIC PROCEDURE,1 OR MORE AREAS,EACH 15 MINUTES;NEUROMUSCULAR REEDUCATION OF MOVEMENT,BALANCE,COOR DINATION,KINESTHETIC SENSE,POSTURE,AND/OR PROPRIOCEPTION FOR SITTING AND/OR STANDING ACTIVITIES 2021 [facility] BRIEF EMOTIONAL/BEHAVIORAL ASSESSMENT (EG, DEPRESSION INVENTORY, ATTENTION-DEFICIT/HYP ERACTIVITY DISORDER [ADHD] SCALE), WITH SCORING AND DOCUMENTATION, PER STANDARDIZED INSTRUMENT 2021 [facility] PATIENT EDUCATION, NOT OTHERWISE CLASSIFIED, NON-PHYSICIAN PROVIDER, INDIVIDUAL, PER SESSION 2021 [facility] PSYCHIATRIC DIAGNOSTIC EVALUATION 2021 DoD INJECTION, KETOROLAC TROMETHAMINE, PER 15 MG 2021 DoD PSYCHOTHERAPY, 30 MINUTES WITH PATIENT 2021 [facility] HEALTH AND WELL-BEING COACHING XCKN-OP-CMXD; GROUP (2 OR MORE INDIVIDUALS), AT LEAST 30 MINUTES 2020 [facility] PSYCHOTHERAPY, 30 MINUTES WITH PATIENT 2020 DoD AZITHROMYCIN DIHYDRATE, ORAL, CAPSULES/POWDER, 1 GRAM 2020 [facility] PSYCHOTHERAPY, 45 MINUTES WITH PATIENT 2020 [facility] PSYCHOTHERAPY, 45 MINUTES WITH PATIENT 2020 [facility]D PSYCHIATRIC DIAGNOSTIC EVALUATION 2020 DoD PSYCHIATRIC DIAGNOSTIC EVALUATION 2020 [facility] FITTING OF SPECTACLES, EXCEPT FOR APHAKIA; MONOFOCAL 2020 [facility] PATIENT EDUCATION, NOT OTHERWISE CLASSIFIED, NON-PHYSICIAN PROVIDER, GROUP, PER SESSION 2020 [facility] IMMUNIZATION ADM,INTRAMUSCULAR INJ,SEVERE AC RESPIRATORY SYNDROME CORONAVIR 2 (SARSCOV-2) (CORONAVIR DIS [COVID-19]) VACC,MRNALNP,SPIKE PROT,PRESRV FREE,30 MCG/0.3ML DOS,DILUENT RECONSTITUT;2ND DOSE 2020 [facility]D IMMUNIZATION ADM,INTRAMUSCULAR INJ,SEVERE AC RESPIRATORY SYNDROME CORONAVIR 2 (SARSCOV-2) (CORONAVIR DIS [COVID-19]) VACC,MRNALNP,SPIKE PROT,PRESRV FREE,30 MCG/0.3ML DOS,DILUENT RECONSTITUT;1ST DOSE 2020 [facility] POSTOPERATIVE FOLLOW-UP VISIT, NORMALLY INCLUDED IN THE SURGICAL PACKAGE, INDICATE THAT EVALUATION & MANAGEMENT SERVICE WAS PERFORMED DURING A POSTOPERATIVE PERIOD REASON RELATED ORIGINAL PROCEDURE 2020 [facility] TELE ASSESS & MGT SRV PROV QUAL NONPHYS TH CARE PRO TO EST PAT,PARENT,GUARD NOT ORIG REL ASSESS & MGT SRV PROV W/IN PREV 7 DAYS NOR LEAD ASSESS & MGT SRV/PX W/IN NXT 24 HR/SOON APT;5-10 MIN MED DIS 2020 DoD INJECTION, DEXAMETHASONE SODIUM PHOSPHATE, 1 MG 2020 [facility] ANESTHESIA FOR PROCEDURES ON MALE GENITALIA (INCLUDING OPEN URETHRAL PROCEDURES); NOT OTHERWISE SPECIFIED 2020 [facility] UNIQUE USE: PRE-ANESTHESIA EVALUATION 2020 [facility] UNLISTED SPECIAL SERVICE, PROCEDURE OR REPORT 2020 [facility] ADMINISTRATION OF PATIENT-FOCUSED HEALTH RISK ASSESSMENT INSTRUMENT (EG, HEALTH HAZARD APPRAISAL) WITH SCORING AND DOCUMENTATION, PER STANDARDIZED INSTRUMENT 2018 [facility] POLIOVIRUS VACCINE, INACTIVATED (IPV), FOR SUBCUTANEOUS OR INTRAMUSCULAR USE 2016 [facility] OPHTHALMOLOGICAL SERVICES: MEDICAL EXAMINATION AND EVALUATION WITH INITIATION OF DIAGNOSTIC AND TREATMENT PROGRAM; INTERMEDIATE, NEW PATIENT 2016 [facility] INFLUENZA VIRUS VACCINE, TRIVALENT (IIV3), SPLIT VIRUS, 0.5 ML DOSAGE, FOR INTRAMUSCULAR USE 2016 [facility] PURE TONE AUDIOMETRY (THRESHOLD), AUTOMATED; AIR ONLY 2016 [facility] TYMPANOMETRY (IMPEDANCE TESTING) 2018 [facility] PURE TONE AUDIOMETRY (THRESHOLD), AUTOMATED; AIR ONLY 2018 [facility] FITTING OF SPECTACLES, EXCEPT FOR APHAKIA; MONOFOCAL 2018 [facility] PURE TONE AUDIOMETRY (THRESHOLD), AUTOMATED; AIR ONLY 2017 [facility] TYPHOID VACCINE, CAPSULAR POLYSACCHARIDE (VICPS), FOR INTRAMUSCULAR USE 2016 [facility] IMMUNIZATION ADMINISTRATION (INCLUDES PERCUTANEOUS, INTRADERMAL, SUBCUTANEOUS, OR INTRAMUSCULAR INJECTIONS); 1 VACCINE (SINGLE OR COMBINATION VACCINE/TOXOID) 2016 [facility] Tenodesis Shoulder (Right) 2022 auto-populated from documented surgical case [id number]-[facility] Arthroscopy Shoulder (Right) 2022 auto-populated from documented surgical case [id number]-[facility] Decompre ion Arthroscopy Subacromial (Right) 2022 auto-populated from documented surgical case 0060A-[facility] Laparoscopy, surgical, with ligation of spermatic veins for varicocele Laparoscopy, surgical, with ligation of spermatic veins for varicocele [id number] left [facility] Extraction, erupted tooth or exposed root (elevation and/or forceps removal) wisdom teet h x 2, bottom [facility] Social History Combined list of available smoking, tobacco, and other social history from Department of Defense and Veterans Affairs facilities. Social History Type Response Date Comment [facility] e Tobacco smoking status NHIS VA-TOBACCO USER SOME DAYS 12/10/2023 [facility] History of tobacco use VA-TOBACCO DOESNT USE WI 30 MIN WAKEUP 12/10/2023 [facility] Sex Representation Male (finding) 02/07/2022 Un known Organization This section is an empty social history section. [facility] Tobacco Never-cigarette user Cigarette use:. Never-other tobacco user (not cigarettes) Other Tobacco use:. Smokeless tobacco Other Tobacco type:. [facility] Sexual Orientation Ambula tory Pharmacy Gender identity Ambulator y Pharmacy Assessment and Plan Combined list of future care activities from Department of Defense and Veterans Affairs facilities (e.g., assessment and plan notes, appointments, orders, and referrals). Additional future care activities may be listed in the Plan of Care section. Result Assessment and Plan Date Source Assessment and Plan Extracted from:Title : JJZU-PRXAN-WOOY Author: HELEN PAULINO, PharmD Date: 08/31/23 1. [...] 1 cap(s) Oral Daily,Instr:for chronic pain, Pharmacy: [facility] [Not filled] London PaulinoD, BCACP Clinical Pharmacist [facility] Extracted from:Title: Low Blood Sugar level concerns [...] 8 ounces of liquid once daily, [facility] Extracted from:Title: [id number] Author: HELEN PAULINO, PharmD Date: 05/10/23 1. [...] refill(s), Maintenance, 1 cap(s) Oral TID, Pharmacy: [facility] [Federal Rx: #[id number] last filled 05/10/23] Helen aPulino, PharmD, BCACP Pain Management Clinical Pharmacist [place] [address] Extracted from:Title: Office Clinic Note Author: GIANFRANCO [...] from a mild to moderate SNHL from 3369-8728 Hz?rising back to a mild SNHL at 8000 Hz. L - WNL from 250-8000 Hz. Speech Purchasing Manager Threshold: R - 20 dBHL L - [...] of these instructions and recommendations. Junior Morales, [facility], [facility] [place], [place] Extracted from:Title: 2-week postop F/U left shoulder subpectoral biceps tenodesis Author: JESSI MANUEL PA Date: 04/25/23 1. E buzz for other orthopedic aftercare Patient presents 2 w eeks s/p left shoulder arthroscopy: Subpectoralis b iceps tenodesis, S LAP Rosana cunningham. DOS: March 16 023 Surgeon: Dr. Rodgers. [...] answered in detail this visit. EMR and [employer] attestation - this electronic health record document was created with the [employer] system. While this document has been reviewed, there may still be phonetic and typographical errors. These are due to imperfections of the software program and do not reflect any compromise of the patient's medical care. Jessi Manuel DScMT [facility] Extracted from:Title: HEARING TEST Author: [...] will be scheduled an appointment with the [facility] for further evaluation. Refer to [id number] in Documentation for test results. MEDPROS was manually updated at today's visit and p atient has been provided with a copy o f hearing test results. Patient tested H -2 a t today's visit and MEDPROS has been updated to reflect as such. PLAN: Patient r equires an evaluation by an pharmacy teacher [facility] Hearing/Audiology T [facility] Diagnostic Tests PendingGlucose Level POC 06/25/23 05/22/2025 0060[facility] TiRony Assessment and Plan Extracted from:Title : [id number]-VYFZ Author: HELEN PAULINO, PharmD Date: 08/31/23 1. David hillser for therapeutic drug level monitoring Patient encounter [...] 1 cap(s) Oral Daily,Instr:for chronic pain, Pharmacy: [facility] [Not filled] Lora, PharmD, BCACP Clinical Pharmacist [facility] Extracted from:Title: Low Blood Sugar level concerns [...] once daily, [facility] Extracted from:Title: OEYE-GZOFT-CCFN Author: HELEN PAULINO, PharmD Date: 05/10/23 1. [...] refill(s), Maintenance, 1 cap(s) Oral TID, Pharmacy: [facility] [Federal Rx: #[id number] last filled 05/10/23] Helen Paulino, PharmD, BCACP Pain Management Clinical Pharmacist [facility] [address] [place] [address] Extracted from:Title: Office Clinic Note Author: GIANFRANCO [...] from a mild to moderate SNHL from 2902-6561 Hz?rising back to a mild SNHL at 8000 Hz. L - WNL from 250-8000 Hz. Speech Purchasing Manager Threshold: R - 20 dBHL L - [...] of these instructions and recommendations. Junior Morales, [facility], [facility] [place], [place] Extracted from:Title: 2-week postop F/U left shoulder subpectoral biceps tenodesis Author: JESSI MANUEL PA Date: 04/25/23 1. E reinierer for other orthopedic aftercare Patient presents 2 [...] ncision site a t this time. P atluly has started postoperative physical therapy. H as pain medications. W ill RTC for next post-op appointment in 4 weeks w rein Rodgers. All patient's questions answered in detail this visit. EMR and Dragon attestation - this electronic health record document was created with the [employer] dictation system. While this document has been reviewed, there may still be phonetic and typographical errors. These are due to imperfections of the software program and do not reflect any compromise of the patient's medical care. Jessi Manuel DScPA [facility] Extracted from:Title: HEARING TEST Author: [...] will be scheduled an appointment with the [facility] for further evaluation. Refer to [id number] in Documentation for test results. MEDPROS was manually updated at today's visit and p raz has been provided with a copy o f hearing test results. Patient tested H -2 a t today's visit and MEDPROS has been updated to reflect as such. PLAN: Patient r equires an evaluation by an pharmacy teacher [facility] Hearing/Audiology T [facility] Diagnostic Tests PendingGlucose Level POC 06/25/23 05/22/2025 0060H-[facility] Plan of Care List of future care activities from Department of Veterans Affairs facilities. Additional future care activities may be listed in the Assessment and Plan section. Date/Time Care Activity Care Activity Detail Facili ty 06/29/2025 AMBULATORY - MEDICINE AMBULATORY - MEDICI [facility] Functional Status Combined list of recent functional and cognitive assessments recorded at Department of Defense and Veterans Affairs (VA).VA Functional [place] Measurement (FIM) Scale: 1 = Total Assistance (Subject = 0% +), 2 = Maximal Assistance (Subject = 25% +), 3 = Moderate Assistance (Subject = 50% +), 4 = Minimal Assistance (Subject = 75% +), 5 = Supervision, 6 = Modified [place] (Device), 7 = Complete [place] (Timely, Safely). Assessment Date/Time Source Assessment Type Assessment Skill Assessment Score Assessment Details FUNCTIONAL 3Antiembolism Device Intermittent pneumatic compression devices, knee high, bilat 04/12/23Living Situation Home with family care ADLs Independent 04/06/23Ability to Read/Write Able to read
--- OUTSIDE RECORDS SUMMARY | 2025-05-21 20:25 | XMS_ITS | Clinical Summary ---
Author Organization [facility] Address [address] [place] [phone] Phone Care Team Providers Care Calciner Operator Name Role Phone Unavailable Primary Care Provider [...]
[2025-05-21 22:04] LABS: Glucose Urine UA Negative (Normal); Nitrate Urine Negative (Negative); Specific Gravity, Urine 1.024 (1.005-1.030)
[2025-05-21 22:07] LABS: Add Urine Microscopic? YES
--- NOTE | 2025-05-21 22:11 | CTR_ITS ---
PROCEDURE INFORMATION: Exam: CT Abdomen And Pelvis Without Contrast Exam date and time: 05/21/2025 10:27 PM Age: 25 years old Clinical indication: Abdominal pain; Flank; Other: Bilat; Additional info: Left flank/testicle pain TECHNIQUE: Imaging protocol: Computed tomography of the abdomen and pelvis without contrast. Radiation optimization: All CT scans at this facility use at least one of these dose optimization techniques: automated exposure control; mA and/or kV adjustment per patient size (includes targeted exams where dose is matched to clinical indication); or iterative reconstruction. COMPARISON: US scrotum [id number] 05/21/2025 8:35 AM RADIATION DOSE METRICS: Total DLP (mGy-cm): 1108.27 FINDINGS: Liver: Normal. No mass. Gallbladder and biliary ducts: Normal. No calcified stones. No ductal dilation. Pancreas: Normal. No ductal dilation. Spleen: Query mild splenomegaly. Small splenule. Adrenal glands: Normal. No mass. Kidneys and ureters: No radiopaque renal calculi or evidence of acute obstructive uropathy. Stomach and bowel: Scattered colonic diverticula most conspicuous in region of sigmoid without definite significant acute inflammatory changes. Mildly thickened transverse colon, presumably related to underdistention rather than true wall thickening although clinical correlation recommended. Appendix: No evidence of appendicitis. Intraperitoneal space: Unremarkable. No free air. No significant fluid collection. Vasculature: Unremarkable. No abdominal aortic aneurysm. Lymph nodes: Mildly prominent nodes in the region of the cecum, nonspecific, could represent mesenteric adenitis. Urinary bladder: Unremarkable as visualized. Reproductive: Unremarkable as visualized. Bones/joints: Mild degenerative changes of the lumbar vertebral bodies with multilevel endplate spurring and disc space narrowing. Soft tissues: Unremarkable. CT/CT kidney stone [id number] IMPRESSION: 1. Scattered colonic diverticula most conspicuous in region of sigmoid without definite significant acute inflammatory changes. 2. Mildly prominent nodes in the region of the cecum, nonspecific, could represent mesenteric adenitis. 3. No radiopaque renal calculi or evidence of acute obstructive uropathy.
--- NOTE | 2025-05-21 22:13 | ED_ITS ---
HPI - Male Genitourinary 2 General: Chief complaint: Urogenital-Male Stated complaint: Flank pain Possible Kidney Stone Time Seen by Provider: 05/21/25 21:28 Source: patient Mode of arrival: ambulatory Limitations: no limitations History of Present Illness: Patient is a 25-year-old male who presents the emergency department complaining of left flank and testicle pain beginning this morning. He was seen in the emergency department this morning, he reportedly had chest x-ray and a scrotum ultrasound, the ultrasound showing left varicocele, patient states he has chronic history of varicoceles and has had surgery for these. However there was recommended that he follow-up with urology. He states that he was discharged home, his pain has only worsened in his testicle and is now on his left flank. Denies history of kidney stones. Denies any urinary symptoms such as hematuria, dysuria, or urinary hesitancy. He states he has been running subjective fevers and has felt sick to his stomach. Notes that the pain is worse with any movement. Denies any family history of kidney stones. He has been taking diclofenac without any relief. MD Complaint: testicle pain Onset (ago): hour(s) Duration: progressively worsening Location: left testicle and left flank Severity scale (1-10): 10 Associated symptoms: Reports nausea; Deny dysuria or vomiting Related Data Home Medications ?Medication ?Instructions ?Recorded ?Confirmed duloxetine 60 mg capsule,delayed 60 mg PO DAILY 10/14/24 release gabapentin 300 mg capsule 300 mg PO TID 10/15/2310/14 omeprazole 10 mg capsule,delayed 10 mg PO DAILY 10/14/24 release Previous Rx's ?Medication ?Instructions ?Recorded cephalexin 500 mg capsule 500 mg PO Q8H 7 days #21 cap s 10/14/24 amoxicillin 875 mg-potassium 1 tab PO BID #20 tabs 05/08 clavulanate 125 mg tablet diclofenac sodium 75 mg 75 mg PO Q12H PRN pain #20 t abs 05/21/25 tablet,delayed release Allergies Allergy/AdvReac Type Severity Reaction Status Date / Time No Known Allergies Allergy Verified 10/14/24 16:38 Review of Systems 2 General: Reports: 10 or more systems reviewed and unremarkable except in HPI and below Const: Reports: fever(s); Denies: chills, change in appetite, change in weight or diaphoresis ENMT: Denies: throat pain or hoarseness Card: Denies: chest pain, palpitations or lightheadedness Resp: Denies: dyspnea, productive cough or wheezing GI: Reports: abdominal pain and nausea; Denies: vomiting, diarrhea, constipation, bloating, change in stool character or hematochezia : Reports: flank pain and testicular pain; Denies: difficulty urinating, dysuria, urinary frequency or urinary urgency Musc: Denies: neck pain or back pain Skin/Breast: Denies: rash or new lesions Neuro: Denies: headache(s) or dizziness PFSH ED 2 PFSH: Social History Smoking and tobacco/nicotine status: never used tobacco/nicotine Physical Exam 2 Const: COMMON NORMALS: no acute distress, average body habitus, patient oriented x3, no limitations, healthy appearing, alert and well nourished G ENERAL APPEARANCE: cooperative and comfortable ORIENTATION/CONSCIOUSNESS: Yes awake HENMT: COMMON NORMALS: normocephalic, atraumatic, hearing grossly normal bilaterally, external ears normal, Normal external nose present, Normal nasal mucous membranes and turbinates present and moist oral mucous membranes HEAD & SCALP: normocephalic and atraumatic NOSE: Normal external nose present and Normal nasal mucous membranes and turbinates present EXTERNAL EAR: Yes external ears normal Eye: COMMON NORMALS: Equal, round and reactive pupils present, EOMs intact bilaterally, conjunctivae normal and normal visual [place] by confrontation C ONJUNCTIVA: Yes conjunctivae normal PUPIL: Yes Equal, round and reactive pupils present Neck/C-Spine: COMMON NORMALS: full ROM, supple, no meningeal signs and no JVD Resp: COMMON NORMALS: normal respiratory effort, No retractions, No use of accessory muscles and clear to auscultation bilaterally AUSCULTATION: clear to auscultation bilaterally, no crackles, no rales, no rhonchi and no wheezes Cardio: COMMON NORMALS: no JVD, regular rate, regular rhythm, S1 normal heart sound present, S2 normal heart sound present, No gallops present (Cardio), No clicks present (Cardio), No murmurs present (Cardio), No rub (Cardio) and Peripheral pulses 2+ throughout RATE: regular rate RHYTHM: regular rhythm HEART SOUNDS: S1 normal heart sound present and S2 normal heart sound present PERIPHERAL PULSES: Peripheral pulses 2+ throughout GI: COMMON NORMALS: Normal to inspection, nondistended, normoactive bowel sounds present, Soft to palpation, non-tender, No hepatosplenomegaly present and no masses AUSCULTATION: Yes normoactive bowel sounds PALPATION: Yes Soft to palpation, No Guarding due to palpation present (GI), No Rigid due to palpation and Yes No hepatosplenomegaly present RECTAL EXAM: Yes deferred : COMMON NORMALS: Yes no CVA tenderness BLADDER/KIDNEY EXAM: Yes no CVA tenderness Back/Pelvis: COMMON NORMALS: no CVA tenderness Extremity: COMMON NORMALS: normal to inspection and full ROM Neuro: COMMON NORMALS: patient oriented x3, moves all extremities, no focal motor deficits and no sensory deficits noted SENSORIUM/ORIENTATION: Yes alert MENINGEAL SIGNS: Yes no meningeal signs Psych: COMMON NORMALS: mental status grossly normal, cooperative and speech normal SPEECH: Yes normal speech Skin: COMMON NORMALS: no rashes or lesions noted GENERAL SKIN EXAM: no rashes or lesions noted Course 2 Vital Signs: Vital signs: Vital Signs Temperature 97.9 F 05/21/25 20:20 Pulse Rate 87 05/21/25 20:20 Respiratory Rate 16 05/21/25 20:20 Blood Pressure 97/70 05/21/25 20:20 Pulse Oximetry 97 05/21/25 20:20 Oxygen Delivery Me thod Room Air 05/21/25 20:20 MDM - Male Medical Decision Making Patient seen here in the emergency department for development of left flank pain throughout the day. Was seen here earlier this morning, had ultrasound of his testes showing some chronic findings including a left varicocele. However pain has now started in the left flank. Overall however the physical exam was unremarkable, patient nontoxic-appearing. He was given [place] for his pain which he is noting 10/10, also given Zofran for nausea. His blood work was unremarkable, and urinalysis did not reveal any blood or signs of infection. Abdomen and pelvis CT did not show any stone pathology, some nonspecific findings. Ultimately do not have the best explanation for his pain, though does not appear to be anything emergent or life-threatening. He has already established urology follow-up through the OR, I believe that this is his next best step for further evaluation and this could likely be from left varicocele or other chronic testicular pathology. Could also be musculoskeletal in nature, he also has a history of back surgery. Overall is stable for discharge home with general return precautions given. Lab Data 05/21/25 22:00 05/21/25 22:00 Radiology Impressions Abdomen/Pelvis CT 05/21/25 22:11 IMPRESSION: 1. Scattered colonic diverticula most conspicuous in region of sigmoid without definite significant acute inflammatory changes. 2. Mildly prominent nodes in the region of the cecum, nonspecific, could represent mesenteric adenitis. 3. No radiopaque renal calculi or evidence of acute obstructive uropathy. Laboratory Results WBC 7.74 10^3/uL (3.29-11.43) 05/21/25 22:00 RBC 4.79 10^6/uL (3.85-5.65) 05/21/25 22:00 Hgb 14.50 g/dL (11.27-16.99) 05/21/25 22:00 Hct 41.3 % (37-53) 05/21/25 22:00 MCV 86.2 fl (82-101) 05/21/25 22:00 MCH 30.3 pg (27-33) 05/21/25 22:00 MCHC 35.1 g/dL (30-55) 05/21/25 22:00 RDW 12.0 % (12.1-15.1) L 05/21/25 22:00 Plt Count 155 10^3/cmm (157-399) L 05/21/25 22:00 MPV 9.9 fL (7.4-10.4) 05/21/25 22:00 Neut % (Auto) 71.0 % 05/21/25 22:00 Lymph % (Auto) 19.5 % 05/21/25 22:00 [place] % (Auto) 8.4 % 05/21/25 22:00 Eos % (Auto) 0.5 % 05/21/25 22:00 Baso % (Auto) 0.3 % 05/21/25 22:00 Neut # (Auto) 5.50 10^3/uL (1.8-7.7) 05/21/25 22:00 Lymph # (Auto) 1.5 10^3/uL (0.8-4.8) 05/21/25 22:00 [place] # (Auto) 0.7 10^3/uL (0.2-0.9) 05/21/25 22:00 Eos # (Auto) 0.0 10^3/uL (0.0-0.8) 05/21/25 22:00 Baso # (Auto) 0.0 10^3/uL (0.0-0.1) 05/21/25 22:00 Nucleated RBC % (auto) 0 % 05/21/25 22:00 Nucleated RBCs # 0.0 /100WBC 05/21/25 22:00 Sodium 142 mmol/L (136-145) 05/21/25 22:00 Potassium 3.5 mmol/L (3.5-5.1) 05/21/25 22:00 Chloride 107 mmol/L (98-107) 05/21/25 22:00 Carbon Dioxide 22 mmol/L (22-29) 05/21/25 22:00 Anion Gap 16.5 (5-19) 05/21/25 22:00 BUN 9 mg/dL (6-20) 05/21/25 22:00 Creatinine 0.9 mg/dL (0.7-1.2) 05/21/25 22:00 GFR Calculation 101.2 mL/min (90-130) 05/21/25 22:00 Glucose 113 mg/dL (65-115) 05/21/25 22:00 Calculated Osmolality 293 mOsm/kg (285-295) 05/21/25 22:00 Calcium 9.1 mg/dL (8.5-10.5) 05/21/25 22:00 Total Bilirubin 0.6 mg/dL (0.15-1.2) 05/21/25 22:00 AST 19 U/L (0-40) 05/21/25 22:00 ALT 18 U/L (0-41) 05/21/25 22:00 Alkaline Phosphatase 86 U/L (40-130) 05/21/25 22:00 Total Protein 6.5 g/dL (6.6-8.7) L 05/21/25 22:00 Albumin 3.8 g/dL (3.5-5.2) 05/21/25 22:00 Globulin 2.7 g/dL (1.3-4.6) 05/21/25 22:00 Urine Color Yellow (Yellow) 05/21/25 21:54 Urine Appearance Cloudy (CLEAR) A 05/21/25 21:54 Urine pH 6.5 (5-7) 05/21/25 21:54 Ur Specific [place] 1.024 (1.005-1.030) 05/21/25 21:54 Urine Protein Trace (Negative) A 05/21/25 21:54 Urine Glucose (UA) Negative (Normal) 05/21/25 21:54 Urine Ketones Trace (Negative) 05/21/25 21:54 Urine Blood Negative (Negative) 05/21/25 21:54 Urine Nitrate Negative (Negative) 05/21/25 21:54 Urine Bilirubin Negative (Negative) 05/21/25 21:54 Urine Urobilinogen 1.0 mg/dL (Negative) 05/21/25 21:54 Ur Leukocyte Esterase Negative (Negative) 05/21/25 21:54 Urine RBC 0-2 /hpf (0-2) 05/21/25 21:54 Urine WBC 0-5 /hpf (0-5) 05/21/25 21:54 Ur Squamous Epith Cells 0-5 /hpf (0-5) 05/21/25 21:54 Amorphous Sediment Not Reportable 05/21/25 21:54 Urine Bacteria None seen /hpf (NONE) 05/21/25 21:54 Hyaline Casts 1.21 /lpf 05/21/25 21:54 All radiology interpretation(s) finalized by discharge Discharge Plan Discharge Patient Disposition: Home Clinical Impression: Left varicocele, Left flank pain Condition: Stable Prescriptions: No Action duloxetine 60 mg capsule,delayed release(DR/EC) 60 mg PO DAILY gabapentin 300 mg capsule 300 mg PO TID omeprazole 10 mg capsule,delayed release(DR/EC) 10 mg PO DAILY cephalexin 500 mg capsule 500 mg PO Q8H 7 Days Qty: 21 0RF amoxicillin-pot clavulanate 875-125 mg tablet 1 tab PO BID Qty: 20 0RF diclofenac sodium 75 mg tablet,delayed release (DR/EC) 75 mg PO Q12H PRN (Reason: pain) Qty: 20 0RF Discharge Orders: Discharge ED (Routine); Ordered 05/22/25 Ordered By: Randy Foster Referrals: Shanda Rodríguez MD [Primary Care Provider, [facility]] Patient Instructions: Opioid Safety, Pain Management, Patient Portal & Amanda Instructions Activity Restrictions/Additional Instructions: ED discharge plan Your visit today - A CT scan today did not show kidney stones or other urgent problems. The scan did show small pouches in the colon wall called diverticula (diverticulosis). An ultrasound earlier today showed a left varicocele (enlarged veins around the left testicle), which is usually benign. - The pain in the left flank and testicle can be from muscle strain, referred pain, or discomfort related to the varicocele. Dangerous causes have been ruled out today based on exam and imaging. About diverticulosis - Diverticulosis means there are small outpouchings in the colon wall. Many people have this and never have symptoms. - Sometimes, a pouch can get inflamed or infected. That is called diverticulitis and typically causes steady left lower belly pain, fever, and sometimes nausea or vomiting. Preventing diverticulitis - Diet and lifestyle lower risk: - Eat a high-quality, fiber-rich pattern: fruits, vegetables, whole grains, and legumes; limit red meat and sweets. - Aim for a healthy weight and regular physical activity. - Do not smoke. - Avoid frequent nonsteroidal anti-inflammatory drugs (NSAIDs) like ibuprofen or naproxen unless prescribed for heart protection with aspirin. - Nuts, seeds, popcorn, and fruits with small seeds are safe to eat and do not raise diverticulitis risk. - Genetics play a role too, but healthy habits help regardless of family history. What to do if belly symptoms start - For new, mild left lower belly pain without fever: clear liquids for 1?2 days (broth, gelatin, electrolyte drinks), then advance diet as symptoms improve. - Use acetaminophen for pain as needed and avoid NSAIDs when possible due to bleeding/diverticular risks. - Seek care promptly if symptoms are moderate to severe, if fever develops, if pain worsens after 48?72 hours, or if unable to keep fluids down. Some people need antibiotics or further evaluation depending on severity and health conditions. Home care for left flank and testicular pain (with negative imaging today) - Rest and activity: Gentle activity as tolerated. Avoid heavy lifting or strenuous exercise for a few days. - Scrotal support: Wear supportive underwear or an athletic supporter to reduce testicular pulling and discomfort, especially with a varicocele. - Ice/heat: - For scrotal pain: apply a cold pack wrapped in a cloth for 15?20 minutes at a time, a few times daily. - For flank/muscle pain: consider warm compresses or a warm shower for 15?20 minutes to relax muscles. - Pain control: - First choice: acetaminophen (follow label dosing; do not exceed the maximum daily dose). This avoids the bleeding risks seen with NSAIDs in diverticular disease. - If additional relief is needed and there are no stomach, kidney, or bleeding issues, short-term NSAIDs (e.g., ibuprofen) can help musculoskeletal pain, but weigh this against diverticular bleeding risk and avoid frequent/long-term use. - Hydration: Stay well hydrated. - Sexual activity: If it worsens pain, reduce until symptoms settle. - Follow-up: Already scheduled with urology; keep that appointment to discuss ongoing varicocele-related symptoms and fertility questions if relevant. When to return or seek urgent care - New or worsening severe belly pain, especially on the left lower side. - Fever (>=00.4?F/38?C), chills, vomiting, or inability to keep liquids down. - Blood in stool or black tarry stools. - Increasing testicular pain or swelling, redness, high-riding testicle, or sudden severe testicular pain (these can be emergencies). - Pain not improving after 48?72 hours of home care, or any concerning new symptoms. - If symptoms return or worsen within the next 9 days after discharge, prompt reassessment is appropriate. What to expect next - Most uncomplicated belly symptoms, when they occur, improve within 48?72 hours with rest, fluids, and pain control. - Many people with diverticulosis never develop diverticulitis. Healthy diet and lifestyle lower the risk over time. Contacts and medications - Continue any usual medicines as prescribed. - Bring these instructions to the upcoming urology visit to review testicular and varicocele symptoms. Education summary - Diverticulosis = colon pouches. Focus on fiber-rich diet, exercise, healthy weight, no smoking, and limiting NSAIDs to lower the chance of diverticulitis. - Today?s scans ruled out kidney stones and other urgent causes. - Use supportive care for flank/testicular pain and keep the urology follow-up. Print Language: Latvian Coding Level of Care Code ED [employer] for Harini Bhagat
[2025-05-21] MEDS: HYDROcodone-acetaminophen 7.5-325 mg Tablet 1 TAB PO (22:24)
[2025-05-21 22:33] LABS: Hematocrit 41.3 % (37-53); Hemoglobin 14.50 g/dL (11.27-16.99); Mean Corpuscular HGB Conc 35.1 g/dL (30-55); Mean Corpuscular Hemoglobin 30.3 pg (27-33); Mean Corpuscular Volume 86.2 fl (82-101); Nucleated Red Blood Cells % 0 %; Platelet Count 155 10^3/cmm (157-399); Red Blood Count 4.79 10^6/uL (3.85-5.65); White Blood Count 7.74 10^3/uL (3.29-11.43)
[2025-05-21 22:53] LABS: Alanine Aminotransferase 18 U/L (0-41); Albumin Level 3.8 g/dL (3.5-5.2); Alkaline Phosphatase 86 U/L (40-130); Anion Gap 16.5 (5-19); Aspartate Amino Transferase 19 U/L (0-40); Blood Urea Nitrogen 9 mg/dL (6-20); Calcium 9.1 mg/dL (8.5-10.5); Carbon Dioxide 22 mmol/L (22-29); Chloride 107 mmol/L (98-107); Creatinine Clr Calc Pharmacy 169.0257; Globulin 2.7 g/dL (1.3-4.6); Glucose 113 mg/dL (65-115); Osmolality Calculated 293 mOsm/kg (285-295); Potassium 3.5 mmol/L (3.5-5.1); Sodium 142 mmol/L (136-145); Total Protein 6.5 g/dL (6.6-8.7)
[2025-05-22] MEDS: HYDROcodone-acetaminophen 7.5-325 mg Tablet 2 TAB PO (00:29)
== END 2025-05-22 00:33 | disposition home or self-care (01) ==
PROVIDERS: Emergency Medicine; Emergency Provider Physician Assistant; PCP Family Medicine
DX: I86.1 Scrotal varices (principal); R10.9 Unspecified abdominal pain
CPT/HCPCS: 36415; 74176; 80053; 81001; 85025; 99284; J9999; Q0162

== ENCOUNTER 2025-09-21 08:45 | Outpatient (CLI) | payer OTHER, SELFPAY ==
--- NOTE | 2025-09-21 08:51 | XR_ITS ---
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 Normal lumbar curvatures. No focal lesion or significant compression deformity of the lumbar vertebrae. Mild narrowing of the L5-S1 disc space. No spondylolysis or spondylolisthesis. XR/XR lumbar spine 2-3V* [id number] IMPRESSION: Minimal degenerative spondylosis as above.
== END 2025-09-21 08:46 | disposition home or self-care (01) ==
LOC: RAD 08:45
PROVIDERS: PCP Family Medicine; Visit Provider Family Medicine
DX: M54.9 Dorsalgia, unspecified (principal); G89.29 Other chronic pain; M54.50 Low back pain, unspecified; M48.07 Spinal stenosis, lumbosacral region; Z13.6 Encounter for screening for cardiovascular disorders
CPT/HCPCS: 72100; 80053; 80061; 82306; 83036; 84439; 84443; 85025

== ENCOUNTER 2025-09-28 07:25 | Outpatient (CLI) | payer OTHER, SELFPAY ==
--- NOTE | 2025-09-28 08:00 | MR_ITS ---
WS: [id number] MRI LUMBAR SPINE NONCONTRAST HISTORY: chronic lower back pain COMPARISON: Radiograph 09/21/2025 TECHNIQUE: Sagittal and axial multisequence imaging is submitted. Normal alignment. No marrow edema or compression fractures. Schmorl's nodes at several vertebral bodies including T12, L1 and L2. Disc spaces and vertebral body heights are well-preserved. Conus terminates normally at L1. L1-L2: Normal. L2-L3: Mild disc bulging, ligamentum flavum and facet arthritis. No significant stenosis. L3-L4: Mild disc bulging with ligamentum flavum and facet arthritis. Mild bilateral foraminal narrowing. There is mild disc contact on the exiting L3 nerve roots. L4-L5: Mild annular disc bulging and slight osteophytic ridging. Moderate ligamentum flavum and facet arthritis. Mild to moderate bilateral foraminal stenosis. Disc contacts the exiting L4 nerve roots, RIGHT greater than LEFT. L5-S1: Mild annular disc bulging and mild osteophytic ridging. Mild facet arthritis. There is very slight disc contact on the traversing S1 nerve roots but no displacement. Moderate bilateral foraminal stenosis with disc osteophyte contacting the exiting L5 nerve roots. Paravertebral soft tissues are normal. MR/MR lumbar spine wo con* [id number] IMPRESSION: 1. No acute lumbar spine fracture or severe high-grade stenosis. 2. Bilateral foraminal stenosis from L3-4 to L5-S1 due to disc, osteophyte and facet disease. 3. No significant foraminal stenosis at L5-S1. Moderate foraminal stenosis at L5-S1 with disc osteophyte contacting the exiting L5 nerve roots. 4. Mild foraminal stenosis at L3-4 and mild to moderate at L4-5. Mild disc con tact on the exiting nerve roots at these levels.
== END 2025-09-28 07:26 | disposition home or self-care (01) ==
LOC: RAD 07:26
PROVIDERS: PCP Family Medicine; Visit Provider Family Medicine
DX: M48.061 Spinal stenosis, lumbar region without neurogenic claudication (principal); M48.07 Spinal stenosis, lumbosacral region; M54.50 Low back pain, unspecified; G89.29 Other chronic pain
CPT/HCPCS: 72148

== ENCOUNTER → 2025-09-29 09:58 | Outpatient (BNVA) | payer OTHER, SELFPAY | PROVIDERS: PCP Family Medicine; Visit Provider Orthopaedic Surgery | DX: Z01.818 Encounter for other preprocedural examination (principal); M48.062 Spinal stenosis, lumbar region with neurogenic claudication; G89.29 Other chronic pain; R20.0 Anesthesia of skin; R20.2 Paresthesia of skin | CPT/HCPCS: 72110 ==